=== PATIENT | male | born 1960 | race Hispanic/Latino ===

== ENCOUNTER 2018-05-30 13:08 | Emergency (ER) | payer MEDICARE, OTHER ==
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
--- NOTE | 2018-05-30 18:13 | Magnetic Resonance Report ---
FINAL REPORT EXAM: MR BRAIN WO CON HISTORY: head injury with possible subdural hemorrhage anterior to left temporal lobe in left tempor al fossa, ER INPATIENT TECHNIQUE: Multiplanar multisequence brain MR imaging without IV contrast. PRIORS: Head CT 05/30/2018 FINDINGS: Density on CT in the anterior left temporal fossa corresponds to a prominent extra-axial vein. No MRI evidence of hemorrhage. The included air filled sinuses contain no acute fluid level. Foci of hyperintensity in the cerebral white matter, while nonspecific, are present and usually attri buted to chronic ischemic gliosis. It can occur secondary to the normal aging process, hypertension, vasculitis, migraine related changes, or arterial sclerotic vascular disease. The differential includ es any cause of gliosis as well as demyelination in the appropriate clinical setting. There is ventricular and sulcal prominence compatible with global symmetric cerebrocortical atrophy. The brain is without mass, mass effect, hemorrhage, or acute infarct. There are no areas of brain res tricted diffusion to suggest an acute ischemic infarct. There is no midline shift or brain edema. IMPRESSION: No acute CVA, hemorrhage, or brain mass Density on CT in the anterior left temporal fossa corresponds to a prominent extra-axial vein.
[2018-05-30 18:45] VITALS: BP 154/74
== END 2018-05-30 18:52 | disposition home or self-care (01) ==
LOC: ED 13:08
DX: R51 Headache (principal); I10 Essential (primary) hypertension; E11.40 Type 2 diabetes mellitus with diabetic neuropathy, unspecified; F31.9 Bipolar disorder, unspecified; F20.9 Schizophrenia, unspecified; K21.9 Gastro-esophageal reflux disease without esophagitis; Z86.711 Personal history of pulmonary embolism
CPT/HCPCS: 70450; 70551; 99283

== ENCOUNTER 2019-07-17 02:33 | Inpatient (IN) | payer MEDICARE ==
[2019-07-17] MEDS ORDERED: SODIUM CHLORIDE 0.9% 1000 ML 1,000 ML IV ONE ×2 (03:11→04:31)
[2019-07-17 03:52] LABS: Hematocrit 30.8 % (35.5-45.6); Hemoglobin 10.9 gm/dl (11.8-15.2); Mean Corpuscular HGB Conc 35 % (32-34); Mean Corpuscular Volume 91 fl (84-94); Platelet Count 226 K/mm3 (140-440); Red Blood Count 3.37 M/mm3 (3.65-5.03); Red Cell Distribution Width 15.9 % (13.2-15.2)
[2019-07-17 04:04] LABS: INR 1.06 (0.87-1.13)
[2019-07-17 04:15] LABS: Albumin 3.5 g/dL (3.9-5); Calcium 9.8 mg/dL (8.4-10.2)
[2019-07-17] MEDS ORDERED: DEXTROSE 50% IN WATER (25GM) 50 ML SYRINGE IV ONE (04:30)
[2019-07-17] MEDS ORDERED: SODIUM BICARB 8.4% 50 MEQ/50 ML SYRINGE IV ONE (04:30)
[2019-07-17] MEDS ORDERED: INSULIN REGULAR, HUMAN 100 UNITS/1 ML IV ONE (04:30)
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
[2019-07-17 04:39] LABS: Anisocytosis 1+; Band Neutrophils # (Manual) 0.4 K/mm3; Basophils % (Manual) 0 % (0.0-1.8); Eosinophils % (Manual) 0 % (0.0-4.3); Total Cells Counted 100
[2019-07-17 04:40] LABS: Platelet Estimate Consistent w Auto
[2019-07-17] MEDS ORDERED: KETOROLAC 30 MG/1 ML INJ IV ONE (05:13)
--- NOTE | 2019-07-17 05:23 | Cat Scan Report ---
CT ABDOMEN AND PELVIS WITH CONTRAST INDICATION / CLINICAL INFORMATION: Pt complains of an abd pain with G.I. bleed. TECHNIQUE: Axial CT images were obtained through the abdomen and pelvis after 100 mL Omnipaque [address] scans at this location are performed using CT dose reduction for ALARA by means of automated exposure control. COMPARISON: Ultrasound dated 04/20/07 FINDINGS: LOWER CHEST: No significant abnormality. LIVER: Liver appears nodular and heterogeneous with mild enlargement of the caudate lobe likely repre senting hepatic cirrhosis. There is recanalization of the periumbilical vein. Portal vein appears pat ent but there are varices in the gastrohepatic ligament and posterior gastric varices. GALLBLADDER: Surgically absent. There is a spilled gallstone adjacent to the right lobe of the liver. BILE DUCTS: No significant abnormality. PANCREAS: No significant abnormality. SPLEEN: No significant abnormality. ADRENALS: Left adrenal nodule containing macroscopic fat characteristic of adrenal myelolipoma. This lesion measures 3.9 x 3.7 x 3.5 cm. Right adrenal gland is normal. RIGHT KIDNEY and URETER: No significant abnormality. LEFT KIDNEY and URETER: No significant abnormality. STOMACH and SMALL BOWEL: Mild thickening and inflammation in the region of the pylorus versus duodena l bulb possibly representing peptic ulcer. No extraluminal gas or fluid collection. No small bowel ab normality. COLON: No significant abnormality. APPENDIX: No significant abnormality. PERITONEUM: No free fluid. No free air. No fluid collection. LYMPH NODES: No significant adenopathy. AORTA and ARTERIES: Mild atherosclerotic calcification without acute abnormality. IVC and VEINS: No significant abnormality. URINARY BLADDER: No significant abnormality. REPRODUCTIVE ORGANS: No significant abnormality. ADDITIONAL FINDINGS: None. SKELETAL SYSTEM: No significant abnormality. IMPRESSION: 1. Mild thickening and inflammation in the region of the pylorus versus duodenal bulb possibly repres enting peptic ulcer. No CT evidence for perforation or abscess. 2. 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 3. Prior cholecystectomy with a spilled gallstone adjacent to the right lobe of the liver. 4. Benign left adrenal myelolipoma. Signer Name: Kiara Burdick MD Signed: 07/17/2019 5:18 AM Workstation Name: [id number]
[2019-07-17] MEDS ORDERED: SODIUM CHLORIDE 0.9% 1000 ML 1,000 ML IV SCH (05:45)
[2019-07-17] MEDS: NORepinephrine/NS 4 MG-250 ML 4 MG/250 ML BAG IV SCH ×3 (07:20→15:08)
[2019-07-17 07:50] LABS: Hematocrit 23.5 % (35.5-45.6)
[2019-07-17 08:14] LABS: Albumin 2.6 g/dL (3.9-5); Calcium 8.4 mg/dL (8.4-10.2)
[2019-07-17] MEDS ORDERED: SODIUM CHLORIDE 0.9% 500 ML 500 ML IV ONE ×2 (08:22→10:12)
[2019-07-17] MEDS ORDERED: PANTOPRAZOLE 40 MG INJ IV ONE ×2 (08:23→10:06)
--- NOTE | 2019-07-17 08:27 | History and Physical Report ---
History of Present Illness Date of examination: 07/17/19 Date of admission: 07/17/19 Chief complaint: Acute rectal bleeding History of present illness: Patient is a 58-year-old male with history of hypertension, diabetes mellitus type 2, bipolar and schizophrenia presented to the hospital with history of acute rectal bleeding which started from last night. Patient states that has a history of chronic cramps abdominal pain. States his pain worsened after his cholecystectomy last year. Patient states for the last week he "cannot keep anything down except for [id number] and vitamins". Patient states he is not nauseous and he has not been vomiting but he states food "just will not go down". Patient states that last night he noticed blood with a bowel movement and today he has noticed some dizziness and did have a syncopal episode when trying to leave the bathroom after having a bloody bowel movement. He denies chest pain shortness of breath fevers or chills at this time. He decided to come to the ER for further evaluation and management. His initial lab work showed potassium of 6.2, elevated creatinine and hemoglobin of 10.9 which d ropped down to 8 this morning. Patient also developed hypotension and shortness of breath after having a large rectal bleeding while he was waiting in the ER room. Patient was immediately placed on central line, given 2 units of packed RBC, started on Levophed, IV fluid, GI was consulted in the ER.. Patient now getting admitted to ICU for further stabilization and management. Past Medical Hx - Past Medical History Previous Medical History?: Yes Hx Hypertension: Yes Hx Diabetes: Yes Hx Pulmonary Embolism: No Hx GERD: Yes Hx Seizures: Yes Hx Psychiatric Treatment: Yes (bipolar, schizophrenia) Additional medical history: herniated disc,neuropathy,concussions x2, shoulder dislocations - Surgical History Past Surgical History?: Yes Hx Cholecystectomy: Yes (may 11, 2019) - Social History Smoking Status: Never Smoker Substance Use Type: None -Family history Hx Hypertension: Yes Hx Diabetes: Yes Review of System: Constitutional: no fever, no chills, no weight loss Ears, eyes, nose, mouth and throat: no nasal congestion, no nasal discharge, no sinus pressure, no vision change, no red eye. Neck: No neck pain or rigidity. Cardiovascular: No chest pain, no orthopnea, no palpitations, no leg swelling Respiratory: No shortness of breath, no cough, no congestion, no wheezing Gastrointestinal: + abdominal pain, + rectal bleeding, + nausea, no vomiting Genitourinary : no dysuria, no hematuria Musculoskeletal: no joint swelling or muscle ache Integumentary: no rash, no pruritis Neurological: no parathesias, no numbness, no tingling Endocrine: no cold or heat intolerance, no polyuria or polydipsia Hematologic/Lymphatic: no easy bruising, no easy bleeding, no gland swelling Allergic/Immunologic: no urticaria, no angioedema. Medications and Allergies Allergies Allergy/AdvReac Type Severity Reaction Status Date / Time No Known Allergies Allergy Verified 07/17/19 05:52 Home Medications Medication Instructions Recorded Confirmed Last Taken Type Atorvastatin [Lipitor] 40 mg PO QHS 08/27/13 12/04/13 12/04/13 04:30 History 40 Azithromycin [Zithromax Z-LAURA] 250 mg PO DAILY #6 tablet 08/27/13 12/04/13 Unknown Rx Divalproex ER [Depakote ER] 2,500 mg PO QDAY 08/27/13 12/04/13 12/03/13 20:00 History 2500 Esomeprazole Magnesium [Nexium] 40 mg PO QDAY 08/27/13 12/04/13 12/04/13 04:30 History 40 FLUoxetine [Prozac] 20 mg PO QDAY 08/27/13 12/04/13 12/04/13 04:30 History 20 Ibuprofen [Motrin 800 MG tab] 800 mg PO Q8H PRN #30 tablet 08/27/13 12/04/13 12/04/13 04:30 Rx 800 Lisinopril [Zestril] 30 mg PO QDAY 08/27/13 12/04/13 12/03/13 20:00 History 30 Metformin HCl [Glumetza] 1,000 mg PO BID 08/27/13 12/04/13 12/03/13 20:00 History 1000 dilTIAZem CD [Cardizem Cd] 120 mg PO BID 08/27/13 12/04/13 12/03/13 20:00 History 120 glyBURIDE [Diabeta] 5 mg PO DAILY 08/27/13 12/04/13 12/03/13 20:00 History 5 Ondansetron [Zofran] 4 mg PO Q8HR PRN #15 tablet 12/04/13 Unknown Rx oxyCODONE /ACETAMINOPHEN [Percocet 1 tab PO Q6HR PRN #15 tablet 12/04/13 Unknown Rx 5/325] Butalb/Acetamin/Caff 50-325-40 1 tab PO Q8HR PRN #30 tablet 05/30/18 Unknown Rx [Fioricet] Ibuprofen [Motrin 800 MG tab] 800 mg PO TID PRN #30 tablet 05/30/18 Unknown Rx Dicyclomine [Bentyl] 20 mg PO QID PRN #20 tablet 06/20/19 Unknown Rx Active Meds: Active Medications Sodium Chloride (Nacl 0.9% 1000 Ml) 1,000 mls @ 125 mls/hr IV DIRECT TEGAN Norepinephrine (Levophed Drip 4 Mg/Ns 250 Ml) 4 mg in 250 mls @ 7.5 mls/hr IV TITR TEGAN; Protocol Last Admin: 07/17/19 07:20 Dose: 2 mcg/min, 7.5 mls/hr Documented by: Vasopressin 20 unit/ Sodium (Chloride) 101 mls @ 9.09 mls/hr IV TITR TEGAN; Protocol Stop: 07/17/19 23:00 Vasopressin 20 unit/ Sodium (Chloride) 101 mls @ 9.09 mls/hr IV TITR TEGAN; Protocol Sodium Chloride (Nacl 0.9% 500 Ml) 500 mls @ 0 mls/hr IV ONCE ONE Stop: 07/17/19 08:25 Exam - Physical Exam Narrative exam: GENERAL: well-developed short stature obese white male lying on bed appeared to be in mild discomfort. HEENT: Normocephalic. Atraumatic. No conjunctival congestion or icterus. Patient has moist mucous membranes. NECK: Supple. Trachea midline. CHEST/LUNGS: Clear to auscultated bilaterally, breathing nonlabored. No wheezes crackles or rhonchi. HEART/CARDIOVASCULAR: Regular in rate and rhythm. S1 and S2 positive. ABDOMEN: Abdomen is soft, + diffuse tender. Patient has normal bowel sounds. SKIN: There is no rash. Warm and dry. NEURO: No focal motor deficit. Follows command. MUSCULOSKELETAL: No joint effusion or tenderness. EXTRIMITY: No edema, no cyanosis or clubbing. PSYCH: Cooperative. - Constitutional Vitals: Temp Pulse Resp BP Pulse Ox 98 F 95 H 22 85/51 98 07/17/19 03:07 04/15/20 06:45 07/17/19 06:45 07/17/19 06:45 07/17/19 03:07 Results - Labs CBC & Chem 7: 07/18/19 04:20 07/17/19 07:22 Labs: Abnormal lab results 07/17/19 07/17/19 07/17/19 Range/Units 03:34 03:34 07:22 WBC 13.9 H (4.5-11.0) K/mm3 RBC 3.37 L (3.65-5.03) M/mm3 Hgb 10.9 L 8.0 L (11.8-15.2) gm/dl Hct 30.8 L 23.5 L D (35.5-45.6) % MCHC 35 H (32-34) % RDW 15.9 H (13.2-15.2) % Seg Neuts % (Manual) 80.0 H (40.0-70.0) % Lymphocytes % (Manual) 11.0 L (13.4-35.0) % Seg Neutrophils # Man 11.1 H (1.8-7.7) K/mm3 Sodium 118 L* (137-145) mmol/L Potassium 6.2 H* (3.6-5.0) mmol/L Chloride 83.0 L (98-107) mmol/L Carbon Dioxide (22-30) mmol/L BUN 31 H (9-20) mg/dL Glucose 114 H (75-100) mg/dL Total Protein (6.3-8.2) g/dL Albumin 3.5 L (3.9-5) g/dL 07/17/19 Range/Units 07:22 WBC (4.5-11.0) K/mm3 RBC (3.65-5.03) M/mm3 Hgb (11.8-15.2) gm/dl Hct (35.5-45.6) % MCHC (32-34) % RDW (13.2-15.2) % Seg Neuts % (Manual) (40.0-70.0) % Lymphocytes % (Manual) (13.4-35.0) % Seg Neutrophils # Man (1.8-7.7) K/mm3 Sodium 122 L (137-145) mmol/L Potassium 5.5 H (3.6-5.0) mmol/L Chloride 87.9 L (98-107) mmol/L Carbon Dioxide 17 L (22-30) mmol/L BUN 34 H (9-20) mg/dL Glucose 146 H (75-100) mg/dL Total Protein 4.3 L D (6.3-8.2) g/dL Albumin 2.6 L (3.9-5) g/dL Assessment and Plan Acute lower GI bleed -Patient having active rectal bleeding -Hb dropped as low as ~ 8 -Emergently transfused 2 units of packed RBC, also getting IV fluid -GI has been consulted for emergent endoscopy Severe symptomatic anemia -Due to acute GI bleed -Status post 2 units of packed RBC transfusion, continue IV fluid, monitor H&H SIRS due to active GI bleed, need to rule out infectious cause -We will get a UA and blood culture Syncope, likely vasovagal due to severe dehydration from acute GI bleed -CT head unremarkable, continue supportive care with IV fluid, frequent neuro check VELIA likely due to hypovolemia -Continue to monitor BMP, if renal function continues to decline will consider consulting nephrology Hyperkalemia, likely due to declining renal function -K was 6.2 on admission, continue to monitor Hypotensive shock, due to active GI bleeding -Continue Levophed, IV fluid, transfuse as needed -Consulted critical care -Status post 2 unit of packed RBC transfusion Diabetes mellitus type 2, continue SSI h/o schizophrenia/bipolar disorder - will cont home meds when can take po meds DVT prophylaxis, SCD The high probability of a clinically significant, sudden or life threatening deterioration of the [GI, CVS] system(s) required my full and direct attention, intervention and personal management. The aggregate critical care time was [45] minutes. This time is in addition to time spent performing reported procedures but includes the following: [x] Data Review and interpretation [x] Patient assessment and monitoring of vital signs [x] Documentation [x] Medication orders and management
[2019-07-17] MEDS ORDERED: LIDOCAINE (1%) 10 MG/1 ML VIAL 20 ML MDV ONE (08:29)
[2019-07-17] MEDS ORDERED: SODIUM CHLORIDE 0.9% 250ML 250 ML ONE ×2 (08:38→08:50)
[2019-07-17] MEDS ORDERED: SODIUM CHLORIDE 0.9% 500 ML 500 ML IV SCH (09:00)
[2019-07-17] MEDS ORDERED: VASOPRESSIN 20 UNIT in SODIUM CHLORIDE 0.9% 100 ML IV SCH ×2 (09:00→11:00)
--- NOTE | 2019-07-17 09:08 | Event Note ---
Date: 07/17/19 This is a 58-year-old man who has been admitted to the hospitalist service. I do not yet see an admitting note on the system. Apparently, he required pressors. I do see his serial hemoglobins which show a drop from 10.9-8. I was asked by the nurse to see the patient as his condition was deteriorating and a central line was thought to be necessary. The nurse had already called Dr. Damon, the hospitalist. A second pressor was ordered, that is, vasopressin. I have reviewed the patient's CT examination which indicates the presence of v arices and chronic cirrhosis. I do not know whole lot further about his presentation or history. On examination the patient is able to tell me his name. He is lethargic but protecting his airway. Nurses report to me blood clots per rectum. They also state he has had some dark stool. There is no stool available for my inspection. There is a smell which may be consistent with melena. There is also some minimal dark brown feces on the patient's thigh. Physical exam Patient is extremely pale HEENT no gross icterus Neck supple no meningismus Cardiovascular patient is clamped down and very pale. Regular rhythm and rate without murmur Chest clear to auscultation GI hepatomegaly mildly distended not grossly tender Musculoskeletal exam very pale without acute deformity Neurological exam no gross focal deficits Impression Hemorrhagic shock Varices Chronic liver disease Plan I called the blood bank. I ordered an emergency transfusion of 2 units. I ordered a repeat CBC. I placed a central line in the right femoral vein without difficulty. I spoke to Dr. Ponce the learning design specialist who will be seeing this patient. I spoke to Dr. Liz the GI specialist who will be seeing this patient. I ordered octreotide. I think the patient should come off the second pressor. I think he should improve with blood products. Critical care and GI to see patient. I have ordered a CT angiogram of the patient's abdomen and pelvis assuming he is stable enough to have this done. He will require serial monitoring and obviously further care by the hospitalist service and consultants. Procedure Right femoral vein triple-lumen placement The right femoral triangle was prepped and draped in the usual sterile fashion. Was anesthetized with 5 cc of lidocaine. Using Seldinger technique the right femoral vein was successfully catheterized and a triple lumen catheter was placed. Antibiotic disc applied. Sutured in with nylon. I izabel a CBC. Dark nonpulsatile blood was noted. Procedure was well-tolerated. Critical care time with this patient 60 minutes
--- NOTE | 2019-07-17 09:41 | XRay Report ---
CHEST 1 VIEW INDICATION: sob. COMPARISON: none FINDINGS: SUPPORT DEVICES: None. HEART / MEDIASTINUM: No significant abnormality. LUNGS / PLEURA: No significant pulmonary or pleural abnormality. No pneumothorax. ADDITIONAL FINDINGS: IMPRESSION: 1. No acute cardiopulmonary disease Signer Name: Suhail Sousa MD Signed: 07/17/2019 9:36 AM Workstation Name: [id number]
[2019-07-17] MEDS ORDERED: SODIUM CHLORIDE 0.9% 1000 ML 1,000 ML ONE ×4 (10:06→18:15)
[2019-07-17] MEDS: OCTREOTIDE 500 MCG in SODIUM CHLORIDE 0.9% 100 ML IV SCH (10:13)
[2019-07-17] MEDS ORDERED: NORepinephrine/NS 4 MG-250 ML 4 MG/250 ML BAG IV ONE ×2 (10:14→14:15)
[2019-07-17] MEDS ORDERED: LIDOCAINE (1%) 10 MG/1 ML VIAL 20 ML MDV INFILTRATI ONE (10:41)
[2019-07-17 11:49] LABS: Hemoglobin TNR gm/dl (11.8-15.2); Red Blood Count TNR M/mm3 (3.65-5.03)
[2019-07-17 11:50] LABS: Hematocrit TNR % (35.5-45.6); Lymphocytes % (Auto) TNR % (13.4-35.0); Mean Corpuscular HGB Conc TNR % (32-34); Mean Corpuscular Volume TNR fl (84-94); Mean Platelet Volume TNR fl (6-12); Monocytes % (Auto) TNR % (0.0-7.3); Platelet Count TNR K/mm3 (140-440); Red Cell Distribution Width TNR % (13.2-15.2)
[2019-07-17 11:51] LABS: Basophils # (Auto) TNR K/mm3 (0.0-0.1); Basophils % (Auto) TNR % (0.0-1.8); Eosinophils # (Auto) TNR K/mm3 (0.0-0.4); Eosinophils % (Auto) TNR % (0.0-4.3); Lymphocytes # (Auto) TNR K/mm3 (1.2-5.4); Monocytes # (Auto) TNR K/mm3 (0.0-0.8)
[2019-07-17 12:28] LABS: Hematocrit 32.8 % (35.5-45.6); Hemoglobin 11.1 gm/dl (11.8-15.2)
--- NOTE | 2019-07-17 13:34 | Anesthesia Consultation ---
Anesthesia Consult and Med Hx Date of service: 07/17/19 - Airway Anesthetic Teeth Evaluation: Poor ROM Head & Neck: Adequate Mental/Hyoid Distance: Adequate Mallampati Class: Class I Intubation Access Assessment: Probably Good - Pulmonary Exam CTA: Yes - Cardiac Exam Cardiac Exam: No Murmur (irregular rhythm) - Pre-Operative Health Status ASA Pre-Surgery Classification: ASA4, Emergency Proposed Anesthetic Plan: MAC - Pulmonary Hx Respiratory Symptoms: No - Cardiovascular System Hx Hypertension: Yes Hx Heart Attack/AMI: No (hx "mild" CHF per patient) Hx Percutaneous Transluminal Coronary Angioplasty (PTCA): No Hx Cardia Arrhythmia: Yes (a-fib) Hx Pacemaker: No - Central Nervous System Hx Seizures: Yes Hx Psychiatric Problems: Yes (bipolar disorder) - Endocrine Hx Renal Disease: Yes (hyperkalemia (improved), hyponatremia, VELIA) Hx Cirrhosis: Yes Hx Insulin Dependent Diabetes: No Hx Non-Insulin Dependent Diabetes: No Hx Thyroid Disease: No - Hematic Hx Anemia: Yes (2/2 GI Bleed) - Other Systems Hx Obesity: Yes (BMI 36) - Additional Comments Anesthesia Medical History Comments: Presented with melena and HD instability requiring pressors. Significant electrolyte abnormalities noted. Now off pressors, s/p blood transfusion. Scheduled for EGD, possible colonoscopy.
[2019-07-17] MEDS ORDERED: KETAMINE/STERILE WATER 50 MG/ML SYRINGE ONE (13:51)
[2019-07-17] MEDS ORDERED: MIDAZOLAM 2 MG/2 ML INJ ONE (13:51)
[2019-07-17] MEDS ORDERED: LIDOCAINE MPF (2%) 20 MG/1 ML VIAL 5 ML ONE (13:51)
--- NOTE | 2019-07-17 14:25 | Anesthesia Day of Surgery ---
Anesthesia Day of Surgery - Day of Surgery Patient Examined: Yes Patient H&P Reviewed: Yes Patient is NPO: Yes
--- NOTE | 2019-07-17 14:57 | Consultation ---
History of Present Illness Consult date: 07/17/19 Requesting physician: NICANOR WILLIAMSON Reason for consult: other (Acute Hypoxemic Resp Failure; Acute G.I. Bleed; Shock) History of present illness: PULMONARY/CCM CONSULT NOTE (Full dictation # [id number]) Please see dictated notes for full details Medications and Allergies Allergies Allergy/AdvReac Type Severity Reaction Status Date / Time No Known Allergies Allergy Verified 07/17/19 05:52 Home Medications Medication Instructions Recorded Confirmed Last Taken Type Atorvastatin [Lipitor] 40 mg PO QDAY 08/27/13 07/19/19 12/04/13 04:30 History 40 Divalproex ER [Depakote ER] 2,500 mg PO QHS 08/27/13 07/19/19 12/03/13 20:00 History 2500 FLUoxetine [Prozac] 20 mg PO QDAY 08/27/13 07/19/19 12/04/13 04:30 History 20 Lisinopril [Zestril] 30 mg PO QHS 08/27/13 07/19/19 12/03/13 20:00 History 30 Metformin HCl [Glumetza] 1,000 mg PO BID 08/27/13 07/19/19 12/03/13 20:00 History 1000 Empagliflozin [Jardiance] 25 mg PO QDAY 07/19/19 07/19/19 Unknown History Famotidine [Pepcid] 20 mg PO AC PRN 07/19/19 07/19/19 Unknown History Multivitamin [One-Daily 1 each PO QDAY 07/19/19 07/19/19 Unknown History Multi-Vitamin] Sitagliptin Phosphate [Januvia] 100 mg PO QDAY 07/19/19 07/19/19 Unknown History dilTIAZem HCl [Diltiazem 24Hr ER 120 mg PO QDAY 07/19/19 07/19/19 Unknown History (Xr)] Active Meds: Active Medications Norepinephrine (Levophed Drip 4 Mg/Ns 250 Ml) 4 mg in 250 mls @ 7.5 mls/hr IV TITR TEGAN; Protocol Last Titration: 07/17/19 13:02 Dose: 20 mcg/min, 75 mls/hr Documented by: Vasopressin 20 unit/ Sodium (Chloride) 101 mls @ 9.09 mls/hr IV TITR TEGAN; Protocol Sodium Chloride (Nacl 0.9% 500 Ml) 500 mls @ 0 mls/hr IV ONCE TEGAN Stop: 07/17/19 18:00 Octreotide Acetate 500 mcg/ (Sodium Chloride) 101 mls @ 5.05 mls/hr IV TITR TEGAN; Protocol Last Admin: 07/17/19 10:13 Dose: 25 mcg/hr, 5.05 mls/hr Documented by: Sodium Chloride (Nacl 0.9% 1000 Ml) 1,000 mls @ 50 mls/hr IV DIRECT TEGAN Physical Examination Vital signs: Vital Signs BP 87/48 07/17/19 02:44 Results - Laboratory Findings CBC and BMP: 07/19/19 03:13 07/19/19 03:13 PT/INR, D-dimer PT 13.9 Sec. (12.2-14.9) 07/17/19 03:34 INR 1.06 (0.87-1.13) 07/17/19 03:34 Abnormal lab findings: Abnormal Labs 07/17/19 07/17/19 07/17/19 03:34 03:34 03:34 WBC 13.9 H RBC 3.37 L Hgb 10.9 L Hct 30.8 L MCHC 35 H RDW 15.9 H Seg Neuts % (Manual) 80.0 H Lymphocytes % (Manual) 11.0 L Seg Neutrophils # Man 11.1 H Sodium 118 L* Potassium 6.2 H* Chloride 83.0 L Carbon Dioxide BUN 31 H Glucose 114 H Total Protein Albumin 3.5 L Crossmatch See Detail 07/17/19 07/17/19 07/17/19 07:22 07:22 12:16 WBC RBC Hgb 8.0 L 11.1 L D Hct 23.5 L D 32.8 L D MCHC RDW Seg Neuts % (Manual) Lymphocytes % (Manual) Seg Neutrophils # Man Sodium 122 L Potassium 5.5 H Chloride 87.9 L Carbon Dioxide 17 L BUN 34 H Glucose 146 H Total Protein 4.3 L D Albumin 2.6 L Crossmatch
[2019-07-17] MEDS ORDERED: SODIUM CHLORIDE 0.9% 500 ML 500 ML IV NR (15:10)
[2019-07-17] MEDS ORDERED: ROCURONIUM 50 MG/5 ML INJ IV ONE ×2 (15:19→15:20)
[2019-07-17] MEDS ORDERED: SODIUM CHLORIDE 0.9% 100 ML ONE ×2 (15:27→15:36)
--- NOTE | 2019-07-17 15:40 | Consultation ---
REFERRING PHYSICIAN: Milli Borrero MD INDICATION: GI bleed. HISTORY OF PRESENT ILLNESS: The patient is a 58-year-old white male who presents for GI bleed. The patient reports 24 hours of bright red blood per rectum and clots and then later today in the Emergency Room, he was noted to have black tarry stools. The patient denies a history of GI bleed in the past. He denies nausea, vomiting. Denies any other specific GI complaints. The patient has had a recent history of some abdominal pain, status post cholecystectomy in the past. Denies any other specific complaints. PAST MEDICAL HISTORY: 1. Hypertension. 2. PE. 3. GERD. 4. Neuropathy. MEDICATIONS: Reviewed and updated in chart. ALLERGIES: No known drug allergies. SOCIAL HISTORY: Denies alcohol, tobacco or drug abuse. FAMILY HISTORY: Negative for colon cancer, IBD, or liver disease. REVIEW OF SYSTEMS: GENERAL: Reports some weakness. HEENT: No visual complaints or tinnitus. PULMONARY: No shortness of breath. No cough. No chest pain. GASTROINTESTINAL: Reports rectal bleeding. All points of 13-point review of systems otherwise negative. PHYSICAL EXAMINATION: VITAL SIGNS: Temperature of 98.7, pulse 100, respirations 18, blood pressure 116/48. GENERAL: Fairly pale looking white male in no acute distress. HEENT: Pupils equal, round and reactive. PULMONARY: Clear. CARDIOVASCULAR: Regular rhythm. Normal S1, S2. ABDOMEN: Positive bowel sounds, soft. SKIN: No obvious rashes. LABORATORY DATA: Pertinent for white count 13.9, hemoglobin and hematocrit of 10.9 and 30.8, platelet count of 226. Chem-7; sodium of 122, potassium 5.5, chloride 88, CO2 17, BUN and creatinine of 34 and 1.3. ASSESSMENT: A 58-year-old male with past medical history noted above, now presents with signs of gastrointestinal bleed with initially noted bloody clots and now black tarry stools with clots. Concern for both upper and lower GI pathology. PLAN: 1. Follow hematocrit and transfuse as needed. 2. It should be noted that the patient had a CT scan of abdomen and pelvis with contrast in the Emergency Room yesterday, which showed some thickening of the duodenal bulb, which may represent an ulcer. Whether or not this could be the source of bleeding as possible. 3. PPI IV drip. 4. If there is a vague representation that the patient may have cirrhosis, then we will start on octreotide for now. 5. EGD with possible colonoscopy today. 6. Further recommendation based on progress and results of the above. JOB# [id number] CAB/NTS
[2019-07-17] MEDS ORDERED: fentaNYL 250 MCG/5 ML INJ ONE (15:48)
[2019-07-17] MEDS ORDERED: ESMOLOL 100 MG/10 ML INJ IV ONE (15:48)
[2019-07-17] MEDS ORDERED: propofoL 200 MG/20 ML VIAL IV ONE (15:48)
[2019-07-17] MEDS ORDERED: PHENYLEPHRINE/NS 1,000 MCG/10 ML SYRINGE (OR USE) IV ONE (15:49)
[2019-07-17] MEDS ORDERED: HEPARIN/NS 5000 UNIT/500ML 1,000 ML IR ONE (15:53)
--- NOTE | 2019-07-17 15:53 | Consultation ---
History of Present Illness - Reason for Consult Consult date: 07/17/19 Massive upper GI bleed Requesting physician: MACRINA LIZ - History of Present Illness Patient is a 58-year-old male with history of hypertension, diabetes mellitus type 2, bipolar and schizophrenia presented to the hospital with history of acute rectal bleeding which started from last night. Unable to interview patient as he has been intubated and sedated for his GI procedure. The was being evaluated by GI for GI bleed. Dr. Liz performed an endoscopy demonstrating a large ulcer in the gastric antrum, near the duodenum. While performing endoscopy to control the ulcer, the ulcer became uncontrolled and the patient began to hemodynamically decline. I was then contacted and called the IR team in to assist with angiographic control. Surgery was then consulted. At this point, patient is already received 2 units of emergency release blood. He is receiving his third and fourth unit. He is on 1 pressor at the time. His blood pressure is starting to stabalize. There is no family available for further information. - Past Medical History Previous Medical History?: Yes Hx Hypertension: Yes Hx Diabetes: Yes Hx Pulmonary Embolism: No Hx GERD: Yes Hx Seizures: Yes Hx Psychiatric Treatment: Yes (bipolar, schizophrenia) Additional medical history: herniated disc,neuropathy,concussions x2, shoulder dislocations - Surgical History Past Surgical History?: Yes Hx Cholecystectomy: Yes (may 11, 2019) - Social History Smoking Status: Never Smoker Substance Use Type: None -Family history Hx Hypertension: Yes Hx Diabetes: Yes Medications and Allergies Allergies Allergy/AdvReac Type Severity Reaction Status Date / Time No Known Allergies Allergy Verified 07/17/19 05:52 Home Medications Medication Instructions Recorded Confirmed Last Taken Type Atorvastatin [Lipitor] 40 mg PO QHS 08/27/13 12/04/13 12/04/13 04:30 History 40 Azithromycin [Zithromax Z-LAURA] 250 mg PO DAILY #6 tablet 08/27/13 12/04/13 Unknown Rx Divalproex ER [Depakote ER] 2,500 mg PO QDAY 08/27/13 12/04/13 12/03/13 20:00 History 2500 Esomeprazole Magnesium [Nexium] 40 mg PO QDAY 08/27/13 12/04/13 12/04/13 04:30 History 40 FLUoxetine [Prozac] 20 mg PO QDAY 08/27/13 12/04/13 12/04/13 04:30 History 20 Ibuprofen [Motrin 800 MG tab] 800 mg PO Q8H PRN #30 tablet 08/27/13 12/04/13 12/04/13 04:30 Rx 800 Lisinopril [Zestril] 30 mg PO QDAY 08/27/13 12/04/13 12/03/13 20:00 History 30 Metformin HCl [Glumetza] 1,000 mg PO BID 08/27/13 12/04/13 12/03/13 20:00 H istory 1000 dilTIAZem CD [Cardizem Cd] 120 mg PO BID 08/27/13 12/04/13 12/03/13 20:00 Histor y 120 glyBURIDE [Diabeta] 5 mg PO DAILY 08/27/13 12/04/13 12/03/13 20:00 History 5 Ondansetron [Zofran] 4 mg PO Q8HR PRN #15 tablet 12/04/13 Unknown Rx oxyCODONE /ACETAMINOPHEN [Percocet 1 tab PO Q6HR PRN #15 tablet 12/04/13 Unknown Rx 5/325] Butalb/Acetamin/Caff 50-325-40 1 tab PO Q8HR PRN #30 tablet 05/30/18 Unknown Rx [Fioricet] Ibuprofen [Motrin 800 MG tab] 800 mg PO TID PRN #30 tablet 05/30/18 Unknown Rx Dicyclomine [Bentyl] 20 mg PO QID PRN #20 tablet 06/20/19 Unknown Rx Active Meds: Active Medications Norepinephrine (Levophed Drip 4 Mg/Ns 250 Ml) 4 mg in 250 mls @ 7.5 mls/hr IV TITR TEGAN; Protocol Last Admin: 07/17/19 15:08 Dose: 20 mcg/min, 75 mls/hr Documented by: Vasopressin 20 unit/ Sodium (Chloride) 101 mls @ 9.09 mls/hr IV TITR TEGAN; Protocol Sodium Chloride (Nacl 0.9% 500 Ml) 500 mls @ 0 mls/hr IV ONCE TEGAN Stop: 07/17/19 18:00 Octreotide Acetate 500 mcg/ (Sodium Chloride) 101 mls @ 5.05 mls/hr IV TITR TEGAN; Protocol Last Admin: 07/17/19 10:13 Dose: 25 mcg/hr, 5.05 mls/hr Documented by: Sodium Chloride (Nacl 0.9% 1000 Ml) 1,000 mls @ 50 mls/hr IV DIRECT TEGAN Sodium Chloride (Nacl 0.9% 500 Ml) 500 mls @ 0 mls/hr IV ONCE NR Stop: 07/17/19 23:59 Review of Systems ROS unobtainable: due to endotracheal tube, due to mental status Exam - Constitutional Vitals: Temp Pulse Resp BP Pulse Ox 98.3 F 101 H 18 124/48 100 07/17/19 14:29 07/17/19 15:43 07/17/19 14:29 07/17/19 15:43 07/17/19 15:43 General appearance: Present: severe distress (on pressors, intubated), obese (morbidly obese) - Respiratory Respiratory effort: other (intubated) - Abdominal General gastrointestinal: Present: other (distented) - Psychiatric Psychiatric: other (intubated) Results - Labs CBC & Chem 7: 07/17/19 12:16 07/17/19 07:22 Labs: Abnormal lab results 07/17/19 07/17/19 07/17/19 Range/Units 03:34 03:34 03:34 WBC 13.9 H (4.5-11.0) K/mm3 RBC 3.37 L (3.65-5.03) M/mm3 Hgb 10.9 L (11.8-15.2) gm/dl Hct 30.8 L (35.5-45.6) % MCHC 35 H (32-34) % RDW 15.9 H (13.2-15.2) % Seg Neuts % (Manual) 80.0 H (40.0-70.0) % Lymphocytes % (Manual) 11.0 L (13.4-35.0) % Seg Neutrophils # Man 11.1 H (1.8-7.7) K/mm3 Sodium 118 L* (137-145) mmol/L Potassium 6.2 H* (3.6-5.0) mmol/L Chloride 83.0 L (98-107) mmol/L Carbon Dioxide (22-30) mmol/L BUN 31 H (9-20) mg/dL Glucose 114 H (75-100) mg/dL Total Protein (6.3-8.2) g/dL Albumin 3.5 L (3.9-5) g/dL Crossmatch See Detail 07/17/19 07/17/19 07/17/19 Range/Units 07:22 07:22 12:16 WBC (4.5-11.0) K/mm3 RBC (3.65-5.03) M/mm3 Hgb 8.0 L 11.1 L D (11.8-15.2) gm/dl Hct 23.5 L D 32.8 L D (35.5-45.6) % MCHC (32-34) % RDW (13.2-15.2) % Seg Neuts % (Manual) (40.0-70.0) % Lymphocytes % (Manual) (13.4-35.0) % Seg Neutrophils # Man (1.8-7.7) K/mm3 Sodium 122 L (137-145) mmol/L Potassium 5.5 H (3.6-5.0) mmol/L Chloride 87.9 L (98-107) mmol/L Carbon Dioxide 17 L (22-30) mmol/L BUN 34 H (9-20) mg/dL Glucose 146 H (75-100) mg/dL Total Protein 4.3 L D (6.3-8.2) g/dL Albumin 2.6 L (3.9-5) g/dL Crossmatch - Imaging and Cardiology CT scan - abdomen: report reviewed, image reviewed Assessment and Plan 58-year-old cirrhotic with upper GI bleed from antral large ulceration on pressors, receiving blood products, who has been partially stabalized. I discussed the situation with Dr. Berger and we both believe that we should proceed with attempted IR control with angiography and embolization, and if unsusccessful, then possibly to OR, although the patient's comorbidities make his mortality even higher if he has to go to the OR. Recommend all pRBC be matched with FFP in a 1:1 ratio to prevent diluational coagulopathy. Will need platelets in a 1:2 ratio. (RBC:FFP:PLT 1:1:2). Will bring the patient to the pathology lab technician.
--- NOTE | 2019-07-17 15:54 | Consultation ---
History of Present Illness Consult date: 07/17/19 Reason for consult: other (GI bleed) Requesting physician: MACRINA LIZ Chief complaint: Passing clots since last night - History of present illness History of present illness: Patient is a 58-year-old male with history of hypertension, diabetes mellitus type 2, bipolar and schizophrenia presented to the hospital with history of acute rectal bleeding which started from last night. Unable to interview patient as he has been intubated and sedated for his GI procedure. Review of the records show that he has been complaining of chronic abdominal pain since his cholecystectomy last year. Recently he has had problems keeping food down. He denied nausea or vomiting to the staff. He had a bloody bowel movement last night and another one again in the ER today. Thereafter he developed hypotension and shortness of breath. Patient was immediately started on emergency release blood, pressors, IV fluids and GI was consulted. Dr. Liz attempted to do an endoscopy in the ER in hopes of controlling what was presumed to be an upper GI bleed. Per Dr. Liz, patient had a large ulcer in the antrum that was unable to be controlled endoscopically. Therefore interventional radiology and general surgery were consulted. At this point, patient is already received 2 units of emergency release blood. He is receiving his third and fourth unit. He is on 1 pressor at the time. His blood pressure is improving. There is no family available for further info rmation. In discussion with the staff, his past medical history may include coronary artery disease, congestive heart failure, and cirrhosis. Past History Past Medical History: atrial fib, CAD, diabetes, heart failure, hypertension, seizures, other (psychiatric hx) Past Surgical History: cholecystectomy Social history: alcohol abuse (history of - don't know about current use), other (unable to get info on rest) Family history: other (unknown) Medications and Allergies Allergies Allergy/AdvReac Type Severity Reaction Status Date / Time No Known Allergies Allergy Verified 07/17/19 05:52 Home Medications Medication Instructions Recorded Confirmed Last Taken Type Atorvastatin [Lipitor] 40 mg PO QHS 08/27/13 12/04/13 12/04/13 04:30 History 40 Azithromycin [Zithromax Z-LAURA] 250 mg PO DAILY #6 tablet 08/27/13 12/04/13 Unknown Rx Divalproex ER [Depakote ER] 2,500 mg PO QDAY 08/27/13 12/04/13 12/03/13 20:00 History 2500 Esomeprazole Magnesium [Nexium] 40 mg PO QDAY 08/27/13 12/04/13 12/04/13 04:30 History 40 FLUoxetine [Prozac] 20 mg PO QDAY 08/27/13 12/04/13 12/04/13 04:30 History 20 Ibuprofen [Motrin 800 MG tab] 800 mg PO Q8H PRN #30 tablet 08/27/13 12/04/13 12/04/13 04:30 Rx 800 Lisinopril [Zestril] 30 mg PO QDAY 08/27/13 12/04/13 12/03/13 20:00 History 30 Metformin HCl [Glumetza] 1,000 mg PO BID 08/27/13 12/04/13 12/03/13 20:00 History 1000 dilTIAZem CD [Cardizem Cd] 120 mg PO BID 08/27/13 12/04/13 12/03/13 20:00 Histo ry 120 glyBURIDE [Diabeta] 5 mg PO DAILY 08/27/13 12/04/13 12/03/13 20:00 History 5 Ondansetron [Zofran] 4 mg PO Q8HR PRN #15 tablet 12/04/13 Unknown Rx oxyCODONE /ACETAMINOPHEN [Percocet 1 tab PO Q6HR PRN #15 tablet 12/04/13 Unknown Rx 5/325] Butalb/Acetamin/Caff 50-325-40 1 tab PO Q8HR PRN #30 tablet 05/30/18 Unknown Rx [Fioricet] Ibuprofen [Motrin 800 MG tab] 800 mg PO TID PRN #30 tablet 05/30/18 Unknown Rx Dicyclomine [Bentyl] 20 mg PO QID PRN #20 tablet 06/20/19 Unknown Rx Active Meds: Active Medications Norepinephrine (Levophed Drip 4 Mg/Ns 250 Ml) 4 mg in 250 mls @ 7.5 mls/hr IV TITR TEGAN; Protocol Last Admin: 07/17/19 15:08 Dose: 20 mcg/min, 75 mls/hr Documented by: Vasopressin 20 unit/ Sodium (Chloride) 101 mls @ 9.09 mls/hr IV TITR TEGAN; Protocol Sodium Chloride (Nacl 0.9% 500 Ml) 500 mls @ 0 mls/hr IV ONCE TEGAN Stop: 07/17/19 18:00 Octreotide Acetate 500 mcg/ (Sodium Chloride) 101 mls @ 5.05 mls/hr IV TITR TEGAN; Protocol Last Admin: 07/17/19 10:13 Dose: 25 mcg/hr, 5.05 mls/hr Documented by: Sodium Chloride (Nacl 0.9% 1000 Ml) 1,000 mls @ 50 mls/hr IV DIRECT TEGAN Sodium Chloride (Nacl 0.9% 500 Ml) 500 mls @ 0 mls/hr IV ONCE NR Stop: 07/17/19 23:59 Review of Systems ROS unobtainable: due to endotracheal tube Exam Vital Signs BP 87/48 07/17/19 02:44 - General physical appearance Positive: obese, other (pale) - ENT Positive: other (intubated) - Respiratory Positive: normal expansion - Cardiovascular Rhythm: irregularly irregular - Extremities Extremity abnormal: pulses diminished, other (pale) - Abdomen Abdomen: Present: soft. Absent: distended, masses, guarding, rigid - Integumentary no rash, no growths Results - Labs 07/18/19 04:20 07/17/19 07:22 Abnormal lab results 07/17/19 07/17/19 07/17/19 Range/Units 03:34 03:34 03:34 WBC 13.9 H (4.5-11.0) K/mm3 RBC 3.37 L (3.65-5.03) M/mm3 Hgb 10.9 L (11.8-15.2) gm/dl Hct 30.8 L (35.5-45.6) % MCHC 35 H (32-34) % RDW 15.9 H (13.2-15.2) % Seg Neuts % (Manual) 80.0 H (40.0-70.0) % Lymphocytes % (Manual) 11.0 L (13.4-35.0) % Seg Neutrophils # Man 11.1 H (1.8-7.7) K/mm3 Sodium 118 L* (137-145) mmol/L Potassium 6.2 H* (3.6-5.0) mmol/L Chloride 83.0 L (98-107) mmol/L Carbon Dioxide (22-30) mmol/L BUN 31 H (9-20) mg/dL Glucose 114 H (75-100) mg/dL Total Protein (6.3-8.2) g/dL Albumin 3.5 L (3.9-5) g/dL Crossmatch See Detail 07/17/19 07/17/19 07/17/19 Range/Units 07:22 07:22 12:16 WBC (4.5-11.0) K/mm3 RBC (3.65-5.03) M/mm3 Hgb 8.0 L 11.1 L D (11.8-15.2) gm/dl Hct 23.5 L D 32.8 L D (35.5-45.6) % MCHC (32-34) % RDW (13.2-15.2) % Seg Neuts % (Manual) (40.0-70.0) % Lymphocytes % (Manual) (13.4-35.0) % Seg Neutrophils # Man (1.8-7.7) K/mm3 Sodium 122 L (137-145) mmol/L Potassium 5.5 H (3.6-5.0) mmol/L Chloride 87.9 L (98-107) mmol/L Carbon Dioxide 17 L (22-30) mmol/L BUN 34 H (9-20) mg/dL Glucose 146 H (75-100) mg/dL Total Protein 4.3 L D (6.3-8.2) g/dL Albumin 2.6 L (3.9-5) g/dL Crossmatch Diabetes panel 07/17/19 07/17/19 Range/Units 03:34 07:22 Sodium 118 L* 122 L (137-145) mmol/L Potassium 6.2 H* 5.5 H (3.6-5.0) mmol/L Chloride 83.0 L 87.9 L (98-107) mmol/L Carbon Dioxide 22 17 L (22-30) mmol/L BUN 31 H 34 H (9-20) mg/dL Creatinine 1.3 1.3 (0.8-1.5) mg/dL Glucose 114 H 146 H (75-100) mg/dL Calcium 9.8 8.4 (8.4-10.2) mg/dL AST 29 21 (5-40) units/L ALT 39 27 (7-56) units/L Alkaline Phosphatase 104 73 (35-129) units/L Total Protein 6.5 4.3 L D (6.3-8.2) g/dL Albumin 3.5 L 2.6 L (3.9-5) g/dL Calcium panel 07/17/19 07/17/19 Range/Units 03:34 07:22 Calcium 9.8 8.4 (8.4-10.2) mg/dL Albumin 3.5 L 2.6 L (3.9-5) g/dL Pituitary panel 07/17/19 07/17/19 Range/Units 03:34 07:22 Sodium 118 L* 122 L (137-145) mmol/L Potassium 6.2 H* 5.5 H (3.6-5.0) mmol/L Chloride 83.0 L 87.9 L (98-107) mmol/L Carbon Dioxide 22 17 L (22-30) mmol/L BUN 31 H 34 H (9-20) mg/dL Creatinine 1.3 1.3 (0.8-1.5) mg/dL Glucose 114 H 146 H (75-100) mg/dL Calcium 9.8 8.4 (8.4-10.2) mg/dL Adrenal panel 07/17/19 07/17/19 Range/Units 03:34 07:22 Sodium 118 L* 122 L (137-145) mmol/L Potassium 6.2 H* 5.5 H (3.6-5.0) mmol/L Chloride 83.0 L 87.9 L (98-107) mmol/L Carbon Dioxide 22 17 L (22-30) mmol/L BUN 31 H 34 H (9-20) mg/dL Creatinine 1.3 1.3 (0.8-1.5) mg/dL Glucose 114 H 146 H (75-100) mg/dL Calcium 9.8 8.4 (8.4-10.2) mg/dL Total Bilirubin 0.30 0.20 (0.1-1.2) mg/dL AST 29 21 (5-40) units/L ALT 39 27 (7-56) units/L Alkaline Phosphatase 104 73 (35-129) units/L Total Protein 6.5 4.3 L D (6.3-8.2) g/dL Albumin 3.5 L 2.6 L (3.9-5) g/dL - Imaging CT scan - abdomen: report reviewed, image reviewed CT scan - pelvis: report reviewed, image reviewed Assessment and Plan - Patient Problems (1) GI bleed Current Visit: Yes Status: Acute Qualifiers: GI bleed type/associated pathology: gastric ulcer Qualified Code(s): K25.4 - Chronic or unspecified gastric ulcer with hemorrhage Plan to address problem: Pt in critical condition. Discussed case with Dexter Hdz and David. As patient seems to be responding to beginning stages of resuscitation, it may be best to try embolizing the bleed and then completing his resuscitation. I think he would overall tolerate that better in light of all the known chronic medical problems. I will be present during the embolization in case he begins to decompensate or the embolization is not effective. Assuming that the embolization is effective, then patient will be taken to ICU for resuscitation under the guidance of the critical care team. There is no family available for me to discuss the plan. We will follow along. Please call with questions. Time=60min
[2019-07-17] MEDS ORDERED: ceFAZolin/Water 2 GM/20 ML 2 GM/20 ML SYRINGE IV ONE (16:09)
[2019-07-17] MEDS ORDERED: LIDOCAINE 1%/EPINEPHRINE 1:100,000 VIAL (20 ML) INFILTRATI ONE (16:15)
[2019-07-17] MEDS ORDERED: MIDAZOLAM 5 MG/5 ML INJ MDV IV ONE (16:29)
--- NOTE | 2019-07-17 16:29 | Post Operative Note ---
Pre-op diagnosis: gi bleed Post-op diagnosis: same Findings: EGD: hiatal hernia - large clot gastric body w/o signs bleeding - large clot duodenal bulb, suctioned/brought into stomach - large 2 cm very cratered ulcer very proximal duodenal bulb w/ large central pigmented vessel - epi 1:10k 3 cc applied, - while applying Epi vessel started excessively bleeding - due to continued bleeding, risk of perforation for further intervention procedure terminated - pt intubated, discussed w/ both Gen Surg and IR, coming to evaluate Procedure: EGD Anesthesia: MAC Surgeon: MACRINA ESCAMILLA Estimated blood loss: none Pathology: list Specimen disposition: to lab Condition: stable Disposition: floor
[2019-07-17] MEDS ORDERED: GELATIN SPONGE SIZE 50 TP ONE (16:37)
[2019-07-17] MEDS ORDERED: SODIUM CHLORIDE 0.9% 1000 ML 2,000 ML ONE (17:01)
[2019-07-17] MEDS ORDERED: ETOMIDATE 20 MG/10 ML INJ IV ONE (17:32)
--- NOTE | 2019-07-17 17:40 | Post Operative Note ---
Date of procedure: 07/17/19 Pre-op diagnosis: Massive GI bleed Post-op diagnosis: same Findings: Irregularity with abnormal vascular appearance of the proximal gastroduodenal artery Procedure: 1. Ultrasound guided access of the right common femoral artery 2. Selection of the abdominal aorta with aortogram 3. Selection of the celiac artery with angiography 4. Selection of the gastroduodenal artery with angiography 5. Coil embolization of the gastroduodenal artery with a 3 mm x 6 cm, 3 mm x 12 cm, 3 mm x 12 cm coil 6. Angiography of the right lower extremity 7. Closure of the right common femoral artery with a 6 Fr proglide 8. Ultrasound guided access of the right radial artery 9. Fluoroscopic guided placement of a 20 gauge radial artery line Anesthesia: MAC Surgeon: CONNOR BOWIE Estimated blood loss: minimal Condition: stable Disposition: other (improving, pressors are being weaned off and BP and HR are improving)
[2019-07-17] MEDS ORDERED: fentaNYL 100 MCG/2 ML INJ ONE (17:53)
--- NOTE | 2019-07-17 19:06 | Post Anesthesia Evaluation ---
- Post Anesthesia Evaluation Patient Participated: No (sedated) Airway Patent: Yes (intubated) Stable Respiratory Function: Yes Nausea/Vomiting: No Temp > 96.8F: Yes Pain Manageable: Yes Adequeate Hydration: Yes Anesthesia Complications: No Block Receding Appropriately: Not Applicable Patient on Ventilator: Yes (450x20, FiO2 100%, Peep 6) Other Comments: Encountered HD significant bleeding during endoscopy requiring urgent transfer to airport maintenance laborer for further intervention. Intubated for ariway pro tection prior to airport maintenance laborer transfer (see An[facility] record). At conclusion of airport maintenance laborer procedure, patient kept intubated given ongoing fluid resucitation. Transported to ICU intubated, manual ventilation via AMBU, monitors on. Pressors discontinued prior to transport, VSS. Placed on vent by RT and handoff given to PRESS BOX CUSTODIAN at bedside.
[2019-07-17 19:47] LABS: ABG Base Excess -8.4 mmol/L (-2.0-3.0); ABG HCO3 17.8 mmol/L (20.0-26.0); ABG Methemoglobin 0.6 % (0.0-1.5); ABG Oxygen Saturation 99.4 % (95.0-99.0); ABG PCO2 39.3 mm Hg; ABG PH 7.273 pH Units (7.350-7.450)
[2019-07-17 19:50] LABS: ABG PO2 275.6 mm Hg (80.0-90.0)
[2019-07-17] MEDS: SODIUM CHLORIDE 0.9% 1000 ML 1,000 ML IV SCH (19:50)
[2019-07-17 23:33] LABS: Hematocrit 26.6 % (35.5-45.6); Hemoglobin 8.9 gm/dl (11.8-15.2)
[2019-07-18] MEDS: HYDROmorphone 1 MG/1 ML INJ IV PRN ×4 (03:02→20:27)
[2019-07-18] MEDS: SODIUM CHLORIDE 0.9% 1000 ML 1,000 ML IV SCH ×2 (03:03→21:26)
[2019-07-18] MEDS: PANTOPRAZOLE 80 MG in SODIUM CHLORIDE 0.9% 100 ML IV SCH ×2 (03:07→21:35)
[2019-07-18 04:06] LABS: ABG Base Excess -2.4 mmol/L (-2.0-3.0); ABG HCO3 20.9 mmol/L (20.0-26.0); ABG Methemoglobin 0.5 % (0.0-1.5); ABG Oxygen Saturation 98.3 % (95.0-99.0); ABG PCO2 28.9 mm Hg; ABG PH 7.476 pH Units (7.350-7.450); ABG PO2 113.5 mm Hg (80.0-90.0)
[2019-07-18 04:45] LABS: Hematocrit 22.3 % (35.5-45.6)
[2019-07-18] MEDS: OCTREOTIDE 500 MCG in SODIUM CHLORIDE 0.9% 100 ML IV SCH (06:08)
--- NOTE | 2019-07-18 09:24 | XRay Report ---
ABDOMEN 1 VIEW(S) INDICATION / CLINICAL INFORMATION: GI bleed. COMPARISON: None available. FINDINGS: TUBES / LINES: There is a vascular catheter in the right groin. BOWEL GAS PATTERN/EXTRALUMINAL GAS: There is mild gaseous distention of loops of small bowel in the m idabdomen. This is a nonspecific pattern. Embolization coils are noted in the right upper quadrant. C hanges of prior cholecystectomy are noted. No pneumatosis or secondary signs of free air. ADDITIONAL FINDINGS: No significant additional findings. Signer Name: Nicholas Montejo MD Signed: 07/18/2019 9:20 AM Workstation Name: [id number]
--- NOTE | 2019-07-18 09:31 | Progress Note ---
Assessment and Plan Patient is status post GI embolization of his GDA. He appears to have stabilized at this point. He may benefit from additional transfusions of blood to normalize his hemoglobin. BMP not back yet to assess renal function. Given the patient's significant blood loss, the patient is at risk of ATN. Subjective Date of service: 07/18/19 Principal diagnosis: GI bleed Interval history: Patient with a history of upper GI bleed status post endoscopy and ultimately embolization of the GDA. The patient stabilized following embolization of the GDA. He has only received 2 units of packed red blood cells. Hemoglobin appears to be stabilizing. Patient is currently intubated although motioning to have his tube removed. Abdomen soft. Objective - Constitutional Vitals: Vital Signs - 12hr 07/17/19 07/17/19 07/17/19 21:30 21:41 21:51 Temperature Pulse Rate 116 H 101 H 100 H Respiratory 14 15 14 Rate Blood Pressure 125/67 125/67 122/59 O2 Sat by Pulse 100 100 100 Oximetry 07/17/19 07/17/19 07/17/19 22:00 22:11 22:21 Temperature Pulse Rate 99 H 99 H 98 H Respiratory 14 15 14 Rate Blood Pressure 115/66 122/59 108/58 O2 Sat by Pulse 100 100 100 Oximetry 07/17/19 07/17/19 07/17/19 22:30 22:41 22:50 Temperature Pulse Rate 94 H 96 H 96 H Respiratory 15 13 20 Rate Blood Pressure 95/68 95/68 O2 Sat by Pulse 100 100 100 Oximetry 07/17/19 07/17/19 07/17/19 22:51 23:00 23:11 Temperature Pulse Rate 97 H 95 H 96 H Respiratory 15 14 21 Rate Blood Pressure 120/52 125/61 125/61 O2 Sat by Pulse 100 100 100 Oximetry 07/17/19 07/17/19 07/17/19 23:13 23:21 23:30 Temperature Pulse Rate 97 H 93 H 94 H Respiratory 26 H 25 H 25 H Rate Blood Pressure 125/61 107/50 102/56 O2 Sat by Pulse 100 100 100 Oximetry 07/17/19 07/17/19 07/17/19 23:41 23:51 23:58 Temperature Pulse Rate 92 H 93 H 95 H Respiratory 24 25 H Rate Blood Pressure 102/56 118/57 O2 Sat by Pulse 100 100 Oximetry 07/18/19 07/18/19 07/18/19 00:00 00:11 00:21 Temperature 96.3 F L Pulse Rate 93 H 95 H 95 H Respiratory 25 H 25 H 25 H Rate Blood Pressure 120/54 120/54 116/57 O2 Sat by Pulse 100 100 100 Oximetry 07/18/19 07/18/19 07/18/19 00:30 00:32 00:35 Temperature Pulse Rate 94 H 95 H Respiratory 26 H 20 Rate Blood Pressure 113/56 113/56 O2 Sat by Pulse 100 100 100 Oximetry 07/18/19 07/18/19 07/18/19 00:41 00:51 01:01 Temperature Pulse Rate 93 H 94 H 105 H Respiratory 22 26 H 16 Rate Blood Pressure 113/56 119/58 133/65 O2 Sat by Pulse 100 100 100 Oximetry 07/18/19 07/18/19 07/18/19 01:11 01:21 01:30 Temperature Pulse Rate 99 H 99 H 99 H Respiratory 25 H 25 H 25 H Rate Blood Pressure 133/65 122/64 118/63 O2 Sat by Pulse 100 100 100 Oximetry 07/18/19 07/18/19 07/18/19 01:41 01:51 02:00 Temperature Pulse Rate 101 H 121 H 110 H Respiratory 19 14 22 Rate Blood Pressure 118/63 127/67 132/62 O2 Sat by Pulse 100 100 100 Oximetry 07/18/19 07/18/19 07/18/19 02:11 02:21 02:25 Temperature Pulse Rate 106 H 103 H Respiratory 25 H 25 H 20 Rate Blood Pressure 132/62 124/67 O2 Sat by Pulse 100 100 100 Oximetry 07/18/19 07/18/19 07/18/19 02:30 02:41 02:51 Temperature Pulse Rate 104 H 104 H 102 H Respiratory 25 H 25 H 25 H Rate Blood Pressure 121/63 121/63 116/59 O2 Sat by Pulse 100 100 100 Oximetry 07/18/19 07/18/19 07/18/19 03:00 03:02 03:11 Temperature Pulse Rate 103 H 91 H Respiratory 25 H 25 H 25 H Rate Blood Pressure 109/57 109/57 O2 Sat by Pulse 100 100 Oximetry 07/18/19 07/18/19 07/18/19 03:21 03:30 03:32 Temperature Pulse Rate 98 H 97 H Respiratory 25 H 24 20 Rate Blood Pressure 95/42 96/50 O2 Sat by Pulse 100 99 Oximetry 07/18/19 07/18/19 07/18/19 03:41 03:51 04:00 Temperature 98.0 F Pulse Rate 96 H 95 H 93 H Respiratory 25 H 26 H 25 H Rate Blood Pressure 96/50 103/51 103/50 O2 Sat by Pulse 99 100 100 Oximetry 07/18/19 07/18/19 07/18/19 04:05 04:11 04:21 Temperature Pulse Rate 93 H 96 H Respiratory 20 25 H 22 Rate Blood Pressure 103/51 105/51 O2 Sat by Pulse 100 100 100 Oximetry 07/18/19 07/18/19 07/18/19 04:30 04:41 04:51 Temperature Pulse Rate 91 H 93 H 93 H Respiratory 25 H 25 H 25 H Rate Blood Pressure 109/52 109/52 100/52 O2 Sat by Pulse 100 100 100 Oximetry 07/18/19 07/18/19 07/18/19 05:00 05:11 05:21 Temperature Pulse Rate 92 H 92 H 93 H Respiratory 25 H 25 H 25 H Rate Blood Pressure 111/52 111/52 93/53 O2 Sat by Pulse 100 100 100 Oximetry 07/18/19 07/18/19 07/18/19 05:30 05:41 05:51 Temperature Pulse Rate 94 H 90 93 H Respiratory 25 H 25 H 25 H Rate Blood Pressure 105/56 105/56 107/50 O2 Sat by Pulse 100 100 100 Oximetry 07/18/19 07/18/19 07/18/19 06:00 06:11 06:15 Temperature Pulse Rate 92 H 101 H 93 H Respiratory 25 H 11 L 20 Rate Blood Pressure 102/52 102/52 O2 Sat by Pulse 100 88 100 Oximetry 07/18/19 07/18/19 07/18/19 06:21 06:30 06:41 Temperature Pulse Rate 99 H 97 H 96 H Respiratory 25 H 25 H 25 H Rate Blood Pressure 100/70 115/54 115/54 O2 Sat by Pulse 100 100 100 Oximetry 07/18/19 07/18/19 07/18/19 06:51 07:00 07:11 Temperature Pulse Rate 97 H 96 H 97 H Respiratory 25 H 25 H 25 H Rate Blood Pressure 117/51 110/53 110/53 O2 Sat by Pulse 100 100 100 Oximetry 07/18/19 07/18/19 07:43 07:47 Temperature Pulse Rate 98 H 99 H Respiratory Rate Blood Pressure 124/49 117/51 O2 Sat by Pulse 100 100 Oximetry General appearance: Present: other (Intubated) - EENT Eyes: EOM intact ENT: hearing intact - Neck Neck: normal ROM - Gastrointestinal General gastrointestinal: Present: soft Rectal Exam: deferred - Genitourinary Male genitourinary: deferred - Labs CBC & Chem 7: 07/18/19 04:20 07/17/19 07:22 Labs: Abnormal lab results 07/17/19 07/17/19 07/17/19 Range/Units 03:34 03:34 12:16 Hgb 11.1 L D (11.8-15.2) gm/dl Hct 32.8 L D (35.5-45.6) % ABG pH (7.350-7.450) pH Units ABG pO2 (80.0-90.0) mm Hg ABG HCO3 (20.0-26.0) mmol/L ABG O2 Saturation (95.0-99.0) % ABG Base Excess (-2.0-3.0) mmol/L ABG Hemoglobin (14.0-18.0) gm/dl Crossmatch See Detail See Detail 07/17/19 07/17/19 07/18/19 Range/Units 19:37 22:57 03:39 Hgb 8.9 L (11.8-15.2) gm/dl Hct 26.6 L D (35.5-45.6) % ABG pH 7.273 L 7.476 H (7.350-7.450) pH Units ABG pO2 275.6 H 113.5 H (80.0-90.0) mm Hg ABG HCO3 17.8 L (20.0-26.0) mmol/L ABG O2 Saturation 99.4 H (95.0-99.0) % ABG Base Excess -8.4 L -2.4 L (-2.0-3.0) mmol/L ABG Hemoglobin 8.9 L 6.6 L (14.0-18.0) gm/dl Crossmatch 07/18/19 Range/Units 04:20 Hgb 8.0 L (11.8-15.2) gm/dl Hct 22.3 L (35.5-45.6) % ABG pH (7.350-7.450) pH Units ABG pO2 (80.0-90.0) mm Hg ABG HCO3 (20.0-26.0) mmol/L ABG O2 Saturation (95.0-99.0) % ABG Base Excess (-2.0-3.0) mmol/L ABG Hemoglobin (14.0-18.0) gm/dl Crossmatch Medications & Allergies - Medications Allergies/Adverse Reactions: Allergies No Known Allergies Allergy (Verified 07/17/19 05:52) Home Medications: Home Medications Medication Instructions Recorded Confirmed Last Taken Type Atorvastatin [Lipitor] 40 mg PO QHS 08/27/13 12/04/13 12/04/13 04:30 History 40 Azithromycin [Zithromax Z-LAURA] 250 mg PO DAILY #6 tablet 08/27/13 12/04/13 Unknown Rx Divalproex ER [Depakote ER] 2,500 mg PO QDAY 08/27/13 12/04/13 12/03/13 20:00 History 2500 Esomeprazole Magnesium [Nexium] 40 mg PO QDAY 08/27/13 12/04/13 12/04/13 04:30 History 40 FLUoxetine [Prozac] 20 mg PO QDAY 08/27/13 12/04/13 12/04/13 04:30 History 20 Ibuprofen [Motrin 800 MG tab] 800 mg PO Q8H PRN #30 tablet 08/27/13 12/04/13 12/04/13 04:30 Rx 800 Lisinopril [Zestril] 30 mg PO QDAY 08/27/13 12/04/13 12/03/13 20:00 History 30 Metformin HCl [Glumetza] 1,000 mg PO BID 08/27/13 12/04/13 12/03/13 20:00 History 1000 dilTIAZem CD [Cardizem Cd] 120 mg PO BID 08/27/13 12/04/13 12/03/13 20:00 History 120 glyBURIDE [Diabeta] 5 mg PO DAILY 08/27/13 12/04/13 12/03/13 20:00 History 5 Ondansetron [Zofran] 4 mg PO Q8HR PRN #15 tablet 12/04/13 Unknown Rx oxyCODONE /ACETAMINOPHEN [Percocet 1 tab PO Q6HR PRN #15 tablet 12/04/13 Unknow n Rx 5/325] Butalb/Acetamin/Caff 50-325-40 1 tab PO Q8HR PRN #30 tablet 05/30/18 Unknown Rx [Fioricet] Ibuprofen [Motrin 800 MG tab] 800 mg PO TID PRN #30 tablet 05/30/18 Unknown Rx Dicyclomine [Bentyl] 20 mg PO QID PRN #20 tablet 06/20/19 Unknown Rx Active Medications: Generic Name Dose Route Start Last Admin Trade Name Freq PRN Reason Stop Dose Admin Hydromorphone HCl 0.5 mg 07/18/19 02:46 07/18/19 03:02 Dilaudid IV 0.5 mg Q3H PRN Administration pain(4-6) Norepinephrine 4 mg in 250 mls @ 7.5 mls/hr 07/17/19 07:00 07/17/19 19:28 Levophed Drip 4 Mg/Ns 250 Ml IV Infused TITR TEGAN Titration Protocol 2 MCG/MIN Vasopressin 20 unit/ Sodium 101 mls @ 9.09 mls/hr 07/17/19 11:00 Chloride IV TITR TEGAN Protocol 0.03 UNITS/MIN Octreotide Acetate 500 mcg/ 101 mls @ 5.05 mls/hr 07/17/19 10:00 07/18/19 06:08 Sodium Chloride IV 25 mcg/hr TITR TEGAN 5.05 mls/hr Administration Protocol 25 MCG/HR Sodium Chloride 1,000 mls @ 50 mls/hr 07/17/19 14:00 07/18/19 03:03 Nacl 0.9% 1000 Ml IV 50 mls/hr DIRECT TEGAN Administration Pantoprazole Sodium 80 mg/ 100 mls @ 10 mls/hr 07/18/19 02:46 07/18/19 03:07 Sodium Chloride IV 8 mg/hr DIRECT TEGAN 10 mls/hr Administration 8 MG/HR
--- NOTE | 2019-07-18 10:35 | Progress Note ---
Assessment and Plan Acute hypoxemic respiratory failure on MVS Hemorrhagic shock Acute lower GI bleed Severe symptomatic anemia Syncope, likely orthostatic hypotension due to severe dehydration from acute GI bleed VELIA secondary to vasomotor nephropathy Hyperkalemia Diabetes mellitus type History of alcohol abuse with hepatic cirrhosis h/o schizophrenia/bipolar disorder - VAP bundle addressed -Supplemental oxygen to keep O2 sats>90% -Aspiration precautions, HOB >40 -Agitation management- currently calm -Positive fluid balance, administer one dose of furosemide -SAT and SBT this morning, if he tolerates it and his weaning parameters ( NIF, RSBI) are acceptable, will plan to liberate from MVS -SCDs for VTE prophylaxis -Therapeutic PPI infusions -Monitor H and H, transfuse as indicated to keep HgB >7g/dL -Avoid nephrotoxins, adjust all medications for CrCL and GFR -Accuchecks with glycemic control Keep blood glucose between 140-180 mg/dL while critically ill. -Avoid hypoglycemia while NPO -Monitor hemodynamics closely -[facility] protocol- per medical records, patient has not had a drink in many years -Resume chronic home medications as soon as he is able to tolerate orally -Mobility, off loading -Maintenance of sleep -wake cycle CONDITION: CRITICAL PROGNOSIS: FAIR CODE STATUS: FULL CODE The high probability of a clinically significant, sudden or life threatening deterioration of the [Respiratory, cardiovascular, GI system(s) required my full and direct attention, intervention and personal management. The aggregate critical care time was [31] minutes. This time is in addition to time spent performing reported procedures but includes the following: [x] Data Review and interpretation [x] Patient assessment and monitoring of vital signs [x] Documentation [x] Medication orders and management Subjective Date of service: 07/18/19 Principal diagnosis: GI bleed Interval history: Follow up: Acute hypoxemic respiratory failure on MVS; Severe symptomatic anemia; hemorrhagic shock: Syncope Patient seen and examined. Discussed with RT/RN. Vitals, labs, medications, chart and imaging reviewed. Brief history -Patient presented with active rectal bleeding and was having active bleeding episode in the ER leading to sudden drop in H&H and severe hypotension required pressors -Emergently transfused 2 units of packed RBC, -GI/IR/GS has been consulted for emergent Mx - -During endoscopy patient started to have severe upper GI bleed, he was intubated, - due to continued bleeding, risk of perforation for further intervention procedure terminated and ultimately embolization of the GDA by IR He is currently orally intubated; s/p gastroduodenal embolization by IR Black tarry stools this morning, off vasopressor support s/p 6 units of PRBC, no antibiotics. He is on PPI and octreotide infusions Objective - Exam Narrative Exam: GENERAL: well-developed short stature obese white male lying on bed appeared to be in mild discomfort. ETT to MVS, not in any distress. HEENT: Normocephalic. Atraumatic. No conjunctival congestion or icterus. Patient has moist mucous membranes. NECK: Supple. Trachea midline. CHEST/LUNGS: Clear to auscultated bilaterally, breathing non-labored. No wheezes crackles or rhonchi. HEART/CARDIOVASCULAR: Regular in rate and rhythm. S1 and S2 positive. ABDOMEN: Abdomen is soft, + diffuse tender. Patient has normal bowel sounds. SKIN: There is no rash. Warm and dry. NEURO: No focal motor deficit. Follows command. MUSCULOSKELETAL: No joint effusion or tenderness. EXTRIMITY: No edema, no cyanosis or clubbing. PSYCH: Cooperative. Vital Signs - 12hr 07/17/19 07/17/19 07/17/19 22:41 22:50 22:51 Temperature Pulse Rate 96 H 96 H 97 H Respiratory 13 20 15 Rate Blood Pressure 95/68 120/52 O2 Sat by Pulse 100 100 100 Oximetry 07/17/19 07/17/19 07/17/19 23:00 23:11 23:13 Temperature Pulse Rate 95 H 96 H 97 H Respiratory 14 21 26 H Rate Blood Pressure 125/61 125/61 125/61 O2 Sat by Pulse 100 100 100 Oximetry 07/17/19 07/17/19 07/17/19 23:21 23:30 23:41 Temperature Pulse Rate 93 H 94 H 92 H Respiratory 25 H 25 H 24 Rate Blood Pressure 107/50 102/56 102/56 O2 Sat by Pulse 100 100 100 Oximetry 07/17/19 07/17/19 07/18/19 23:51 23:58 00:00 Temperature 96.3 F L Pulse Rate 93 H 95 H 93 H Respiratory 25 H 25 H Rate Blood Pressure 118/57 120/54 O2 Sat by Pulse 100 100 Oximetry 07/18/19 07/18/19 07/18/19 00:11 00:21 00:30 Temperature Pulse Rate 95 H 95 H 94 H Respiratory 25 H 25 H 26 H Rate Blood Pressure 120/54 116/57 113/56 O2 Sat by Pulse 100 100 100 Oximetry 07/18/19 07/18/19 07/18/19 00:32 00:35 00:41 Temperature Pulse Rate 95 H 93 H Respiratory 20 22 Rate Blood Pressure 113/56 113/56 O2 Sat by Pulse 100 100 100 Oximetry 07/18/19 07/18/19 07/18/19 00:51 01:01 01:11 Temperature Pulse Rate 94 H 105 H 99 H Respiratory 26 H 16 25 H Rate Blood Pressure 119/58 133/65 133/65 O2 Sat by Pulse 100 100 100 Oximetry 07/18/19 07/18/19 07/18/19 01:21 01:30 01:41 Temperature Pulse Rate 99 H 99 H 101 H Respiratory 25 H 25 H 19 Rate Blood Pressure 122/64 118/63 118/63 O2 Sat by Pulse 100 100 100 Oximetry 07/18/19 07/18/19 07/18/19 01:51 02:00 02:11 Temperature Pulse Rate 121 H 110 H 106 H Respiratory 14 22 25 H Rate Blood Pressure 127/67 132/62 132/62 O2 Sat by Pulse 100 100 100 Oximetry 07/18/19 07/18/19 07/18/19 02:21 02:25 02:30 Temperature Pulse Rate 103 H 104 H Respiratory 25 H 20 25 H Rate Blood Pressure 124/67 121/63 O2 Sat by Pulse 100 100 100 Oximetry 07/18/19 07/18/19 07/18/19 02:41 02:51 03:00 Temperature Pulse Rate 104 H 102 H 103 H Respiratory 25 H 25 H 25 H Rate Blood Pressure 121/63 116/59 109/57 O2 Sat by Pulse 100 100 100 Oximetry 07/18/19 07/18/19 07/18/19 03:02 03:11 03:21 Temperature Pulse Rate 91 H 98 H Respiratory 25 H 25 H 25 H Rate Blood Pressure 109/57 95/42 O2 Sat by Pulse 100 100 Oximetry 07/18/19 07/18/19 07/18/19 03:30 03:32 03:41 Temperature Pulse Rate 97 H 96 H Respiratory 24 20 25 H Rate Blood Pressure 96/50 96/50 O2 Sat by Pulse 99 99 Oximetry 07/18/19 07/18/19 07/18/19 03:51 04:00 04:05 Temperature 98.0 F Pulse Rate 95 H 93 H Respiratory 26 H 25 H 20 Rate Blood Pressure 103/51 103/50 O2 Sat by Pulse 100 100 100 Oximetry 07/18/19 07/18/19 07/18/19 04:11 04:21 04:30 Temperature Pulse Rate 93 H 96 H 91 H Respiratory 25 H 22 25 H Rate Blood Pressure 103/51 105/51 109/52 O2 Sat by Pulse 100 100 100 Oximetry 07/18/19 07/18/19 07/18/19 04:41 04:51 05:00 Temperature Pulse Rate 93 H 93 H 92 H Respiratory 25 H 25 H 25 H Rate Blood Pressure 109/52 100/52 111/52 O2 Sat by Pulse 100 100 100 Oximetry 07/18/19 07/18/19 07/18/19 05:11 05:21 05:30 Temperature Pulse Rate 92 H 93 H 94 H Respiratory 25 H 25 H 25 H Rate Blood Pressure 111/52 93/53 105/56 O2 Sat by Pulse 100 100 100 Oximetry 07/18/19 07/18/19 07/18/19 05:41 05:51 06:00 Temperature Pulse Rate 90 93 H 92 H Respiratory 25 H 25 H 25 H Rate Blood Pressure 105/56 107/50 102/52 O2 Sat by Pulse 100 100 100 Oximetry 07/18/19 07/18/19 07/18/19 06:11 06:15 06:21 Temperature Pulse Rate 101 H 93 H 99 H Respiratory 11 L 20 25 H Rate Blood Pressure 102/52 100/70 O2 Sat by Pulse 88 100 100 Oximetry 07/18/19 07/18/19 07/18/19 06:30 06:41 06:51 Temperature Pulse Rate 97 H 96 H 97 H Respiratory 25 H 25 H 25 H Rate Blood Pressure 115/54 115/54 117/51 O2 Sat by Pulse 100 100 100 Oximetry 07/18/19 07/18/19 07/18/19 07:00 07:11 07:43 Temperature Pulse Rate 96 H 97 H 98 H Respiratory 25 H 25 H Rate Blood Pressure 110/53 110/53 124/49 O2 Sat by Pulse 100 100 100 Oximetry 07/18/19 07/18/19 07:47 08:00 Temperature Pulse Rate 99 H 99 H Respiratory Rate Blood Pressure 117/51 O2 Sat by Pulse 100 Oximetry CBC and BMP: 07/20/19 03:35 07/19/19 03:13 ABG, PT/INR, D-dimer: ABG ABG pH 7.476 pH Units (7.350-7.450) H 07/18/19 03:39 ABG pCO2 28.9 mm Hg 07/18/19 03:39 ABG pO2 113.5 mm Hg (80.0-90.0) H 07/18/19 03:39 ABG O2 Saturation 98.3 % (95.0-99.0) 07/18/19 03:39 PT/INR, D-dimer PT 13.9 Sec. (12.2-14.9) 07/17/19 03:34 INR 1.06 (0.87-1.13) 07/17/19 03:34 Abnormal lab findings: Abnormal Labs 07/17/19 07/17/19 07/17/19 03:34 03:34 03:34 WBC 13.9 H RBC 3.37 L Hgb 10.9 L Hct 30.8 L MCHC 35 H RDW 15.9 H Seg Neuts % (Manual) 80.0 H Lymphocytes % (Manual) 11.0 L Seg Neutrophils # Man 11.1 H ABG pH ABG pO2 ABG HCO3 ABG O2 Saturation ABG Base Excess ABG Hemoglobin Sodium 118 L* Potassium 6.2 H* Chloride 83.0 L Carbon Dioxide BUN 31 H Glucose 114 H Total Protein Albumin 3.5 L Crossmatch See Detail 07/17/19 07/17/19 07/17/19 03:34 07:22 07:22 WBC RBC Hgb 8.0 L Hct 23.5 L D MCHC RDW Seg Neuts % (Manual) Lymphocytes % (Manual) Seg Neutrophils # Man ABG pH ABG pO2 ABG HCO3 ABG O2 Saturation ABG Base Excess ABG Hemoglobin Sodium 122 L Potassium 5.5 H Chloride 87.9 L Carbon Dioxide 17 L BUN 34 H Glucose 146 H Total Protein 4.3 L D Albumin 2.6 L Crossmatch See Detail 07/17/19 07/17/19 07/17/19 12:16 19:37 22:57 WBC RBC Hgb 11.1 L D 8.9 L Hct 32.8 L D 26.6 L D MCHC RDW Seg Neuts % (Manual) Lymphocytes % (Manual) Seg Neutrophils # Man ABG pH 7.273 L ABG pO2 275.6 H ABG HCO3 17.8 L ABG O2 Saturation 99.4 H ABG Base Excess -8.4 L ABG Hemoglobin 8.9 L Sodium Potassium Chloride Carbon Dioxide BUN Glucose Total Protein Albumin Crossmatch 07/18/19 07/18/19 03:39 04:20 WBC RBC Hgb 8.0 L Hct 22.3 L MCHC RDW Seg Neuts % (Manual) Lymphocytes % (Manual) Seg Neutrophils # Man ABG pH 7.476 H ABG pO2 113.5 H ABG HCO3 ABG O2 Saturation ABG Base Excess -2.4 L ABG Hemoglobin 6.6 L Sodium Potassium Chloride Carbon Dioxide BUN Glucose Total Protein Albumin Crossmatch Chest x-ray: image reviewed (Bilateral alveolar edema) Allied health notes reviewed: RT
[2019-07-18 11:37] LABS: BUN/Creatinine Ratio 42; Blood Urea Nitrogen 46 mg/dL (9-20); Calcium 7.6 mg/dL (8.4-10.2); Hemolysis Index 4
[2019-07-18] MEDS ORDERED: FUROSEMIDE 20 MG/2 ML INJ IV ONE (12:00)
--- NOTE | 2019-07-18 12:16 | Progress Note ---
Assessment and Plan - Patient Problems (1) GI bleed Current Visit: Yes Status: Acute Qualifiers: GI bleed type/associated pathology: gastric ulcer Qualified Code(s): K25.4 - Chronic or unspecified gastric ulcer with hemorrhage Plan to address problem: Pt stable. Vital signs appear better. Clinically patient looks better. Patient still anemic, but expected. There is a foul-smelling odor in the room typical of a GI bleed. I would expect for him to have blood in his stools for at least the next 3 to 5 days. The IR procedure went very well. Dr. Renteria was able to coil the GDA and compl etely occlude it. Would observe the patient for now and continue to resuscitate. I would consider waiting at least another 24 hours prior to considering starting a diet. Would want to see that serial hemoglobin levels have stabilized. No surgery planned at this time. We will follow along. Please call with questions. Time=10min Subjective Date of service: 07/18/19 Patient Reports: Positive: feels better, pain is less Objective Vital Signs - 12hr 07/18/19 07/18/19 07/18/19 00:21 00:30 00:32 Temperature Pulse Rate 95 H 94 H 95 H Respiratory 25 H 26 H Rate Blood Pressure 116/57 113/56 113/56 O2 Sat by Pulse 100 100 100 Oximetry 07/18/19 07/18/19 07/18/19 00:35 00:41 00:51 Temperature Pulse Rate 93 H 94 H Respiratory 20 22 26 H Rate Blood Pressure 113/56 119/58 O2 Sat by Pulse 100 100 100 Oximetry 07/18/19 07/18/19 07/18/19 01:01 01:11 01:21 Temperature Pulse Rate 105 H 99 H 99 H Respiratory 16 25 H 25 H Rate Blood Pressure 133/65 133/65 122/64 O2 Sat by Pulse 100 100 100 Oximetry 07/18/19 07/18/19 07/18/19 01:30 01:41 01:51 Temperature Pulse Rate 99 H 101 H 121 H Respiratory 25 H 19 14 Rate Blood Pressure 118/63 118/63 127/67 O2 Sat by Pulse 100 100 100 Oximetry 07/18/19 07/18/19 07/18/19 02:00 02:11 02:21 Temperature Pulse Rate 110 H 106 H 103 H Respiratory 22 25 H 25 H Rate Blood Pressure 132/62 132/62 124/67 O2 Sat by Pulse 100 100 100 Oximetry 07/18/19 07/18/19 07/18/19 02:25 02:30 02:41 Temperature Pulse Rate 104 H 104 H Respiratory 20 25 H 25 H Rate Blood Pressure 121/63 121/63 O2 Sat by Pulse 100 100 100 Oximetry 07/18/19 07/18/19 07/18/19 02:51 03:00 03:02 Temperature Pulse Rate 102 H 103 H Respiratory 25 H 25 H 25 H Rate Blood Pressure 116/59 109/57 O2 Sat by Pulse 100 100 Oximetry 07/18/19 07/18/19 07/18/19 03:11 03:21 03:30 Temperature Pulse Rate 91 H 98 H 97 H Respiratory 25 H 25 H 24 Rate Blood Pressure 109/57 95/42 96/50 O2 Sat by Pulse 100 100 99 Oximetry 07/18/19 07/18/19 07/18/19 03:32 03:41 03:51 Temperature Pulse Rate 96 H 95 H Respiratory 20 25 H 26 H Rate Blood Pressure 96/50 103/51 O2 Sat by Pulse 99 100 Oximetry 07/18/19 07/18/19 07/18/19 04:00 04:05 04:11 Temperature 98.0 F Pulse Rate 93 H 93 H Respiratory 25 H 20 25 H Rate Blood Pressure 103/50 103/51 O2 Sat by Pulse 100 100 100 Oximetry 07/18/19 07/18/19 07/18/19 04:21 04:30 04:41 Temperature Pulse Rate 96 H 91 H 93 H Respiratory 22 25 H 25 H Rate Blood Pressure 105/51 109/52 109/52 O2 Sat by Pulse 100 100 100 Oximetry 07/18/19 07/18/19 07/18/19 04:51 05:00 05:11 Temperature Pulse Rate 93 H 92 H 92 H Respiratory 25 H 25 H 25 H Rate Blood Pressure 100/52 111/52 111/52 O2 Sat by Pulse 100 100 100 Oximetry 07/18/19 07/18/19 07/18/19 05:21 05:30 05:41 Temperature Pulse Rate 93 H 94 H 90 Respiratory 25 H 25 H 25 H Rate Blood Pressure 93/53 105/56 105/56 O2 Sat by Pulse 100 100 100 Oximetry 07/18/19 07/18/19 07/18/19 05:51 06:00 06:11 Temperature Pulse Rate 93 H 92 H 101 H Respiratory 25 H 25 H 11 L Rate Blood Pressure 107/50 102/52 102/52 O2 Sat by Pulse 100 100 88 Oximetry 07/18/19 07/18/19 07/18/19 06:15 06:21 06:30 Temperature Pulse Rate 93 H 99 H 97 H Respiratory 20 25 H 25 H Rate Blood Pressure 100/70 115/54 O2 Sat by Pulse 100 100 100 Oximetry 07/18/19 07/18/19 07/18/19 06:41 06:51 07:00 Temperature Pulse Rate 96 H 97 H 96 H Respiratory 25 H 25 H 25 H Rate Blood Pressure 115/54 117/51 110/53 O2 Sat by Pulse 100 100 100 Oximetry 07/18/19 07/18/19 07/18/19 07:11 07:43 07:47 Temperature Pulse Rate 97 H 98 H 99 H Respiratory 25 H Rate Blood Pressure 110/53 124/49 117/51 O2 Sat by Pulse 100 100 100 Oximetry 07/18/19 07/18/19 08:00 10:00 Temperature Pulse Rate 99 H Respiratory 20 20 Rate Blood Pressure O2 Sat by Pulse 100 100 Oximetry - General physical appearance no distress, no pain, obese, other (wide awake on vent. Follows commands) - ENT other (ETT in place) - Respiratory normal expansion, normal respiratory effort - Abdomen soft, tender (minimal in epigastric area), not guarding, not rigid - Integumentary no rash, no growths, no abnormal pigmentation, other (skin color is better today) - Labs 07/18/19 04:20 07/18/19 10:55 Diabetes panel 07/18/19 Range/Units 10:55 Sodium 128 L (137-145) mmol/L Potassium 5.1 H (3.6-5.0) mmol/L Chloride 97.3 L (98-107) mmol/L Carbon Dioxide 20 L (22-30) mmol/L BUN 46 H (9-20) mg/dL Creatinine 1.1 (0.8-1.5) mg/dL Glucose 167 H (75-100) mg/dL Calcium 7.6 L (8.4-10.2) mg/dL Calcium panel 07/18/19 Range/Units 10:55 Calcium 7.6 L (8.4-10.2) mg/dL Pituitary panel 07/18/19 Range/Units 10:55 Sodium 128 L (137-145) mmol/L Potassium 5.1 H (3.6-5.0) mmol/L Chloride 97.3 L (98-107) mmol/L Carbon Dioxide 20 L (22-30) mmol/L BUN 46 H (9-20) mg/dL Creatinine 1.1 (0.8-1.5) mg/dL Glucose 167 H (75-100) mg/dL Calcium 7.6 L (8.4-10.2) mg/dL Adrenal panel 07/18/19 Range/Units 10:55 Sodium 128 L (137-145) mmol/L Potassium 5.1 H (3.6-5.0) mmol/L Chloride 97.3 L (98-107) mmol/L Carbon Dioxide 20 L (22-30) mmol/L BUN 46 H (9-20) mg/dL Creatinine 1.1 (0.8-1.5) mg/dL Glucose 167 H (75-100) mg/dL Calcium 7.6 L (8.4-10.2) mg/dL
--- NOTE | 2019-07-18 13:30 | Progress Note ---
Assessment and Plan Acute lower GI bleed -Likely from variceal bleeding and peptic ulcer disease -Patient presented with active rectal bleeding and was having active bleeding episode in the ER leading to sudden drop in H&H and severe hypotension required pressors -Emergently transfused 2 units of packed RBC, -GI/IR/GS has been consulted for emergent Mx - -During endoscopy patient started to have severe upper GI bleed, he was intubated, - due to continued bleeding, risk of perforation for further intervention procedure terminated and ultimately embolization of the GDA by IR -Continue Protonix IV and octreotide IV Acute respiratory failure -Intubated following endoscopy to protect airway Severe symptomatic anemia -Due to acute GI bleed -Status post 2 units of packed RBC transfusion, continue IV fluid, monitor H&H SIRS due to active GI bleed, need to rule out infectious cause -Negative UA and negative blood culture Syncope, likely vasovagal due to severe dehydration from acute GI bleed -CT head unremarkable, continue supportive care with IV fluid, frequent neuro check VELIA likely due to hypovolemia -Continue to monitor BMP, if renal function continues to decline will consider consulting nephrology Hyperkalemia, likely due to declining renal function -K was 6.2 on admission, continue to monitor Hypotensive shock, due to active GI bleeding -s/p Levophed, continue IV fluid, transfuse as needed -Status post 2 unit of packed RBC transfusion Diabetes mellitus type 2, continue SSI h/o schizophrenia/bipolar disorder - will cont home meds when can take po meds History of alcohol abuse with hepatic cirrhosis -Continue to monitor for alcohol withdrawal. States that he was not drinking recently for years. -monitor LFT and CBC DVT prophylaxis, SCD The high probability of a clinically significant, sudden or life threatening det erioration of the [GI, CVS] system(s) required my full and direct attention, intervention and personal management. The aggregate critical care time was [32] minutes. This time is in addition to time spent performing reported procedures but includes the following: [x] Data Review and interpretation [x] Patient assessment and monitoring of vital signs [x] Documentation [x] Medication orders and management Brief history: Patient is a 58-year-old male with history of hypertension, diabetes mellitus type 2, bipolar and schizophrenia presented to the hospital with history of acute rectal bleeding, a syncopal episode when trying to leave the bathroom after having a bloody bowel movement. He decided to come to the ER for further evaluation and management. His initial lab work showed potassium of 6.2, elevated creatinine and hemoglobin of 10.9 which dropped down to 8, also developed hypotension and shortness of breath after having a large rectal ble eding while he was waiting in the ER room. Patient was immediately placed on central line, given 2 units of packed RBC, started on Levophed, IV fluid, GI was consulted in the ER.. Patient was taken for emergent EGD, but During endoscopy patient started to have severe upper GI bleed, he was intubated, due to continued bleeding, risk of perforation for further intervention procedure terminated and ultimately embolization of the GDA by IR. Patient extubated this morning, continue to monitor in the ICU with IV Protonix and IV octreotide. Subjective Date of service: 07/18/19 Principal diagnosis: GI bleed Interval history: Patient seen and examined. Medical records and medication list reviewed. No acute event overnight noted by the RN. Patient just got extubated this morning. States that he is feeling well, did not have any acute rectal bleeding overnight. Discussed plan of care at bedside with patient and with his RN. Objective - Exam Narrative Exam: GENERAL: well-developed short stature obese white male lying on bed appeared to be in mild discomfort. HEENT: Normocephalic. Atraumatic. No conjunctival congestion or icterus. Patient has moist mucous membranes. NECK: Supple. Trachea midline. CHEST/LUNGS: Clear to auscultated bilaterally, breathing nonlabored. No wheezes crackles or rhonchi. HEART/CARDIOVASCULAR: Regular in rate and rhythm. S1 and S2 positive. ABDOMEN: Abdomen is soft, + diffuse tender. Patient has normal bowel sounds. SKIN: There is no rash. Warm and dry. NEURO: No focal motor deficit. Follows command. MUSCULOSKELETAL: No joint effusion or tenderness. EXTRIMITY: No edema, no cyanosis or clubbing. PSYCH: Cooperative. - Constitutional Vitals: Vital Signs - 12hr 07/18/19 07/18/19 07/18/19 01:30 01:41 01:51 Temperature Pulse Rate 99 H 101 H 121 H Respiratory 25 H 19 14 Rate Blood Pressure 118/63 118/63 127/67 O2 Sat by Pulse 100 100 100 Oximetry 07/18/19 07/18/19 07/18/19 02:00 02:11 02:21 Temperature Pulse Rate 110 H 106 H 103 H Respiratory 22 25 H 25 H Rate Blood Pressure 132/62 132/62 124/67 O2 Sat by Pulse 100 100 100 Oximetry 07/18/19 07/18/19 07/18/19 02:25 02:30 02:41 Temperature Pulse Rate 104 H 104 H Respiratory 20 25 H 25 H Rate Blood Pressure 121/63 121/63 O2 Sat by Pulse 100 100 100 Oximetry 07/18/19 07/18/19 07/18/19 02:51 03:00 03:02 Temperature Pulse Rate 102 H 103 H Respiratory 25 H 25 H 25 H Rate Blood Pressure 116/59 109/57 O2 Sat by Pulse 100 100 Oximetry 07/18/19 07/18/19 07/18/19 03:11 03:21 03:30 Temperature Pulse Rate 91 H 98 H 97 H Respiratory 25 H 25 H 24 Rate Blood Pressure 109/57 95/42 96/50 O2 Sat by Pulse 100 100 99 Oximetry 07/18/19 07/18/19 07/18/19 03:32 03:41 03:51 Temperature Pulse Rate 96 H 95 H Respiratory 20 25 H 26 H Rate Blood Pressure 96/50 103/51 O2 Sat by Pulse 99 100 Oximetry 07/18/19 07/18/19 07/18/19 04:00 04:05 04:11 Temperature 98.0 F Pulse Rate 93 H 93 H Respiratory 25 H 20 25 H Rate Blood Pressure 103/50 103/51 O2 Sat by Pulse 100 100 100 Oximetry 07/18/19 07/18/19 07/18/19 04:21 04:30 04:41 Temperature Pulse Rate 96 H 91 H 93 H Respiratory 22 25 H 25 H Rate Blood Pressure 105/51 109/52 109/52 O2 Sat by Pulse 100 100 100 Oximetry 07/18/19 07/18/19 07/18/19 04:51 05:00 05:11 Temperature Pulse Rate 93 H 92 H 92 H Respiratory 25 H 25 H 25 H Rate Blood Pressure 100/52 111/52 111/52 O2 Sat by Pulse 100 100 100 Oximetry 07/18/19 07/18/19 07/18/19 05:21 05:30 05:41 Temperature Pulse Rate 93 H 94 H 90 Respiratory 25 H 25 H 25 H Rate Blood Pressure 93/53 105/56 105/56 O2 Sat by Pulse 100 100 100 Oximetry 07/18/19 07/18/19 07/18/19 05:51 06:00 06:11 Temperature Pulse Rate 93 H 92 H 101 H Respiratory 25 H 25 H 11 L Rate Blood Pressure 107/50 102/52 102/52 O2 Sat by Pulse 100 100 88 Oximetry 07/18/19 07/18/19 07/18/19 06:15 06:21 06:30 Temperature Pulse Rate 93 H 99 H 97 H Respiratory 20 25 H 25 H Rate Blood Pressure 100/70 115/54 O2 Sat by Pulse 100 100 100 Oximetry 07/18/19 07/18/19 07/18/19 06:41 06:51 07:00 Temperature Pulse Rate 96 H 97 H 96 H Respiratory 25 H 25 H 25 H Rate Blood Pressure 115/54 117/51 110/53 O2 Sat by Pulse 100 100 100 Oximetry 07/18/19 07/18/19 07/18/19 07:11 07:43 07:47 Temperature Pulse Rate 97 H 98 H 99 H Respiratory 25 H Rate Blood Pressure 110/53 124/49 117/51 O2 Sat by Pulse 100 100 100 Oximetry 07/18/19 07/18/19 07/18/19 08:00 10:00 12:00 Temperature 98.4 F Pulse Rate 99 H Respiratory 20 20 Rate Blood Pressure O2 Sat by Pulse 100 100 Oximetry - Labs CBC & Chem 7: 07/19/19 03:13 07/19/19 03:13 Labs: Abnormal lab results 07/17/19 07/17/19 07/17/19 Range/Units 03:34 03:34 19:37 Hgb (11.8-15.2) gm/dl Hct (35.5-45.6) % ABG pH 7.273 L (7.350-7.450) pH Units ABG pO2 275.6 H (80.0-90.0) mm Hg ABG HCO3 17.8 L (20.0-26.0) mmol/L ABG O2 Saturation 99.4 H (95.0-99.0) % ABG Base Excess -8.4 L (-2.0-3.0) mmol/L ABG Hemoglobin 8.9 L (14.0-18.0) gm/dl Sodium (137-145) mmol/L Potassium (3.6-5.0) mmol/L Chloride (98-107) mmol/L Carbon Dioxide (22-30) mmol/L BUN (9-20) mg/dL Glucose (75-100) mg/dL Calcium (8.4-10.2) mg/dL Crossmatch See Detail See Detail 07/17/19 07/18/19 07/18/19 Range/Units 22:57 03:39 04:20 Hgb 8.9 L 8.0 L (11.8-15.2) gm/dl Hct 26.6 L D 22.3 L (35.5-45.6) % ABG pH 7.476 H (7.350-7.450) pH Units ABG pO2 113.5 H (80.0-90.0) mm Hg ABG HCO3 (20.0-26.0) mmol/L ABG O2 Saturation (95.0-99.0) % ABG Base Excess -2.4 L (-2.0-3.0) mmol/L ABG Hemoglobin 6.6 L (14.0-18.0) gm/dl Sodium (137-145) mmol/L Potassium (3.6-5.0) mmol/L Chloride (98-107) mmol/L Carbon Dioxide (22-30) mmol/L BUN (9-20) mg/dL Glucose (75-100) mg/dL Calcium (8.4-10.2) mg/dL Crossmatch 07/18/19 Range/Units 10:55 Hgb (11.8-15.2) gm/dl Hct (35.5-45.6) % ABG pH (7.350-7.450) pH Units ABG pO2 (80.0-90.0) mm Hg ABG HCO3 (20.0-26.0) mmol/L ABG O2 Saturation (95.0-99.0) % ABG Base Excess (-2.0-3.0) mmol/L ABG Hemoglobin (14.0-18.0) gm/dl Sodium 128 L (137-145) mmol/L Potassium 5.1 H (3.6-5.0) mmol/L Chloride 97.3 L (98-107) mmol/L Carbon Dioxide 20 L (22-30) mmol/L BUN 46 H (9-20) mg/dL Glucose 167 H (75-100) mg/dL Calcium 7.6 L (8.4-10.2) mg/dL Crossmatch
--- NOTE | 2019-07-18 13:49 | Gastroenterology Progress Note ---
Assessment and Plan GI: presents w/ UGI bleed, failed endoscopic treatment, s/p IR intervention - reportedly no further bleeding overnight - if re-bleeds management per IR and surgery - follow h/h, transfuse as needed - IV PPI drip - no changes from GI standpoint Subjective Date of service: 07/18/19 Principal diagnosis: GI bleed Interval history: - no further bleeding overnight Objective - Exam Narrative Exam: intubated, sedated - Constitutional Vitals: Temp Pulse Resp BP Pulse Ox 98.4 F 99 H 20 117/51 100 07/18/19 12:00 07/18/19 08:00 07/18/19 10:00 07/18/19 07:47 07/18/19 10:00 General appearance: no acute distress - EENT Eyes: PERRL - Respiratory Respiratory: bilateral: rhonchi - Cardiovascular Rhythm: regular Heart Sounds: Present: S1 & S2 - Gastrointestinal General gastrointestinal: Present: soft, non-tender, non-distended - Labs CBC & Chem 7: 07/18/19 04:20 07/18/19 10:55 Labs: Laboratory Results - last 24 hr 07/17/19 07/17/19 07/17/19 03:34 03:34 19:37 Hgb Hct ABG pH 7.273 L ABG pCO2 39.3 ABG pO2 275.6 H ABG HCO3 17.8 L ABG O2 Saturation 99.4 H ABG O2 Content 12.9 ABG Base Excess -8.4 L ABG Hemoglobin 8.9 L ABG Carboxyhemoglobin 1.5 ABG Methemoglobin 0.6 Oxyhemoglobin 97.4 FiO2 100 Sodium Potassium Chloride Carbon Dioxide Anion Gap BUN Creatinine Estimated GFR BUN/Creatinine Ratio Glucose Calcium Blood Type O POSITIVE O POSITIVE Antibody Screen Negative Crossmatch See Detail See Detail 07/17/19 07/18/19 07/18/19 22:57 03:39 04:20 Hgb 8.9 L 8.0 L Hct 26.6 L D 22.3 L ABG pH 7.476 H ABG pCO2 28.9 ABG pO2 113.5 H ABG HCO3 20.9 ABG O2 Saturation 98.3 ABG O2 Content 9.2 ABG Base Excess -2.4 L ABG Hemoglobin 6.6 L ABG Carboxyhemoglobin 1.2 ABG Methemoglobin 0.5 Oxyhemoglobin 96.6 FiO2 30 Sodium Potassium Chloride Carbon Dioxide Anion Gap BUN Creatinine Estimated GFR BUN/Creatinine Ratio Glucose Calcium Blood Type Antibody Screen Crossmatch 07/18/19 10:55 Hgb Hct ABG pH ABG pCO2 ABG pO2 ABG HCO3 ABG O2 Saturation ABG O2 Content ABG Base Excess ABG Hemoglobin ABG Carboxyhemoglobin ABG Methemoglobin Oxyhemoglobin FiO2 Sodium 128 L Potassium 5.1 H Chloride 97.3 L Carbon Dioxide 20 L Anion Gap 16 BUN 46 H Creatinine 1.1 Estimated GFR > 60 BUN/Creatinine Ratio 42 Glucose 167 H Calcium 7.6 L Blood Type Antibody Screen Crossmatch
--- NOTE | 2019-07-18 15:56 | Cat Scan Report ---
CTA ABDOMEN AND PELVIS HISTORY: GI bleeding COMPARISON: CT abdomen pelvis with contrast dated 07/17/2019 TECHNIQUE: Noncontrast CT abdomen obtained. Routine postcontrast CT angiography of the abdomen and p salima performed. Multiplanar/MIP/3D reformats were post-processed. CONTRAST: 100 ml of Omnipaque 350 FINDINGS: CTA ABDOMEN: Abdominal Aorta: No significant abnormality. Celiac Artery: No significant abnormality. Superior Mesenteric Artery: No significant abnormality. Renal Arteries: Right: No significant abnormality. Left: No significant abnormality. Inferior Mesenteric Artery: No significant abnormality. CTA PELVIS: RIGHT: Common Iliac Artery: No significant abnormality. Internal Iliac Artery: No significant abnormality. External Iliac Artery: No significant abnormality. LEFT: Common Iliac Artery: No significant abnormality. Internal Iliac Artery: No significant abnormality. External Iliac Artery: No significant abnormality. NONTARGET STRUCTURES: ABDOMEN: GI:Again there is mild thickening and trace fluid or fat stranding adjacent to the gastric antrum co ncerning for peptic ulcer disease. There is mild diverticulosis of the colon. There is no large arter ial spurt of IV contrast in the GI system to definitely locate the source of GI bleeding. I question if there could be a small blush of contrast in the lower rectum on image 185 of series 2. Mild cirrho tic changes in the liver are unchanged. Previous cholecystectomy. Spleen is normal size. No ascites. :Left adrenal myelolipoma is stable. The kidneys and renal collecting systems are unremarkable. Th e bladder is empty and contains a Brown catheter. Lymphatics:No significant abnormality. PELVIS: :No significant abnormality. Osseous Structures: Moderate thoracolumbar spondylosis. Additional Findings: None IMPRESSION: Question a very subtle GI bleed in the lower rectum. Please correlate with the patient. There is dive rticulosis of the colon and suggestion of mild peptic ulcer disease is secondary considerations. No hemodynamically significant stenosis in the arterial system. Cirrhosis of the liver. Stable left adrenal myelolipoma. Signer Name: Moi Mitchell Jr, MD Signed: 07/18/2019 3:51 PM Workstation Name: [id number]
[2019-07-18 23:04] LABS: Hematocrit 20.1 % (35.5-45.6); Hemoglobin 7.1 gm/dl (11.8-15.2)
[2019-07-19] MEDS: HYDROmorphone 1 MG/1 ML INJ IV PRN ×3 (00:42→09:05)
[2019-07-19] MEDS: OCTREOTIDE 500 MCG in SODIUM CHLORIDE 0.9% 100 ML IV SCH (01:31)
[2019-07-19 04:38] LABS: Hematocrit 20.9 % (35.5-45.6); Hemoglobin 7.3 gm/dl (11.8-15.2); Mean Corpuscular HGB Conc 35 % (32-34); Mean Corpuscular Volume 91 fl (84-94); Red Blood Count 2.31 M/mm3 (3.65-5.03); Red Cell Distribution Width 16.2 % (13.2-15.2)
[2019-07-19 04:43] LABS: Platelet Count 42 K/mm3 (140-440)
[2019-07-19 04:46] LABS: BUN/Creatinine Ratio 37; Blood Urea Nitrogen 33 mg/dL (9-20); Calcium 7.9 mg/dL (8.4-10.2); Hemolysis Index 23
[2019-07-19] MEDS: PANTOPRAZOLE 80 MG in SODIUM CHLORIDE 0.9% 100 ML IV SCH ×2 (06:48→21:44)
--- NOTE | 2019-07-19 09:30 | Progress Note ---
Assessment and Plan - Patient Problems (1) GI bleed Current Visit: Yes Status: Acute Qualifiers: GI bleed type/associated pathology: gastric ulcer Qualified Code(s): K25.4 - Chronic or unspecified gastric ulcer with hemorrhage Plan to address problem: Pt stable. Vital signs appear better. Clinically patient looks better. Patient still anemic, but expected. I think it would be fine to begin a clear liquid diet. Would progress slowly with diet. No surgery planned at this time. Will be available if needed. Please call with questions. Time=10min Subjective Date of service: 07/19/19 Patient Reports: Positive: no new complaints, feels better, still having pain (but primarily in back), pain is less (in abdomen), flatus. Negative: nausea, vomiting Objective Vital Signs - 12hr 07/18/19 07/18/19 07/18/19 21:30 21:41 21:51 Temperature Pulse Rate 103 H 104 H 103 H Pulse Rate [ From Monitor] Respiratory 12 10 L 14 Rate Respiratory Rate [Back] Blood Pressure 108/42 108/42 86/48 O2 Sat by Pulse 100 100 99 Oximetry 07/18/19 07/18/19 07/18/19 22:00 22:01 22:11 Temperature Pulse Rate 104 H 104 H Pulse Rate [ From Monitor] Respiratory 20 11 L 12 Rate Respiratory Rate [Back] Blood Pressure 91/43 86/48 O2 Sat by Pulse 99 99 100 Oximetry 07/18/19 07/18/19 07/18/19 22:21 22:30 22:41 Temperature Pulse Rate 106 H 102 H 106 H Pulse Rate [ From Monitor] Respiratory 9 L 12 16 Rate Respiratory Rate [Back] Blood Pressure 90/45 93/46 90/45 O2 Sat by Pulse 98 99 83 L Oximetry 07/18/19 07/18/19 07/18/19 22:51 23:01 23:11 Temperature Pulse Rate 103 H 103 H 108 H Pulse Rate [ From Monitor] Respiratory 12 12 16 Rate Respiratory Rate [Back] Blood Pressure 96/46 106/46 96/46 O2 Sat by Pulse 100 97 100 Oximetry 07/18/19 07/18/19 07/18/19 23:21 23:31 23:41 Temperature Pulse Rate 110 H 104 H 105 H Pulse Rate [ From Monitor] Respiratory 14 14 10 L Rate Respiratory Rate [Back] Blood Pressure 118/46 128/50 128/50 O2 Sat by Pulse 99 100 99 Oximetry 07/18/19 07/18/19 07/19/19 23:48 23:51 00:00 Temperature 98.6 F Pulse Rate 105 H 106 H Pulse Rate [ From Monitor] Respiratory 12 14 Rate Respiratory Rate [Back] Blood Pressure 100/45 106/48 O2 Sat by Pulse 99 100 Oximetry 07/19/19 07/19/19 07/19/19 00:11 00:21 00:30 Temperature Pulse Rate 103 H 100 H 101 H Pulse Rate [ From Monitor] Respiratory 14 15 9 L Rate Respiratory Rate [Back] Blood Pressure 100/45 102/48 106/50 O2 Sat by Pulse 99 100 100 Oximetry 07/19/19 07/19/19 07/19/19 00:40 00:41 00:42 Temperature Pulse Rate 101 H Pulse Rate [ From Monitor] Respiratory 17 20 Rate Respiratory 20 Rate [Back] Blood Pressure 102/48 O2 Sat by Pulse 100 Oximetry 07/19/19 07/19/19 07/19/19 00:51 01:00 01:11 Temperature Pulse Rate 100 H 97 H 103 H Pulse Rate [ From Monitor] Respiratory 12 12 12 Rate Respiratory Rate [Back] Blood Pressure 108/42 108/47 108/47 O2 Sat by Pulse 100 99 100 Oximetry 07/19/19 07/19/19 07/19/19 01:12 01:21 01:30 Temperature Pulse Rate 111 H 100 H Pulse Rate [ From Monitor] Respiratory 20 10 L 13 Rate Respiratory Rate [Back] Blood Pressure 103/54 91/45 O2 Sat by Pulse 99 98 Oximetry 07/19/19 07/19/19 07/19/19 01:41 01:51 02:00 Temperature Pulse Rate 105 H 104 H 98 H Pulse Rate [ 102 H From Monitor] Respiratory 21 11 L 12 Rate Respiratory Rate [Back] Blood Pressure 106/57 101/48 98/45 O2 Sat by Pulse 95 98 99 Oximetry 07/19/19 07/19/19 07/19/19 02:11 02:21 02:30 Temperature Pulse Rate 104 H 96 H 101 H Pulse Rate [ From Monitor] Respiratory 12 18 11 L Rate Respiratory Rate [Back] Blood Pressure 103/47 108/51 112/41 O2 Sat by Pulse 100 100 100 Oximetry 04/17/20 04/17/20 04/17/20 02:41 02:51 03:00 Temperature Pulse Rate 97 H 96 H 100 H Pulse Rate [ From Monitor] Respiratory 11 L 11 L 12 Rate Respiratory Rate [Back] Blood Pressure 112/41 126/45 96/45 O2 Sat by Pulse 100 100 99 Oximetry 07/19/19 07/19/19 07/19/19 03:05 03:11 03:21 Temperature 98.9 F Pulse Rate 100 H 99 H Pulse Rate [ From Monitor] Respiratory 17 13 Rate Respiratory Rate [Back] Blood Pressure 96/45 109/49 O2 Sat by Pulse 100 100 Oximetry 07/19/19 07/19/19 07/19/19 03:30 03:41 03:51 Temperature Pulse Rate 104 H 103 H 100 H Pulse Rate [ From Monitor] Respiratory 13 14 16 Rate Respiratory Rate [Back] Blood Pressure 111/52 111/52 118/52 O2 Sat by Pulse 100 100 99 Oximetry 07/19/19 07/19/19 07/19/19 04:00 04:02 04:10 Temperature Pulse Rate 100 H 98 H 100 H Pulse Rate [ From Monitor] Respiratory 11 L 10 L Rate Respiratory Rate [Back] Blood Pressure 105/48 105/48 O2 Sat by Pulse 98 100 Oximetry 07/19/19 07/19/19 07/19/19 04:13 04:21 04:31 Temperature Pulse Rate 96 H 99 H Pulse Rate [ From Monitor] Respiratory 20 14 13 Rate Respiratory Rate [Back] Blood Pressure 105/48 100/49 O2 Sat by Pulse 99 98 Oximetry 07/19/19 07/19/19 07/19/19 04:41 04:43 04:51 Temperature Pulse Rate 96 H 99 H Pulse Rate [ From Monitor] Respiratory 12 20 9 L Rate Respiratory Rate [Back] Blood Pressure 100/49 99/46 O2 Sat by Pulse 100 100 Oximetry 07/19/19 07/19/19 07/19/19 05:00 05:11 05:21 Temperature Pulse Rate 97 H 92 H 98 H Pulse Rate [ From Monitor] Respiratory 12 14 16 Rate Respiratory Rate [Back] Blood Pressure 104/49 104/49 107/45 O2 Sat by Pulse 100 100 100 Oximetry 07/19/19 07/19/19 07/19/19 05:30 05:41 05:51 Temperature Pulse Rate 99 H 102 H 99 H Pulse Rate [ From Monitor] Respiratory 11 L 13 11 L Rate Respiratory Rate [Back] Blood Pressure 104/46 104/46 104/46 O2 Sat by Pulse 100 100 99 Oximetry 07/19/19 07/19/19 07/19/19 06:00 06:11 06:21 Temperature Pulse Rate 96 H 101 H 96 H Pulse Rate [ From Monitor] Respiratory 11 L 14 11 L Rate Respiratory Rate [Back] Blood Pressure 104/52 104/52 105/46 O2 Sat by Pulse 99 100 100 Oximetry 07/19/19 07/19/19 07/19/19 06:30 06:41 06:50 Temperature Pulse Rate 93 H 96 H 92 H Pulse Rate [ From Monitor] Respiratory 13 12 10 L Rate Respiratory Rate [Back] Blood Pressure 109/51 109/51 103/53 O2 Sat by Pulse 100 100 100 Oximetry 07/19/19 09:05 Temperature Pulse Rate Pulse Rate [ From Monitor] Respiratory 18 Rate Respiratory Rate [Back] Blood Pressure O2 Sat by Pulse Oximetry - General physical appearance no distress, no pain, obese, other (looks much better) - Respiratory normal expansion, normal respiratory effort - Abdomen soft, not tender, not distended, not guarding, not rigid - Psychiatric oriented to time, oriented to person, oriented to place, speech is normal, memory intact - Labs 07/19/19 03:13 07/19/19 03:13 Diabetes panel 07/18/19 07/19/19 Range/Units 10:55 03:13 Sodium 128 L 132 L (137-145) mmol/L Potassium 5.1 H 4.3 (3.6-5.0) mmol/L Chloride 97.3 L 99.4 (98-107) mmol/L Carbon Dioxide 20 L 20 L (22-30) mmol/L BUN 46 H 33 H (9-20) mg/dL Creatinine 1.1 0.9 (0.8-1.5) mg/dL Glucose 167 H 132 H (75-100) mg/dL Calcium 7.6 L 7.9 L (8.4-10.2) mg/dL Calcium panel 07/18/19 07/19/19 Range/Units 10:55 03:13 Calcium 7.6 L 7.9 L (8.4-10.2) mg/dL Pituitary panel 07/18/19 07/19/19 Range/Units 10:55 03:13 Sodium 128 L 132 L (137-145) mmol/L Potassium 5.1 H 4.3 (3.6-5.0) mmol/L Chloride 97.3 L 99.4 (98-107) mmol/L Carbon Dioxide 20 L 20 L (22-30) mmol/L BUN 46 H 33 H (9-20) mg/dL Creatinine 1.1 0.9 (0.8-1.5) mg/dL Glucose 167 H 132 H (75-100) mg/dL Calcium 7.6 L 7.9 L (8.4-10.2) mg/dL Adrenal panel 07/18/19 07/19/19 Range/Units 10:55 03:13 Sodium 128 L 132 L (137-145) mmol/L Potassium 5.1 H 4.3 (3.6-5.0) mmol/L Chloride 97.3 L 99.4 (98-107) mmol/L Carbon Dioxide 20 L 20 L (22-30) mmol/L BUN 46 H 33 H (9-20) mg/dL Creatinine 1.1 0.9 (0.8-1.5) mg/dL Glucose 167 H 132 H (75-100) mg/dL Calcium 7.6 L 7.9 L (8.4-10.2) mg/dL
--- NOTE | 2019-07-19 09:58 | Progress Note ---
Assessment and Plan Acute hypoxemic respiratory failure s/p MVS Hemorrhagic shock Acute lower GI bleed Severe symptomatic anemia Syncope, likely orthostatic hypotension due to severe dehydration from acute GI bleed VELIA secondary to vasomotor nephropathy Hyperkalemia Diabetes mellitus type History of alcohol abuse with hepatic cirrhosis h/o schizophrenia/bipolar disorder -Supplemental oxygen to keep O2 sats>90% -Aspiration precautions, HOB >40 -Agitation management- currently calm -SCDs for VTE prophylaxis -Therapeutic PPI infusion -Monitor H and H, transfuse as indicated to keep HgB >7g/dL -Avoid nephrotoxins, adjust all medications for CrCL and GFR -Accuchecks with glycemic control Keep blood glucose between 140-180 mg/dL while critically ill. -Avoid hypoglycemia -Monitor hemodynamics closely -Resume chronic home medications as clinically indicated -Mobility, off loading -OOB to chair as tolerated. -Discussed with General surgery service, ok to initiate a clear liquid diet -Discussed with hospitalist service- patient can be transferred to the surgical floor with remote telemetry -Maintenance of sleep -wake cycle CONDITION: FAIR PROGNOSIS: FAIR CODE STATUS: FULL CODE Subjective Date of service: 07/19/19 Principal diagnosis: GI bleed Interval history: Follow up: Acute hypoxemic respiratory failure on MVS; Severe symptomatic anemia; hemorrhagic shock: Syncope Patient seen and examined. Discussed with RT/RN. Vitals, labs, medications, chart and imaging reviewed. Brief history -Patient presented with active rectal bleeding and was having active bleeding episode in the ER leading to sudden drop in H&H and severe hypotension required pressors -Emergently transfused 2 units of packed RBC, -GI/IR/GS has been consulted for emergent Mx - -During endoscopy patient started to have severe upper GI bleed, he was intubated, - due to continued bleeding, risk of perforation for further intervention procedure terminated and ultimately embolization of the GDA by IR Extubated yesterday ; s/p gastroduodenal embolization by IR He is on PPI and octreotide infusions Denies any chest pain, no shortness of breath, no fevers or chills. Objective - Exam Narrative Exam: GENERAL: well-developed short stature obese white male lying on bed appeared to be in mild discomfort. HEENT: Normocephalic. Atraumatic. No conjunctival congestion or icterus. Patient has moist mucous membranes. NECK: Supple. Trachea midline. CHEST/LUNGS: Clear to auscultated bilaterally, breathing non-labored. No wheezes crackles or rhonchi. HEART/CARDIOVASCULAR: Regular in rate and rhythm. S1 and S2 positive. ABDOMEN: Abdomen is soft, + diffuse tender. Patient has normal bowel sounds. SKIN: There is no rash. Warm and dry. NEURO: No focal motor deficit. Follows command. MUSCULOSKELETAL: No joint effusion or tenderness. EXTRIMITY: No edema, no cyanosis or clubbing. PSYCH: Cooperative. Vital Signs - 12hr 07/18/19 07/18/19 07/18/19 22:00 22:01 22:11 Temperature Pulse Rate 104 H 104 H Pulse Rate [ From Monitor] Respiratory 20 11 L 12 Rate Respiratory Rate [Back] Blood Pressure 91/43 86/48 O2 Sat by Pulse 99 99 100 Oximetry 07/18/19 07/18/19 07/18/19 22:21 22:30 22:41 Temperature Pulse Rate 106 H 102 H 106 H Pulse Rate [ From Monitor] Respiratory 9 L 12 16 Rate Respiratory Rate [Back] Blood Pressure 90/45 93/46 90/45 O2 Sat by Pulse 98 99 83 L Oximetry 07/18/19 07/18/19 07/18/19 22:51 23:01 23:11 Temperature Pulse Rate 103 H 103 H 108 H Pulse Rate [ From Monitor] Respiratory 12 12 16 Rate Respiratory Rate [Back] Blood Pressure 96/46 106/46 96/46 O2 Sat by Pulse 100 97 100 Oximetry 07/18/19 07/18/19 07/18/19 23:21 23:31 23:41 Temperature Pulse Rate 110 H 104 H 105 H Pulse Rate [ From Monitor] Respiratory 14 14 10 L Rate Respiratory Rate [Back] Blood Pressure 118/46 128/50 128/50 O2 Sat by Pulse 99 100 99 Oximetry 07/18/19 07/18/19 07/19/19 23:48 23:51 00:00 Temperature 98.6 F Pulse Rate 105 H 106 H Pulse Rate [ From Monitor] Respiratory 12 14 Rate Respiratory Rate [Back] Blood Pressure 100/45 106/48 O2 Sat by Pulse 99 100 Oximetry 07/19/19 07/19/19 07/19/19 00:11 00:21 00:30 Temperature Pulse Rate 103 H 100 H 101 H Pulse Rate [ From Monitor] Respiratory 14 15 9 L Rate Respiratory Rate [Back] Blood Pressure 100/45 102/48 106/50 O2 Sat by Pulse 99 100 100 Oximetry 07/19/19 07/19/19 07/19/19 00:40 00:41 00:42 Temperature Pulse Rate 101 H Pulse Rate [ From Monitor] Respiratory 17 20 Rate Respiratory 20 Rate [Back] Blood Pressure 102/48 O2 Sat by Pulse 100 Oximetry 07/19/19 07/19/19 07/19/19 00:51 01:00 01:11 Temperature Pulse Rate 100 H 97 H 103 H Pulse Rate [ From Monitor] Respiratory 12 12 12 Rate Respiratory Rate [Back] Blood Pressure 108/42 108/47 108/47 O2 Sat by Pulse 100 99 100 Oximetry 07/19/19 07/19/19 07/19/19 01:12 01:21 01:30 Temperature Pulse Rate 111 H 100 H Pulse Rate [ From Monitor] Respiratory 20 10 L 13 Rate Respiratory Rate [Back] Blood Pressure 103/54 91/45 O2 Sat by Pulse 99 98 Oximetry 07/19/19 07/19/19 07/19/19 01:41 01:51 02:00 Temperature Pulse Rate 105 H 104 H 98 H Pulse Rate [ 102 H From Monitor] Respiratory 21 11 L 12 Rate Respiratory Rate [Back] Blood Pressure 106/57 101/48 98/45 O2 Sat by Pulse 95 98 99 Oximetry 07/19/19 07/19/19 07/19/19 02:11 02:21 02:30 Temperature Pulse Rate 104 H 96 H 101 H Pulse Rate [ From Monitor] Respiratory 12 18 11 L Rate Respiratory Rate [Back] Blood Pressure 103/47 108/51 112/41 O2 Sat by Pulse 100 100 100 Oximetry 07/19/19 07/19/19 07/19/19 02:41 02:51 03:00 Temperature Pulse Rate 97 H 96 H 100 H Pulse Rate [ From Monitor] Respiratory 11 L 11 L 12 Rate Respiratory Rate [Back] Blood Pressure 112/41 126/45 96/45 O2 Sat by Pulse 100 100 99 Oximetry 07/19/19 07/19/19 07/19/19 03:05 03:11 03:21 Temperature 98.9 F Pulse Rate 100 H 99 H Pulse Rate [ From Monitor] Respiratory 17 13 Rate Respiratory Rate [Back] Blood Pressure 96/45 109/49 O2 Sat by Pulse 100 100 Oximetry 07/19/19 07/19/19 07/19/19 03:30 03:41 03:51 Temperature Pulse Rate 104 H 103 H 100 H Pulse Rate [ From Monitor] Respiratory 13 14 16 Rate Respiratory Rate [Back] Blood Pressure 111/52 111/52 118/52 O2 Sat by Pulse 100 100 99 Oximetry 07/19/19 07/19/19 07/19/19 04:00 04:02 04:10 Temperature Pulse Rate 100 H 98 H 100 H Pulse Rate [ From Monitor] Respiratory 11 L 10 L Rate Respiratory Rate [Back] Blood Pressure 105/48 105/48 O2 Sat by Pulse 98 100 Oximetry 07/19/19 07/19/19 07/19/19 04:13 04:21 04:31 Temperature Pulse Rate 96 H 99 H Pulse Rate [ From Monitor] Respiratory 20 14 13 Rate Respiratory Rate [Back] Blood Pressure 105/48 100/49 O2 Sat by Pulse 99 98 Oximetry 07/19/19 07/19/19 07/19/19 04:41 04:43 04:51 Temperature Pulse Rate 96 H 99 H Pulse Rate [ From Monitor] Respiratory 12 20 9 L Rate Respiratory Rate [Back] Blood Pressure 100/49 99/46 O2 Sat by Pulse 100 100 Oximetry 07/19/19 07/19/19 07/19/19 05:00 05:11 05:21 Temperature Pulse Rate 97 H 92 H 98 H Pulse Rate [ From Monitor] Respiratory 12 14 16 Rate Respiratory Rate [Back] Blood Pressure 104/49 104/49 107/45 O2 Sat by Pulse 100 100 100 Oximetry 07/19/19 07/19/19 07/19/19 05:30 05:41 05:51 Temperature Pulse Rate 99 H 102 H 99 H Pulse Rate [ From Monitor] Respiratory 11 L 13 11 L Rate Respiratory Rate [Back] Blood Pressure 104/46 104/46 104/46 O2 Sat by Pulse 100 100 99 Oximetry 07/19/19 07/19/19 07/19/19 06:00 06:11 06:21 Temperature Pulse Rate 96 H 101 H 96 H Pulse Rate [ From Monitor] Respiratory 11 L 14 11 L Rate Respiratory Rate [Back] Blood Pressure 104/52 104/52 105/46 O2 Sat by Pulse 99 100 100 Oximetry 07/19/19 07/19/19 07/19/19 06:30 06:41 06:50 Temperature Pulse Rate 93 H 96 H 92 H Pulse Rate [ From Monitor] Respiratory 13 12 10 L Rate Respiratory Rate [Back] Blood Pressure 109/51 109/51 103/53 O2 Sat by Pulse 100 100 100 Oximetry 07/19/19 07/19/19 08:00 09:05 Temperature 98.3 F Pulse Rate Pulse Rate [ From Monitor] Respiratory 18 Rate Respiratory Rate [Back] Blood Pressure O2 Sat by Pulse Oximetry CBC and BMP: 07/20/19 03:35 07/19/19 03:13 ABG, PT/INR, D-dimer: ABG ABG pH 7.476 pH Units (7.350-7.450) H 07/18/19 03:39 ABG pCO2 28.9 mm Hg 07/18/19 03:39 ABG pO2 113.5 mm Hg (80.0-90.0) H 07/18/19 03:39 ABG O2 Saturation 98.3 % (95.0-99.0) 07/18/19 03:39 PT/INR, D-dimer PT 13.9 Sec. (12.2-14.9) 07/17/19 03:34 INR 1.06 (0.87-1.13) 07/17/19 03:34 Abnormal lab findings: Abnormal Labs 07/17/19 07/17/19 07/17/19 03:34 03:34 03:34 WBC 13.9 H RBC 3.37 L Hgb 10.9 L Hct 30.8 L MCHC 35 H RDW 15.9 H Plt Count Seg Neuts % (Manual) 80.0 H Lymphocytes % (Manual) 11.0 L Seg Neutrophils # Man 11.1 H ABG pH ABG pO2 ABG HCO3 ABG O2 Saturation ABG Base Excess ABG Hemoglobin Sodium 118 L* Potassium 6.2 H* Chloride 83.0 L Carbon Dioxide BUN 31 H Glucose 114 H Calcium Total Protein Albumin 3.5 L Crossmatch See Detail 07/17/19 07/17/19 07/17/19 03:34 07:22 07:22 WBC RBC Hgb 8.0 L Hct 23.5 L D MCHC RDW Plt Count Seg Neuts % (Manual) Lymphocytes % (Manual) Seg Neutrophils # Man ABG pH ABG pO2 ABG HCO3 ABG O2 Saturation ABG Base Excess ABG Hemoglobin Sodium 122 L Potassium 5.5 H Chloride 87.9 L Carbon Dioxide 17 L BUN 34 H Glucose 146 H Calcium Total Protein 4.3 L D Albumin 2.6 L Crossmatch See Detail 07/17/19 07/17/19 07/17/19 12:16 19:37 22:57 WBC RBC Hgb 11.1 L D 8.9 L Hct 32.8 L D 26.6 L D MCHC RDW Plt Count Seg Neuts % (Manual) Lymphocytes % (Manual) Seg Neutrophils # Man ABG pH 7.273 L ABG pO2 275.6 H ABG HCO3 17.8 L ABG O2 Saturation 99.4 H ABG Base Excess -8.4 L ABG Hemoglobin 8.9 L Sodium Potassium Chloride Carbon Dioxide BUN Glucose Calcium Total Protein Albumin Crossmatch 07/18/19 07/18/19 07/18/19 03:39 04:20 10:55 WBC RBC Hgb 8.0 L Hct 22.3 L MCHC RDW Plt Count Seg Neuts % (Manual) Lymphocytes % (Manual) Seg Neutrophils # Man ABG pH 7.476 H ABG pO2 113.5 H ABG HCO3 ABG O2 Saturation ABG Base Excess -2.4 L ABG Hemoglobin 6.6 L Sodium 128 L Potassium 5.1 H Chloride 97.3 L Carbon Dioxide 20 L BUN 46 H Glucose 167 H Calcium 7.6 L Total Protein Albumin Crossmatch 07/18/19 07/19/19 07/19/19 22:36 03:13 03:13 WBC RBC 2.31 L Hgb 7.1 L 7.3 L Hct 20.1 L 20.9 L MCHC 35 H RDW 16.2 H Plt Count 42 L Seg Neuts % (Manual) Lymphocytes % (Manual) Seg Neutrophils # Man ABG pH ABG pO2 ABG HCO3 ABG O2 Saturation ABG Base Excess ABG Hemoglobin Sodium 132 L Potassium Chloride Carbon Dioxide 20 L BUN 33 H Glucose 132 H Calcium 7.9 L Total Protein Albumin Crossmatch
[2019-07-19] MEDS: MORPHINE 2 MG/1 ML INJ IV PRN ×2 (13:19→21:50)
--- NOTE | 2019-07-19 14:01 | Progress Note ---
Assessment and Plan Acute lower GI bleed -Likely from variceal bleeding and peptic ulcer disease -Patient presented with active rectal bleeding and was having active bleeding episode in the ER leading to sudden drop in H&H and severe hypotension required pressors -s/p 4 units of packed RBC and 4 units FFP transfused, -GI/IR/GS has been consulted for emergent Mx - -During endoscopy patient started to have severe upper GI bleed, he was intubated, - due to continued bleeding, risk of perforation for further intervention procedure terminated and ultimately embolization of the GDA by IR - s/p octreotide IV, Continue Protonix IV, Acute respiratory failure -Intubated following endoscopy to protect airway - s/p extubation 07/17 Severe symptomatic anemia -Due to acute GI bleed -Status post 4 units of packed RBC transfusion, continue IV fluid, monitor H&H SIRS due to active GI bleed, need to rule out infectious cause -Negative UA and negative blood culture Syncope, likely vasovagal due to severe dehydration from acute GI bleed -CT head unremarkable, continue supportive care with IV fluid, frequent neuro check VELIA likely due to hypovolemia -Continue to monitor BMP, if renal function continues to decline will consider consulting nephrology Hyperkalemia, likely due to declining renal function - resolved -K was 6.2 on admission, continue to monitor Hypotensive shock, due to active GI bleeding -s/p Levophed, continue IV fluid, transfuse as needed -Status post 4 unit of packed RBC transfusion Diabetes mellitus type 2, continue SSI h/o schizophrenia/bipolar disorder - will cont home meds when can take po meds History of alcohol abuse with hepatic cirrhosis -Continue to monitor for alcohol withdrawal. States that he was not drinking recently for years. -monitor LFT and CBC DVT prophylaxis, SCD 07/17: extubated. keep NPO. cont Protonix IV and octreotide IV. 07/18: Had a small bloody bowel movement last night. H&H slightly dropped, which is expected. start on clear liquid diet today. Continue Protonix IV, completed octreotide drip today. We will transfer to telemetry and continue to monitor H&H. Brief history: Patient is a 58-year-old male with history of hypertension, diabetes mellitus type 2, bipolar and schizophrenia presented to the hospital with history of acute rectal bleeding, a syncopal episode when trying to leave the bathroom after having a bloody bowel movement. He decided to come to the ER for further evaluation and management. His initial lab work showed potassium of 6.2, elevated creatinine and hemoglobin of 10.9 which dropped down to 8, also developed hypotension and shortness of breath after having a large rectal bleeding while he was waiting in the ER room. Patient was immediately placed on central line, given 2 units of packed RBC, started on Levophed, IV fluid, GI was consulted in the ER.. Patient was taken for emergent EGD, but During endoscopy patient started to have severe upper GI bleed, he was intubated, due to continued bleeding, risk of perforation for further intervention procedure terminated and ultimately embolization of the GDA by IR. Patient extubated next morning, continue with IV Protonix, sp IV octreotide - transfer to tele. Subjective Date of service: 07/19/19 Principal diagnosis: GI bleed Interval history: Patient seen and examined. Medical records and medication list reviewed. No acute event overnight noted by the RN. Patient States that he is feeling well, had black stool overnight. Discussed plan of care at bedside with patient and with his RN. Objective - Exam Narrative Exam: GENERAL: well-developed short stature obese white male lying on bed appeared to be in mild discomfort. HEENT: Normocephalic. Atraumatic. No conjunctival congestion or icterus. Patient has moist mucous membranes. NECK: Supple. Trachea midline. CHEST/LUNGS: Clear to auscultated bilaterally, breathing nonlabored. No wheezes crackles or rhonchi. HEART/CARDIOVASCULAR: Regular in rate and rhythm. S1 and S2 positive. ABDOMEN: Abdomen is soft, + diffuse tender. Patient has normal bowel sounds. SKIN: There is no rash. Warm and dry. NEURO: No focal motor deficit. Follows command. MUSCULOSKELETAL: No joint effusion or tenderness. EXTRIMITY: No edema, no cyanosis or clubbing. PSYCH: Cooperative. - Constitutional Vitals: Vital Signs - 12hr 07/19/19 07/19/19 07/19/19 02:00 02:11 02:21 Temperature Pulse Rate 98 H 104 H 96 H Pulse Rate [ 102 H From Monitor] Respiratory 12 12 18 Rate Respiratory Rate [Back] Blood Pressure 98/45 103/47 108/51 Blood Pressure [Right] O2 Sat by Pulse 99 100 100 Oximetry 07/19/19 07/19/19 07/19/19 02:30 02:41 02:51 Temperature Pulse Rate 101 H 97 H 96 H Pulse Rate [ From Monitor] Respiratory 11 L 11 L 11 L Rate Respiratory Rate [Back] Blood Pressure 112/41 112/41 126/45 Blood Pressure [Right] O2 Sat by Pulse 100 100 100 Oximetry 07/19/19 07/19/19 07/19/19 03:00 03:05 03:11 Temperature 98.9 F Pulse Rate 100 H 100 H Pulse Rate [ From Monitor] Respiratory 12 17 Rate Respiratory Rate [Back] Blood Pressure 96/45 96/45 Blood Pressure [Right] O2 Sat by Pulse 99 100 Oximetry 07/19/19 07/19/19 07/19/19 03:21 03:30 03:41 Temperature Pulse Rate 99 H 104 H 103 H Pulse Rate [ From Monitor] Respiratory 13 13 14 Rate Respiratory Rate [Back] Blood Pressure 109/49 111/52 111/52 Blood Pressure [Right] O2 Sat by Pulse 100 100 100 Oximetry 07/19/19 07/19/19 07/19/19 03:51 04:00 04:02 Temperature Pulse Rate 100 H 100 H 98 H Pulse Rate [ From Monitor] Respiratory 16 11 L Rate Respiratory Rate [Back] Blood Pressure 118/52 105/48 Blood Pressure [Right] O2 Sat by Pulse 99 98 Oximetry 07/19/19 07/19/19 07/19/19 04:10 04:13 04:21 Temperature Pulse Rate 100 H 96 H Pulse Rate [ From Monitor] Respiratory 10 L 20 14 Rate Respiratory Rate [Back] Blood Pressure 105/48 105/48 Blood Pressure [Right] O2 Sat by Pulse 100 99 Oximetry 07/19/19 07/19/19 07/19/19 04:31 04:41 04:43 Temperature Pulse Rate 99 H 96 H Pulse Rate [ From Monitor] Respiratory 13 12 20 Rate Respiratory Rate [Back] Blood Pressure 100/49 100/49 Blood Pressure [Right] O2 Sat by Pulse 98 100 Oximetry 07/19/19 07/19/19 07/19/19 04:51 05:00 05:11 Temperature Pulse Rate 99 H 97 H 92 H Pulse Rate [ From Monitor] Respiratory 9 L 12 14 Rate Respiratory Rate [Back] Blood Pressure 99/46 104/49 104/49 Blood Pressure [Right] O2 Sat by Pulse 100 100 100 Oximetry 07/19/19 07/19/19 07/19/19 05:21 05:30 05:41 Temperature Pulse Rate 98 H 99 H 102 H Pulse Rate [ From Monitor] Respiratory 16 11 L 13 Rate Respiratory Rate [Back] Blood Pressure 107/45 104/46 104/46 Blood Pressure [Right] O2 Sat by Pulse 100 100 100 Oximetry 07/19/19 07/19/19 07/19/19 05:51 06:00 06:11 Temperature Pulse Rate 99 H 96 H 101 H Pulse Rate [ From Monitor] Respiratory 11 L 11 L 14 Rate Respiratory Rate [Back] Blood Pressure 104/46 104/52 104/52 Blood Pressure [Right] O2 Sat by Pulse 99 99 100 Oximetry 07/19/19 07/19/19 07/19/19 06:21 06:30 06:41 Temperature Pulse Rate 96 H 93 H 96 H Pulse Rate [ From Monitor] Respiratory 11 L 13 12 Rate Respiratory Rate [Back] Blood Pressure 105/46 109/51 109/51 Blood Pressure [Right] O2 Sat by Pulse 100 100 100 Oximetry 07/19/19 07/19/19 07/19/19 06:50 08:00 09:05 Temperature 98.3 F Pulse Rate 92 H 93 H Pulse Rate [ From Monitor] Respiratory 10 L 18 18 Rate Respiratory Rate [Back] Blood Pressure 103/53 Blood Pressure 110/56 [Right] O2 Sat by Pulse 100 100 Oximetry 07/19/19 07/19/19 07/19/19 10:00 10:20 11:52 Temperature Pulse Rate 90 Pulse Rate [ 93 H From Monitor] Respiratory 18 18 Rate Respiratory 20 Rate [Back] Blood Pressure Blood Pressure 98/56 114/50 [Right] O2 Sat by Pulse 100 98 100 Oximetry 07/19/19 12:00 Temperature Pulse Rate 103 H Pulse Rate [ From Monitor] Respiratory Rate Respiratory Rate [Back] Blood Pressure Blood Pressure [Right] O2 Sat by Pulse Oximetry - Labs CBC & Chem 7: 07/20/19 03:35 07/19/19 03:13 Labs: Abnormal lab results 07/17/19 07/18/19 07/19/19 Range/Units 03:34 22:36 03:13 RBC 2.31 L (3.65-5.03) M/mm3 Hgb 7.1 L 7.3 L (11.8-15.2) gm/dl Hct 20.1 L 20.9 L (35.5-45.6) % MCHC 35 H (32-34) % RDW 16.2 H (13.2-15.2) % Plt Count 42 L (140-440) K/mm3 Sodium (137-145) mmol/L Carbon Dioxide (22-30) mmol/L BUN (9-20) mg/dL Glucose (75-100) mg/dL Calcium (8.4-10.2) mg/dL Crossmatch See Detail 07/19/19 Range/Units 03:13 RBC (3.65-5.03) M/mm3 Hgb (11.8-15.2) gm/dl Hct (35.5-45.6) % MCHC (32-34) % RDW (13.2-15.2) % Plt Count (140-440) K/mm3 Sodium 132 L (137-145) mmol/L Carbon Dioxide 20 L (22-30) mmol/L BUN 33 H (9-20) mg/dL Glucose 132 H (75-100) mg/dL Calcium 7.9 L (8.4-10.2) mg/dL Crossmatch
--- NOTE | 2019-07-19 14:21 | Gastroenterology Progress Note ---
Assessment and Plan GI: UGI bleed due to PUD s/p IR bleeding therapy - pt to have repeat EGD as outpt in future, will discuss at follow up - PPI bid - advance diet as tolerated - ok to d/c when cleared by IR/Surgery - will sign off, call if needed Subjective Date of service: 07/19/19 Principal diagnosis: GI bleed Interval history: - no signs bleeding overnight Objective - Constitutional Vitals: Temp Pulse Resp BP Pulse Ox 98.3 F 103 H 18 114/50 100 07/19/19 08:00 07/19/19 12:00 07/19/19 11:52 07/19/19 11:52 07/19/19 11:52 General appearance: no acute distress - EENT Eyes: PERRL - Respiratory Respiratory: bilateral: CTA - Cardiovascular Rhythm: regular Heart Sounds: Present: S1 & S2 - Gastrointestinal General gastrointestinal: Present: soft, non-tender, non-distended - Labs CBC & Chem 7: 07/19/19 03:13 07/19/19 03:13 Labs: Laboratory Results - last 24 hr 07/17/19 07/18/19 07/19/19 03:34 22:36 03:13 WBC 5.1 RBC 2.31 L Hgb 7.1 L 7.3 L Hct 20.1 L 20.9 L MCV 91 MCH 32 MCHC 35 H RDW 16.2 H Plt Count 42 L Lymph % (Auto) Programmable [employer] As[employer]er [place] % (Auto) Programmable Logic Controller Assembler Eos % (Auto) Programmable Logic Controller Assembler Baso % (Auto) Programmable Logic Controller Assembler Lymph # Programmable Logic Controller Assembler [place] # Programmable Logic Controller Assembler Eos # Programmable Logic Controller Assembler Baso # Programmable Logic Controller Assembler Seg Neutrophils % Programmable Logic Controller Assembler Seg Neutrophils # Programmable Logic Controller Assembler Sodium Potassium Chloride Carbon Dioxide Anion Gap BUN Creatinine Estimated GFR BUN/Creatinine Ratio Glucose Calcium Blood Type O POSITIVE Crossmatch See Detail 07/19/19 03:13 WBC RBC Hgb Hct MCV MCH MCHC RDW Plt Count Lymph % (Auto) [place] % (Auto) Eos % (Auto) Baso % (Auto) Lymph # [place] # Eos # Baso # Seg Neutrophils % Seg Neutrophils # Sodium 132 L Potassium 4.3 Chloride 99.4 Carbon Dioxide 20 L Anion Gap 17 BUN 33 H Creatinine 0.9 Estimated GFR > 60 BUN/Creatinine Ratio 37 Glucose 132 H Calcium 7.9 L Blood Type Crossmatch
--- NOTE | 2019-07-19 16:27 | Consultation ---
PULMONARY CRITICAL CARE CONSULT NOTE CONSULTING PHYSICIAN: Dr. Borrero. REASON FOR CONSULTATION: Acute GI bleed, acute hypoxemic respiratory failure. CHIEF COMPLAINT AND HISTORY OF PRESENT ILLNESS: The patient is a now 58-year-old male with past medical history significant amongst other things for a diagnosis of hypertension and diabetes, who came into the hospital with a history of an acute rectal bleeding that started the night before presentation. He mentioned that he had a history of chronic cramps and abdominal pain. There was a questionable history of esophageal varices. He had a cholecystectomy done the year prior and since then has been dealing with increasing abdominal pain and essentially diarrhea, sort of a dumping syndrome. He never could keep anything down except for ___ some vitamins. He denied any nausea and vomiting. He noticed a bloody bowel movement the night before presentation. In the ER, he denied any chest pain or palpitations. He denied fevers or chills. He denied abdominal trauma. His workup revealed amongst other things an acute kidney injury, potassium of 6.2, his hemoglobin was around 10.9 and a repeat test showed that it had dropped to about 8. He also had a large rectal bleed while in the Emergency Room. Central line was placed. He was given 2 units of packed red cells, started on a Levophed infusion and a GI consult was placed. A decision was made to semi-electively intubate the patient so that he could get an EGD done. Also, consultation was placed with the Surgery to see if he will need any surgical intervention. When I stopped by to see him, he was in the process of being wheeled to Interventional Radiology after the EGD. I believe showed a bleeder. They found a large clot in the gastric body without signs of bleeding. He had a large clot in the duodenal bulb; however, as well as a large 2 cm very cratered ulcer, very proximal to the duodenal bulb with a large central pigmented vessel that had the stigmata of bleeding. Epinephrine was applied; however, while applied epinephrine, the vessel started bleeding excessively. IR was consulted. Again, when I stopped by to see him, he was on the mechanical ventilator. He was sedated. With regard to tobacco use/abuse history, he is described as a never smoker. This really is as much of the history of presentation as I have. PAST MEDICAL HISTORY: Hypertension, diabetes, history of gastroesophageal reflux disease, history of seizures, history of bipolar disorder, history of schizophrenia, questionable history of liver cirrhosis and esophageal varices. PAST SURGICAL HISTORY: He has had a cholecystectomy in 05/2019. MEDICATIONS: He was on at the time I stopped by to see him were reviewed, pertinent medications include the following: According to the medication administration record: Levophed drip was going at 20 mcg per minute, vasopressin had been started at 0.03 units per hour, octreotide drip had been started at 25 mcg per hour and I believe he was on a Protonix drip also at that time. ALLERGIES: No known drug allergies. DIET: Morbidly obese gentleman, acute weight loss or gain history is unknown. FAMILY AND SOCIAL HISTORY: Apparently lives in the community, described himself as a never smoker. Alcohol or illicit drug use or abuse history unfortunately is unknown at the time I stopped by to see him. REVIEW OF SYSTEMS: Unobtainable secondary to patient's medical and mental condition. Since he has been in the Emergency Room, he has had the gross hematochezia, no melena, no hematemesis, no hemoptysis, no bloody tracheal secretions, no witnessed seizures. Review of systems, otherwise, unobtainable or as in the body of history above. PHYSICAL EXAMINATION: VITAL SIGNS: On examination at presentation in the Emergency Room revealed the vital signs shows that he was afebrile, temperature 98.0 degrees Fahrenheit with a pulse of 96, respiratory rate of 18, blood pressure 87/48, O2 sats were 98%. Inspired oxygen concentration at that time was not recorded. When I stopped by to see him, his O2 sats were 99% that was on the assist control mode of ventilation, tidal volume 450, rate of 20 and PEEP of 6. GENERAL: Again, he is a middle-aged, morbidly obese male, normocephalic, intubated on the mechanical ventilator with mildly increased respiratory effort at rest. HEAD, EYES, EARS, NOSE AND THROAT: Anicteric. No conjunctival erythema. Oropharynx was moist. ET tube was taped around 23-24 cm at the lips. NECK: No gross jugular venous distention. No thyromegaly. Grossly, there were no palpable lymph nodes in the supraclavicular or submandibular lymph node chains. LUNGS: Auscultation of both lung hamilton significant for good bilateral air movement, bibasilar rhonchi, no active wheezing. HEART: Heart sounds 1 and 2 are heard at the time of my evaluation. Regular rate and rhythm without overt rubs or murmurs. ABDOMEN: Soft, full, protuberant. Bowel sounds are positive. It was diffusely tender, no palpable hepatosplenomegaly. Bowel sounds were hypoactive. EXTREMITIES: Without overt digital clubbing or cyanosis. No pedal edema. Pedal pulses were 2+ bilaterally. NEUROLOGIC: Pupils are equal, round, about 3 mm, reactive to light. Extraocular muscle movements appeared intact. He had spontaneous movements to all 4 extremities. No spasticity. No contractures. SKIN: Normal turgor in the areas examined without overt cellulitis or rash. Please see the wound care nurse's notes for full description of his skin as well as a registered nurse. PSYCHIATRIC: Mood and affect were flat. He was sedated on the mechanical ventilator. LABORATORY DATA: From my review are as follows: Admission white cell count was 13,900 with a hemoglobin of 10.9, hematocrit of 30.8, platelet count of 226, only 3% band forms on the manual differential. INR was 1.06. Serum sodium was 118, potassium 6.2, chloride was 83, bicarbonate was 22, BUN was 31, creatinine was 1.3, glucose was 114. Liver function tests were essentially within normal limits. Repeat hemoglobin was 8.0. I do not have arterial blood gas for review. A tracheal aspirate was sent, results pending. He had a chest x-ray. Chest x-ray was a pre-intubation chest x-ray, unremarkable chest x-ray, clear lung hamilton, it is a lordotic film, no pneumothorax, no gross bony fracture. He also had a CT scan of the abdomen and pelvis. I have reviewed the report. 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 ASSESSMENT: 1. Acute gastrointestinal bleed appears to be lower gastrointestinal bleed. 2. Acute hypoxemic respiratory failure, now on mechanical ventilatory support. 3. Anemia appears to be in acute blood loss anemia that is normocytic. 4. Variceal disease. 5. Hyponatremia. 6. Hyperkalemia. 7. Mild acute kidney injury. 8. Morbid obesity. 9. History of hypertension. 10. Systemic inflammatory response syndrome. 11. Diabetes. 12. Seizure disorder. 13. Gastroesophageal reflux disease. 14. Peptic ulcer disease. 15. History of bipolar disease and schizophrenia. 16. Abdominal pain. PLAN: I have discussed with the surgeon again and it seems like he will be going to the IR suite for possible embolization. I will be keeping a note for in case there is a need for massive blood transfusion to ensure that he gets adequate platelets and FFPs. Reportedly, FFPs have been ordered and those will be given. I will be following up later in the day. Oxygen will be weaned to keep sats greater than or equal to about 90%. Aspiration precautions will be maintained. Ventilator-associated pneumonia bundle has been instituted. Bronchodilators will be on a p.r.n. basis with pulmonary hygiene per the respiratory therapies. Arterial blood gases will be taken and adjustments will be made in the ventilator settings as necessary. He is about to receive packed red cells. We will do serial hematocrit and hemoglobin levels. The BMP is going to be repeated to ensure that this hyponatremia is not artifactual. I believe he has been treated empirically for the hyperkalemia. We will continue the octreotide drip. We will continue vasopressors. Volume resuscitation will also be given. He is appropriately on GI prophylaxis, DVT prophylaxis, initially will be in the form of SCDs. Flu and pneumonia vaccination will be addressed per protocol. Thank you very much for the consult. He is critically ill on life-sustaining interventions including mechanical ventilatory support and vasopressors and I should mention vasopressors will be weaned to keep mean arterial pressures greater than or equal to about 65 mmHg. He is at high risk of from decompensation in the gastric and cardiopulmonary systems. At this time, I spent about 30-35 minutes of critical care time without overlap and excluding any procedural time that may be necessary. JOB# [id number] OLIVIA/JOSE OLSON
[2019-07-19] MEDS ORDERED: METOPROLOL TARTRATE 5 MG/5 ML INJ IV ONE (17:02)
[2019-07-19] MEDS: SODIUM CHLORIDE 0.9% 1000 ML 1,000 ML IV SCH (17:18)
[2019-07-19] MEDS ORDERED: SODIUM CHLORIDE 0.9% 500 ML 500 ML IV ONE (18:02)
--- NOTE | 2019-07-19 18:16 | Progress Note ---
Assessment and Plan Patient with multiple episode of melena however I suspect this is from old blood within his GI tract but would confirm with serial H/H at least BID. The patient has some tachycardia and relative hypotension will check a hemoglobin now. He may need a transfusion as well as supplemental iron and vitamin C. Will continue to follow. Subjective Date of service: 07/19/19 Principal diagnosis: GI bleed Interval history: Patient transferred out of the ICU today. Complaining of some midepigastric pain however he states it is not as severe as previous episodes. He had BM with melena while I was evaluating him. Has had an additional stool with similar characteristics. He denies bright red blood per rectum. He has no additional complaints. Objective - Constitutional Vitals: Vital Signs - 12hr 07/19/19 07/19/19 07/19/19 06:21 06:30 06:41 Temperature Pulse Rate 96 H 93 H 96 H Pulse Rate [ From Monitor] Respiratory 11 L 13 12 Rate Respiratory Rate [Back] Blood Pressure 105/46 109/51 109/51 Blood Pressure [Right] O2 Sat by Pulse 100 100 100 Oximetry 07/19/19 07/19/19 07/19/19 06:50 07:00 07:11 Temperature Pulse Rate 92 H 91 H 96 H Pulse Rate [ From Monitor] Respiratory 10 L 10 L 12 Rate Respiratory Rate [Back] Blood Pressure 103/53 104/45 104/45 Blood Pressure [Right] O2 Sat by Pulse 100 100 80 L Oximetry 07/19/19 07/19/19 07/19/19 07:21 07:30 07:41 Temperature Pulse Rate 92 H 101 H 95 H Pulse Rate [ From Monitor] Respiratory 11 L 12 10 L Rate Respiratory Rate [Back] Blood Pressure 109/61 109/62 109/62 Blood Pressure [Right] O2 Sat by Pulse 100 100 100 Oximetry 07/19/19 07/19/19 07/19/19 07:51 08:00 08:11 Temperature 98.3 F Pulse Rate 96 H 94 H 93 H Pulse Rate [ From Monitor] Respiratory 13 10 L 12 Rate Respiratory Rate [Back] Blood Pressure 102/57 112/45 112/45 Blood Pressure 110/56 [Right] O2 Sat by Pulse 100 100 100 Oximetry 07/19/19 07/19/19 07/19/19 08:21 08:30 08:41 Temperature Pulse Rate 94 H 96 H 93 H Pulse Rate [ From Monitor] Respiratory 13 11 L 13 Rate Respiratory Rate [Back] Blood Pressure 113/47 113/44 113/44 Blood Pressure [Right] O2 Sat by Pulse 100 100 100 Oximetry 07/19/19 07/19/19 07/19/19 08:51 09:00 09:05 Temperature Pulse Rate 98 H 96 H Pulse Rate [ From Monitor] Respiratory 11 L 13 18 Rate Respiratory Rate [Back] Blood Pressure 105/53 105/49 Blood Pressure [Right] O2 Sat by Pulse 100 100 Oximetry 07/19/19 07/19/19 07/19/19 09:11 09:21 09:30 Temperature Pulse Rate 95 H 99 H 100 H Pulse Rate [ From Monitor] Respiratory 12 11 L 12 Rate Respiratory Rate [Back] Blood Pressure 105/49 101/52 107/47 Blood Pressure [Right] O2 Sat by Pulse 99 98 100 Oximetry 07/19/19 07/19/19 07/19/19 09:41 09:51 10:00 Temperature Pulse Rate 99 H 98 H 97 H Pulse Rate [ 93 H From Monitor] Respiratory 12 10 L 10 L Rate Respiratory 20 Rate [Back] Blood Pressure 107/47 110/56 99/49 Blood Pressure 98/56 [Right] O2 Sat by Pulse 99 99 100 Oximetry 07/19/19 07/19/19 07/19/19 10:02 10:11 10:20 Temperature Pulse Rate 93 H 94 H Pulse Rate [ From Monitor] Respiratory 9 L Rate Respiratory Rate [Back] Blood Pressure 99/49 Blood Pressure [Right] O2 Sat by Pulse 97 98 Oximetry 07/19/19 07/19/19 07/19/19 10:21 10:30 10:41 Temperature Pulse Rate 97 H 93 H 95 H Pulse Rate [ From Monitor] Respiratory 11 L 12 11 L Rate Respiratory Rate [Back] Blood Pressure 98/50 90/35 90/35 Blood Pressure [Right] O2 Sat by Pulse 98 99 99 Oximetry 07/19/19 07/19/19 07/19/19 10:50 11:00 11:11 Temperature Pulse Rate 99 H 94 H 98 H Pulse Rate [ From Monitor] Respiratory 20 12 11 L Rate Respiratory Rate [Back] Blood Pressure 100/47 105/44 105/44 Blood Pressure [Right] O2 Sat by Pulse 85 97 98 Oximetry 07/19/19 07/19/19 07/19/19 11:21 11:31 11:41 Temperature Pulse Rate 96 H 98 H Pulse Rate [ From Monitor] Respiratory 15 16 Rate Respiratory Rate [Back] Blood Pressure 105/44 105/44 116/49 Blood Pressure [Right] O2 Sat by Pulse 97 99 99 Oximetry 07/19/19 07/19/19 07/19/19 11:51 11:52 12:00 Temperature Pulse Rate 90 103 H Pulse Rate [ From Monitor] Respiratory 18 Rate Respiratory Rate [Back] Blood Pressure 118/56 118/54 Blood Pressure 114/50 [Right] O2 Sat by Pulse 98 100 99 Oximetry 07/19/19 07/19/19 07/19/19 12:11 12:46 15:00 Temperature Pulse Rate 98 H 93 H Pulse Rate [ From Monitor] Respiratory Rate Respiratory Rate [Back] Blood Pressure 118/54 79/28 Blood Pressure [Right] O2 Sat by Pulse 98 99 Oximetry 07/19/19 07/19/19 07/19/19 15:39 15:44 16:14 Temperature 98.9 F 98.9 F Pulse Rate 95 H 95 H Pulse Rate [ From Monitor] Respiratory 20 18 Rate Respiratory Rate [Back] Blood Pressure 113/48 101/47 Blood Pressure 113/48 [Right] O2 Sat by Pulse 95 95 Oximetry 07/19/19 17:15 Temperature Pulse Rate 155 H Pulse Rate [ From Monitor] Respiratory Rate Respiratory Rate [Back] Blood Pressure 113/54 Blood Pressure [Right] O2 Sat by Pulse Oximetry General appearance: Present: no acute distress - Neck Neck: supple - Respiratory Respiratory effort: normal - Cardiovascular Heart rate: 115 Rhythm: regular Extremities: no ischemia, normal temperature, abnormal (right grooin without evidence of hematoma) Extremity abnormal: edema (bilateral lower extremity) - Gastrointestinal General gastrointestinal: Present: soft, non-tender, non-distended - Genitourinary Male genitourinary: normal - Integumentary Integumentary: clear - Musculoskeletal Musculoskeletal: strength equal bilaterally - Labs CBC & Chem 7: 07/19/19 03:13 07/19/19 03:13 Labs: Abnormal lab results 07/18/19 07/19/19 07/19/19 Range/Units 22:36 03:13 03:13 RBC 2.31 L (3.65-5.03) M/mm3 Hgb 7.1 L 7.3 L (11.8-15.2) gm/dl Hct 20.1 L 20.9 L (35.5-45.6) % MCHC 35 H (32-34) % RDW 16.2 H (13.2-15.2) % Plt Count 42 L (140-440) K/mm3 Sodium 132 L (137-145) mmol/L Carbon Dioxide 20 L (22-30) mmol/L BUN 33 H (9-20) mg/dL Glucose 132 H (75-100) mg/dL POC Glucose (70-105) Calcium 7.9 L (8.4-10.2) mg/dL 07/19/19 Range/Units 16:21 RBC (3.65-5.03) M/mm3 Hgb (11.8-15.2) gm/dl Hct (35.5-45.6) % MCHC (32-34) % RDW (13.2-15.2) % Plt Count (140-440) K/mm3 Sodium (137-145) mmol/L Carbon Dioxide (22-30) mmol/L BUN (9-20) mg/dL Glucose (75-100) mg/dL POC Glucose 209 H (70-105) Calcium (8.4-10.2) mg/dL Medications & Allergies - Medications Allergies/Adverse Reactions: Allergies No Known Allergies Allergy (Verified 07/17/19 05:52) Home Medications: Home Medications Medication Instructions Recorded Confirmed Last Taken Type Atorvastatin [Lipitor] 40 mg PO QDAY 08/27/13 07/19/19 12/04/13 04:30 History 40 Divalproex ER [Depakote ER] 2,500 mg PO QHS 08/27/13 07/19/19 12/03/13 20:00 History 2500 FLUoxetine [Prozac] 20 mg PO QDAY 08/27/13 07/19/19 12/04/13 04:30 History 20 Lisinopril [Zestril] 30 mg PO QHS 08/27/13 07/19/19 12/03/13 20:00 History 30 Metformin HCl [Glumetza] 1,000 mg PO BID 08/27/13 07/19/19 12/03/13 20:00 History 1000 Empagliflozin [Jardiance] 25 mg PO QDAY 07/19/19 07/19/19 Unknown History Famotidine [Pepcid] 20 mg PO AC PRN 07/19/19 07/19/19 Unknown History Multivitamin [One-Daily 1 each PO QDAY 07/19/19 07/19/19 Unknown History Multi-Vitamin] Sitagliptin Phosphate [Januvia] 100 mg PO QDAY 07/19/19 07/19/19 Unknown History dilTIAZem HCl [Diltiazem 24Hr ER 120 mg PO QDAY 07/19/19 07/19/19 Unknown History (Xr)] Active Medications: Generic Name Dose Route Start Last Admin Trade Name Freq PRN Reason Stop Dose Admin Sodium Chloride 1,000 mls @ 50 mls/hr 07/17/19 14:00 07/19/19 17:18 Nacl 0.9% 1000 Ml IV 50 mls/hr DIRECT TEGAN Administration Pantoprazole Sodium 80 mg/ 100 mls @ 10 mls/hr 07/18/19 02:46 07/19/19 06:48 Sodium Chloride IV 8 mg/hr DIRECT TEGAN 10 mls/hr Administration 8 MG/HR Sodium Chloride 500 mls @ 999 mls/hr 07/19/19 18:02 07/19/19 17:16 Nacl 0.9% 500 Ml IV 07/19/19 18:32 999 mls/hr ONCE ONE Administration Morphine Sulfate 2 mg 07/19/19 12:50 07/19/19 13:19 Morphine IV 2 mg Q4H PRN Administration Pain, Moderate (4-6)
[2019-07-19] MEDS ORDERED: METOPROLOL TARTRATE 5 MG/5 ML INJ IV PRN (18:39)
[2019-07-19] MEDS ORDERED: SODIUM CHLORIDE 0.9% 500 ML 500 ML IV SCH (18:42)
[2019-07-19 20:25] LABS: Hemoglobin 7.2 gm/dl (11.8-15.2); Mean Corpuscular HGB Conc 36 % (32-34); Mean Corpuscular Volume 89 fl (84-94); Red Blood Count 2.24 M/mm3 (3.65-5.03); Red Cell Distribution Width 15.7 % (13.2-15.2)
[2019-07-19 20:26] LABS: Platelet Count 82 K/mm3 (140-440)
[2019-07-19] MEDS: DIVALPROEX ER 500 MG TAB PO SCH (21:45)
[2019-07-20 04:21] LABS: Basophils # (Auto) 0.1 K/mm3 (0.0-0.1); Basophils % (Auto) 1.8 % (0.0-1.8); Eosinophils # (Auto) 0.1 K/mm3 (0.0-0.4); Eosinophils % (Auto) 1.5 % (0.0-4.3); Hemoglobin 7.4 gm/dl (11.8-15.2); Lymphocytes # (Auto) 0.9 K/mm3 (1.2-5.4); Lymphocytes % (Auto) 16.8 % (13.4-35.0); Mean Corpuscular HGB Conc 35 % (32-34); Mean Corpuscular Volume 90 fl (84-94); Monocytes # (Auto) 0.4 K/mm3 (0.0-0.8); Monocytes % (Auto) 7.1 % (0.0-7.3); Red Blood Count 2.34 M/mm3 (3.65-5.03); Red Cell Distribution Width 15.6 % (13.2-15.2)
[2019-07-20 04:36] LABS: Platelet Count 76 K/mm3 (140-440)
[2019-07-20] MEDS: MORPHINE 2 MG/1 ML INJ IV PRN ×3 (05:57→18:31)
[2019-07-20] MEDS ORDERED: NON-FORMULARY EACH (Empagliflozin [Jardiance] 25 MG) PO SCH (10:00)
[2019-07-20] MEDS ORDERED: NON-FORMULARY EACH (Multivitamin [One-Daily Multi-Vitamin] 1 EACH) PO SCH (10:00)
[2019-07-20] MEDS ORDERED: DILTIAZEM HCL 120 MG PO SCH (10:00)
--- NOTE | 2019-07-20 10:43 | Progress Note ---
Assessment and Plan Acute lower GI bleed -Likely from variceal bleeding and peptic ulcer disease -Patient presented with active rectal bleeding and was having active bleeding episode in the ER leading to sudden drop in H&H and severe hypotension required pressors -s/p 4 units of packed RBC and 4 units FFP transfused, -GI/IR/GS has been consulted for emergent Mx - -During endoscopy patient started to have severe upper GI bleed, he was intubated, - due to continued bleeding, risk of perforation for further intervention procedure terminated and ultimately embolization of the GDA by IR - s/p octreotide IV, Continue Protonix IV, Acute respiratory failure -Intubated following endoscopy to protect airway - s/p extubation 07/17 Severe symptomatic anemia -Due to acute GI bleed -Status post 4 units of packed RBC transfusion, continue IV fluid, monitor H&H SIRS due to active GI bleed, need to rule out infectious cause -Negative UA and negative blood culture Atrial fibrillation, started on diltiazem, not a candidate for AC, consult cardiology Syncope, likely vasovagal due to severe dehydration from acute GI bleed -CT head unremarkable, continue supportive care with IV fluid, frequent neuro check VELIA likely due to hypovolemia -Continue to monitor BMP, if renal function continues to decline will consider consulting nephrology Hyperkalemia, likely due to declining renal function - resolved -K was 6.2 on admission, continue to monitor Hypotensive shock, due to active GI bleeding -s/p Levophed, continue IV fluid, transfuse as needed -Status post 4 unit of packed RBC transfusion Diabetes mellitus type 2, continue SSI h/o schizophrenia/bipolar disorder - will cont home meds when can take po meds History of alcohol abuse with hepatic cirrhosis -Continue to monitor for alcohol withdrawal. States that he was not drinking recently for years. -monitor LFT and CBC DVT prophylaxis, SCD 07/17: extubated. keep NPO. cont Protonix IV and octreotide IV. 07/18: Had a small bloody bowel movement last night. H&H slightly dropped, which is expected. start on clear liquid diet today. Continue Protonix IV, completed octreotide drip today. We will transfer to telemetry and continue to monitor H&H. 07/19: h/h stable, plan to advance diet if ok with GI. if remains stable clinically and h/h stable plan to d/c in the am Brief history: Patient is a 58-year-old male with history of hypertension, diabetes mellitus type 2, bipolar and schizophrenia presented to the hospital with history of acute rectal bleeding, a syncopal episode when trying to leave the bathroom after having a bloody bowel movement. He decided to come to the ER for further evaluation and management. His initial lab work showed potassium of 6.2, elevated creatinine and hemoglobin of 10.9 which dropped down to 8, also developed hypotension and shortness of breath after having a large rectal bleeding while he was waiting in the ER room. Patient was immediately placed on central line, given 2 units of packed RBC, started on Levophed, IV fluid, GI was consulted in the ER.. Patient was taken for emergent EGD, but During endoscopy patient started to have severe upper GI bleed, he was intubated, due to continued bleeding, risk of perforation for further intervention procedure terminated and ultimately embolization of the GDA by IR. Patient extubated next morning, continue with IV Protonix, s/p IV octreotide - transferred to tele. Subjective Date of service: 07/20/19 Principal diagnosis: GI bleed Interval history: Patient seen and examined. Medical records and medication list reviewed. No acute event overnight noted by the RN. Patient States that he is feeling well, no active bleeding Discussed plan of care at bedside with patient and with his RN. Objective - Exam Narrative Exam: GENERAL: well-developed short stature obese white male lying on bed appeared to be in mild discomfort. HEENT: Normocephalic. Atraumatic. No conjunctival congestion or icterus. Patient has moist mucous membranes. NECK: Supple. Trachea midline. CHEST/LUNGS: Clear to auscultated bilaterally, breathing nonlabored. No wheezes crackles or rhonchi. HEART/CARDIOVASCULAR: Regular in rate and rhythm. S1 and S2 positive. ABDOMEN: Abdomen is soft, + diffuse tender. Patient has normal bowel sounds. SKIN: There is no rash. Warm and dry. NEURO: No focal motor deficit. Follows command. MUSCULOSKELETAL: No joint effusion or tenderness. EXTRIMITY: No edema, no cyanosis or clubbing. PSYCH: Cooperative. - Constitutional Vitals: Vital Signs - 12hr 07/20/19 07/20/19 07/20/19 00:34 02:42 04:29 Temperature 98.3 F 98.0 F Pulse Rate 87 78 Respiratory 20 18 Rate Blood Pressure 108/59 151/77 O2 Sat by Pulse 100 97 99 Oximetry 07/20/19 07:44 Temperature 97.9 F Pulse Rate 88 Respiratory 18 Rate Blood Pressure 127/48 O2 Sat by Pulse 98 Oximetry - Labs CBC & Chem 7: 07/20/19 03:35 07/19/19 03:13 Labs: Abnormal lab results 07/19/19 07/19/19 07/19/19 Range/Units 16:21 19:28 21:20 RBC 2.24 L (3.65-5.03) M/mm3 Hgb 7.2 L (11.8-15.2) gm/dl Hct 20.0 L (35.5-45.6) % MCHC 36 H (32-34) % RDW 15.7 H (13.2-15.2) % Plt Count 82 L (140-440) K/mm3 Lymph # (1.2-5.4) K/mm3 Seg Neutrophils % (40.0-70.0) % POC Glucose 209 H 119 H (70-105) 07/20/19 Range/Units 03:35 RBC 2.34 L (3.65-5.03) M/mm3 Hgb 7.4 L (11.8-15.2) gm/dl Hct 21.0 L (35.5-45.6) % MCHC 35 H (32-34) % RDW 15.6 H (13.2-15.2) % Plt Count 76 L (140-440) K/mm3 Lymph # 0.9 L (1.2-5.4) K/mm3 Seg Neutrophils % 72.8 H (40.0-70.0) % POC Glucose (70-105)
--- NOTE | 2019-07-20 11:25 | Progress Note ---
Assessment and Plan - Patient Problems (1) GI bleed Current Visit: Yes Status: Acute Qualifiers: GI bleed type/associated pathology: gastric ulcer Qualified Code(s): K25.4 - Chronic or unspecified gastric ulcer with hemorrhage Plan to address problem: Pt stable. Vital signs appear stable. Clinically patient looks better. Patient still anemic, but expected. Hgb stable. Advance to full liquid and continue for 1 week. If doing well, at that time, may advance as tolerated. If full liquid diet tolerated, ok from my standpoint for discharge. f/u prn. No surgery planned at this time. Will be available if needed. Please call with questions. Time=10min Subjective Date of service: 07/20/19 Patient Reports: Positive: no new complaints, feels better, pain is less, tolerating liquids well, flatus. Negative: nausea, vomiting Objective Vital Signs - 12hr 07/20/19 07/20/19 07/20/19 00:34 02:42 04:29 Temperature 98.3 F 98.0 F Pulse Rate 87 78 Respiratory 20 18 Rate Blood Pressure 108/59 151/77 O2 Sat by Pulse 100 97 99 Oximetry 07/20/19 07:44 Temperature 97.9 F Pulse Rate 88 Respiratory 18 Rate Blood Pressure 127/48 O2 Sat by Pulse 98 Oximetry - General physical appearance no distress, no pain, obese, other (looks better. color is better) - Eyes normal occular movement - Respiratory normal expansion, normal respiratory effort - Abdomen soft, not tender, not guarding, not rigid - Psychiatric oriented to time, oriented to person, oriented to place, speech is normal, memory intact - Labs 07/20/19 03:35 07/19/19 03:13
[2019-07-20] MEDS: dilTIAZem CD 120 MG CAP PO SCH (12:02)
[2019-07-20] MEDS: MULTIVITAMINS ,THERAPEUTIC TAB PO SCH (12:02)
[2019-07-20] MEDS: FLUoxetine 20 MG CAP PO SCH (12:02)
--- NOTE | 2019-07-20 14:31 | Progress Note ---
Assessment and Plan Acute gastrointestinal bleed Acute hypoxemic respiratory failure s/p MVS Anemia (ABLA) Variceal disease. Hyponatremia. Hyperkalemia. VELIA Morbid obesity. H/O HTN SIRS Diabetes type II Seizure disorder. GERD Peptic ulcer disease. Bipolar disease Schizophrenia. Abdominal pain. Subjective Date of service: 07/20/19 Principal diagnosis: GI bleed Interval history: Patient is seen today for: Seen and examined at bedside; 24hour events reviewed; nursing and respiratory care staff consulted; no adverse overnight events reported to me; Objective Vital Signs - 12hr 07/20/19 07/20/19 07/20/19 02:42 04:29 07:44 Temperature 98.0 F 97.9 F Pulse Rate 78 88 Respiratory 18 18 Rate Blood Pressure 151/77 127/48 O2 Sat by Pulse 97 99 98 Oximetry 07/20/19 07/20/19 07/20/19 11:27 12:00 13:16 Temperature 98.7 F Pulse Rate 92 H 87 Respiratory 18 Rate Blood Pressure 114/58 O2 Sat by Pulse 98 97 Oximetry CBC and BMP: 07/20/19 03:35 07/19/19 03:13 ABG, PT/INR, D-dimer: ABG ABG pH 7.476 pH Units (7.350-7.450) H 07/18/19 03:39 ABG pCO2 28.9 mm Hg 07/18/19 03:39 ABG pO2 113.5 mm Hg (80.0-90.0) H 07/18/19 03:39 ABG O2 Saturation 98.3 % (95.0-99.0) 07/18/19 03:39 PT/INR, D-dimer PT 13.9 Sec. (12.2-14.9) 07/17/19 03:34 INR 1.06 (0.87-1.13) 07/17/19 03:34 Abnormal lab findings: Abnormal Labs 07/17/19 07/17/19 07/17/19 03:34 03:34 03:34 WBC 13.9 H RBC 3.37 L Hgb 10.9 L Hct 30.8 L MCHC 35 H RDW 15.9 H Plt Count Lymph # Seg Neutrophils % Seg Neuts % (Manual) 80.0 H Lymphocytes % (Manual) 11.0 L Seg Neutrophils # Man 11.1 H ABG pH ABG pO2 ABG HCO3 ABG O2 Saturation ABG Base Excess ABG Hemoglobin Sodium 118 L* Potassium 6.2 H* Chloride 83.0 L Carbon Dioxide BUN 31 H Glucose 114 H POC Glucose Calcium Total Protein Albumin 3.5 L Crossmatch See Detail 07/17/19 07/17/19 07/17/19 03:34 07:22 07:22 WBC RBC Hgb 8.0 L Hct 23.5 L D MCHC RDW Plt Count Lymph # Seg Neutrophils % Seg Neuts % (Manual) Lymphocytes % (Manual) Seg Neutrophils # Man ABG pH ABG pO2 ABG HCO3 ABG O2 Saturation ABG Base Excess ABG Hemoglobin Sodium 122 L Potassium 5.5 H Chloride 87.9 L Carbon Dioxide 17 L BUN 34 H Glucose 146 H POC Glucose Calcium Total Protein 4.3 L D Albumin 2.6 L Crossmatch See Detail 07/17/19 07/17/19 07/17/19 12:16 19:37 22:57 WBC RBC Hgb 11.1 L D 8.9 L Hct 32.8 L D 26.6 L D MCHC RDW Plt Count Lymph # Seg Neutrophils % Seg Neuts % (Manual) Lymphocytes % (Manual) Seg Neutrophils # Man ABG pH 7.273 L ABG pO2 275.6 H ABG HCO3 17.8 L ABG O2 Saturation 99.4 H ABG Base Excess -8.4 L ABG Hemoglobin 8.9 L Sodium Potassium Chloride Carbon Dioxide BUN Glucose POC Glucose Calcium Total Protein Albumin Crossmatch 07/18/19 07/18/19 07/18/19 03:39 04:20 10:55 WBC RBC Hgb 8.0 L Hct 22.3 L MCHC RDW Plt Count Lymph # Seg Neutrophils % Seg Neuts % (Manual) Lymphocytes % (Manual) Seg Neutrophils # Man ABG pH 7.476 H ABG pO2 113.5 H ABG HCO3 ABG O2 Saturation ABG Base Excess -2.4 L ABG Hemoglobin 6.6 L Sodium 128 L Potassium 5.1 H Chloride 97.3 L Carbon Dioxide 20 L BUN 46 H Glucose 167 H POC Glucose Calcium 7.6 L Total Protein Albumin Crossmatch 07/18/19 07/19/19 07/19/19 22:36 03:13 03:13 WBC RBC 2.31 L Hgb 7.1 L 7.3 L Hct 20.1 L 20.9 L MCHC 35 H RDW 16.2 H Plt Count 42 L Lymph # Seg Neutrophils % Seg Neuts % (Manual) Lymphocytes % (Manual) Seg Neutrophils # Man ABG pH ABG pO2 ABG HCO3 ABG O2 Saturation ABG Base Excess ABG Hemoglobin Sodium 132 L Potassium Chloride Carbon Dioxide 20 L BUN 33 H Glucose 132 H POC Glucose Calcium 7.9 L Total Protein Albumin Crossmatch 07/19/19 07/19/19 07/19/19 16:21 19:28 21:20 WBC RBC 2.24 L Hgb 7.2 L Hct 20.0 L MCHC 36 H RDW 15.7 H Plt Count 82 L Lymph # Seg Neutrophils % Seg Neuts % (Manual) Lymphocytes % (Manual) Seg Neutrophils # Man ABG pH ABG pO2 ABG HCO3 ABG O2 Saturation ABG Base Excess ABG Hemoglobin Sodium Potassium Chloride Carbon Dioxide BUN Glucose POC Glucose 209 H 119 H Calcium Total Protein Albumin Crossmatch 07/20/19 03:35 WBC RBC 2.34 L Hgb 7.4 L Hct 21.0 L MCHC 35 H RDW 15.6 H Plt Count 76 L Lymph # 0.9 L Seg Neutrophils % 72.8 H Seg Neuts % (Manual) Lymphocytes % (Manual) Seg Neutrophils # Man ABG pH ABG pO2 ABG HCO3 ABG O2 Saturation ABG Base Excess ABG Hemoglobin Sodium Potassium Chloride Carbon Dioxide BUN Glucose POC Glucose Calcium Total Protein Albumin Crossmatch
--- NOTE | 2019-07-20 16:55 | Consultation ---
History of Present Illness Consult date: 07/20/19 Requesting physician: COLLEEN ORDAZ Consult reason: atrial fibrillation History of present illness: Pt is a 58 y.o. male with a past medical hx of HTN, DM2, seizures, bipolar disorder, and schizophrenia. He presented to [facility] on 07/17/2019 with acute rectal bleeding. Pt is previously unknown to our practice. Cardiology has been consulted for ?AF. Pt denies any cardiac complaints, including CP, palpitations, dizziness, lightheadedness, syncope, headache, SOB, orthopnea, and edema. No fever/chills. ECG on admission shows NSR with no acute ischemic changes. Repeat ECG shows sinus tach 120s with RBBB. Tele reviewed - pt currently in sinus tach 100-110s. CXR unremarkable. Past History Past Medical History: diabetes, hypertension, seizures, other (bipolar disorder, schizophrenia) Past Surgical History: cholecystectomy Social history: alcohol abuse (hx of etoh abuse). denies: smoking Medications and Allergies Allergies Allergy/AdvReac Type Severity Reaction Status Date / Time No Known Allergies Allergy Verified 07/17/19 05:52 Home Medications Medication Instructions Recorded Confirmed Last Taken Type Atorvastatin [Lipitor] 40 mg PO QDAY 08/27/13 07/19/19 12/04/13 04:30 History 40 Divalproex ER [Depakote ER] 2,500 mg PO QHS 08/27/13 07/19/19 12/03/13 20:00 History 2500 FLUoxetine [Prozac] 20 mg PO QDAY 08/27/13 07/19/19 12/04/13 04:30 History 20 Lisinopril [Zestril] 30 mg PO QHS 08/27/13 07/19/19 12/03/13 20:00 History 30 Metformin HCl [Glumetza] 1,000 mg PO BID 08/27/13 07/19/19 12/03/13 20:00 History 1000 Empagliflozin [Jardiance] 25 mg PO QDAY 07/19/19 07/19/19 Unknown History Famotidine [Pepcid] 20 mg PO AC PRN 07/19/19 07/19/19 Unknown History Multivitamin [One-Daily 1 each PO QDAY 07/19/19 07/19/19 Unknown History Multi-Vitamin] Sitagliptin Phosphate [Januvia] 100 mg PO QDAY 07/19/19 07/19/19 Unknown History dilTIAZem HCl [Diltiazem 24Hr ER 120 mg PO QDAY 07/19/19 07/19/19 Unknown History (Xr)] Active Meds: Active Medications Atorvastatin Calcium (Lipitor) 40 mg PO QDAY [facility] Diltiazem HCl (Cardizem Cd) 120 mg PO QDAY [facility] Last Admin: 07/20/19 12:02 Dose: 120 mg Documented by: Divalproex Sodium (Depakote Er) 2,500 mg PO QHS [facility] Last Admin: 07/19/19 21:45 Dose: 2,500 mg Documented by: Fluoxetine HCl (Prozac) 20 mg PO QDAY [facility] Last Admin: 07/20/19 12:02 Dose: 20 mg Documented by: Sodium Chloride (Nacl 0.9% 1000 Ml) 1,000 mls @ 50 mls/hr IV DIRECT [facility] Last Admin: 07/19/19 17:18 Dose: 50 mls/hr Documented by: Pantoprazole Sodium 80 mg/ (Sodium Chloride) 100 mls @ 10 mls/hr IV DIRECT [facility] Last Admin: 07/19/19 21:44 Dose: 8 mg/hr, 10 mls/hr Documented by: Sodium Chloride (Nacl 0.9% 500 Ml) 500 mls @ 0 mls/hr IV ONCE [facility] Linagliptin (Tradjenta) 5 mg PO QDAY [facility] Metoprolol Tartrate (Metoprolol) 5 mg IV Q6HR PRN PRN Reason: Tachyarrhythmias Morphine Sulfate (Morphine) 2 mg IV Q4H PRN PRN Reason: Pain, Moderate (4-6) Last Admin: 07/20/19 12:02 Dose: 2 mg Documented by: Multivitamins (Theragran Tab) 1 each PO DAILY [facility] Last Admin: 07/20/19 12:02 Dose: 1 each Documented by: Review of Systems Constitutional: fatigue, no fever, no chills, no sweats, no weakness Ears, nose, mouth and throat: no tinnitis, no decreased hearing, no nasal congestion, no sinus pressure, no epistaxis, no dysphagia Cardiovascular: no chest pain, no orthopnea, no palpitations, no edema, no syncope, no lightheadedness, no shortness of breath, no dyspnea on exertion, no claudication Respiratory: no cough, no shortness of breath, no wheezing Gastrointestinal: abdominal pain, no nausea, no vomiting, no diarrhea, no constipation Genitourinary Male: no dysuria, no flank pain Rectal: no bleeding Musculoskeletal: no neck stiffness, no neck pain, no muscle weakness, no muscle cramps Integumentary: no rash, no wounds Neurological: no head injury, no paralysis, no weakness, no parathesias, no numbness, no tingling, no seizures, no syncope, no vertigo, no headaches Endocrine: no cold intolerance, no heat intolerance, no polydipsia, no polyuria Hematologic/Lymphatic: no easy bruising, no easy bleeding Allergic/Immunologic: no urticaria, no anaphylaxis Physical Examination Last Vital Signs Temp 98.6 F 07/20/19 16:45 Pulse 92 H 07/20/19 16:45 Resp 18 07/20/19 16:45 BP 120/62 07/20/19 16:45 Pulse Ox 98 07/20/19 16:45 General appearance: no acute distress HEENT: Positive: EOMI, Normocephaly, Mucus Membranes Moist Neck: Positive: neck supple, trachea midline. Negative: JVD/HJR Cardiac: Positive: S1/S2, Tachycardia Lungs: Positive: clear to auscultation (bilaterally) Neuro: Positive: Grossly Intact, Motor Function Intact, Coordination Normal, Sensory Function Intact. Negative: Numbness, Weakness Abdomen: Positive: Soft, Active Bowel Sounds, Tender Skin: Negative: Rash, Suspicious Lesions Musculoskeletal: No Pain, Normal Range of Motion Extremities: Present: upper extr. pulses, lower extr. pulses. Absent: edema Results 07/20/19 03:35 07/19/19 03:13 CBC 07/19/19 07/20/19 Range/Units 19:28 03:35 WBC 6.8 5.2 (4.5-11.0) K/mm3 RBC 2.24 L 2.34 L (3.65-5.03) M/mm3 Hgb 7.2 L 7.4 L (11.8-15.2) gm/dl Hct 20.0 L 21.0 L (35.5-45.6) % Plt Count 82 L 76 L (140-440) K/mm3 Lymph # 0.9 L (1.2-5.4) K/mm3 [place] # 0.4 (0.0-0.8) K/mm3 Eos # 0.1 (0.0-0.4) K/mm3 Baso # 0.1 (0.0-0.1) K/mm3 - Imaging and Cardiology EKG: report reviewed, image reviewed - EKG Interpretation EKG: no acute changes EKG interpretations - Telemetry EKG Rhythm: Sinus Tachycardia - EKG Sinus rhythms and dysrhythmias: sinus tachycardia AV and intraventricular conduction: right bundle branch block Assessment and Plan Sinus tach likely compensatory in setting of anemia/GIB. Will obtain echo. Continue telemetry monitoring. Continue PO Cardizem 120mg qDay. Further recommendations to follow per hospital course. Pt seen in conjunction with Dr. Dior, who agrees with the assessment and plan of care. - Patient Problems (1) GI bleed Current Visit: Yes Status: Acute Qualifiers: GI bleed type/associated pathology: gastric ulcer Qualified Code(s): K25.4 - Chronic or unspecified gastric ulcer with hemorrhage (2) Anemia Current Visit: Yes Status: Acute (3) Sinus tachycardia Current Visit: Yes Status: Acute (4) Hyponatremia Current Visit: Yes Status: Acute (5) HTN (hypertension) Current Visit: Yes Status: Chronic Qualifiers: Hypertension type: essential hypertension Qualified Code(s): I10 - Essential (primary) hypertension (6) Diabetes Current Visit: Yes Status: Chronic Qualifiers: Diabetes mellitus type: type 2 (7) GERD (gastroesophageal reflux disease) Current Visit: Yes Status: Chronic (8) Hx of seizure disorder Current Visit: No Status: Chronic (9) Bipolar disorder Current Visit: Yes Status: Chronic (10) Schizophrenia Current Visit: Yes Status: Chronic (11) Morbid obesity Current Visit: Yes Status: Chronic (12) ETOH abuse Current Visit: No Status: Chronic
--- NOTE | 2019-07-20 17:31 | Progress Note ---
Assessment and Plan 58-year-old cirrhotic with upper GI bleed from duodenal large ulceration on pressors, receiving blood products, who has been partially stabalized. Status post gastroduodenal embolization which was successful with immediate resolution of hemodynamic instability allowing patient to be weaned off of all pressures in the subsequent hour. Duodenal ulceration. Status post coil embolization of the gastroduodenal artery. Will need PPI, possibly for life. Will need to be followed by gastro for outpatient follow-up and management. Cirrhosis with varices on CT scan. Discussed with patient that he will need outpatient evaluation by gastroenterology for cirrhosis evaluation and treatment. Ordered hepatitis C antibody for now. Will need cirrhosis work-up by gastroenterology. Vascular signing off. Subjective Date of service: 07/20/19 Principal diagnosis: GI bleed Interval history: Hemoglobin stable. No overnight bleeding. No significant abdominal pain. No groin pain. No right wrist pain. No pseudoaneurysm or hematoma of the right g roin. No pseudoaneurysm or hematoma of the right radial artery. Objective - Constitutional Vitals: Vital Signs - 12hr 07/20/19 07/20/19 07/20/19 07:44 11:27 12:00 Temperature 97.9 F 98.7 F Pulse Rate 88 92 H 87 Respiratory 18 18 Rate Blood Pressure 127/48 114/58 Blood Pressure [Right] O2 Sat by Pulse 98 98 Oximetry 07/20/19 07/20/19 13:16 16:45 Temperature 98.6 F Pulse Rate 92 H Respiratory 18 Rate Blood Pressure Blood Pressure 120/62 [Right] O2 Sat by Pulse 97 98 Oximetry General appearance: Present: no acute distress - EENT Eyes: EOM intact ENT: hearing intact - Respiratory Respiratory effort: normal Extremities: normal temperature, normal color - Gastrointestinal General gastrointestinal: Present: soft, other (Obese) - Psychiatric Psychiatric: appropriate mood/affect, cooperative - Labs CBC & Chem 7: 07/20/19 03:35 07/19/19 03:13 Labs: Abnormal lab results 07/19/19 07/19/19 07/20/19 Range/Units 19:28 21:20 03:35 RBC 2.24 L 2.34 L (3.65-5.03) M/mm3 Hgb 7.2 L 7.4 L (11.8-15.2) gm/dl Hct 20.0 L 21.0 L (35.5-45.6) % MCHC 36 H 35 H (32-34) % RDW 15.7 H 15.6 H (13.2-15.2) % Plt Count 82 L 76 L (140-440) K/mm3 Lymph # 0.9 L (1.2-5.4) K/mm3 Seg Neutrophils % 72.8 H (40.0-70.0) % POC Glucose 119 H (70-105) Medications & Allergies - Medications Allergies/Adverse Reactions: Allergies No Known Allergies Allergy (Verified 07/17/19 05:52) Home Medications: Home Medications Medication Instructions Recorded Confirmed Last Taken Type Atorvastatin [Lipitor] 40 mg PO QDAY 08/27/13 07/19/19 12/04/13 04:30 History 40 Divalproex ER [Depakote ER] 2,500 mg PO QHS 08/27/13 07/19/19 12/03/13 20:00 History 2500 FLUoxetine [Prozac] 20 mg PO QDAY 08/27/13 07/19/19 12/04/13 04:30 History 20 Lisinopril [Zestril] 30 mg PO QHS 08/27/13 07/19/19 12/03/13 20:00 History 30 Metformin HCl [Glumetza] 1,000 mg PO BID 08/27/13 07/19/19 12/03/13 20:00 History 1000 Empagliflozin [Jardiance] 25 mg PO QDAY 07/19/19 07/19/19 Unknown History Famotidine [Pepcid] 20 mg PO AC PRN 07/19/19 07/19/19 Unknown History Multivitamin [One-Daily 1 each PO QDAY 07/19/19 07/19/19 Unknown History Multi-Vitamin] Sitagliptin Phosphate [Januvia] 100 mg PO QDAY 07/19/19 07/19/19 Unknown History dilTIAZem HCl [Diltiazem 24Hr ER 120 mg PO QDAY 07/19/19 07/19/19 Unknown History (Xr)] Active Medications: Generic Name Dose Route Start Last Admin Trade Name Freq PRN Reason Stop Dose Admin Atorvastatin Calcium 40 mg 07/21/19 10:00 Lipitor PO QDAY [facility] Diltiazem HCl 120 mg 07/20/19 10:00 07/20/19 12:02 Cardizem Cd PO 120 mg QDAY TEGAN Administration Divalproex Sodium 2,500 mg 07/19/19 22:00 07/19/19 21:45 Depakote Er PO 2,500 mg QHS TEGAN Administration Fluoxetine HCl 20 mg 07/20/19 10:00 07/20/19 12:02 Prozac PO 20 mg QDAY TE[facility] Administration Sodium Chloride 1,000 mls @ 50 mls/hr 07/17/19 14:00 07/19/19 17:18 Nacl 0.9% 1000 Ml IV 50 mls/hr DIRECT TEGAN Administration Pantoprazole Sodium 80 mg/ 100 mls @ 10 mls/hr 07/18/19 02:46 07/19/19 21:44 Sodium Chloride IV 8 mg/hr DIRECT TEGAN 10 mls/hr Administration 8 MG/HR Sodium Chloride 500 mls @ 0 mls/hr 07/19/19 18:42 Nacl 0.9% 500 Ml IV ONCE TEGAN As Directed Linagliptin 5 mg 07/21/19 10:00 Tradjenta PO QDAY TEGAN Metoprolol Tartrate 5 mg 07/19/19 18:39 Metoprolol IV Q6HR PRN Tachyarrhythmias Morphine Sulfate 2 mg 07/19/19 12:50 07/20/19 12:02 Morphine IV 2 mg Q4H PRN Administration Pain, Moderate (4-6) Multivitamins 1 each 07/20/19 10:00 07/20/19 12:02 Theragran Tab PO 1 each DAILY TEGAN Administration
[2019-07-20 19:36] LABS: Alanine Aminotransferase 102 units/L (7-56); Albumin 2.6 g/dL (3.9-5)
[2019-07-20 19:43] LABS: Bilirubin,Direct < 0.2 mg/dL (0-0.2)
[2019-07-20] MEDS: DIVALPROEX ER 500 MG TAB PO SCH (21:49)
[2019-07-20] MEDS: PANTOPRAZOLE 80 MG in SODIUM CHLORIDE 0.9% 100 ML IV SCH (21:56)
[2019-07-21] MEDS: PANTOPRAZOLE 80 MG in SODIUM CHLORIDE 0.9% 100 ML IV SCH (08:17)
[2019-07-21] MEDS: MORPHINE 2 MG/1 ML INJ IV PRN (08:18)
[2019-07-21] MEDS ORDERED: NON-FORMULARY EACH (Sitagliptin Phosphate [Januvia] 100 MG) PO SCH (10:00)
[2019-07-21] MEDS ORDERED: LINAGLIPTIN 5 MG TAB PO SCH (10:00)
[2019-07-21] MEDS: FLUoxetine 20 MG CAP PO SCH (11:38)
[2019-07-21] MEDS: dilTIAZem CD 120 MG CAP PO SCH (11:38)
[2019-07-21] MEDS: MULTIVITAMINS ,THERAPEUTIC TAB PO SCH (11:38)
[2019-07-21 13:35] VITALS: BP 120/58
--- NOTE | 2019-07-21 13:53 | Progress Note ---
Assessment and Plan Sinus tach likely compensatory in setting of anemia/GIB. Obtain echo. Continue PO Cardizem 120mg qDay. Continue telemetry monitoring. Pt seen in conjunction with Dr. Dior, who agrees with the assessment and plan of care. - Patient Problems (1) GI bleed Current Visit: Yes Status: Acute Qualifiers: GI bleed type/associated pathology: gastric ulcer Qualified Code(s): K25.4 - Chronic or unspecified gastric ulcer with hemorrhage Plan to address problem: S/p gastroduodenal embolization (2) Anemia Current Visit: Yes Status: Acute (3) Sinus tachycardia Current Visit: Yes Status: Acute (4) Hyponatremia Current Visit: Yes Status: Acute (5) HTN (hypertension) Current Visit: Yes Status: Chronic Qualifiers: Hypertension type: essential hypertension Qualified Code(s): I10 - Essential (primary) hypertension (6) Diabetes Current Visit: Yes Status: Chronic Qualifiers: Diabetes mellitus type: type 2 (7) Cirrhosis Current Visit: Yes Status: Acute (8) GERD (gastroesophageal reflux disease) Current Visit: Yes Status: Chronic (9) Morbid obesity Current Visit: Yes Status: Chronic (10) ETOH abuse Current Visit: No Status: Chronic (11) Bipolar disorder Current Visit: Yes Status: Chronic (12) Schizophrenia Current Visit: Yes Status: Chronic (13) Hx of seizure disorder Current Visit: No Status: Chronic Subjective Date of service: 07/21/19 Principal diagnosis: GIB Interval history: Pt lying comfortably in bed. Denies any cardiac complaints. Tele reviewed - pt currently in NSR 90s with no acute events noted overnight. Objective Last Vital Signs Temp 98.4 F 07/21/19 13:31 Pulse 80 07/21/19 13:31 Resp 18 07/21/19 13:31 BP 120/58 07/21/19 13:31 Pulse Ox 99 07/21/19 13:31 - Physical Examination General: No Apparent Distress HEENT: Positive: EOMI, Normocephaly, Mucus Membranes Moist Neck: Positive: neck supple, trachea midline. Negative: JVD/HJR Cardiac: Positive: Reg Rate and Rhythm, S1/S2 Lungs: Positive: clear to auscultation (bilaterally), No Wheeze, Rales, Rhonchi Neuro: Positive: Grossly Intact, Motor Function Intact, Coordination Normal, Sensory Function Intact. Negative: Numbness, Weakness Abdomen: Positive: Soft, Active Bowel Sounds, Tender Skin: Negative: Rash, Suspicious Lesions Musculoskeletal: No Pain, Normal Range of Motion Extremities: Present: upper extr. pulses, lower extr. pulses. Absent: edema - Labs and Meds Cardiac Enzymes 07/20/19 Range/Units 18:34 AST 64 H (5-40) units/L Comprehensive Metabolic Panel 07/20/19 Range/Units 18:34 Direct Bilirubin < 0.2 (0-0.2) mg/dL Indirect Bilirubin 0.1 mg/dL AST 64 H (5-40) units/L ALT 102 H (7-56) units/L Alkaline Phosphatase 83 (35-129) units/L Total Protein 4.8 L (6.3-8.2) g/dL Albumin 2.6 L (3.9-5) g/dL - Imaging and Cardiology EKG: report reviewed, image reviewed - Telemetry EKG Rhythm: Sinus Rhythm - EKG Sinus rhythms and dysrhythmias: sinus tachycardia AV and intraventricular conduction: right bundle branch block
--- NOTE | 2019-07-21 14:05 | Discharge Summary ---
Providers - Providers Date of Admission: 07/17/19 05:43 Date of discharge: 07/21/19 Attending physician: COLLEEN ORDAZ 07/17/19 07:16 Consult to Physician [CONS] Routine Comment: Consulting Provider: ANGELY PEDERSEN Physician Instructions: Reason For Exam: GI bleed and shock 07/17/19 08:23 Midline [Consult to PICC Line RN] [CONS] Stat Reason For Exam: need pressor Type Line:: Midline 07/17/19 09:03 Consult to Physician [CONS] Stat Comment: Consulting Provider: SOWMYA TOPETE Physician Instructions: Reason For Exam: shock GI bleeding 07/17/19 09:05 Consult to Physician [CONS] Stat Comment: Consulting Provider: ANGELY PEDERSEN Physician Instructions: Reason For Exam: shock GIB 07/17/19 20:38 Consult to Physician [CONS] Routine Comment: Consulting Provider: SOWMYA TOPETE Physician Instructions: Reason For Exam: acute GI bleed with hypotension 07/19/19 13:55 Physical Therapy Evaluation and Treat [CONS] Routine Comment: Reason For Exam: Debility 07/20/19 10:57 Consult to Physician [CONS] Routine Comment: Consulting Provider: JOSE STEWART Physician Instructions: Reason For Exam: atrial fib Primary care physician: MATERIALS DIRECTOR Hospitalization Condition: Stable Hospital course: Patient is a 58-year-old male with history of hypertension, diabetes mellitus type 2, bipolar and schizophrenia presented to the hospital with history of acute rectal bleeding, a syncopal episode when trying to leave the bathroom after having a bloody bowel movement. He decided to come to the ER for further evaluation and management. His initial lab work showed potassium of 6.2, elevated creatinine and hemoglobin of 10.9 which dropped down to 8, also developed hypotension and shortness of breath after having a large rectal bleeding while he was waiting in the ER room. Patient was immediately placed on central line, given 2 units of packed RBC, started on Levophed, IV fluid, GI was consulted in the ER.. Patient was taken for emergent EGD, but During endoscopy patient started to have severe upper GI bleed, he was intubated, due to continued bleeding, risk of perforation for further intervention procedure terminated and ultimately embolization of the GDA by IR. Patient extubated next morning, continue with IV Protonix, s/p IV octreotide - transferred to [facility] e. Patient was further evaluated by solar sales ambassador for sinus tachycardia which resolved after starting his home medication diltiazem 120 mg daily. He was changed to p.o. Protonix twice daily, he was tolerating p.o. diet and no further active bleeding has noted. Patient was then discharged home in stable condition with outpatient follow-up. 07/17: extubated. keep NPO. cont Protonix IV and octreotide IV. 07/18: Had a small bloody bowel movement last night. H&H slightly dropped, which is expected. start on clear liquid diet today. Continue Protonix IV, completed octreotide drip today. We will transfer to telemetry and continue to monitor H&H. 07/19: h/h stable, plan to advance diet if ok with GI. if remains stable clinically and h/h stable plan to d/c in the am 07/20: DC home with outpatient GI follow-up Discharge Diagnosis and Mx: Acute lower GI bleed -Likely from variceal bleeding and peptic ulcer disease -Patient presented with active rectal bleeding and was having active bleeding episode in the ER leading to sudden drop in H&H and severe hypotension required pressors -s/p 4 units of packed RBC and 4 units FFP transfused, -GI/IR/GS has been consulted for emergent endoscopy - -During endoscopy patient started to have severe upper GI bleed, he was intubated, - due to continued bleeding, risk of perforation for further intervention procedure terminated and ultimately embolization of the gastroduodenal artery by IR - s/p octreotide IV,s/p Protonix drip IV, -He was advance diet slowly and he tolerated, no further active bleeding noted -Patient was then discharged home in stable condition with PPI twice daily and instructed to follow-up with GI in 2 weeks Acute respiratory failure, resolved -Intubated following endoscopy to protect airway - s/p extubation 07/17 Severe symptomatic anemia -Due to acute GI bleed -Status post 4 units of packed RBC transfusion, and 4 unit FFP transfusion SIRS due to active GI bleed, ruled out infectious cause -Negative UA and negative blood culture Atrial fibrillation, ruled out -Suspected based on initial EKG, but telemetry and repeat EKG suggested sinus tachycardia - started on diltiazem, not a candidate for AC, consulted cardiology Syncope, likely vasovagal due to severe dehydration from acute GI bleed -CT head unremarkable, VELIA likely due to hypovolemia -Continue to monitor BMP, improved with IV hydration Hyperkalemia, likely due to declining renal function - resolved -K was 6.2 on admission, Hypotensive shock, due to active GI bleeding -s/p Levophed, s/p IV fluid, -Status post 4 unit of packed RBC transfusion Diabetes mellitus type 2, managed with SSI h/o schizophrenia/bipolar disorder - will cont home meds History of alcohol abuse with hepatic cirrhosis -Monitored for alcohol withdrawal. States that he was not drinking recently for years. -monitored LFT and CBC DVT prophylaxis, SCD Physical exam: GENERAL: well-developed short stature obese white male lying on bed appeared to be in mild discomfort. HEENT: Normocephalic. Atraumatic. No conjunctival congestion or icterus. Patient has moist mucous membranes. NECK: Supple. Trachea midline. CHEST/LUNGS: Clear to auscultated bilaterally, breathing nonlabored. No wheezes crackles or rhonchi. HEART/CARDIOVASCULAR: Regular in rate and rhythm. S1 and S2 positive. ABDOMEN: Abdomen is soft, + diffuse tender. Patient has normal bowel sounds. SKIN: There is no rash. Warm and dry. NEURO: No focal motor deficit. Follows command. MUSCULOSKELETAL: No joint effusion or tenderness. EXTRIMITY: No edema, no cyanosis or clubbing. PSYCH: Cooperative. Disposition: [id number] HOME UNDER HOME HL Time spent for discharge: 34 minutes Core Measure Documentation - Palliative Care Palliative Care/ Comfort Measures: Not Applicable - Core Measures Any of the following diagnoses?: none Exam - Constitutional Vitals: Temp Pulse Resp BP Pulse Ox 98.4 F 80 18 120/58 99 07/21/19 13:31 07/21/19 13:31 07/21/19 13:31 07/21/19 13:31 07/21/19 13:31 Plan Activity: advance as tolerated Weight Bearing Status: Weight Bear as Tolerated Diet: low fat Additional Instructions: Follow-up with GI in 2 weeks for possible repeat EGD. Need outpatient 2D echocardiogram Follow up with: PRIMARY CAREMD [Primary Care Provider] - 3-5 Days ANGELY PEDERSEN MD [Staff Physician] - 7 Days Forms: Accompanied Note Prescriptions: Pantoprazole [Protonix TAB] 40 mg PO BID #60 tablet
[2019-07-21] MEDS ORDERED: PANTOPRAZOLE 40 MG TAB PO SCH (22:00)
== END 2019-07-21 22:44 | disposition home or self-care (01) | DRG 356 ==
LOC: ED 02:33 → CC1 05:43 → 4A 07-19 12:37
PROVIDERS: ADMIT Internal Medicine; ATTEND Internal Medicine
PROC: 0BH17EZ Insertion of Endotracheal Airway into Trachea, Via Natural or Artificial Opening (ICD-10-PCS; principal; 2019-07-17)
PROC: 5A1935Z Respiratory Ventilation, Less than 24 Consecutive Hours (ICD-10-PCS; 2019-07-17)
PROC: 0DJ08ZZ Inspection of Upper Intestinal Tract, Via Natural or Artificial Opening Endoscopic (ICD-10-PCS; 2019-07-17)
PROC: 04L23DZ Occlusion of Gastric Artery with Intraluminal Device, Percutaneous Approach (ICD-10-PCS; 2019-07-17)
PROC: B44LZZZ Ultrasonography of Femoral Artery (ICD-10-PCS; 2019-07-17)
PROC: B4101ZZ Fluoroscopy of Abdominal Aorta using Low Osmolar Contrast (ICD-10-PCS; 2019-07-17)
PROC: B41J1ZZ Fluoroscopy of Other Lower Arteries using Low Osmolar Contrast (ICD-10-PCS; 2019-07-17)
PROC: B41B1ZZ Fluoroscopy of Other Intra-Abdominal Arteries using Low Osmolar Contrast (ICD-10-PCS; 2019-07-17)
PROC: B41F1ZZ Fluoroscopy of Right Lower Extremity Arteries using Low Osmolar Contrast (ICD-10-PCS; 2019-07-17)
PROC: B34HZZZ Ultrasonography of Right Upper Extremity Arteries (ICD-10-PCS; 2019-07-17)
PROC: 03HB33Z Insertion of Infusion Device into Right Radial Artery, Percutaneous Approach (ICD-10-PCS; 2019-07-17)
PROC: 30233K1 Transfusion of Nonautologous Frozen Plasma into Peripheral Vein, Percutaneous Approach (ICD-10-PCS; 2019-07-17)
PROC: 30233N1 Transfusion of Nonautologous Red Blood Cells into Peripheral Vein, Percutaneous Approach (ICD-10-PCS; 2019-07-17)
PROC: 06HY33Z Insertion of Infusion Device into Lower Vein, Percutaneous Approach (ICD-10-PCS; 2019-07-17)
PROC: 4A033R1 Measurement of Arterial Saturation, Peripheral, Percutaneous Approach (ICD-10-PCS; 2019-07-18)
DX: K27.0 Acute peptic ulcer, site unspecified, with hemorrhage (principal); R57.8 Other shock; N17.0 Acute kidney failure with tubular necrosis; J96.01 Acute respiratory failure with hypoxia; R65.10 Systemic inflammatory response syndrome (SIRS) of non-infectious origin without acute organ dysfunction; E87.1 Hypo-osmolality and hyponatremia; Z68.41 Body mass index [BMI] 40.0-44.9, adult; I85.01 Esophageal varices with bleeding; K74.60 Unspecified cirrhosis of liver; E86.0 Dehydration; D64.9 Anemia, unspecified; E87.5 Hyperkalemia; E11.9 Type 2 diabetes mellitus without complications; F20.9 Schizophrenia, unspecified; I95.9 Hypotension, unspecified; R00.0 Tachycardia, unspecified; K21.9 Gastro-esophageal reflux disease without esophagitis; E66.01 Morbid (severe) obesity due to excess calories; F10.10 Alcohol abuse, uncomplicated; G40.909 Epilepsy, unspecified, not intractable, without status epilepticus; I25.10 Atherosclerotic heart disease of native coronary artery without angina pectoris; I11.0 Hypertensive heart disease with heart failure; I50.9 Heart failure, unspecified; K44.9 Diaphragmatic hernia without obstruction or gangrene; Z90.49 Acquired absence of other specified parts of digestive tract; Z79.899 Other long term (current) drug therapy
CPT/HCPCS: 36248; 36415; 37244; 71045; 74018; 74174; 74177; 75726; 80048; 80053; 80076; 82803; 82962; 85007; 85014; 85018; 85025; 85027; 85610; 85730; 86803; 86850; 86900; 86901; 86920; 87070; 87076; 87186; 87205; 93005; 93010; 93306; 94002; 94003; 94760; G0378; A4649; A9270-GY; C1760; C1769; C1887; C1894; C9113; J0690; J1170; J1644; J1815; J1885; J1940; J2250; J2270; J2354; J2370; J2704; J3010; J7030; J7040; J7050; P9016; P9017; Q9967

== ENCOUNTER 2019-12-02 14:24 | Emergency (ER) | payer MEDICARE ==
[2019-12-02 15:50] VITALS: BP 149/74
--- NOTE | 2019-12-02 16:21 | Event Note ---
ED Screening Note Date of service: 12/02/19 Time: 16:16 ED Screening Note: 59-year-old male presents the ED with neck and head pain stating that he is having a splitting headache with neck pain causing pain to move it left her right. This initial assessment/diagnostic orders/clinical plan/treatment(s) is/are subject to change based on patients health status, clinical progression and re- assessment by fellow clinical providers in the ED. Further treatment and workup at subsequent clinical providers discretion. Patient/guardian urged not to elope from the ED as their condition may be serious if not clinically assessed and managed. Initial orders include: xr spine
--- NOTE | 2019-12-02 17:18 | XRay Report ---
Cervical spine 5 views Indication: pain Findings: There is no fracture, subluxation, or other acute radiographic abnormality of the cervical spine. The re is discogenic degenerative change most prominent at C3-4 and C5-6. There is facet degenerative fer nge throughout the cervical spine. Signer Name: Nicholas Montejo MD Signed: 12/02/2019 5:14 PM Workstation Name: [id number]
[2019-12-02] MEDS ORDERED: ONDANSETRON 4 MG/2 ML INJ IV ONE (17:35)
[2019-12-02] MEDS ORDERED: SODIUM CHLORIDE 0.9% 1000 ML 1,000 ML IV ONE (17:35)
[2019-12-02] MEDS ORDERED: MORPHINE 4 MG/1 ML INJ IV ONE (17:35)
--- NOTE | 2019-12-02 17:39 | Emergency Department Report ---
ED Neck Pain/Injury HPI - General Chief Complaint: Neck Pain/Injury Stated Complaint: DIZZINESS/HEACAHE/NECK PAIN Time Seen by Provider: 12/02/19 17:28 Mode of arrival: Wheelchair Limitations: Other - History of Present Illness Initial Comments: Patient is 59 years old male with history of hypertension, congestive heart failure, diabetes and schizophrenia. Patient presented to the ER via EMS complaining of neck pain started 2 days ago. Patient stated that pain started after he woke up from sleep and he thinks that he probably slept wrong. Patient denied any recent injury. Patient denied any fever or chills. Patient also denied any weakness, numbness or tingling sensation. No bowel or bladder incontinence. Patient stated that he cannot take NSAID because of recent GI bleed. MD Complaint: neck pain -: days(s) Place: home Radiation: right lateral, right shoulder Severity: severe Severity scale (0 -10): 7 Quality: stabbing Consistency: constant Improves With: none Worsens With: movement of neck Associated Symptoms: none - Related Data Home Medications Medication Instructions Recorded Confirmed Last Taken Atorvastatin [Lipitor] 40 mg PO QDAY 08/27/13 07/19/19 12/04/13 04:30 40 Divalproex ER [Depakote ER] 2,500 mg PO QHS 08/27/13 07/19/19 12/03/13 20:00 2500 FLUoxetine [PROzac] 20 mg PO QDAY 08/27/13 07/19/19 12/04/13 04:30 20 Metformin HCl [Glumetza] 1,000 mg PO BID 08/27/13 07/19/19 12/03/13 20:00 1000 Empagliflozin [Jardiance] 25 mg PO QDAY 07/19/19 07/19/19 Unknown Multivitamin [One-Daily 1 each PO QDAY 07/19/19 07/19/19 Unknown Multi-Vitamin] Sitagliptin Phosphate [Januvia] 100 mg PO QDAY 07/19/19 07/19/19 Unknown dilTIAZem HCl [Diltiazem 24Hr ER 120 mg PO QDAY 07/19/19 07/19/19 Unknown (Xr)] Previous Rx's Medication Instructions Recorded Last Taken Type Pantoprazole [Protonix TAB] 40 mg PO BID #60 tablet 07/21/19 Unknown Rx Allergies Allergy/AdvReac Type Severity Reaction Status Date / Time No Known Allergies Allergy Verified 12/02/19 15:47 ED Review of Systems ROS: Stated complaint: DIZZINESS/HEACAHE/NECK PAIN Other details as noted in HPI Comment: All other systems reviewed and negative Constitutional: denies: chills, fever Respiratory: denies: cough, shortness of breath, SOB with exertion, SOB at rest Cardiovascular: denies: chest pain, palpitations Gastrointestinal: denies: abdominal pain, nausea, vomiting Musculoskeletal: denies: back pain Psychiatric: denies: depression, auditory hallucinations, visual hallucinations, homicidal thoughts, suicidal thoughts ED Past Medical Hx - Past Medical History Previous Medical History?: Yes Hx Hypertension: Yes Hx Heart Attack/AMI: No (hx "mild" CHF per patient) Hx Congestive Heart Failure: Yes (Hx mild CHF) Hx Diabetes: Yes Hx Pulmonary Embolism: Yes (bipolar, schiz,) Hx GERD: Yes Hx Renal Disease: Yes (hyperkalemia (improved), hyponatremia, VELIA) Hx Seizures: Yes Hx Psychiatric Treatment: Yes (bipolar,schiz) Hx Asthma: No Hx COPD: No Additional medical history: herniated disc,neuropathy,concussions x2, shoulder dilocations,LIVER DISEASE - Surgical History Hx Pacemaker: No Hx Cholecystectomy: Yes - Social History Smoking Status: Unknown if ever smoked Substance Use Type: Alcohol - Medications Home Medications: Home Medications Medication Instructions Recorded Confirmed Last Taken Type Atorvastatin [Lipitor] 40 mg PO QDAY 08/27/13 07/19/19 12/04/13 04:30 History 40 Divalproex ER [Depakote ER] 2,500 mg PO QHS 08/27/13 07/19/19 12/03/13 20:00 History 2500 FLUoxetine [PROzac] 20 mg PO QDAY 08/27/13 07/19/19 12/04/13 04:30 History 20 Metformin HCl [Glumetza] 1,000 mg PO BID 08/27/13 07/19/19 12/03/13 20:00 History 1000 Empagliflozin [Jardiance] 25 mg PO QDAY 07/19/19 07/19/19 Unknown History Multivitamin [One-Daily 1 each PO QDAY 07/19/19 07/19/19 Unknown History Multi-Vitamin] Sitagliptin Phosphate [Januvia] 100 mg PO QDAY 07/19/19 07/19/19 Unknown History dilTIAZem HCl [Diltiazem 24Hr ER 120 mg PO QDAY 07/19/19 07/19/19 Unknown History (Xr)] Pantoprazole [Protonix TAB] 40 mg PO BID #60 tablet 07/21/19 Unknown Rx ED Physical Exam - General Limitations: Other General appearance: alert, in no apparent distress - Head Head exam: Present: atraumatic, normocephalic, normal inspection - Eye Eye exam: Present: normal appearance, PERRL - ENT ENT exam: Present: mucous membranes dry - Neck Neck exam: Present: normal inspection, full ROM. Absent: tenderness, meningismus, lymphadenopathy - Respiratory Respiratory exam: Present: normal lung sounds bilaterally - Cardiovascular Cardiovascular Exam: Present: regular rate, normal rhythm, normal heart sounds - GI/Abdominal GI/Abdominal exam: Present: soft, normal bowel sounds. Absent: distended, tenderness, guarding, rebound, rigid, organomegaly, mass, bruit, pulsatile mass, hernia - Extremities Exam Extremities exam: Present: normal inspection, full ROM, normal capillary refill. Absent: tenderness, pedal edema, joint swelling, calf tenderness - Back Exam Back exam: Present: normal inspection, full ROM. Absent: CVA tenderness (R), CVA tenderness (L) - Neurological Exam Neurological exam: Present: alert, oriented X3, CN II-XII intact, normal gait, reflexes normal. Absent: motor sensory deficit - Psychiatric Psychiatric exam: Present: normal mood. Absent: homicidal ideation, suicidal ideation - Skin Skin exam: Present: warm, intact, normal color ED Course Vital Signs 12/02/19 15:49 Temperature 98.6 F Pulse Rate 85 Respiratory 17 Rate Blood Pressure 149/74 O2 Sat by Pulse 96 Oximetry ED Medical Decision Making - Radiology Data Radiology results: report reviewed - Medical Decision Making Patient is 59 years old male with history of hypertension, congestive heart failure, diabetes and schizophrenia. Patient presented to the ER via EMS complaining of neck pain started 2 days ago. Patient stated that pain started after he woke up from sleep and he thinks that he probably slept wrong. Patient denied any recent injury. Patient denied any fever or chills. Patient also denied any weakness, numbness or tingling sensation. No bowel or bladder incontinence. Patient stated that he cannot take NSAID because of recent GI bleed. Patient received morphine and Zofran. Pain improved significantly. Cervical spine x-ray showed a C3 - 4 degenerative disc disease. Patient given prescription for tramadol and Zofran and advised to follow-up with his primary doctor in the next 2 to 3 days and to return to the ER if he develop any symptoms. Critical care attestation.: If time is entered above; I have spent that time in minutes in the direct care of this critically ill patient, excluding procedure time. ED Disposition Clinical Impression: Acute neck pain Disposition: - TO HOME OR SELFCARE Is pt being admited?: No Condition: Stable Instructions: Cervical Radiculopathy (ED) Referrals: [facility] [Provider Group] - 3-5 Days
== END 2019-12-02 19:15 | disposition home or self-care (01) ==
LOC: ED 14:24
DX: M54.2 Cervicalgia (principal); I11.0 Hypertensive heart disease with heart failure; E11.40 Type 2 diabetes mellitus with diabetic neuropathy, unspecified; F31.9 Bipolar disorder, unspecified; F20.89 Other schizophrenia; K21.9 Gastro-esophageal reflux disease without esophagitis; Z90.49 Acquired absence of other specified parts of digestive tract; Z79.899 Other long term (current) drug therapy
CPT/HCPCS: 72040; 96374; 96375; 99284; J2270; J2405; J7030

== ENCOUNTER 2020-01-05 21:06 | Emergency (ER) | payer MEDICARE ==
[2020-01-05 22:46] LABS: Bilirubin,Urine NEG (Negative); Blood,Urine NEG (Negative); Color,Urine Straw (Yellow); Protein,Urine <15 mg/dL mg/dL (Negative); WBC,Urine < 1.0 /HPF (0.0-6.0)
[2020-01-06] MEDS ORDERED: KETOROLAC 30 MG/1 ML INJ IV ONE (01:14)
[2020-01-06] MEDS ORDERED: FAMOTIDINE 20 MG/2 ML INJ IV ONE (01:14)
[2020-01-06] MEDS ORDERED: dexAMETHasone 20 MG/5 ML VIAL IV ONE (01:14)
[2020-01-06 02:06] LABS: Basophils % (Auto) 0.4 % (0.0-1.8); Eosinophils # (Auto) 0.1 K/mm3 (0.0-0.4); Eosinophils % (Auto) 0.9 % (0.0-4.3); Hematocrit 37.6 % (35.5-45.6); Hemoglobin 12.2 gm/dl (11.8-15.2); Lymphocytes # (Auto) 2.1 K/mm3 (1.2-5.4); Lymphocytes % (Auto) 25.2 % (13.4-35.0); Mean Corpuscular HGB Conc 33 % (32-34); Mean Corpuscular Volume 78 fl (84-94); Monocytes # (Auto) 1.3 K/mm3 (0.0-0.8); Monocytes % (Auto) 15.9 % (0.0-7.3); Platelet Count 151 K/mm3 (140-440); Red Blood Count 4.83 M/mm3 (3.65-5.03)
--- NOTE | 2020-01-06 02:18 | Cat Scan Report ---
CT abdomen pelvis wo con INDICATION: Left flank pain. TECHNIQUE: All CT scans at this location are performed using CT dose reduction for ALARA by means of automated e xposure control. COMPARISON: 07/18/2019 FINDINGS: Lung bases are clear of acute disease. Cholecystectomy. Hepatic cirrhosis, with splenic and gastrohep atic varices but no acute liver lesions. Spleen and pancreas are negative. Stable 4.3 cm left adrenal myolipoma. Kidneys and adrenals are otherwise negative. Abdominal aorta is normal in size. No adenop athy. Pelvis Appendix cannot be identified. Urinary bladder and distal ureters are negative. Mild sigmoid divertic ulosis but no evidence of diverticulitis or other inflammation. No free fluid. Degenerative changes in the lumbar and lower thoracic spine, but no acute skeletal lesions. IMPRESSION: 1. Hepatic cirrhosis, with splenic and gastrohepatic varices 2. Stable left adrenal myolipoma. 3. No acute abnormalities. Signer Name: Deyvi Olivas MD Signed: 01/06/2020 2:13 AM Workstation Name: [id number]
--- NOTE | 2020-01-06 02:24 | XRay Report ---
CHEST 1 VIEW INDICATION: cough COMPARISON: None FINDINGS: Support devices: None Heart: Normal Lungs/Pleura: No acute pulmonary or pleural findings. IMPRESSION: 1. No acute disease. Signer Name: Deyvi Olivas MD Signed: 01/06/2020 2:20 AM Workstation Name: [id number]
[2020-01-06 02:35] LABS: Alanine Aminotransferase 25 units/L (7-56); Albumin 3.9 g/dL (3.9-5); BUN/Creatinine Ratio 22; Blood Urea Nitrogen 20 mg/dL (9-20); Calcium 9.2 mg/dL (8.4-10.2); Hemolysis Index 3
--- NOTE | 2020-01-06 02:40 | Emergency Department Report ---
ED Abdominal Pain HPI - General Chief Complaint: Abdominal Pain Stated Complaint: LOWER BACK PAIN Source: patient Mode of arrival: Stretcher Limitations: No Limitations - History of Present Illness Initial Comments: Patient is a 59-year-old white male with a history of multiple chronic medical conditions including hypertension, mild CHF, csz-[id number] diabetes, chronic pain syndrome due to degenerative disc disease, bipolar disorder, schizophrenia and who presents to the ED with complaint of a acute onset persistent left flank pain that radiates to the mid posterior thoracic region for the last 3 days. Patient states that he has been taking his regular medications at home for pain with no relief. Patient states that the pain is especially worse with any movement or palpation of the left flank or left mid posterior thoracic region. Patient denies hematuria, chest pain, shortness of breath, dizziness, syncope, fall, heavy lifting, fever, chills, nausea and vomiting, numbness and tingling or weakness of upper and lower extremities bilaterally or saddle paresthesia, and urinary or bowel incontinence. MD Complaint: abdominal pain (left flank pain), flank pain (Left), other (Mid posterior thoracic pain) -: Sudden, days(s) (3) Location: L flank Radiation: L flank, back (mid-posterior thoracic pain) Migration to: L flank, other (Mid-posterior thoracic pain) Severity: severe Severity scale (0 -10): 9 Quality: aching, sharp Consistency: constant Improves With: nothing Worsens With: movement Associated Symptoms: denies other symptoms. denies: nausea, vomiting, diarrhea, fever, chills, constipation, hematemesis, hematochezia, melena, hematuria, anorexia, syncope, other - Related Data Home Medications Medication Instructions Recorded Confirmed Last Taken Atorvastatin [Lipitor] 40 mg PO QDAY 08/27/13 07/19/19 12/04/13 04:30 40 Divalproex ER [Depakote ER] 2,500 mg PO QHS 08/27/13 07/19/19 12/03/13 20:00 2500 FLUoxetine [PROzac] 20 mg PO QDAY 08/27/13 07/19/19 12/04/13 04:30 20 Metformin HCl [Glumetza] 1,000 mg PO BID 08/27/13 07/19/19 12/03/13 20:00 1000 Empagliflozin [Jardiance] 25 mg PO QDAY 07/19/19 07/19/19 Unknown Multivitamin [One-Daily 1 each PO QDAY 07/19/19 07/19/19 Unknown Multi-Vitamin] Sitagliptin Phosphate [Januvia] 100 mg PO QDAY 07/19/19 07/19/19 Unknown dilTIAZem HCl [Diltiazem 24Hr ER 120 mg PO QDAY 07/19/19 07/19/19 Unknown (Xr)] Previous Rx's Medication Instructions Recorded Last Taken Type Pantoprazole [Protonix TAB] 40 mg PO BID #60 tablet 07/21/19 Unknown Rx Ondansetron [Zofran Odt] 4 mg PO Q8HR PRN #14 tab.rapdis 12/02/19 Unknown Rx traMADoL [Ultram 50 MG tab] 50 mg PO Q4HR PRN #14 tablet 01/06/20 Unknown Rx Allergies Allergy/AdvReac Type Severity Reaction Status Date / Time No Known Allergies Allergy Verified 12/02/19 15:47 ED Review of Systems ROS: Stated complaint: LOWER BACK PAIN Other details as noted in HPI Constitutional: denies: chills, fever Eyes: denies: eye pain, eye discharge, vision change ENT: denies: ear pain, throat pain Respiratory: denies: cough, shortness of breath, wheezing Cardiovascular: denies: chest pain, palpitations Endocrine: no symptoms reported Gastrointestinal: abdominal pain (left flank pain). denies: nausea, vomiting, diarrhea Genitourinary: denies: urgency, dysuria Musculoskeletal: back pain (mid-posterior thoracic pain), arthralgia (left mid- posterior thoracic pain). denies: joint swelling Skin: denies: rash, lesions Neurological: denies: headache, weakness, paresthesias Psychiatric: denies: anxiety, depression Hematological/Lymphatic: denies: easy bleeding, easy bruising ED Past Medical Hx - Past Medical History Previous Medical History?: Yes Hx Hypertension: Yes Hx Heart Attack/AMI: (hx "mild" CHF per patient) Hx Congestive Heart Failure: Yes (Hx mild CHF) Hx Diabetes: Yes Hx Pulmonary Embolism: Yes (bipolar, schiz,) Hx GERD: Yes Hx Renal Disease: Yes (hyperkalemia (improved), hyponatremia, VELIA) Hx Seizures: Yes Hx Psychiatric Treatment: Yes (bipolar,schiz) Hx Asthma: No Hx COPD: No Additional medical history: herniated disc,neuropathy,concussions x2, shoulder dilocations,LIVER DISEASE - Surgical History Past Surgical History?: Yes Hx Pacemaker: No Hx Cholecystectomy: Yes - Social History Smoking Status: Never Smoker Substance Use Type: None - Medications Home Medications: Home Medications Medication Instructions Recorded Confirmed Last Taken Type Atorvastatin [Lipitor] 40 mg PO QDAY 08/27/13 07/19/19 12/04/13 04:30 History 40 Divalproex ER [Depakote ER] 2,500 mg PO QHS 08/27/13 07/19/19 12/03/13 20:00 History 2500 FLUoxetine [PROzac] 20 mg PO QDAY 08/27/13 07/19/19 12/04/13 04:30 History 20 Metformin HCl [Glumetza] 1,000 mg PO BID 08/27/13 07/19/19 12/03/13 20:00 History 1000 Empagliflozin [Jardiance] 25 mg PO QDAY 07/19/19 07/19/19 Unknown History Multivitamin [One-Daily 1 each PO QDAY 07/19/19 07/19/19 Unknown History Multi-Vitamin] Sitagliptin Phosphate [Januvia] 100 mg PO QDAY 07/19/19 07/19/19 Unknown History dilTIAZem HCl [Diltiazem 24Hr ER 120 mg PO QDAY 07/19/19 07/19/19 Unknown History (Xr)] Pantoprazole [Protonix TAB] 40 mg PO BID #60 tablet 07/21/19 Unknown Rx Ondansetron [Zofran Odt] 4 mg PO Q8HR PRN #14 tab.rapdis 12/02/19 Unknown Rx traMADoL [Ultram 50 MG tab] 50 mg PO Q4HR PRN #14 tablet 01/06/20 Unknown Rx ED Physical Exam - General Limitations: No Limitations General appearance: alert, in no apparent distress - Head Head exam: Present: atraumatic, normocephalic, normal inspection - Eye Eye exam: Present: normal appearance, PERRL, EOMI Pupils: Present: normal accommodation - ENT ENT exam: Present: normal exam, normal orophraynx, mucous membranes moist, TM's normal bilaterally, normal external ear exam - Neck Neck exam: Present: normal inspection, full ROM - Respiratory Respiratory exam: Present: normal lung sounds bilaterally. Absent: respiratory distress, wheezes, rales, rhonchi, chest wall tenderness, accessory muscle use, decreased breath sounds, prolonged expiratory - Cardiovascular Cardiovascular Exam: Present: normal rhythm, bradycardia, normal heart sounds. Absent: systolic murmur, diastolic murmur, rubs, gallop - GI/Abdominal GI/Abdominal exam: Present: soft, tenderness (Palpable left flank tenderness), normal bowel sounds. Absent: guarding, rebound, hyperactive bowel sounds, hypoactive bowel sounds, organomegaly, mass - Extremities Exam Extremities exam: Present: normal inspection, full ROM, normal capillary refill, pedal edema (Bilateral 1+ pedal edema). Absent: tenderness, joint swelling, calf tenderness - Back Exam Back exam: Present: normal inspection, full ROM, tenderness (Palpable left mid- posterior thoracic paraspinal musculoskeletal tenderness), muscle spasm, paraspinal tenderness. Absent: CVA tenderness (R), CVA tenderness (L), vertebral tenderness - Neurological Exam Neurological exam: Present: alert, oriented X3, CN II-XII intact, normal gait, reflexes normal - Psychiatric Psychiatric exam: Present: normal affect, normal mood - Skin Skin exam: Present: warm, dry, intact, normal color. Absent: rash ED Course Vital Signs 01/05/20 22:00 Temperature 98.4 F Pulse Rate 50 L Respiratory 18 Rate Blood Pressure 130/62 O2 Sat by Pulse 96 Oximetry ED Medical Decision Making - Lab Data Result diagrams: 01/06/20 01:39 01/06/20 01:39 - Radiology Data Radiology results: report reviewed, image reviewed Findings [facility] [address] [place] [address] XRay Report Signed Patient: ASHER BUSH MR#: [id number] : 1960 Acct:[id number] Age/Sex: 59 / M ADM Date: 01/05/20 Loc: ED Attending Dr: Ordering Physician: ARTUR SILVERMAN Date of Service: 01/06/20 Procedure(s): XR chest 1V ap Accession Number(s): [id number] cc: ARTUR SILVERMAN Fluoro Time In Minutes: CHEST 1 VIEW INDICATION: cough COMPARISON: None FINDINGS: Support devices: None Heart: Normal Lungs/Pleura: No acute pulmonary or pleural findings. IMPRESSION: 1. No acute disease. Signer Name: Deyvi Olivas MD Signed: 01/06/2020 2:20 AM Workstation Name: [id number] Transcribed By: TM Dictated By: Deyvi Olivas MD Electronically Authenticated By: Deyvi Olivas MD Signed Date/Time: 01/06/20219 DD/ 8 TD/TT: Findings [facility] [address] [place] [address] Cat Scan Report Signed Patient: ASHER BUSH MR#: [id number] : 1960 Acct:[id number] Age/Sex: 59 / M ADM Date: 01/05/20 Loc: ED Attending Dr: Ordering Physician: ARTUR SILVERMAN Date of Service: 01/06/20 Procedure(s): CT abdomen pelvis wo con Accession Number(s): [id number] cc: ARTUR SILVERMAN CT abdomen pelvis wo con INDICATION: Left flank pain. TECHNIQUE: All CT scans at this location are performed using CT dose reduction for ALARA by means of automated exposure control. COMPARISON: 07/18/2019 FINDINGS: Lung bases are clear of acute disease. Cholecystectomy. Hepatic cirrhosis, with splenic and gastrohepatic varices but no acute liver lesions. Spleen and pancreas are negative. Stable 4.3 cm left adrenal myolipoma. Kidneys and adrenals are otherwise negative. Abdominal aorta is normal in size. No adenopathy. Pelvis Appendix cannot be identified. Urinary bladder and distal ureters are negative. Mild sigmoid diverticulosis but no evidence of diverticulitis or other inflammation. No free fluid. Degenerative changes in the lumbar and lower thoracic spine, but no acute skeletal lesions. IMPRESSION: 1. Hepatic cirrhosis, with splenic and gastrohepatic varices 2. Stable left adrenal myolipoma. 3. No acute abnormalities. Signer Name: Deyvi Olivas MD Signed: 01/06/2020 2:13 AM Workstation Name: [id number] Transcribed By: TM Dictated By: Deyvi Olivas MD Electronically Authenticated By: Deyvi Olivas MD Signed Date/Time: 01/06/20212 DD/ 6 TD/TT: - Medical Decision Making This is a 59-year-old white male with a history of multiple chronic medical conditions including hypertension, mild CHF, [id number] diabetes, chronic pain syndrome due to degenerative disc disease, bipolar disorder, schizophrenia and who presents to the ED with complaint of a acute onset persistent left flank pain that radiates to the mid posterior thoracic region for the last 3 days. Patient states that he has been taking his regular medications at home for pain with no relief. Patient states that the pain is especially worse with any movement or palpation of the left flank or left mid posterior thoracic region. In the ED, patient is alert and oriented x3 and is not in distress. Patient was treated for pain in the ED and lab test results were reviewed and are all nonactionable. Chest x-ray shows no acute cardiopulmonary abnormalities or pneumonitis. Abdomen pelvis CT scan without contrast showed no acute abnormality but baseline chronic hepatic cirrhosis, with splenic and gastrohepatic varices; and stable left adrenal myolipoma. On reevaluation, patient's pain is well controlled medications. Patient will disch arge home and advised to continue taking his regular pain medications and to follow-up with primary care physician in 5 to 7 days for reevaluation. Patient was advised to return to the ED immediately if symptoms get worse. - Differential Diagnosis Kidney stone; muscle spasm; chronic back pain; muscle strain; pneumonia Critical care attestation.: If time is entered above; I have spent that time in minutes in the direct care of this critically ill patient, excluding procedure time. ED Disposition Clinical Impression: Acute left flank pain, Spasm of thoracic back muscle Chronic thoracic back pain Qualifiers: Back pain laterality: bilateral Qualified Code(s): M54.6 - Pain in thoracic spine Disposition: DC-01 TO HOME OR SELFCARE Is pt being admited?: No Does the pt Need Aspirin: No Condition: Stable Instructions: Flank Pain (ED), Muscle Spasm (ED), Chronic Back Pain (ED) Additional Instructions: All lab test results are nonactionable. Chest x-ray shows no acute acute cardiopulmonary abnormalities or pneumonitis. Abdomen pelvis CT scan without contrast shows no acute process or abnormalities. Therefore take medications with food, drink plenty of fluids and follow-up with your primary care physician in 3 to 5 days for reevaluation or return to the ED immediately if symptoms get worse. Prescriptions: traMADoL [Ultram 50 MG tab] 50 mg PO Q4HR PRN #14 tablet PRN Reason: Pain Referrals: JULIO ROBERTSON MD [Primary Care Provider] - 3-5 Days Time of Disposition: 02:43 Print Language: OCCITAN
[2020-01-06 04:43] VITALS: BP 130/68
== END 2020-01-06 04:42 | disposition home or self-care (01) ==
LOC: ED 21:06
DX: M62.830 Muscle spasm of back (principal); M54.6 Pain in thoracic spine; R10.9 Unspecified abdominal pain; I11.0 Hypertensive heart disease with heart failure; I50.9 Heart failure, unspecified; E11.9 Type 2 diabetes mellitus without complications; F25.0 Schizoaffective disorder, bipolar type; I25.2 Old myocardial infarction; K21.9 Gastro-esophageal reflux disease without esophagitis; Z86.69 Personal history of other diseases of the nervous system and sense organs; Z79.899 Other long term (current) drug therapy; Z90.49 Acquired absence of other specified parts of digestive tract
CPT/HCPCS: 36415; 71045; 74176; 80053; 81001; 83880; 84484; 85025; 96374; 96375; 99285; J1100; J1885

== ENCOUNTER 2020-03-05 09:12 | Emergency (ER) | payer MEDICARE ==
[2020-03-05 09:20] VITALS: BP 139/79
[2020-03-05] MEDS ORDERED: diazePAM 10 MG/2 ML SYRINGE IM ONE (09:39)
[2020-03-05] MEDS ORDERED: dexAMETHasone 20 MG/5 ML VIAL IM ONE (09:39)
--- NOTE | 2020-03-05 09:53 | Emergency Department Report ---
ED General Adult HPI - General Chief complaint: Neck Pain/Injury Stated complaint: CERVICAL PAIN Time Seen by Provider: 03/05/20 09:24 Source: patient, EMS Mode of arrival: Wheelchair Limitations: No Limitations - History of Present Illness Initial comments: This is a very pleasant 59-year-old male with a history of chronic neck pain he reports the emergency department with a chief complaint of upper neck pain. Patient was seen in this ER multiple times in the past and had imaging that showed herniations in the cervical spine. He reports for the last 2 days he has had worsening pain in the top of his neck. He denies any injuries. He denies any weakness in his arms, fever, chills, night sweats, blurry vision, chest pain, shortness of breath or any other associated symptoms. He reports the pain is aggravated by rotation and flexion and mildly alleviated by lying in the supine position. He reports this is no different from his previous flareups of neck pain. He states this has been ongoing for the past 40 years secondary to multiple injuries from sports and jobs. Currently the pain is a 10 out of 10 described as constant dull and throbbing with intermittent sharp pain. - Related Data Home Medications Medication Instructions Recorded Confirmed Last Taken Atorvastatin [Lipitor] 40 mg PO QDAY 08/27/13 07/19/19 12/04/13 04:30 40 Divalproex ER [Depakote ER] 2,500 mg PO QHS 08/27/13 07/19/19 12/03/13 20:00 2500 FLUoxetine [PROzac] 20 mg PO QDAY 08/27/13 07/19/19 12/04/13 04:30 20 Metformin HCl [Glumetza] 1,000 mg PO BID 08/27/13 07/19/19 12/03/13 20:00 1000 Empagliflozin [Jardiance] 25 mg PO QDAY 07/19/19 07/19/19 Unknown Multivitamin [One-Daily 1 each PO QDAY 07/19/19 07/19/19 Unknown Multi-Vitamin] Sitagliptin Phosphate [Januvia] 100 mg PO QDAY 07/19/19 07/19/19 Unknown dilTIAZem HCl [Diltiazem 24Hr ER 120 mg PO QDAY 07/19/19 07/19/19 Unknown (Xr)] Previous Rx's Medication Instructions Recorded Last Taken Type Pantoprazole [Protonix TAB] 40 mg PO BID #60 tablet 07/21/19 Unknown Rx Ondansetron [Zofran Odt] 4 mg PO Q8HR PRN #14 tab.rapdis 12/02/19 Unknown Rx traMADoL [Ultram 50 MG tab] 50 mg PO Q4HR PRN #14 tablet 01/06/20 Unknown Rx Cyclobenzaprine [Flexeril] 10 mg PO TID PRN #30 tablet 03/05/20 Unknown Rx Lidocaine 1 each TP BID #21 adh..patch 03/05/20 Unknown Rx traMADoL [Ultram 50 MG tab] 50 mg PO Q4HR PRN #12 tablet 03/05/20 Unknown Rx Allergies Allergy/AdvReac Type Severity Reaction Status Date / Time No Known Allergies Allergy Verified 12/02/19 15:47 ED Review of Systems ROS: Stated complaint: CERVICAL PAIN Other details as noted in HPI Comment: All other systems reviewed and negative Constitutional: denies: chills, fever Eyes: denies: eye pain, eye discharge, vision change ENT: denies: ear pain, throat pain Respiratory: denies: cough, shortness of breath, wheezing Cardiovascular: denies: chest pain, palpitations Endocrine: no symptoms reported Gastrointestinal: denies: abdominal pain, nausea, diarrhea Genitourinary: denies: urgency, dysuria Musculoskeletal: as per HPI. denies: back pain, joint swelling, arthralgia Skin: denies: rash, lesions Neurological: denies: headache, weakness, paresthesias Psychiatric: denies: anxiety, depression Hematological/Lymphatic: denies: easy bleeding, easy bruising ED Past Medical Hx - Past Medical History Previous Medical History?: Yes Hx Hypertension: Yes Hx Heart Attack/AMI: (hx "mild" CHF per patient) Hx Congestive Heart Failure: Yes (Hx mild CHF) Hx Diabetes: Yes Hx Pulmonary Embolism: Yes (bipolar, schiz,) Hx GERD: Yes Hx Renal Disease: Yes (hyperkalemia (improved), hyponatremia, VELIA) Hx Seizures: Yes Hx Psychiatric Treatment: Yes (bipolar,schiz) Hx Asthma: No Hx COPD: No Additional medical history: herniated disc,neuropathy,concussions x2, shoulder dilocations,LIVER DISEASE. GI bleed - Surgical History Past Surgical History?: Yes Hx Pacemaker: No Hx Cholecystectomy: Yes - Social History Smoking Status: Never Smoker Substance Use Type: None - Medications Home Medications: Home Medications Medication Instructions Recorded Confirmed Last Taken Type Atorvastatin [Lipitor] 40 mg PO QDAY 08/27/13 07/19/19 12/04/13 04:30 History 40 Divalproex ER [Depakote ER] 2,500 mg PO QHS 08/27/13 07/19/19 12/03/13 20:00 History 2500 FLUoxetine [PROzac] 20 mg PO QDAY 08/27/13 07/19/19 12/04/13 04:30 History 20 Metformin HCl [Glumetza] 1,000 mg PO BID 08/27/13 07/19/19 12/03/13 20:00 History 1000 Empagliflozin [Jardiance] 25 mg PO QDAY 07/19/19 07/19/19 Unknown History Multivitamin [One-Daily 1 each PO QDAY 07/19/19 07/19/19 Unknown History Multi-Vitamin] Sitagliptin Phosphate [Januvia] 100 mg PO QDAY 07/19/19 07/19/19 Unknown History dilTIAZem HCl [Diltiazem 24Hr ER 120 mg PO QDAY 07/19/19 07/19/19 Unknown History (Xr)] Pantoprazole [Protonix TAB] 40 mg PO BID #60 tablet 07/21/19 Unknown Rx Ondansetron [Zofran Odt] 4 mg PO Q8HR PRN #14 tab.rapdis 12/02/19 Unknown Rx traMADoL [Ultram 50 MG tab] 50 mg PO Q4HR PRN #14 tablet 01/06/20 Unknown Rx Cyclobenzaprine [Flexeril] 10 mg PO TID PRN #30 tablet 03/05/20 Unknown Rx Lidocaine 1 each TP BID #21 adh..patch 03/05/20 Unknown Rx traMADoL [Ultram 50 MG tab] 50 mg PO Q4HR PRN #12 tablet 03/05/20 Unknown Rx ED Physical Exam - General Limitations: No Limitations General appearance: alert, in no apparent distress - Head Head exam: Present: atraumatic, normocephalic - Eye Eye exam: Present: normal appearance, PERRL, EOMI Pupils: Present: normal accommodation - ENT ENT exam: Present: normal exam, normal orophraynx, mucous membranes moist - Neck Neck exam: Present: normal inspection, tenderness, other (There is tenderness to the upper cervical paraspinal area. There is no deformity. The patient is able to flex and extend but does have just some discomfort. There is a positive Spurling sign. ). Absent: meningismus - Respiratory Respiratory exam: Present: normal lung sounds bilaterally. Absent: respiratory distress, wheezes, rales, rhonchi, stridor - Cardiovascular Cardiovascular Exam: Present: regular rate, normal rhythm, normal heart sounds. Absent: systolic murmur, diastolic murmur, rubs, gallop - GI/Abdominal GI/Abdominal exam: Present: soft, normal bowel sounds. Absent: distended, tenderness, guarding, rebound, rigid - Rectal Rectal exam: Present: deferred - Extremities Exam Extremities exam: Present: normal inspection, full ROM, normal capillary refill. 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 Normal deep tendon reflexes of the bilateral brachioradialis, triceps 2+ bilaterally) - Psychiatric Psychiatric exam: Present: normal affect, normal mood - Skin Skin exam: Present: warm, dry, intact, normal color. Absent: rash ED Course Vital Signs 03/05/20 09:14 Temperature 98.6 F Pulse Rate 89 Respiratory 16 Rate Blood Pressure 139/79 O2 Sat by Pulse 98 Oximetry ED Medical Decision Making - Medical Decision Making Patient is nontoxic in no acute distress. Vital signs are stable. Patient's exam is consistent with a flareup of his chronic neck pain. I will give him an IM injection of steroids and Valium in the emergency department and discharged with lidocaine patches, muscle relaxers and short course of tramadol. I will refer him to orthospine for evaluation and possible MRI imaging as needed. Patient was instructed to return to the emerge department he develops any change or worsening symptoms. He verbalized understand the diagnosis, treatment plan and follow-up instructions and all of his questions were answered. - Differential Diagnosis Degenerative disc disease, herniated disc, bulging disc, fracture, strain, Critical care attestation.: If time is entered above; I have spent that time in minutes in the direct care of this critically ill patient, excluding procedure time. ED Disposition Clinical Impression: Acute cervical myofascial strain Qualifiers: Encounter type: initial encounter Qualified Code(s): S16.1XXA - Strain of muscle, fascia and tendon at neck level, initial encounter Disposition: TO HOME OR SELFCARE Is pt being admited?: No Condition: Stable Instructions: Cervical Sprain, Acute Torticollis, Adult Prescriptions: Cyclobenzaprine [Flexeril] 10 mg PO TID PRN #30 tablet PRN Reason: Muscle Spasm Lidocaine 1 each TP BID #21 adh..patch traMADoL [Ultram 50 MG tab] 50 mg PO Q4HR PRN #12 tablet PRN Reason: Pain Referrals: [facility] [Provider Group] - 3-5 Days Time of Disposition: 09:55
== END 2020-03-05 10:38 | disposition home or self-care (01) ==
LOC: ED 09:12
DX: S16.1XXA Strain of muscle, fascia and tendon at neck level, initial encounter (principal); I50.9 Heart failure, unspecified; I11.0 Hypertensive heart disease with heart failure; E11.9 Type 2 diabetes mellitus without complications; K21.9 Gastro-esophageal reflux disease without esophagitis; R56.9 Unspecified convulsions; F31.9 Bipolar disorder, unspecified; Z90.49 Acquired absence of other specified parts of digestive tract; Z79.899 Other long term (current) drug therapy; X58.XXXA Exposure to other specified factors, initial encounter; Y93.89 Activity, other specified; Y92.89 Other specified places as the place of occurrence of the external cause; Y99.8 Other external cause status
CPT/HCPCS: 96372; 99283; J1100; J3360

== ENCOUNTER 2021-01-15 00:31 | Emergency (ER) | payer MEDICARE ==
--- NOTE | 2021-01-15 03:55 | Event Note ---
ED Screening Note Date of service: 01/15/21 Time: 03:52 ED Screening Note: Patient is 60-year-old male with history of IBS, cirrhosis of liver, colitis, who presents for abdominal pain with nausea x3 days. Patient presented via EMS, patient describes pain as 7/10 intermittent, pain is exacerbated by p.o. intake. Pain is relieved by nothing tried. Current regimen includes includes Protonix patient states NSAIDs causes worsen sympotoms This initial assessment/diagnostic orders/clinical plan/treatment(s) is/are subject to change based on patients health status, clinical progression and re- assessment by fellow clinical providers in the ED. Further treatment and workup at subsequent clinical providers discretion. Patient/guardian urged not to elope from the ED as their condition may be serious if not clinically assessed and managed. Initial orders include: CBC ,CMP, Lipase, UA , IV
[2021-01-15 04:34] LABS: Bilirubin,Urine NEG (Negative); Blood,Urine SM (Negative); Color,Urine Yellow (Yellow); Protein,Urine <15 mg/dL mg/dL (Negative); Urobilinogen,Urine < 2.0 mg/dL (<2.0); WBC,Urine < 1.0 /HPF (0.0-6.0)
[2021-01-15 04:40] LABS: Eosinophils # (Auto) 0.1 K/mm3 (0.0-0.4); Eosinophils % (Auto) 0.7 % (0.0-4.3); Hematocrit 49.3 % (35.5-45.6); Hemoglobin 16.7 gm/dl (11.8-15.2); Lymphocytes # (Auto) 2.2 K/mm3 (1.2-5.4); Mean Corpuscular HGB Conc 34 % (32-34); Mean Corpuscular Volume 96 fl (84-94); Monocytes # (Auto) 1.4 K/mm3 (0.0-0.8); Monocytes % (Auto) 13.7 % (0.0-7.3); Platelet Count 123 K/mm3 (140-440); Red Blood Count 5.13 M/mm3 (3.65-5.03)
[2021-01-15 04:41] LABS: Basophils % (Auto) 0.4 % (0.0-1.8)
[2021-01-15 04:50] LABS: Alanine Aminotransferase 47 units/L (7-56); BUN/Creatinine Ratio 14; Blood Urea Nitrogen 14 mg/dL (9-20); Calcium 9.7 mg/dL (8.4-10.2); Hemolysis Index 10
[2021-01-15] MEDS ORDERED: SODIUM CHLORIDE 0.9% 1000 ML 1,000 ML IV ONE (05:05)
[2021-01-15] MEDS ORDERED: ONDANSETRON 4 MG/2 ML INJ IV ONE (05:05)
[2021-01-15 05:06] VITALS: BP 153/72
--- NOTE | 2021-01-15 06:21 | Cat Scan Report ---
CT ABDOMEN AND PELVIS WITHOUT CONTRAST INDICATION: Pt complains of abdominal / flank pain with nausea x 3 days. TECHNIQUE: Axial CT images were obtained through the abdomen and pelvis without IV contrast. [facility] CT [facility] are performed using CT dose reduction for ALARA by means of automated exposure control. COMPARISON: CT abdomen pelvis 01/06/2020 FINDINGS: LOWER CHEST: No significant abnormality. LIVER: Cirrhosis, unchanged. 3.5 x 2.0 cm hypodense lesion posterior hepatic segment image 42 GALLBLADDER: Remains surgically absent. Spillage of gallstone adjacent to right lobe of liver with sm all surrounding fluid collection, unchanged BILE DUCTS: No significant abnormality. PANCREAS: No significant abnormality. SPLEEN: No significant abnormality. ADRENALS: Fat-containing 3.8 cm left adrenal myelolipoma, unchanged RIGHT KIDNEY and URETER: No significant abnormality. LEFT KIDNEY and URETER: No significant abnormality. STOMACH and SMALL BOWEL: No significant abnormality. COLON: Moderate colonic diverticulosis with acute uncomplicated diverticulitis involving splenic flex ure as well as descending colon, new since prior study. APPENDIX: No significant abnormality. PERITONEUM: No free fluid. No free air. No fluid collection. LYMPH NODES: No significant adenopathy. AORTA and ARTERIES: Moderate vascular calcifications nonaneurysmal aorta. 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 URINARY BLADDER: No significant abnormality. REPRODUCTIVE ORGANS: No significant abnormality. ADDITIONAL FINDINGS: None. SKELETAL SYSTEM: Moderately advanced degenerative changes of lumbar spine IMPRESSION: 1. Moderate uncomplicated diverticulitis involving the splenic flexure and descending colon. 2. Cirrhosis with portal hypertension manifested by abdominal varices, unchanged 3.Dropped gallstone status post cholecystectomy along the lateral margin of the liver with small locu lated perihepatic fluid collection, unchanged Signer Name: Rogelio Soliman MD Signed: 01/15/2021 6:16 AM Workstation Name: [id number]
[2021-01-15] MEDS ORDERED: levoFLOXacin 750 MG TAB PO ONE (07:26)
[2021-01-15] MEDS ORDERED: traMADol 50 MG TAB PO ONE (07:27)
--- NOTE | 2021-01-15 07:32 | Emergency Department Report ---
HPI - General Chief Complaint: Abdominal Pain Time Seen by Provider: 01/15/21 07:25 - HPI HPI: 60-year-old male presents to the emergency department via EMS from home with a complaint of a 3 to 4-day history of left-sided abdominal pain, nausea and occasional vomiting. He denies any fever, dysuria, constipation, diarrhea. Patient has a history of hypertension, diabetes, bipolar disorder, schizophrenia, seizures. The patient was seen here in 2019 with acute rectal bleeding that ended up being from the gastroduodenal artery and required IR coil and intervention. It also appears that the patient has a history of remote alcohol abuse causing cirrhosis. No recent travel or sick contacts at home. The patient follows with [facility] and his PCP is "across the street." Currently his abdominal pain is 5 out of 10 in intensity. No known aggravating or alleviating factors. ED Past Medical Hx - Past Medical History Hx Hypertension: Yes Hx Heart Attack/AMI: (hx "mild" CHF per patient) Hx Congestive Heart Failure: Yes (Hx mild CHF) Hx Diabetes: Yes Hx Pulmonary Embolism: Yes (bipolar, schiz,) Hx GERD: Yes Hx Renal Disease: Yes (hyperkalemia (improved), hyponatremia, VELIA) Hx Seizures: Yes Hx Psychiatric Treatment: Yes (bipolar,schiz) Hx Asthma: No Hx COPD: No Additional medical history: herniated disc,neuropathy,concussions x2, shoulder dilocations,LIVER DISEASE. GI bleed - Surgical History Hx Pacemaker: No Hx Cholecystectomy: Yes - Social History Smoking Status: Never Smoker Substance Use Type: None - Medications Home Medications: Home Medications Medication Instructions Recorded Confirmed Last Taken Type Atorvastatin [Lipitor] 40 mg PO QDAY 08/27/13 07/19/19 12/04/13 04:30 History 40 Divalproex ER [Depakote ER] 2,500 mg PO QHS 08/27/13 07/19/19 12/03/13 20:00 History 2500 FLUoxetine [PROzac] 20 mg PO QDAY 08/27/13 07/19/19 12/04/13 04:30 History 20 Metformin HCl [Glumetza] 1,000 mg PO BID 08/27/13 07/19/19 12/03/13 20:00 History 1000 Empagliflozin [Jardiance] 25 mg PO QDAY 07/19/19 07/19/19 Unknown History Multivitamin [One-Daily 1 each PO QDAY 07/19/19 07/19/19 Unknown History Multi-Vitamin] Sitagliptin Phosphate [Januvia] 100 mg PO QDAY 07/19/19 07/19/19 Unknown History dilTIAZem HCl [Diltiazem 24Hr ER 120 mg PO QDAY 07/19/19 07/19/19 Unknown History (Xr)] Pantoprazole [Protonix TAB] 40 mg PO BID #60 tablet 07/21/19 Unknown Rx Ondansetron [Zofran Odt] 4 mg PO Q8HR PRN #14 tab.rapdis 12/02/19 Unknown Rx traMADoL [Ultram 50 MG tab] 50 mg PO Q4HR PRN #14 tablet 01/06/20 Unknown Rx Cyclobenzaprine [Flexeril] 10 mg PO TID PRN #30 tablet 03/05/20 Unknown Rx Lidocaine 1 each TP BID #21 adh..patch 03/05/20 Unknown Rx traMADoL [Ultram 50 MG tab] 50 mg PO Q4HR PRN #12 tablet 03/05/20 Unknown Rx levoFLOXacin [Levaquin TAB] 500 mg PO QDAY #10 tablet 01/15/21 Unknown Rx traMADoL [Ultram 50 MG tab] 50 mg PO Q6H PRN #12 tablet 01/15/21 Unknown Rx ED Review of Systems ROS: Stated complaint: ABD PAIN Other details as noted in HPI Comment: All other systems reviewed and negative Constitutional: denies: chills, fever Eyes: denies: eye pain, vision change ENT: denies: ear pain, throat pain Respiratory: denies: cough, shortness of breath Cardiovascular: denies: chest pain, palpitations Gastrointestinal: abdominal pain, nausea, vomiting Genitourinary: denies: dysuria, discharge Musculoskeletal: denies: back pain, arthralgia Skin: denies: rash, lesions Neurological: denies: headache, weakness Physical Exam - Physical Exam Vital Signs: Vital Signs 01/15/21 01/15/21 01/15/21 00:31 02:42 05:05 Temperature 99.8 F H Pulse Rate 69 72 78 Respiratory 18 16 18 Rate Blood Pressure 137/88 150/79 153/72 [Left] O2 Sat by Pulse 99 97 98 Oximetry 01/15/21 06:06 Temperature Pulse Rate Respiratory Rate Blood Pressure [Left] O2 Sat by Pulse 97 Oximetry Physical Exam: GENERAL: The patient is well-developed well-nourished. HENT: Normocephalic. Atraumatic. Patient has moist mucous membranes. EYES: Extraocular motions are intact. NECK: Supple. Trachea is midline. CHEST/LUNGS: Clear to auscultation. There is no respiratory distress noted. HEART/CARDIOVASCULAR: Regular. There is no tachycardia. There is no murmur. ABDOMEN: Abdomen is soft. Left-sided abdominal tenderness to palpation. No guarding. Patient has normal bowel sounds. Obese habitus. SKIN: Skin is warm and dry. NEURO: The patient is awake, alert, and oriented. The patient is cooperative. The patient has no focal neurologic deficits. Normal speech. MUSCULOSKELETAL: There is no tenderness or deformity. There is no limitation range of motion. ED Course Vital Signs 01/15/21 01/15/21 01/15/21 00:31 02:42 05:05 Temperature 99.8 F H Pulse Rate 69 72 78 Respiratory 18 16 18 Rate Blood Pressure 137/88 150/79 153/72 [Left] O2 Sat by Pulse 99 97 98 Oximetry 01/15/21 06:06 Temperature Pulse Rate Respiratory Rate Blood Pressure [Left] O2 Sat by Pulse 97 Oximetry ED Medical Decision Making - Lab Data Result diagrams: 01/15/21 04:02 01/15/21 04:02 Lab Results 01/15/21 01/15/21 01/15/21 Range/Units 04:02 04:02 04:20 WBC 10.3 (4.5-11.0) K/mm3 RBC 5.13 H (3.65-5.03) M/mm3 Hgb 16.7 H (11.8-15.2) gm/dl Hct 49.3 H (35.5-45.6) % MCV 96 H (84-94) fl MCH 33 H (28-32) pg MCHC 34 (32-34) % RDW 15.0 (13.2-15.2) % Plt Count 123 L (140-440) K/mm3 Lymph % (Auto) 21.0 (13.4-35.0) % [place] % (Auto) 13.7 H (0.0-7.3) % Eos % (Auto) 0.7 (0.0-4.3) % Baso % (Auto) 0.4 (0.0-1.8) % Lymph # (Auto) 2.2 (1.2-5.4) K/mm3 [place] # (Auto) 1.4 H (0.0-0.8) K/mm3 Eos # (Auto) 0.1 (0.0-0.4) K/mm3 Baso # (Auto) 0.0 (0.0-0.1) K/mm3 Seg Neutrophils % 64.2 (40.0-70.0) % Seg Neutrophils # 6.6 (1.8-7.7) K/mm3 Sodium 137 (137-145) mmol/L Potassium 4.2 (3.6-5.0) mmol/L Chloride 97.7 L (98-107) mmol/L Carbon Dioxide 24 (22-30) mmol/L Anion Gap 20 mmol/L BUN 14 (9-20) mg/dL Creatinine 1.0 (0.8-1.3) mg/dL Estimated GFR > 60 ml/min BUN/Creatinine Ratio 14 % Glucose 150 H (75-100) mg/dL Calcium 9.7 (8.4-10.2) mg/dL Total Bilirubin 1.00 (0.1-1.2) mg/dL AST 33 (5-40) units/L ALT 47 (7-56) units/L Alkaline Phosphatase 112 (35-129) units/L Total Protein 7.2 (6.3-8.2) g/dL Albumin 4.0 (3.9-5) g/dL Albumin/Globulin Ratio 1.3 % Lipase 25 (13-60) units/L Urine Color Yellow (Yellow) Urine Turbidity Clear (Clear) Urine pH 6.0 (5.0-7.0) Ur Specific [place] 1.013 (1.003-1.030) Urine Protein <15 mg/dl (Negative) mg/dL Urine Glucose (UA) >=500 (Negative) mg/dL Urine Ketones 20 (Negative) mg/dL Urine Blood Sm (Negative) Urine Nitrite Neg (Negative) Urine Bilirubin Neg (Negative) Urine Urobilinogen < 2.0 (<2.0) mg/dL Ur Leukocyte Esterase Neg (Negative) Urine WBC (Auto) < 1.0 (0.0-6.0) /HPF Urine RBC (Auto) 68.0 (0.0-6.0) /HPF - Radiology Data Radiology results: report reviewed CT ABDOMEN AND PELVIS WITHOUT CONTRAST INDICATION: Pt complains of abdominal / flank pain with nausea x 3 days. TECHNIQUE: Axial CT images were obtained through the abdomen and pelvis without IV contrast. All CT scans at this location are performed using CT dose reduction for ALARA by means of automated exposure control. COMPARISON: CT abdomen pelvis 01/06/2020 FINDINGS: LOWER CHEST: No significant abnormality. LIVER: Cirrhosis, unchanged. 3.5 x 2.0 cm hypodense lesion posterior hepatic segment image 42 GALLBLADDER: Remains surgically absent. Spillage of gallstone adjacent to right lobe of liver with small surrounding fluid collection, unchanged BILE DUCTS: No significant abnormality. PANCREAS: No significant abnormality. SPLEEN: No significant abnormality. ADRENALS: Fat-containing 3.8 cm left adrenal myelolipoma, unchanged RIGHT KIDNEY and URETER: No significant abnormality. LEFT KIDNEY and URETER: No significant abnormality. STOMACH and SMALL BOWEL: No significant abnormality. COLON: Moderate colonic diverticulosis with acute uncomplicated diverticulitis involving splenic flexure as well as descending colon, new since prior study. A PPENDIX: No significant abnormality. PERITONEUM: No free fluid. No free air. No fluid collection. LYMPH NODES: No significant adenopathy. AORTA and ARTERIES: Moderate vascular calcifications nonaneurysmal aorta. 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 URINARY BLADDER: No significant abnormality. REPRODUCTIVE ORGANS: No significant abnormality. ADDITIONAL FINDINGS: None. SKELETAL SYSTEM: Moderately advanced degenerative changes of lumbar spine IMPRESSION: 1. Moderate uncomplicated diverticulitis involving the splenic flexure and descending colon. 2. Cirrhosis with portal hypertension manifested by abdominal varices, unchanged 3.Dropped gallstone status post cholecystectomy along the lateral margin of the liver with small loculated perihepatic fluid collection, unchanged - Medical Decision Making This patient presents to the emergency department with a complaint of left-sided abdominal pain. Labs are mostly unremarkable including CBC, metabolic panel, lipase. No urinary tract infection but there is hematuria. CT of the abdomen and pelvis shows moderate uncomplicated diverticulitis around the splenic flexure. No microperforation, perforation, abscess formation. The rest of the findings on the CT scan are unchanged from previous. Vital signs reassuring including being afebrile. The patient is seen resting comfortably and does not appear in any acute distress. For these reasons he appears safe for outpatient follow-up and treatment of the diverticulitis. He has been given pain me dication and antibiotics. I checked the [facility] prescription monitoring system and the patient did not fill many narcotics. He will return to the emergency department with any worsening of his symptoms or with any acute distress. The patient has good outpatient follow-up with primary care, gastroenterology and urology. Critical Care Time: No Critical care attestation.: If time is entered above; I have spent that time in minutes in the direct care of this critically ill patient, excluding procedure time. ED Disposition Clinical Impression: Diverticulitis Cirrhosis Qualifiers: Hepatic cirrhosis type: unspecified hepatic cirrhosis Ascites presence: unspecified Qualified Code(s): K74.60 - Unspecified cirrhosis of liver Abdominal pain Qualifiers: Abdominal location: unspecified location Qualified Code(s): R10.9 - Unspecified abdominal pain Hematuria Qualifiers: Hematuria type: unspecified type Qualified Code(s): R31.9 - Hematuria, unspeci fied Disposition: 01 HOME / SELF CARE / HOMELESS Is pt being admited?: No Condition: Stable Instructions: Abdominal Pain, Adult, Diverticulitis Additional Instructions: Please follow-up with your primary care physician in the next few days. Please follow-up with your [facility] regarding your abdominal pains and diverticulitis. Please follow-up with your urologist regarding the blood seen in the urine. You have been prescribed a medication that is sedating and therefore should not be taken prior to driving, working, and responsible for children and in no way should be mixed with alcohol of any quantity. Return to the emergency department with any worsening of your symptoms, new or concerning symptoms not addressed during this current emergency department visit, or with any acute distress. Prescriptions: levoFLOXacin [Levaquin TAB] 500 mg PO QDAY #10 tablet traMADoL [Ultram 50 MG tab] 50 mg PO Q6H PRN #12 tablet PRN Reason: Pain , Severe (7-10) Referrals: [facility] [Provider Group] - 2-3 Days PCP, Your [Other] - 2-3 Days Time of Disposition: 07:34
== END 2021-01-15 08:24 | disposition home or self-care (01) ==
LOC: ED 00:31
DX: K57.92 Diverticulitis of intestine, part unspecified, without perforation or abscess without bleeding (principal); K74.69 Other cirrhosis of liver; R10.9 Unspecified abdominal pain; R31.9 Hematuria, unspecified; Z90.49 Acquired absence of other specified parts of digestive tract; I10 Essential (primary) hypertension; Z86.79 Personal history of other diseases of the circulatory system; E11.8 Type 2 diabetes mellitus with unspecified complications
CPT/HCPCS: 36415; 74176; 80053; 81001; 83690; 85025; 99284; J2405; J7030

== ENCOUNTER 2021-03-23 21:22 | Emergency (ER) | payer MEDICARE ==
[2021-03-23] MEDS ORDERED: SODIUM CHLORIDE 0.9% 1000 ML 1,000 ML IV ONE (23:45)
[2021-03-23] MEDS ORDERED: ONDANSETRON 4 MG/2 ML INJ IV ONE (23:45)
[2021-03-23] MEDS ORDERED: MORPHINE 4 MG/1 ML INJ IV ONE (23:45)
--- NOTE | 2021-03-23 23:45 | Emergency Department Report ---
ED Abdominal Pain HPI - General Chief Complaint: Pain General Stated Complaint: BODY ACHES Time Seen by Provider: 03/23/21 23:33 Source: EMS Mode of arrival: Stretcher Limitations: No Limitations - History of Present Illness Initial Comments: Patient is 60 years old male with history of liver cirrhosis and a recent diagnosis of diverticulitis. Patient was admitted to the hospital a few days ago and spent like 2 days and discharged patient was seen by GI and scheduled for colonoscopy. Patient brought to the emergency room via EMS from home for evaluation of generalized abdominal pain. Patient stated that his pain is still there was no improvement. He stated that he is unable to eat anything. He also endorses diarrhea but no hematochezia or melena. Patient also denied any fever or chills. MD Complaint: abdominal pain -: days(s) Location: diffuse Severity scale (0 -10): 6 Quality: sharp Associated Symptoms: nausea - Related Data Home Medications Medication Instructions Recorded Confirmed Last Taken Atorvastatin [Lipitor] 40 mg PO QDAY 08/27/13 03/13/21 03/12/21 19:00 Divalproex ER [Depakote ER] 2,500 mg PO QHS 08/27/13 03/13/21 03/12/21 FLUoxetine [PROzac] 20 mg PO QDAY 08/27/13 03/13/21 03/12/21 Sitagliptin Phosphate [Januvia] 100 mg PO QDAY 07/19/19 03/13/21 03/12/21 dilTIAZem HCl [Diltiazem 24Hr ER 120 mg PO QDAY 07/19/19 03/13/21 03/11/21 (Xr)] Previous Rx's Medication Instructions Recorded Last Taken Type Pantoprazole [Protonix TAB] 40 mg PO BID #60 tablet 07/21/19 03/12/21 Rx Cyclobenzaprine [Flexeril 10 MG 10 mg PO TID PRN #30 tablet 03/05/20 03/12/21 Rx TAB] levoFLOXacin [Levaquin] 750 mg PO QDAY #5 tablet 03/17/21 Unknown Rx metroNIDAZOLE [Flagyl TAB] 500 mg PO Q8HR #15 tablet 03/17/21 Unknown Rx Allergies Allergy/AdvReac Type Severity Reaction Status Date / Time No Known Allergies Allergy Verified 01/15/21 00:50 ED Review of Systems ROS: Stated complaint: BODY ACHES Other details as noted in HPI Comment: All other systems reviewed and negative Constitutional: denies: chills, fever Respiratory: denies: cough, shortness of breath, SOB with exertion Gastrointestinal: abdominal pain, nausea, diarrhea. denies: vomiting, constipation, hematemesis, melena, hematochezia Musculoskeletal: denies: back pain Neurological: denies: headache, weakness, numbness, paresthesias, confusion ED Past Medical Hx - Past Medical History Hx Hypertension: Yes Hx Heart Attack/AMI: (hx "mild" CHF per patient) Hx Congestive Heart Failure: Yes (Hx mild CHF) Hx Diabetes: Yes Hx Pulmonary Embolism: Yes (bipolar, schiz,) Hx GERD: Yes Hx Renal Disease: Yes (hyperkalemia (improved), hyponatremia, VELIA) Hx Seizures: Yes Hx Psychiatric Treatment: Yes (bipolar,schiz) Hx Asthma: No Hx COPD: No Additional medical history: herniated disc,neuropathy,concussions x2, shoulder dilocations,LIVER DISEASE. GI bleed - Surgical History Hx Pacemaker: No Hx Cholecystectomy: Yes - Social History Smoking Status: Never Smoker - Medications Home Medications: Home Medications Medication Instructions Recorded Confirmed Last Taken Type Atorvastatin [Lipitor] 40 mg PO QDAY 08/27/13 03/13/21 03/12/21 19:00 History Divalproex ER [Depakote ER] 2,500 mg PO QHS 08/27/13 03/13/21 03/12/21 History FLUoxetine [PROzac] 20 mg PO QDAY 08/27/13 03/13/21 03/12/21 History Sitagliptin Phosphate [Januvia] 100 mg PO QDAY 07/19/19 03/13/21 03/12/21 History dilTIAZem HCl [Diltiazem 24Hr ER 120 mg PO QDAY 07/19/19 03/13/21 03/11/21 History (Xr)] Pantoprazole [Protonix TAB] 40 mg PO BID #60 tablet 07/21/19 03/13/21 03/12/21 Rx Cyclobenzaprine [Flexeril 10 MG 10 mg PO TID PRN #30 tablet 03/05/20 03/13/21 03/12/21 Rx TAB] levoFLOXacin [Levaquin] 750 mg PO QDAY #5 tablet 03/17/21 Unknown Rx metroNIDAZOLE [Flagyl TAB] 500 mg PO Q8HR #15 tablet 03/17/21 Unknown Rx ED Physical Exam - General Limitations: No Limitations General appearance: alert, in no apparent distress - Head Head exam: Present: atraumatic, normocephalic, normal inspection - Eye Eye exam: Present: normal appearance - ENT ENT exam: Present: normal exam, normal orophraynx, mucous membranes moist - Neck Neck exam: Present: normal inspection, full ROM. Absent: tenderness, meningismus - Respiratory Respiratory exam: Present: normal lung sounds bilaterally - Cardiovascular Cardiovascular Exam: Present: regular rate, normal rhythm, normal heart sounds - GI/Abdominal GI/Abdominal exam: Present: soft, normal bowel sounds. Absent: distended, tenderness, guarding, rebound, rigid, organomegaly, mass, bruit, pulsatile mass, hernia - Extremities Exam Extremities exam: Present: normal inspection, full ROM, normal capillary refill. Absent: tenderness, pedal edema, joint swelling, calf tenderness - Back Exam Back exam: Present: normal inspection, full ROM. Absent: CVA tenderness (R), CVA tenderness (L) - Neurological Exam Neurological exam: Present: alert, oriented X3, CN II-XII intact - Psychiatric Psychiatric exam: Present: normal mood - Skin Skin exam: Present: warm, intact, normal color ED Course Vital Signs 03/23/21 03/24/21 03/24/21 21:23 00:48 01:00 Pulse Rate 92 H Respiratory 18 Rate Blood Pressure 129/73 134/51 Blood Pressure 150/82 [Right] O2 Sat by Pulse 97 90 95 Oximetry 03/24/21 03/24/21 03/24/21 01:16 01:30 01:46 Pulse Rate Respiratory Rate Blood Pressure 134/51 141/52 141/52 Blood Pressure [Right] O2 Sat by Pulse 95 92 87 Oximetry 03/24/21 03/24/21 03/24/21 02:00 02:16 02:30 Pulse Rate Respiratory Rate Blood Pressure 142/67 142/67 138/71 Blood Pressure [Right] O2 Sat by Pulse 88 92 89 Oximetry 03/24/21 03/24/21 03/24/21 03:24 03:30 03:46 Pulse Rate Respiratory Rate Blood Pressure 134/71 139/63 139/63 Blood Pressure [Right] O2 Sat by Pulse 90 91 91 Oximetry 03/24/21 04:00 Pulse Rate Respiratory Rate Blood Pressure 129/61 Blood Pressure [Right] O2 Sat by Pulse 90 Oximetry ED Medical Decision Making - Lab Data Result diagrams: 03/24/21 00:13 03/24/21 00:13 - Radiology Data Radiology results: report reviewed - Medical Decision Making Patient is 60 years old male with history of liver cirrhosis and a recent diagnosis of diverticulitis. Patient was admitted to the hospital a few days ago and spent like 2 days and discharged patient was seen by GI and scheduled for colonoscopy. Patient brought to the emergency room via EMS from home for evaluation of generalized abdominal pain. Patient stated that his pain is still there was no improvement. He stated that he is unable to eat anything. He also endorses diarrhea but no hematochezia or melena. Patient also denied any fever or chills. Patient received morphine and Zofran. Patient stated that he is feeling better. Labs reviewed and is unremarkable except for his chronic elevation of his liver function. CT abdomen and pelvis with IV contrast shows improvement in diverticulitis. Patient given Augmentin for the next 7 days and advised to follow-up with his GI physician as scheduled. Patient also advised to return to the ER if he develop any symptoms. Critical care attestation.: If time is entered above; I have spent that time in minutes in the direct care of this critically ill patient, excluding procedure time. ED Disposition Clinical Impression: Acute abdominal pain, Acute diverticulitis, Acute nausea with nonbilious vomiting Disposition: 01 HOME / SELF CARE / HOMELESS Is pt being admited?: No Condition: Stable Instructions: Nausea and Vomiting, Adult, Abdominal Pain, Adult, Diverticulitis Referrals: FAMILIA COLINDRES PA [Primary Care Provider] - 3-5 Days
[2021-03-24 00:36] LABS: Basophils # (Auto) 0.1 K/mm3 (0.0-0.1); Basophils % (Auto) 0.6 % (0.0-1.8); Eosinophils # (Auto) 0.2 K/mm3 (0.0-0.4); Eosinophils % (Auto) 1.6 % (0.0-4.3); Hematocrit 49.9 % (35.5-45.6); Hemoglobin 16.4 gm/dl (11.8-15.2); Lymphocytes # (Auto) 3.1 K/mm3 (1.2-5.4); Lymphocytes % (Auto) 32.2 % (13.4-35.0); Mean Corpuscular HGB Conc 33 % (32-34); Mean Corpuscular Volume 96 fl (84-94); Monocytes # (Auto) 1.2 K/mm3 (0.0-0.8); Monocytes % (Auto) 12.4 % (0.0-7.3); Platelet Count 163 K/mm3 (140-440); Red Cell Distribution Width 15.7 % (13.2-15.2)
[2021-03-24 00:47] LABS: INR 0.98 (0.87-1.13)
[2021-03-24 00:54] LABS: Alanine Aminotransferase 40 units/L (7-56); Albumin 4.1 g/dL (3.9-5); BUN/Creatinine Ratio 14; Bilirubin,Direct 0.3 mg/dL (0-0.2); Blood Urea Nitrogen 13 mg/dL (9-20); Calcium 9.6 mg/dL (8.4-10.2); Hemolysis Index 5
--- NOTE | 2021-03-24 03:44 | Cat Scan Report ---
CT ABDOMEN AND PELVIS WITH CONTRAST INDICATION / CLINICAL INFORMATION: Abdominal pain / recent diagnosis of Diverticulitis. TECHNIQUE: Axial CT images were obtained through the abdomen and pelvis after 100 cc Omnipaque [address] scans at this location are performed using CT dose reduction for ALARA by means of automated exposure control. COMPARISON: CT abdomen and pelvis with contrast from 03/13/2021. FINDINGS: LOWER CHEST: No significant abnormality. LIVER: No significant abnormality. BILIARY: Prior cholecystectomy. No biliary ductal dilatation. PANCREAS: No significant abnormality. SPLEEN: No significant abnormality. ADRENALS: Unchanged left adrenal myelolipoma. No significant abnormality of the right adrenal gland. KIDNEYS / URETERS: No significant abnormality. GI TRACT: No significant abnormality of the stomach or small bowel. Previously seen descending/sigmoi d diverticulitis has improved. No new acute findings along the colon. The appendix is unremarkable. PERITONEUM: No free fluid. No free air. No fluid collection. LYMPH NODES: No significant adenopathy. VASCULATURE: No acute findings. Gastric and splenic varices are unchanged. Mild generalized atheroscl erosis is also unchanged. URINARY BLADDER: No significant abnormality. REPRODUCTIVE ORGANS: No significant abnormality. ADDITIONAL FINDINGS: None. BONES: No significant interval changes. IMPRESSION: 1. Interval improvement of air is seen. Acute sigmoid/descending colonic diverticulitis. 2. No new acute findings in the abdomen or pelvis. Signer Name: Bonifacio Vallejo MD Signed: 03/24/2021 3:40 AM Workstation Name: [id number]
[2021-03-24] MEDS ORDERED: MORPHINE 4 MG/1 ML INJ IV ONE (06:40)
[2021-03-24 09:25] LABS: Bilirubin,Urine NEG (Negative); Blood,Urine NEG (Negative); Color,Urine Yellow (Yellow); Mucus,Urine FEW /HPF; Protein,Urine <15 mg/dL mg/dL (Negative); Urobilinogen,Urine < 2.0 mg/dL (<2.0); WBC,Urine < 1.0 /HPF (0.0-6.0)
[2021-03-24 09:27] LABS: RBC,Urine < 1.0 /HPF (0.0-6.0)
[2021-03-24 10:14] VITALS: BP 121/73
== END 2021-03-24 10:14 | disposition home or self-care (01) ==
LOC: ED 21:22
DX: K57.90 Diverticulosis of intestine, part unspecified, without perforation or abscess without bleeding (principal); I10 Essential (primary) hypertension; E11.9 Type 2 diabetes mellitus without complications; I50.9 Heart failure, unspecified; I11.0 Hypertensive heart disease with heart failure; F31.9 Bipolar disorder, unspecified; F20.9 Schizophrenia, unspecified; K21.9 Gastro-esophageal reflux disease without esophagitis; Z98.890 Other specified postprocedural states; Z79.899 Other long term (current) drug therapy
CPT/HCPCS: 36415; 74177; 80048; 80076; 81001; 83690; 85025; 85610; 96361; 96374; 96375; 96376; 99284; J2270; J2405; J7030; Q9967; Q0162

== ENCOUNTER 2021-05-18 19:32 | Emergency (ER) | payer MEDICARE ==
[2021-05-18 21:13] LABS: Alanine Aminotransferase 32 units/L (7-56); Albumin 4.1 g/dL (3.9-5); BUN/Creatinine Ratio 15; Blood Urea Nitrogen 16 mg/dL (9-20); Calcium 9.1 mg/dL (8.4-10.2); Hemolysis Index 35
[2021-05-18 21:22] LABS: Basophils % (Auto) 0.5 % (0.0-1.8); Eosinophils # (Auto) 0.1 K/mm3 (0.0-0.4); Eosinophils % (Auto) 0.8 % (0.0-4.3); Hematocrit 49.1 % (35.5-45.6); Hemoglobin 16.1 gm/dl (11.8-15.2); Lymphocytes # (Auto) 2.6 K/mm3 (1.2-5.4); Lymphocytes % (Auto) 31.4 % (13.4-35.0); Mean Corpuscular HGB Conc 33 % (32-34); Mean Corpuscular Volume 98 fl (84-94); Monocytes # (Auto) 1.2 K/mm3 (0.0-0.8); Monocytes % (Auto) 13.8 % (0.0-7.3); Platelet Count 144 K/mm3 (140-440); Red Blood Count 5.04 M/mm3 (3.65-5.03); Red Cell Distribution Width 16.7 % (13.2-15.2)
[2021-05-18 22:51] LABS: Bacteria,Urine 1+ /HPF (Negative); Bilirubin,Urine NEG (Negative); Blood,Urine NEG (Negative); Color,Urine Amber (Yellow); Mucus,Urine 3+ /HPF
[2021-05-18] MEDS ORDERED: ONDANSETRON 4 MG/2 ML INJ IV ONE (23:57)
[2021-05-18] MEDS ORDERED: fentaNYL 100 MCG/2 ML INJ IV ONE (23:57)
[2021-05-19] MEDS ORDERED: SODIUM CHLORIDE 0.9% 500 ML 500 ML IV ONE (00:01)
--- NOTE | 2021-05-19 00:02 | Emergency Department Report ---
HPI - General Chief Complaint: Abdominal Pain Time Seen by Provider: 05/18/21 23:39 - HPI HPI: Reassessment 3 The patient is a 60-year-old male present with a chief complaint of abdominal pain and nausea. Patient states he is left upper quadrant abdominal pain and right flank pain for 1 day. Patient admits to occasional nausea and dry heaving for 2 years. Patient admits to intermittent dysuria x1 day. Patient denies history of fever. Patient states for the past 2 days he has been having frequent diarrhea and frequently is unable to make it to the bathroom. Patient gives his pain a score of 9/10 ED Past Medical Hx - Past Medical History Previous Medical History?: Yes Hx Hypertension: Yes Hx Heart Attack/AMI: (hx "mild" CHF per patient) Hx Congestive Heart Failure: Yes (Hx mild CHF) Hx Diabetes: Yes Hx Pulmonary Embolism: Yes (bipolar, schiz,) Hx GERD: Yes Hx Renal Disease: Yes (hyperkalemia (improved), hyponatremia, VELIA) Hx Seizures: Yes Hx Psychiatric Treatment: Yes (bipolar,schiz) Additional medical history: herniated disc,neuropathy,concussions x2, shoulder dilocations,LIVER DISEASE/cirrhosis. GI bleed, AFIB - Surgical History Past Surgical History?: Yes Hx Cholecystectomy: Yes - Family History Family history: no significant - Social History Smoking Status: Never Smoker Substance Use Type: None - Medications Home Medications: Home Medications Medication Instructions Recorded Confirmed Last Taken Type Atorvastatin [Lipitor] 40 mg PO QDAY 08/27/13 03/13/21 03/12/21 19:00 History Divalproex ER [Depakote ER] 2,500 mg PO QHS 08/27/13 03/13/21 03/12/21 History FLUoxetine [PROzac] 20 mg PO QDAY 08/27/13 03/13/21 03/12/21 History Sitagliptin Phosphate [Januvia] 100 mg PO QDAY 07/19/19 03/13/21 03/12/21 History dilTIAZem HCl [Diltiazem 24Hr ER 120 mg PO QDAY 07/19/19 03/13/21 03/11/21 History (Xr)] Pantoprazole [Protonix TAB] 40 mg PO BID #60 tablet 07/21/19 03/13/21 03/12/21 Rx Cyclobenzaprine [Flexeril 10 MG 10 mg PO TID PRN #30 tablet 03/05/20 03/13/21 03/12/21 Rx TAB] levoFLOXacin [Levaquin] 750 mg PO QDAY #5 tablet 03/17/21 Unknown Rx metroNIDAZOLE [Flagyl TAB] 500 mg PO Q8HR #15 tablet 03/17/21 Unknown Rx Amoxicillin/Potassium Clav 1 each PO BID #20 tablet 03/24/21 Unknown Rx [Augmentin 875-125 Tablet] Ondansetron [Zofran Odt] 4 mg PO Q8HR PRN #14 tab.rapdis 03/24/21 Unknown Rx oxyCODONE /ACETAMINOPHEN [Percocet 1 tab PO Q6HR PRN #14 tablet 03/24/21 Unknown Rx 5/325] HYDROcodone/APAP 5-325 [[place] 1 - 2 each PO Q6HR PRN #10 tablet 05/19/21 Unknown Rx 5/325] Ondansetron [Zofran ODT TAB] 8 mg PO Q8HR #20 tab.rapdis 05/19/21 Unknown Rx Sulfamethoxazole/Trimethoprim 1 each PO BID #14 05/19/21 Unknown Rx [Bactrim DS TAB] ED Review of Systems ROS: Stated complaint: ABDOMINAL PAIN Other details as noted in HPI Constitutional: denies: fever Eyes: denies: eye pain ENT: denies: throat pain Respiratory: no symptoms reported Cardiovascular: denies: chest pain Endocrine: no symptoms reported Gastrointestinal: abdominal pain, nausea, diarrhea Genitourinary: dysuria Musculoskeletal: back pain Neurological: denies: headache Physical Exam - Physical Exam Vital Signs: Vital Signs 05/18/21 20:07 Temperature 98.7 F Pulse Rate 89 Respiratory 20 Rate Blood Pressure 106/62 [Right] O2 Sat by Pulse 98 Oximetry Physical Exam: GENERAL: The patient is well-developed well-nourished male lying in chair not appearing to be in acute distress. [] HEENT: Normocephalic. Atraumatic. Extraocular motions are intact. Patient has moist mucous membranes. NECK: Supple. Trachea midline CHEST/LUNGS: Clear to auscultation. There is no respiratory distress noted. HEART/CARDIOVASCULAR: Regular. There is no tachycardia. There is no gallop rub or murmur. ABDOMEN: Abdomen is soft, with tenderness to palpation in the right upper quadrant, left upper quadrant. Patient has normal bowel sounds. There is no abdominal distention. SKIN: There is no rash. There is no edema. There is no diaphoresis. NEURO: The patient is awake, alert, and oriented. The patient is cooperative. The patient has no focal neurologic deficits. The patient has normal speech. GCS 15 MUSCULOSKELETAL: There is right CVA tenderness. There is no evidence of acute injury. ED Course Vital Signs 05/18/21 20:07 Temperature 98.7 F Pulse Rate 89 Respiratory 20 Rate Blood Pressure 106/62 [Right] O2 Sat by Pulse 98 Oximetry ED Medical Decision Making - Lab Data Result diagrams: 05/18/21 20:39 05/18/21 20:39 Laboratory Tests 05/18/21 05/18/21 05/18/21 20:39 20:39 22:04 WBC 8.4 RBC 5.04 H Hgb 16.1 H Hct 49.1 H MCV 98 H MCH 32 MCHC 33 RDW 16.7 H Plt Count 144 Lymph % (Auto) 31.4 [place] % (Auto) 13.8 H Eos % (Auto) 0.8 Baso % (Auto) 0.5 Lymph # (Auto) 2.6 [place] # (Auto) 1.2 H Eos # (Auto) 0.1 Baso # (Auto) 0.0 Seg Neutrophils % 53.5 Seg Neutrophils # 4.5 Sodium 137 Potassium 4.4 Chloride 98.9 Carbon Dioxide 22 Anion Gap 21 BUN 16 Creatinine 1.1 Estimated GFR > 60 BUN/Creatinine Ratio 15 Glucose 105 H Calcium 9.1 Total Bilirubin 0.60 AST 43 H ALT 32 Alkaline Phosphatase 136 H Total Protein 6.6 Albumin 4.1 Albumin/Globulin Ratio 1.6 Lipase 24 Urine Color Josephine Urine Turbidity Slightly-cloudy Urine pH 5.0 Ur Specific [place] 1.024 Urine Protein 30 mg/dl Urine Glucose (UA) >=500 Urine Ketones Tr Urine Blood Neg Urine Nitrite Neg Urine Bilirubin Neg Urine Urobilinogen 2.0 Ur Leukocyte Esterase Neg Urine WBC (Auto) 1.0 Urine RBC (Auto) 1.0 U Epithel Cells (Auto) < 1.0 Urine Bacteria (Auto) 1+ Urine Mucus 3+ - Radiology Data Radiology results: report reviewed (CT abdomen pelvis), image reviewed (CT abdomen pelvis) [facility] [address] [place] [address] Cat Scan Report Signed Patient: ASHER BUSH MR#: [id number] : 1960 Acct:[id number] Age/Sex: 60 / M ADM Date: 05/18/21 Loc: ED Attending Dr: Ordering Physician: PAT JOSE MD Date of Service: 05/18/21 Procedure(s): CT abdomen pelvis w con Accession Number(s): [id number] cc: PAT JOSE MD CT ABDOMEN AND PELVIS WITH CONTRAST INDICATION / CLINICAL INFORMATION: L.U.Q. and RIGHT flank pain with nausea. TECHNIQUE: Axial CT images were obtained through the abdomen and pelvis after 100 cc Omnipaque [address] scans at this location are performed using CT dose reduction for ALARA by means of automated exposure control. COMPARISON: CT abdomen and pelvis 03/24/2021 FINDINGS: LOWER CHEST: No significant abnormality of the imaged chest. LIVER: Small nodular focus of increased attenuation adjacent to right hepatic capsule image #46; series #2 measures up to 1.8 cm with small john rrounding collection of fluid. This finding is stable since most recent comparison study and is may represent a dropped gallstone. The component of fluid/low attenuation decreased in size since January 2021. Additionally in this region of the right hepatic lobe there is a subtle masslike focus of is oattenuating/hypoattenuating liver measuring 4.3 x 3.9 cm. Additional minimal nodular enhancement along the inferior margin measuring up to 2.1 cm is not excluded. GALLBLADDER: Cholecystectomy. BILE DUCTS: No significant abnormality. SPLEEN: No significant abnormality. PANCREAS: No significant abnormality. ADRENALS: Stable appearance of left-sided myelolipoma RIGHT KIDNEY / URETER: No significant abnormality. LEFT KIDNEY / URETER: No significant abnormality. STOMACH / DUODENUM / SMALL BOWEL: Numerous varices again demonstrated within the gastrohepatic and gastrosplenic ligament. Minimal change suggested since January 2021. Surgical clips in the region of the distal gastric antrum additionally appear stable. Intramural gastric varices are noted posteriorly. Small bowel and mesentery are unremarkable. COLON: Diverticulosis without acute inflammation. APPENDIX: No significant abnormality. PERITONEUM: No free air or free fluid are present within the abdomen or pelvis. LYMPH NODES: No significant adenopathy. AORTA / ARTERIES: Moderate atherosclerotic calcification without acute abnormality. IVC / VEINS: Incidental note of circumaortic left main renal vein. IVC and iliofemoral venous structures otherwise unremarkable. URINARY BLADDER: No significant abnormality. REPRODUCTIVE ORGANS: No significant abnormality. ADDITIONAL ABDOMINAL/PELVIC FINDINGS: None. SKELETAL SYSTEM: No significant interval findings IMPRESSION: 1. Cirrhotic features of the liver with multiple venous varices within the gastrohepatic and gastrosplenic ligaments compatible with portal venous hypertension. No significant change since comparisons. 2. Stable appearance of intramural gastric varices along the posterior gastric wall. 3. Right hepatic lobe mass is suggested, worrisome for possible neoplasm given the cirrhotic features of the liver. CT liver mass protocol or MRI liver mass protocol recommended for further evaluation. Correlation with serum alpha-fetoprotein may be useful. 4. Additional small flu id collection and nodular focus of soft tissue attenuation thought to represent dropped gallstone along lateral margin right hepatic lobe is stable since most recent comparison with interval decrease in the component of suggested fluid since January 2021. Signer Name: Terence Ornelas II, MD Signed: 05/19/2021 1:12 AM Workstation Name: [id number] Transcribed By: MARYANN Dictated By: TERENCE ORNELAS II, MD Electronically Authenticated By: TERENCE ORNELAS II, MD Signed Date/Time: 05/19/21111 DD/ TD/TT: Print Cancel - Differential Diagnosis Pyelonephritis, renal colic, gastroenteritis, partial small bowel obstructi Critical care attestation.: If time is entered above; I have spent that time in minutes in the direct care of this critically ill patient, excluding procedure time. ED Disposition Clinical Impression: Acute abdominal pain, Nausea & vomiting, Bacteriuria Disposition: 01 HOME / SELF CARE / HOMELESS Is pt being admited?: No Does the pt Need Aspirin: No Condition: Stable Instructions: Abdominal Pain, Adult, [id number], Nausea, Adult Additional Instructions: Return to the emergency department should you develop worsening symptoms, inability to tolerate food or liquids, high fever or any other concerns Prescriptions: Sulfamethoxazole/Trimethoprim [Bactrim DS TAB] 1 each PO BID #14 HYDROcodone/APAP 5-325 [Branford 5/325] 1 - 2 each PO Q6HR PRN #10 tablet PRN Reason: Pain Ondansetron [Zofran ODT TAB] 8 mg PO Q8HR #20 tab.rapdis Referrals: [facility] MD LEVAR [Primary Care Provider] - 3-5 Days MACRINA LIZ MD [Staff Physician] - 3-5 Days (Dr. Liz is a casework specialist. Please follow-up with him for further evaluation) Time of Disposition: 01:23
--- NOTE | 2021-05-19 01:13 | Cat Scan Report ---
CT ABDOMEN AND PELVIS WITH CONTRAST INDICATION / CLINICAL INFORMATION: L.U.Q. and RIGHT flank pain with nausea. TECHNIQUE: Axial CT images were obtained through the abdomen and pelvis after 100 cc Omnipaque [address] scans at this location are performed using CT dose reduction for ALARA by means of automated exposure control. COMPARISON: CT abdomen and pelvis 03/24/2021 FINDINGS: LOWER CHEST: No significant abnormality of the imaged chest. LIVER: Small nodular focus of increased attenuation adjacent to right hepatic capsule image #46; seri es #2 measures up to 1.8 cm with small surrounding collection of fluid. This finding is stable since most recent comparison study and is may represent a dropped gallstone. The component of fluid/low att enuation decreased in size since January 2021. Additionally in this region of the right hepatic lobe there is a subtle masslike focus of isoattenuating/hypoattenuating liver measuring 4.3 x 3.9 cm. Louis tional minimal nodular enhancement along the inferior margin measuring up to 2.1 cm is not excluded. GALLBLADDER: Cholecystectomy. BILE DUCTS: No significant abnormality. SPLEEN: No significant abnormality. PANCREAS: No significant abnormality. ADRENALS: Stable appearance of left-sided myelolipoma RIGHT KIDNEY / URETER: No significant abnormality. LEFT KIDNEY / URETER: No significant abnormality. STOMACH / DUODENUM / SMALL BOWEL: Numerous varices again demonstrated within the gastrohepatic and ga strosplenic ligament. Minimal change suggested since January 2021. Surgical clips in the region of th e distal gastric antrum additionally appear stable. Intramural gastric varices are noted posteriorly. Small bowel and mesentery are unremarkable. COLON: Diverticulosis without acute inflammation. APPENDIX: No significant abnormality. PERITONEUM: No free air or free fluid are present within the abdomen or pelvis. LYMPH NODES: No significant adenopathy. AORTA / ARTERIES: Moderate atherosclerotic calcification without acute abnormality. IVC / VEINS: Incidental note of circumaortic left main renal vein. IVC and iliofemoral venous structu res otherwise unremarkable. URINARY BLADDER: No significant abnormality. REPRODUCTIVE ORGANS: No significant abnormality. ADDITIONAL ABDOMINAL/PELVIC FINDINGS: None. SKELETAL SYSTEM: No significant interval findings IMPRESSION: 1. Cirrhotic features of the liver with multiple venous varices within the gastrohepatic and gastrosp lenic ligaments compatible with portal venous hypertension. No significant change since comparisons. 2. Stable appearance of intramural gastric varices along the posterior gastric wall. 3. Right hepatic lobe mass is suggested, worrisome for possible neoplasm given the cirrhotic features of the liver. CT liver mass protocol or MRI liver mass protocol recommended for further evaluation. Correlation with serum alpha-fetoprotein may be useful. 4. Additional small fluid collection and nodular focus of soft tissue attenuation thought to represen t dropped gallstone along lateral margin right hepatic lobe is stable since most recent comparison wi th interval decrease in the component of suggested fluid since January 2021. Signer Name: Mario Lizarraga II, MD Signed: 05/19/2021 1:12 AM Workstation Name: [id number]
[2021-05-19 02:01] VITALS: BP 110/62
[2021-05-19] MEDS ORDERED: traMADol 50 MG TAB PO ONE (02:28)
== END 2021-05-19 02:05 | disposition home or self-care (01) ==
LOC: ED 19:32
DX: R10.12 Left upper quadrant pain (principal); R11.2 Nausea with vomiting, unspecified; R82.71 Bacteriuria; I11.0 Hypertensive heart disease with heart failure; I50.9 Heart failure, unspecified; E11.9 Type 2 diabetes mellitus without complications; K21.9 Gastro-esophageal reflux disease without esophagitis; F31.9 Bipolar disorder, unspecified; Z98.890 Other specified postprocedural states; Z79.899 Other long term (current) drug therapy
CPT/HCPCS: 36415; 74177; 80053; 81001; 83690; 85025; 96374; 96375; 99284; J2405; J3010; J7040; Q9967

== ENCOUNTER 2021-05-27 01:17 | Emergency (ER) | payer MEDICARE ==
[2021-05-27] MEDS ORDERED: MORPHINE 4 MG/1 ML INJ IV ONE (03:07)
[2021-05-27] MEDS ORDERED: METOCLOPRAMIDE 10 MG/2 ML INJ IV ONE (03:07)
[2021-05-27] MEDS ORDERED: SODIUM CHLORIDE 0.9% 500 ML 500 ML IV ONE (03:07)
[2021-05-27] MEDS ORDERED: PANTOPRAZOLE 40 MG INJ IV ONE (03:08)
[2021-05-27] MEDS ORDERED: LORazepam 2 MG/ML VIAL IV PRN ×3 (03:08)
--- NOTE | 2021-05-27 03:09 | Emergency Department Report ---
ED General Adult HPI - General Chief complaint: Abdominal Pain Stated complaint: Multiple complaint Time Seen by Provider: 05/27/21 02:51 Source: patient, EMS ( EMS documentation not available at time of chart dictation ), RN notes reviewed, old records reviewed Mode of arrival: Stretcher Limitations: No Limitations - History of Present Illness Initial comments: The patient was evaluated in the emergency department for symptoms described in the history of present illness. He/she was evaluated in the context of the global COVID-19 pandemic, which necessitated consideration that the patient might be at risk for infection with the virus that causes COVID-19. Institutional protocols and algorithms that pertain to the evaluation of patients at risk for COVID-19 are in a state of rapid change based on information released by regulatory bodies including the CDC and federal and state organizations. These policies and algorithms were followed during the patient's care in the emergency department. Please note that these policies, procedures and recommendations changed on a rapid basis. The patient is a 60-year-old gentleman. His past medical history includes hypertension, diabetes, GERD, seizure disorder, bipolar, schizophrenia, obesity, cirrhosis, portal hypertension, and diverticulitis. He was admitted to the hospital March 2021 for acute diverticulitis and systemic inflammatory response syndrome. He has a known history of chronic liver mass, and has been instructed to follow-up with the [facility] liver center, but has not followed up and has a known history of noncompliance. Today, the patient presents to the ER with multiple complaints. He complains of nonspecific tremors and shakes present for 15 years. He reports that he is taking Depakote. He also complains of nausea without vomiting. He reports dark stool, and believes that he has blood in his rectum a few days ago. He also complains of abdominal cramping, and left lower quadrant pain. He denies urinary symptoms and testicular pain. He is not homicidal or suicidal. He was seen in this department on May 18 for nonspecific symptoms, and had a CT scan of the abdomen pelvis which demonstrated no acute or emergently abnormal findings. Chronic findings were noted. -: Gradual, days(s), week(s), month(s), year(s) Location: abdomen Consistency: intermittent Improves with: rest Worsens with: other (Abdominal pain increases with palpation and range of motion. It decreases with rest and position) - Related Data Home Medications Medication Instructions Recorded Confirmed Last Taken Atorvastatin [Lipitor] 40 mg PO QDAY 08/27/13 03/13/21 03/12/21 19:00 Divalproex ER [Depakote ER] 2,500 mg PO QHS 08/27/13 03/13/21 03/12/21 FLUoxetine [PROzac] 20 mg PO QDAY 08/27/13 03/13/21 03/12/21 Sitagliptin Phosphate [Januvia] 100 mg PO QDAY 07/19/19 03/13/21 03/12/21 dilTIAZem HCl [Diltiazem 24Hr ER 120 mg PO QDAY 07/19/19 03/13/21 03/11/21 (Xr)] Previous Rx's Medication Instructions Recorded Last Taken Type metroNIDAZOLE [Flagyl TAB] 500 mg PO Q8HR #15 tablet 03/17/21 Unknown Rx Ondansetron [Zofran ODT TAB] 8 mg PO Q8HR #20 tab.rapdis 05/19/21 Unknown Rx Multivitamin with Folic Acid [[facility] 400 mcg PO QDAY #30 tablet 05/27/21 Unknown Rx One Daily Essential Tablet] Ondansetron [Zofran ODT TAB] 4 mg PO Q8HR PRN #14 tab.rapdis 05/27/21 Unknown Rx Pantoprazole [Protonix TAB] 40 mg PO BID #60 tablet 05/27/21 Unknown Rx chlordiazePOXIDE [Librium] 25 mg PO Q6H PRN #25 capsule 05/27/21 Unknown Rx Allergies Allergy/AdvReac Type Severity Reaction Status Date / Time No Known Allergies Allergy Verified 01/15/21 00:50 ED Review of Systems ROS: Stated complaint: GASTRIC PAIN Other details as noted in HPI Constitutional: malaise. denies: fever Eyes: denies: eye discharge ENT: denies: epistaxis Respiratory: denies: cough Cardiovascular: denies: chest pain Gastrointestinal: as per HPI, abdominal pain, nausea Genitourinary: denies: dysuria Neurological: weakness Psychiatric: anxiety Hematological/Lymphatic: denies: easy bleeding ED Past Medical Hx - Past Medical History Previous Medical History?: Yes Hx Hypertension: Yes Hx Heart Attack/AMI: (hx "mild" CHF per patient) Hx Congestive Heart Failure: Yes (Hx mild CHF) Hx Diabetes: Yes Hx Pulmonary Embolism: Yes (bipolar, schiz,) Hx GERD: Yes Hx Renal Disease: Yes (hyperkalemia (improved), hyponatremia, VELIA) Hx Seizures: Yes Hx Psychiatric Treatment: Yes (bipolar,schiz) Hx Asthma: No Hx COPD: No Additional medical history: herniated disc,neuropathy,concussions x2, shoulder dilocations,LIVER DISEASE/cirrhosis. GI bleed, AFIB - Surgical History Past Surgical History?: Yes Hx Pacemaker: No Hx Cholecystectomy: Yes - Social History Smoking Status: Never Smoker Substance Use Type: None - Medications Home Medications: Home Medications Medication Instructions Recorded Confirmed Last Taken Type Atorvastatin [Lipitor] 40 mg PO QDAY 08/27/13 03/13/21 03/12/21 19:00 History Divalproex ER [Depakote ER] 2,500 mg PO QHS 08/27/13 03/13/21 03/12/21 History FLUoxetine [PROzac] 20 mg PO QDAY 08/27/13 03/13/21 03/12/21 History Sitagliptin Phosphate [Januvia] 100 mg PO QDAY 07/19/19 03/13/21 03/12/21 History dilTIAZem HCl [Diltiazem 24Hr ER 120 mg PO QDAY 07/19/19 03/13/21 03/11/21 History (Xr)] metroNIDAZOLE [Flagyl TAB] 500 mg PO Q8HR #15 tablet 03/17/21 Unknown Rx Ondansetron [Zofran ODT TAB] 8 mg PO Q8HR #20 tab.rapdis 05/19/21 Unknown Rx Multivitamin with Folic Acid [[facility] 400 mcg PO QDAY #30 tablet 05/27/21 Unknown Rx One Daily Essential Tablet] Ondansetron [Zofran ODT TAB] 4 mg PO Q8HR PRN #14 tab.rapdis 05/27/21 Unknown Rx Pantoprazole [Protonix TAB] 40 mg PO BID #60 tablet 05/27/21 Unknown Rx chlordiazePOXIDE [Librium] 25 mg PO Q6H PRN #25 capsule 05/27/21 Unknown Rx ED Physical Exam - General Limitations: No Limitations General appearance: alert, anxious, obese - Head Head exam: Present: atraumatic, normocephalic - Eye Eye exam: Present: normal appearance, EOMI. Absent: nystagmus - ENT ENT exam: Present: normal exam, normal orophraynx, mucous membranes moist, normal external ear exam - Neck Neck exam: Present: normal inspection, full ROM. Absent: tenderness, meningismus - Respiratory Respiratory exam: Present: normal lung sounds bilaterally. Absent: respiratory distress, wheezes, rales, rhonchi, stridor - Cardiovascular Cardiovascular Exam: Present: normal rhythm, tachycardia, normal heart sounds. Absent: bradycardia, irregular rhythm, systolic murmur, diastolic murmur, rubs, gallop - GI/Abdominal GI/Abdominal exam: Present: soft, tenderness. Absent: distended, guarding, rebound, rigid, pulsatile mass - Rectal Rectal exam: Present: normal inspection, heme (-) stool, other (Chaperoned by Lucie Woodard). Absent: heme (+) stool, black stool, bloody stool, fecal impaction - Extremities Exam Extremities exam: Present: normal inspection, full ROM, pedal edema (1+ edema in the bilateral lower extremities.), other (2+ pulses noted in the bilateral upper and lower extremities. There is no palpable cord. negative Homans sign. Muscular compartments are soft. The pelvis is stable.). Absent: calf tenderness - Back Exam Back exam: Present: normal inspection, full ROM. Absent: tenderness, CVA tenderness (R), CVA tenderness (L), paraspinal tenderness, vertebral tenderness - Neurological Exam Neurological exam: Present: alert, oriented X3, normal gait, reflexes normal, other (No facial droop. Tongue midline. Extraocular movements intact bilaterally. Facial sensation intact to light touch in V1, V2, V3 distribution bilaterally. 5 and a 5 strength in 4 extremities. Sensation intact to light touch in 4 extremities.). Absent: motor sensory deficit - Psychiatric Psychiatric exam: Present: anxious. Absent: homicidal ideation, suicidal ideation - Skin Skin exam: Present: warm, dry, intact, normal color. Absent: rash ED Course Vital Signs 05/27/21 05/27/21 01:26 05:33 Temperature 97.9 F Pulse Rate 103 H Respiratory 16 14 Rate Blood Pressure 135/78 [Left] O2 Sat by Pulse 95 Oximetry - Reevaluation(s) Reevaluation #1: 05/27/21 04:23 Differential diagnosis, including the not limited to: Chronic tremors, electrolyte derangement, conversion disorder, diverticulitis Assessment and plan: 60-year-old gentleman, with multiple complaints. He lives at home and is ambulatory with a cane, and walks with a steady gait here in the emergency room. He is also awake, alert, oriented, sober, and does not meet criteria for 1013 or involuntary hold. When distracted, his tremors resolved. He reports chronic tremors for 15 years. He is tender in his left lower quadrant. He will be treated appropriately and supportively. We will obtain appropriate laboratory studies, CT scan of the abdomen pelvis, and reassess. Discussed this plan of care with the patient. He is agreeable to the plan of care 05/27/21 05:45 Patient resting comfortably on stretcher. Laboratory studies are essentially unremarkable and unchanged from baseline. CT scan abdomen pelvis shows no acute or emergent findings and appears to be unchanged from baseline. Patient will need to follow-up with outpatient primary care and/or GI. ED Medical Decision Making - Lab Data Result diagrams: 05/27/21 03:17 05/27/21 03:17 Vital Signs 05/27/21 01:26 Temperature 97.9 F Pulse Rate 103 H Respiratory 16 Rate Blood Pressure 135/78 [Left] O2 Sat by Pulse 95 Oximetry Lab Results 05/27/21 05/27/21 05/27/21 Range/Units 03:17 03:17 03:17 WBC 6.3 (4.5-11.0) K/mm3 RBC 4.64 (3.65-5.03) M/mm3 Hgb 15.8 H (11.8-15.2) gm/dl Hct 44.7 (35.5-45.6) % MCV 96 H (84-94) fl MCH 34 H (28-32) pg MCHC 35 H (32-34) % RDW 16.3 H (13.2-15.2) % Plt Count 98 L (140-440) K/mm3 Lymph % (Auto) 33.1 (13.4-35.0) % [place] % (Auto) 13.3 H (0.0-7.3) % Eos % (Auto) 1.1 (0.0-4.3) % Baso % (Auto) 0.8 (0.0-1.8) % Lymph # (Auto) 2.1 (1.2-5.4) K/mm3 [place] # (Auto) 0.8 (0.0-0.8) K/mm3 Eos # (Auto) 0.1 (0.0-0.4) K/mm3 Baso # (Auto) 0.0 (0.0-0.1) K/mm3 Seg Neutrophils % 51.7 (40.0-70.0) % Seg Neutrophils # 3.3 (1.8-7.7) K/mm3 PT 13.3 (12.2-14.9) Sec. INR 0.91 (0.87-1.13) Estimated GFR 56 ml/min BUN/Creatinine Ratio 12 % Indirect Bilirubin 0.3 mg/dL Albumin/Globulin Ratio 1.4 % - EKG Data -: EKG Interpreted by Ia Rate: tachycardia - EKG Data 05/27/21 04:17 The EKG is interpreted at 03: 10 Sinus rhythm, rate 106 bpm, tachycardia, first-degree AV block. Left axis deviation. QTc five one 6 ms. Right bundle branch block. Minimal motion artifact. Abnormal EKG. This is not a STEMI. 05/27/21 04:18 - Radiology Data Radiology results: pending, report reviewed, image reviewed CT ABDOMEN AND PELVIS WITH CONTRAST INDICATION / CLINICAL INFORMATION: L.U.Q. and RIGHT flank pain with nausea. TECHNIQUE: Axial CT images were obtained through the abdomen and pelvis after 100 cc Omnipaque [address] scans at this location are performed using CT dose reduction for ALARA by means of automated exposure control. COMPARISON: CT abdomen and pelvis 03/24/2021 FINDINGS: LOWER CHEST: No significant abnormality of the imaged chest. LIVER: Small nodular focus of increased attenuation adjacent to right hepatic capsule image #46; series #2 measures up to 1.8 cm with small surrounding collection of fluid. This finding is stable since most recent comparison study and is may represent a dropped gallstone. The component of fluid/low attenuation decreased in size since January 2021. Additionally in this region of the right hepatic lob e there is a subtle masslike focus of isoattenuating/hypoattenuating liver measuring 4.3 x 3.9 cm. Additional minimal nodular enhancement along the inferior margin measuring up to 2.1 cm is not excluded. GALLBLADDER: Cholecystectomy. BILE DUCTS: No significant abnormality. SPLEEN: No significant abnormality. PANCREAS: No significant abnormality. ADRENALS: Stable appearance of left-sided myelolipoma RIGHT KIDNEY / URETER: No significant abnormality. LEFT KIDNEY / URETER: No significant abnormality. STOMACH / DUODENUM / SMALL BOWEL: Numerous varices again demonstrated within the gastrohepatic and gastrosplenic ligament. Minimal change suggested since January 2021. Surgical clips in the region of the distal gastric antrum additionally appear stable. Intramural gastric varices are noted posteriorly. Small bowel and mesentery are unremarkable. COLON: Diverticulosis without acute inflammation. APPENDIX: No significant abnormality. PERITONEUM: No free air or free fluid are present within the abdomen or pelvis. LYMPH NODES: No significant adenopathy. AORTA / ARTERIES: Moderate atherosclerotic calcification without acute abnormality. IVC / VEINS: Incidental note of circumaortic left main renal vein. IVC and iliofemoral venous structures otherwise unremarkable. URINARY BLADDER: No significant abnormality. REPRODUCTIVE ORGANS: No significant abnormality. ADDITIONAL ABDOMINAL/PELVIC FINDINGS: None. SKELETAL SYSTEM: No significant interval findings IMPRESSION: 1. Cirrhotic features of the liver with multiple venous varices within the gastrohepatic and gastrosplenic ligaments compatible with portal venous hypertension. No significant change since comparisons. 2. Stable appea miguel of intramural gastric varices along the posterior gastric wall. 3. Right hepatic lobe mass is suggested, worrisome for possible neoplasm given the cirrhotic features of the liver. CT liver mass protocol or MRI liver mass protocol recommended for further evaluation. Correlation with serum alpha- fetoprotein may be useful. 4. Additional small fluid collection and nodular focus of soft tissue attenuation thought to represent dropped gallstone along lateral margin right hepatic lobe is stable since most recent comparison with interval decrease in the component of suggested fluid since January 2021. Signer Name: Mario Lizarraga II, MD Signed: 05/19/2021 12:12 AM Workstation Name: [id number] CT abdomen pelvis w con INDICATION / CLINICAL INFORMATION: Acute abdominal pain, LEFT lower quadrant pain. TECHNIQUE: Axial CT images were obtained through the abdomen and pelvis after 100 cc Omni [address] scans at this location are performed using CT dose reduction for ALARA by means of automated exposure control. COMPARISON: Multiple CTs, most recent dated 05/18/2021. FINDINGS: LOWER CHEST: No significant abnormality LIVER: Cirrhotic morphology of the liver is again seen. Multiple varices are again seen, unchanged. Subtle lesion within the right hepatic lobe measures 4.4 cm with focal area of enhancement within the inferior margin of the lesion measuring 3.3 cm, unchanged from prior study. This also appears to demonstrate washout on delayed images. Additional perihepatic fluid collection and nodular focus on the right hepatic lobe, also unchanged. No additional lesion is identified. GALLBLADDER/BILIARY TREE: Cholecystectomy. PANCREAS: No significant abnormality SPLEEN: No significant abnormality ADRENALS: Stable left-sided myelolipoma. KIDNEYS / URETER: No significant abnormality URINARY BLADDER: Decompressed with mild mural thickening. REPRODUCTIVE ORGANS: No significant abnormality STOMACH / BOWEL: Intramural gastric varices again seen. Stomach is otherwise unremarkable. There are surgical changes at the gastroduodenal junction. Small bowel is normal in caliber. Colonic diverticulosis without evidence of diverticulitis. The appendix is normal in caliber. LYMPH NODES: No significant adenopathy. VASCULATURE: Abdominal aorta and major branching vessels are normal in caliber. The portal vein, SMV, and splenic vein are patent. OTHER: No free air, free fluid, or focal fluid collection is identified. SKELETAL SYSTEM: Degenerative changes of the spine. No acute osseous findings. IMPRESSION: 1. No acute abnormality of the abdomen or pelvis. No significant interval change from CT from 05/18/2021. 2. Cirrhosis of the liver with stable appearance of right hepatic lesion. This demonstrates washout on delayed images and is suspicious for hepatocellular carcinoma. Recommend multiphasic CT or MRI for further evaluation. 3. Other stable chronic and incidental findings as above. Signer Name: Deni Najera MD Signed: 05/27/2021 4:33 AM Workstation Name: [id number] Critical care attestation.: If time is entered above; I have spent that time in minutes in the direct care o f this critically ill patient, excluding procedure time. ED Disposition Clinical Impression: Lower abdominal pain, History of cirrhosis, Abnormal computed tomography of abdomen and pelvis Disposition: 01 HOME / SELF CARE / HOMELESS Is pt being admited?: No Does the pt Need Aspirin: No Condition: Good Additional Instructions: Recommend that patient discontinue alcohol consumption. Recommend that patient not consume Motrin, ibuprofen, Naprosyn, Aleve, heavy or spicy foods. Please continue current outpatient medications otherwise. Do not take metformin medication for the next 2 days if patient takes this medication. Patient had CT scan of the abdomen pelvis today and a few weeks ago which showed no acutely abnormal or emergent findings, but did demonstrate multiple chronic abnormal findings, including abnormal liver CT scan findings. CT scan findings are suspicious for liver cancer/hepatocellular carcinoma. This is a form of liver cancer. It is very important that the patient follow-up with an outpatient primary care doctor, GI physician, or hematology quality assurance specialist for definitive management and work-up for potential hepatocellular cancer. Failure to follow-up may result in undiagnosed cancer, tumor, malignancy, which in turn could cause , disability, paralysis, loss of quality of life. Therefore, recommend follow-up with an outpatient specialist within the next 2 to 3 weeks. Please return to the emergency room right away with new pain, worsened pain, migration of pain, projectile vomiting, change in mental status, confusion, inability tolerate liquid feeds, new, worsened or different symptoms not present on the initial emergency room evaluation Referrals: PRIMARY CARE, [Primary Care Provider] - 3-5 Days [facility] [Provider Group] - 3-5 Days [facility] [Provider Group] - 3-5 Days
[2021-05-27 03:44] LABS: Basophils % (Auto) 0.8 % (0.0-1.8); Eosinophils # (Auto) 0.1 K/mm3 (0.0-0.4); Eosinophils % (Auto) 1.1 % (0.0-4.3); Hematocrit 44.7 % (35.5-45.6); Hemoglobin 15.8 gm/dl (11.8-15.2); Lymphocytes # (Auto) 2.1 K/mm3 (1.2-5.4); Lymphocytes % (Auto) 33.1 % (13.4-35.0); Mean Corpuscular HGB Conc 35 % (32-34); Mean Corpuscular Volume 96 fl (84-94); Monocytes # (Auto) 0.8 K/mm3 (0.0-0.8); Monocytes % (Auto) 13.3 % (0.0-7.3); Red Blood Count 4.64 M/mm3 (3.65-5.03); Red Cell Distribution Width 16.3 % (13.2-15.2)
[2021-05-27 04:07] LABS: Albumin 3.9 g/dL (3.9-5); Bilirubin,Direct 0.3 mg/dL (0-0.2); Calcium 9.1 mg/dL (8.4-10.2)
[2021-05-27 04:11] LABS: Platelet Count 98 K/mm3 (140-440)
[2021-05-27 04:12] LABS: INR 0.91 (0.87-1.13)
[2021-05-27] MEDS ORDERED: dilTIAZem CD 120 MG CAP PO ONE (04:24)
--- NOTE | 2021-05-27 05:38 | Cat Scan Report ---
CT abdomen pelvis w con INDICATION / CLINICAL INFORMATION: Acute abdominal pain, LEFT lower quadrant pain. TECHNIQUE: Axial CT images were obtained through the abdomen and pelvis after 100 cc Omni [address] All [address] scans at this location are performed using CT dose reduction for ALARA by means of auto mated exposure control. COMPARISON: Multiple CTs, most recent dated 05/18/2021. FINDINGS: LOWER CHEST: No significant abnormality LIVER: Cirrhotic morphology of the liver is again seen. Multiple varices are again seen, unchanged. S ubtle lesion within the right hepatic lobe measures 4.4 cm with focal area of enhancement within the inferior margin of the lesion measuring 3.3 cm, unchanged from prior study. This also appears to demo nstrate washout on delayed images. Additional perihepatic fluid collection and nodular focus on the r ight hepatic lobe, also unchanged. No additional lesion is identified. GALLBLADDER/BILIARY TREE: Cholecystectomy. PANCREAS: No significant abnormality SPLEEN: No significant abnormality ADRENALS: Stable left-sided myelolipoma. KIDNEYS / URETER: No significant abnormality URINARY BLADDER: Decompressed with mild mural thickening. REPRODUCTIVE ORGANS: No significant abnormality STOMACH / BOWEL: Intramural gastric varices again seen. Stomach is otherwise unremarkable. There are surgical changes at the gastroduodenal junction. Small bowel is normal in caliber. Colonic diverticul osis without evidence of diverticulitis. The appendix is normal in caliber. LYMPH NODES: No significant adenopathy. VASCULATURE: Abdominal aorta and major branching vessels are normal in caliber. The portal vein, SMV, and splenic vein are patent. OTHER: No free air, free fluid, or focal fluid collection is identified. SKELETAL SYSTEM: Degenerative changes of the spine. No acute osseous findings. IMPRESSION: 1. No acute abnormality of the abdomen or pelvis. No significant interval change from CT from 05/18/19 22. 2. Cirrhosis of the liver with stable appearance of right hepatic lesion. This demonstrates washout o n delayed images and is suspicious for hepatocellular carcinoma. Recommend multiphasic CT or MRI for further evaluation. 3. Other stable chronic and incidental findings as above. Signer Name: Deni Najera MD Signed: 05/27/2021 5:33 AM Workstation Name: [id number]
[2021-05-27 06:22] VITALS: BP 127/81
--- NOTE | 2021-05-27 10:32 | Electrocardiograph Report ---
[facility] Test Date: 2021-05-27 Test Time: 03:10:41 Pat Name: ASHER BUSH Department: Room: Gender: M Technology Analyst: JULIA : 1960 Requested By: JUNA MANUEL BRIONES Order Number: [id number] Reading MD: Cipriano Dior Measurements Intervals [place] Rate: 106 P: -83 CT: 200 QRS: -90 QRSD: 133 T: 73 QT: 389 QTc: 516 Interpretive Statements Sinus or ectopic atrial tachycardia 1 st degree AV block. Right bundle branch block ST elevation secondary to IVCDjavascript:perform('study_confirm'); No previous ECG available for comparison Electronically Signed On 05-27-2021 10:32:03 EST by Cipriano Dior
== END 2021-05-27 06:46 | disposition home or self-care (01) ==
LOC: ED 01:17
DX: R10.30 Lower abdominal pain, unspecified (principal); K74.60 Unspecified cirrhosis of liver; R93.5 Abnormal findings on diagnostic imaging of other abdominal regions, including retroperitoneum; I10 Essential (primary) hypertension; E11.8 Type 2 diabetes mellitus with unspecified complications
CPT/HCPCS: 36415; 74177; 80048; 80076; 80164; 82140; 82550; 83690; 83735; 85025; 85610; 93005; 93010; 96361; 96374; 96375; 99284; C9113; J2270; J2765; J7040; Q9967; 80320; G0480

== ENCOUNTER 2021-05-30 06:13 | Emergency (ER) | payer MEDICARE ==
[2021-05-30] MEDS ORDERED: HALOPERIDOL LACTATE 5 MG/1 ML INJ IM ONE (06:29)
--- NOTE | 2021-05-30 06:29 | Emergency Department Report ---
ED General Adult HPI - General Stated complaint: CHEST PAIN Time Seen by Provider: 05/30/21 06:16 - History of Present Illness Initial comments: Patient presents by ambulance secondary to chest pain. Since about midnight or 1 AM he has been having fleeting episodes of chest pain. These episodes last anywhere from 5 to 20 minutes. However he stated while I was talking to them "I just had it again," And it lasted a few seconds. This is left-sided. It is not exertional. It is not positional. It is not pleuritic. He has not noticed any aggravating or alleviating factors. He states that he is very upset and worried about his cancer and liver disease. He thinks that the anxiety is playing a role in his chest pain. Regardless, he called EMS today who brought him here. Patient has no history of trauma. There has been no cough or congestion. He does not feel short of breath. There is no nausea or vomiting. He does have a history of heart attack "years ago." This is not similar to the symptoms he had then. - Related Data Home Medications Medication Instructions Recorded Confirmed Last Taken Atorvastatin [Lipitor] 40 mg PO QDAY 08/27/13 03/13/21 03/12/21 19:00 Divalproex ER [Depakote ER] 2,500 mg PO QHS 08/27/13 03/13/21 03/12/21 FLUoxetine [PROzac] 20 mg PO QDAY 08/27/13 03/13/21 03/12/21 Sitagliptin Phosphate [Januvia] 100 mg PO QDAY 07/19/19 03/13/21 03/12/21 dilTIAZem HCl [Diltiazem 24Hr ER 120 mg PO QDAY 07/19/19 03/13/21 03/11/21 (Xr)] Previous Rx's Medication Instructions Recorded Last Taken Type metroNIDAZOLE [Flagyl TAB] 500 mg PO Q8HR #15 tablet 03/17/21 Unknown Rx Ondansetron [Zofran ODT TAB] 8 mg PO Q8HR #20 tab.rapdis 05/19/21 Unknown Rx Multivitamin with Folic Acid [[facility] 400 mcg PO QDAY #30 tablet 05/27/21 Unknown Rx One Daily Essential Tablet] Ondansetron [Zofran ODT TAB] 4 mg PO Q8HR PRN #14 tab.rapdis 05/27/21 Unknown Rx Pantoprazole [Protonix TAB] 40 mg PO BID #60 tablet 05/27/21 Unknown Rx chlordiazePOXIDE [Librium] 25 mg PO Q6H PRN #25 capsule 05/27/21 Unknown Rx Allergies Allergy/AdvReac Type Severity Reaction Status Date / Time No Known Allergies Allergy Verified 01/15/21 00:50 ED Review of Systems ROS: Stated complaint: CHEST PAIN Other details as noted in HPI Comment: All other systems reviewed and negative Constitutional: denies: fever Eyes: denies: vision change ENT: denies: throat pain Respiratory: denies: cough Cardiovascular: as per HPI Endocrine: denies: unexplained weight loss Gastrointestinal: abdominal pain (Chronically related to liver cancer and diverticular disease) Genitourinary: denies: dysuria Musculoskeletal: denies: back pain Skin: denies: rash Neurological: denies: headache Hematological/Lymphatic: denies: easy bruising ED Past Medical Hx - Past Medical History Hx Hypertension: Yes Hx Heart Attack/AMI: Yes (Heart attack "years ago") Hx Congestive Heart Failure: Yes (Hx mild CHF) Hx Diabetes: Yes Hx Pulmonary Embolism: Yes Hx GERD: Yes Hx Renal Disease: Yes (hyperkalemia (improved), hyponatremia, VELIA) Hx Seizures: Yes Hx Psychiatric Treatment: Yes (bipolar,schiz) Hx Asthma: No Hx COPD: No Additional medical history: herniated disc,neuropathy,concussions x2, shoulder dilocations,LIVER DISEASE/cirrhosis. GI bleed, AFIB - Surgical History Hx Pacemaker: No Hx Cholecystectomy: Yes - Family History Family history: hypertension - Social History Smoking Status: Never Smoker Substance Use Type: None - Medications Home Medications: Home Medications Medication Instructions Recorded Confirmed Last Taken Type Atorvastatin [Lipitor] 40 mg PO QDAY 08/27/13 03/13/21 03/12/21 19:00 History Divalproex ER [Depakote ER] 2,500 mg PO QHS 08/27/13 03/13/21 03/12/21 History FLUoxetine [PROzac] 20 mg PO QDAY 08/27/13 03/13/21 03/12/21 History Sitagliptin Phosphate [Januvia] 100 mg PO QDAY 07/19/19 03/13/21 03/12/21 History dilTIAZem HCl [Diltiazem 24Hr ER 120 mg PO QDAY 07/19/19 03/13/21 03/11/21 History (Xr)] metroNIDAZOLE [Flagyl TAB] 500 mg PO Q8HR #15 tablet 03/17/21 Unknown Rx Ondansetron [Zofran ODT TAB] 8 mg PO Q8HR #20 tab.rapdis 05/19/21 Unknown Rx Multivitamin with Folic Acid [[facility] 400 mcg PO QDAY #30 tablet 05/27/21 Unknown Rx One Daily Essential Tablet] Ondansetron [Zofran ODT TAB] 4 mg PO Q8HR PRN #14 tab.rapdis 05/27/21 Unknown Rx Pantoprazole [Protonix TAB] 40 mg PO BID #60 tablet 05/27/21 Unknown Rx chlordiazePOXIDE [Librium] 25 mg PO Q6H PRN #25 capsule 05/27/21 Unknown Rx ED Physical Exam - General Limitations: No Limitations, Other (Pulse ox noted and normal) General appearance: alert, in no apparent distress, anxious, obese - Head Head exam: Present: atraumatic, normocephalic. Absent: normal inspection - Eye Eye exam: Present: normal appearance, PERRL, EOMI. Absent: scleral icterus - ENT ENT exam: Present: normal orophraynx, normal external ear exam - Neck Neck exam: Present: normal inspection. Absent: meningismus - Respiratory Respiratory exam: Present: normal lung sounds bilaterally. Absent: respiratory distress - Cardiovascular Cardiovascular Exam: Present: regular rate, normal rhythm - GI/Abdominal GI/Abdominal exam: Present: soft. Absent: distended, tenderness, pulsatile mass - Extremities Exam Extremities exam: Present: normal capillary refill, pedal edema (1+ bilateral). Absent: calf tenderness - Back Exam Back exam: Absent: CVA tenderness (R), CVA tenderness (L) - Neurological Exam Neurological exam: Present: alert, oriented X3, CN II-XII intact. Absent: motor sensory deficit - Psychiatric Psychiatric exam: Present: anxious - Skin Skin exam: Present: warm, dry ED Course Vital Signs 05/30/21 05/30/21 05/30/21 06:43 06:44 06:49 Temperature 98.5 F Pulse Rate 89 89 Respiratory 11 L 16 Rate Blood Pressure 103/64 Blood Pressure 103/64 [Right] O2 Sat by Pulse 95 95 95 Oximetry 05/30/21 05/30/21 05/30/21 07:30 08:00 09:00 Temperature 98 F Pulse Rate 77 79 72 Respiratory 14 Rate Blood Pressure Blood Pressure 89/31 85/41 88/45 [Right] O2 Sat by Pulse 94 94 95 Oximetry 05/30/21 05/30/21 05/30/21 09:38 10:00 10:30 Temperature Pulse Rate 88 78 88 Respiratory Rate Blood Pressure Blood Pressure 82/41 80/36 84/37 [Right] O2 Sat by Pulse 94 95 94 Oximetry 05/30/21 11:00 Temperature Pulse Rate 77 Respiratory Rate Blood Pressure Blood Pressure 82/41 [Right] O2 Sat by Pulse 94 Oximetry - Reevaluation(s) Reevaluation #1: 05/30/21 06:28 EMS was met upon arrival. IV and labs ordered. Old records reviewed. Reevaluation #2: 05/30/21 06:51 EKG has been noted. Reevaluation #3: 05/30/21 08:36 Labs have been reviewed. We will repeat EKG and labs shortly. Reevaluation #4: 05/30/21 09:55 Repeat labs are pending. Patient is not having any chest pain. Reevaluation #5: 05/30/21 11:42 Repeat troponin was noted and normal. Patient was discharged. ED Medical Decision Making - Lab Data Result diagrams: 05/30/21 07:10 05/30/21 07:10 - EKG Data -: EKG Interpreted by Me - EKG Data 05/30/21 06:53 0644-EKG shows sinus rhythm at 86. Patient does have a first-degree AV block with a WA interval of 227. There is a right bundle branch block with a QRS of 145. QT corrected is normal at 486. Patient has downward QRS complexes in 1 and aVL which are opposite when compared to an EKG dated earlier this year. He has upward QRS complexes in 3 and aVF which are also opposite when compared to the same EKG. There is no T wave concordance. No ectopy is noted. 05/30/21 11:10 1046-EKG was repeated. This shows atrial flutter at a rate of 63. This actually looks to be with a variable block. QRS is still prolonged at 145 and the patient does have a right bundle branch block. QT corrected is 518. This is prolonged. Patient's QRS has changed. This now appears to be similar to the prior EKG. The QRS is downward in lead III and aVF. It is upward in 1 and aVL. - Medical Decision Making Patient presented secondary to an episode of chest pain. He also the chest pain is not known. He has proximal atrial fibrillation but that appears to be stable. There was no evidence of STEMI or NSTEMI based on serial troponins. He does not have clinical evidence of pneumonia or pneumothorax. There is no pulse deficit that would suggest aortic dissection. These episodes of chest pain are fleeting based on his description. Patient was treated symptomatically and referred to his PCP for recheck and outpatient follow-up. Critical care attestation.: If time is entered above; I have spent that time in minutes in the direct care of this critically ill patient, excluding procedure time. ED Disposition Clinical Impression: Left-sided chest pain, Anxiety, Thrombocytopenia, Paroxysmal A-fib Disposition: 01 HOME / SELF CARE / HOMELESS Is pt being admited?: No Condition: Stable Instructions: Nonspecific Chest Pain, Adult, Pain Without a Known Cause Additional Instructions: Have a bland diet. Drink plenty water. Return for problems. Follow-up with your family doctor in the referral doctor, including cardiology, for recheck. Referrals: BONG MORENO [Other] - 3-5 Days
[2021-05-30 07:24] LABS: Hematocrit 45.5 % (35.5-45.6); Hemoglobin 14.6 gm/dl (11.8-15.2); Mean Corpuscular HGB Conc 32 % (32-34); Mean Corpuscular Volume 99 fl (84-94); Red Blood Count 4.59 M/mm3 (3.65-5.03); Red Cell Distribution Width 16.4 % (13.2-15.2)
[2021-05-30 07:42] LABS: Platelet Count 67 K/mm3 (140-440)
[2021-05-30 07:47] LABS: BUN/Creatinine Ratio 12; Blood Urea Nitrogen 15 mg/dL (9-20); Calcium 9.1 mg/dL (8.4-10.2); Hemolysis Index 5
--- NOTE | 2021-05-30 07:55 | XRay Report ---
CHEST PA AND LATERAL VIEWS INDICATION: Chest pain. COMPARISON: 11/06/2019 FINDINGS: Support devices: None. Heart: Within normal limits. Lungs/Pleura: No acute pulmonary or pleural findings. IMPRESSION: 1. No acute findings. Signer Name: Derrick Bull MD Signed: 05/30/2021 7:51 AM Workstation Name: [id number]
[2021-05-30] MEDS ORDERED: SODIUM CHLORIDE 0.9% 1000 ML 1,000 ML IV ONE ×2 (09:37→10:33)
--- NOTE | 2021-05-30 09:40 | Electrocardiograph Report ---
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
[2021-05-30 12:00] VITALS: BP 144/83
--- NOTE | 2021-05-31 10:13 | Electrocardiograph Report ---
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
== END 2021-05-30 12:13 | disposition home or self-care (01) ==
LOC: ED 06:13
DX: R07.89 Other chest pain (principal); D69.6 Thrombocytopenia, unspecified; G50.0 Trigeminal neuralgia; I10 Essential (primary) hypertension; E11.8 Type 2 diabetes mellitus with unspecified complications
CPT/HCPCS: 36415; 71046; 80048; 84484; 85027; 93005; 93010; 96360; 96361; 96372; 99284; J1630; J7030; Q0162

== ENCOUNTER 2021-10-05 14:45 | Emergency (ER) | payer MEDICARE ==
[2021-10-05] MEDS ORDERED: fentaNYL 100 MCG/2 ML INJ IV ONE (17:42)
[2021-10-05] MEDS ORDERED: SODIUM CHLORIDE 0.9% 250ML 250 ML IV ONE (17:42)
--- NOTE | 2021-10-05 17:44 | Emergency Department Report ---
<JUAN MANUEL BRIONES - Last Filed: 10/05/21 20:46> ED General Adult HPI - General Chief complaint: Fall Stated complaint: WEAK/FALL Time Seen by Provider: 10/05/21 17:18 Source: patient, EMS ( EMS documentation not available at time of chart dictation ), RN notes reviewed, old records reviewed Mode of arrival: Stretcher Limitations: Physical Limitation - History of Present Illness Initial comments: The patient was evaluated in the emergency department for symptoms described in the history of present illness. He/she was evaluated in the context of the global COVID-19 pandemic, which necessitated consideration that the patient might be at risk for infection with the virus that causes COVID-19. Institutional protocols and algorithms that pertain to the evaluation of patients at risk for COVID-19 are in a state of rapid change based on information released by regulatory bodies including the CDC and federal and state organizations. These policies and algorithms were followed during the patient's care in the emergency department. Please note that these policies, procedures and recommendations changed on a rapid basis. The patient is a 60-year-old gentleman who presents to the department after mechanical fall while attempting to urinate earlier on today. Prior to the fall, he denies acute complaints. He reports that he was attempted to urinate, and slid down and hit his right upper quadrant and right rib cage. He did not hit his head or neck. He complains of pain to his right rib cage, and right upper quadrant. Past medical history is complex, including deconditioning, hypertension, [place], CHF, GERD, alcohol abuse with cirrhosis, diabetes, paroxysmal A. fib, history of complete heart block, now with permanent pacemaker in situ. The patient reports that he lives with a family member, has a hospital bed where he lives, and also reports that he has a wheelchair and a cane to assist with ambulation. While attempting to urinate, he was not sitting down and he was not in a wheelchair. His pain is sharp and increases with palpation and decreases with rest an position -: Sudden Location: abdomen (Right upper quadrant), right (Right inferior and lateral thorax and chest wall) Quality: other Consistency: other Improves with: other Worsens with: other - Related Data Home Medications Medication Instructions Recorded Confirmed Last Taken Atorvastatin [Lipitor] 40 mg PO QDAY 08/27/13 07/08/21 03/12/21 19:00 Divalproex ER [Depakote ER] 2,500 mg PO QHS 08/27/13 07/08/21 3 Days Ago ~07/05/21 FLUoxetine [PROzac] 20 mg PO QDAY 08/27/13 07/08/21 3 Days Ago ~07/05/21 Sitagliptin Phosphate [Januvia] 100 mg PO QDAY 07/19/19 07/08/21 03/12/21 dilTIAZem HCl [Diltiazem 24Hr ER 120 mg PO QDAY 07/19/19 07/08/21 07/06/21 (Xr)] 120 Losartan [Cozaar] 50 mg PO QDAY 07/08/21 07/08/21 3 Days Ago ~07/05/21 Previous Rx's Medication Instructions Recorded Last Taken Type Ondansetron [Zofran ODT TAB] 8 mg PO Q8HR #20 tab.rapdis 05/19/21 3 Days Ago Rx ~07/05/21 Ondansetron [Zofran ODT TAB] 4 mg PO Q8HR PRN #14 tab.rapdis 05/27/21 Unknown Rx Pantoprazole [Protonix TAB] 40 mg PO BID #60 tablet 05/27/21 3 Days Ago Rx ~07/05/21 chlordiazePOXIDE [Librium] 25 mg PO Q6H PRN #25 capsule 05/27/21 Unknown Rx Apixaban [Eliquis] 2.5 mg PO Q12HR 30 Days #60 tablet 07/13/21 Unknown Rx Allergies Allergy/AdvReac Type Severity Reaction Status Date / Time No Known Allergies Allergy Verified 10/05/21 15:08 ED Review of Systems Constitutional: malaise (Chronic malaise, chronic weak). denies: fever Respiratory: denies: cough Cardiovascular: other (Right inferior and lateral rib cage pain) Gastrointestinal: abdominal pain. denies: hematemesis, melena, hematochezia Genitourinary: as per HPI (Denies dysuria.), other (Reports dark-colored urine) Musculoskeletal: arthralgia, myalgia Neurological: weakness (Generalized weakness) Psychiatric: denies: homicidal thoughts, suicidal thoughts Hematological/Lymphatic: easy bruising ED Past Medical Hx - Past Medical History Hx Hypertension: Yes Hx Heart Attack/AMI: Yes (Heart attack ~2 years ago) Hx Congestive Heart Failure: Yes (Hx mild CHF) Hx Diabetes: Yes Hx Pulmonary Embolism: Yes Hx GERD: Yes Hx Renal Disease: Yes (VELIA) Hx Sickle Cell Disease: No Hx Seizures: Yes Hx Psychiatric Treatment: Yes (bipolar,schiz) Hx Asthma: No Hx COPD: No Additional medical history: herniated disc,neuropathy,concussions x2, shoulder dilocations,LIVER DISEASE/cirrhosis. GI bleed, AFIB - Surgical History Hx Pacemaker: Yes (transvenous - 100% paced) Hx Cholecystectomy: Yes - Social History Smoking Status: Unknown if ever smoked - Medications Home Medications: Home Medications Medication Instructions Recorded Confirmed Last Taken Type Atorvastatin [Lipitor] 40 mg PO QDAY 08/27/13 07/08/21 03/12/21 19:00 History Divalproex ER [Depakote ER] 2,500 mg PO QHS 08/27/13 07/08/21 3 Days Ago History ~07/05/21 FLUoxetine [PROzac] 20 mg PO QDAY 08/27/13 07/08/21 3 Days Ago History ~07/05/21 Sitagliptin Phosphate [Januvia] 100 mg PO QDAY 07/19/19 07/08/21 03/12/21 History dilTIAZem HCl [Diltiazem 24Hr ER 120 mg PO QDAY 07/19/19 07/08/21 07/06/21 History (Xr)] 120 Ondansetron [Zofran ODT TAB] 8 mg PO Q8HR #20 tab.rapdis 05/19/21 07/08/21 3 Days Ago Rx ~07/05/21 Ondansetron [Zofran ODT TAB] 4 mg PO Q8HR PRN #14 tab.rapdis 05/27/21 07/08/21 Unknown Rx Pantoprazole [Protonix TAB] 40 mg PO BID #60 tablet 05/27/21 07/08/21 3 Days Ago Rx ~07/05/21 chlordiazePOXIDE [Librium] 25 mg PO Q6H PRN #25 capsule 05/27/21 07/08/21 Unknown Rx Losartan [Cozaar] 50 mg PO QDAY 07/08/21 07/08/21 3 Days Ago History ~07/05/21 Apixaban [Eliquis] 2.5 mg PO Q12HR 30 Days #60 tablet 07/13/21 Unknown Rx ED Physical Exam - General Limitations: Physical Limitation General appearance: alert, obese - Head Head exam: Present: atraumatic, normocephalic - Eye Eye exam: Present: normal appearance, EOMI. Absent: nystagmus - ENT ENT exam: Present: normal exam, normal orophraynx, mucous membranes moist, normal external ear exam - Neck Neck exam: Present: normal inspection, full ROM. Absent: tenderness, meningismus - Respiratory Respiratory exam: Present: normal lung sounds bilaterally, chest wall tenderness. Absent: respiratory distress, wheezes, rhonchi, stridor - Cardiovascular Cardiovascular Exam: Present: regular rate, normal rhythm, normal heart sounds. Absent: bradycardia, tachycardia, irregular rhythm, systolic murmur, diastolic murmur, rubs, gallop - GI/Abdominal GI/Abdominal exam: Present: soft, tenderness, other (There is right upper quadrant tenderness). Absent: distended, guarding, rebound, rigid, pulsatile mass - Rectal Rectal exam: Present: deferred - Extremities Exam Extremities exam: Present: normal inspection, full ROM, pedal edema, other (2+ pulses noted in the bilateral upper and lower extremities. There is no palpable cord. negative Homans sign. Muscular compartments are soft. The pelvis is stable.). Absent: calf tenderness - Back Exam Back exam: Present: normal inspection. Absent: tenderness, CVA tenderness (R), CVA tenderness (L), paraspinal tenderness, vertebral tenderness - Neurological Exam Neurological exam: Present: alert, oriented X3, other (There is no facial droop. The tongue is midline. EOMI. 4 out of 5 strength in 4 extremities. Sensation is intact to light touch in 4 extremities.) - Psychiatric Psychiatric exam: Present: flat affect. Absent: homicidal ideation, suicidal ideation - Skin Skin exam: Present: warm, dry, intact, normal color. Absent: rash ED Course - Reevaluation(s) Reevaluation #1: 10/05/21 18:40 Differential diagnosis, include not limited to: Costochondritis, mechanical fall, intra-abdominal injury, cirrhosis, chronic deconditioning Assessment and plan: 60-year-old gentleman who is pleasant, calm and cooperative , who is chronically deconditioned, who lives with a family member, has a hospital bed, wheelchair and cane, with mechanical fall likely secondary to deconditioning. He is tender in his right upper quadrant and right inferior and lateral thorax. This is most likely mechanical pain. He did not hit his head or his neck. We will obtain x-ray of the chest, and CT scan of the abdomen pelvis. We will treat the patient's symptoms. I discussed the plan of care with the patient. He articulated understanding, and he is agreeable to the plan of care 10/05/21 19:40 Laboratory studies are essentially unremarkable. Transaminitis is expected given history of cirrhosis. Awaiting CT scan abdomen pelvis Reevaluation #2: 10/05/21 20:11 Care will be transferred to the oncoming ER physician Dr Christin Gunn, to follow-up on CT scan of the abdomen pelvis and arrange for final disposition. Should CT scan of abdomen pelvis to be negative as we anticipate, I think it would be r easonable to discharge this patient with outpatient follow-up 10/05/21 20:47 - Pulse Oximetry Interpretation Digit-Finger Initial Pulse Oximetry Readin O2 Sat by Pulse Oximetry: 98 ED Medical Decision Making - Lab Data Result diagrams: 10/05/21 18:13 10/05/21 18:13 Vital Signs 10/05/21 10/05/21 10/05/21 15:05 18:25 18:31 Temperature 97.6 F Pulse Rate 69 68 Respiratory 18 18 Rate Blood Pressure 130/99 107/63 [Left] O2 Sat by Pulse 97 99 99 Oximetry Lab Results 10/05/21 10/05/21 10/05/21 Range/Units 18:13 18:13 18:13 WBC 7.0 (4.5-11.0) K/mm3 RBC 4.07 (3.65-5.03) M/mm3 Hgb 13.7 (11.8-15.2) gm/dl Hct 39.5 (35.5-45.6) % MCV 97 H (84-94) fl MCH 34 H (28-32) pg MCHC 35 H (32-34) % RDW 14.4 (13.2-15.2) % Plt Count 159 (140-440) K/mm3 Lymph % (Auto) 18.3 (13.4-35.0) % Lee % (Auto) 11.8 H (0.0-7.3) % Eos % (Auto) 0.4 (0.0-4.3) % Baso % (Auto) 0.7 (0.0-1.8) % Lymph # (Auto) 1.3 (1.2-5.4) K/mm3 Lee # (Auto) 0.8 (0.0-0.8) K/mm3 Eos # (Auto) 0.0 (0.0-0.4) K/mm3 Baso # (Auto) 0.1 (0.0-0.1) K/mm3 Seg Neutrophils % 68.8 (40.0-70.0) % Seg Neutrophils # 4.8 (1.8-7.7) K/mm3 PT 15.5 H (12.2-14.9) Sec. INR 1.10 (0.87-1.13) APTT 28.8 (24.2-36.6) Sec. Sodium 138 (137-145) mmol/L Potassium 3.5 L (3.6-5.0) mmol/L Chloride 98.0 (98-107) mmol/L Carbon Dioxide 27 (22-30) mmol/L Anion Gap 17 mmol/L BUN 9 (9-20) mg/dL Creatinine 0.8 (0.8-1.3) mg/dL Estimated GFR > 60 ml/min BUN/Creatinine Ratio 11 % Glucose 76 (75-100) mg/dL Calcium 9.4 (8.4-10.2) mg/dL Magnesium 1.60 L (1.7-2.3) mg/dL Total Bilirubin 0.70 (0.1-1.2) mg/dL AST 184 H (5-40) units/L ALT 94 H (7-56) units/L Alkaline Phosphatase 334 H (35-129) units/L Ammonia (25-60) umol/L Total Protein 6.9 (6.3-8.2) g/dL Albumin 3.5 L (3.9-5) g/dL Albumin/Globulin Ratio 1.0 % Lipase 12 L (13-60) units/L TSH (0.270-4.200) mlU/mL Salicylates (2.8-20.0) mg/dL Acetaminophen (10.0-30.0) ug/mL Plasma/Serum Alcohol (0-0.07) % 10/05/21 10/05/21 10/05/21 Range/Units 18:13 18:13 18:13 WBC (4.5-11.0) K/mm3 RBC (3.65-5.03) M/mm3 Hgb (11.8-15.2) gm/dl Hct (35.5-45.6) % MCV (84-94) fl MCH (28-32) pg MCHC (32-34) % RDW (13.2-15.2) % Plt Count (140-440) K/mm3 Lymph % (Auto) (13.4-35.0) % Lee % (Auto) (0.0-7.3) % Eos % (Auto) (0.0-4.3) % Baso % (Auto) (0.0-1.8) % Lymph # (Auto) (1.2-5.4) K/mm3 Lee # (Auto) (0.0-0.8) K/mm3 Eos # (Auto) (0.0-0.4) K/mm3 Baso # (Auto) (0.0-0.1) K/mm3 Seg Neutrophils % (40.0-70.0) % Seg Neutrophils # (1.8-7.7) K/mm3 PT (12.2-14.9) Sec. INR (0.87-1.13) APTT (24.2-36.6) Sec. Sodium (137-145) mmol/L Potassium (3.6-5.0) mmol/L Chloride (98-107) mmol/L Carbon Dioxide (22-30) mmol/L Anion Gap mmol/L BUN (9-20) mg/dL Creatinine (0.8-1.3) mg/dL Estimated GFR ml/min BUN/Creatinine Ratio % Glucose (75-100) mg/dL Calcium (8.4-10.2) mg/dL Magnesium (1.7-2.3) mg/dL Total Bilirubin (0.1-1.2) mg/dL AST (5-40) units/L ALT (7-56) units/L Alkaline Phosphatase (35-129) units/L Ammonia 12.0 L (25-60) umol/L Total Protein (6.3-8.2) g/dL Albumin (3.9-5) g/dL Albumin/Globulin Ratio % Lipase (13-60) units/L TSH 1.710 (0.270-4.200) mlU/mL Salicylates < 0.3 L (2.8-20.0) mg/dL Acetaminophen (10.0-30.0) ug/mL Plasma/Serum Alcohol (0-0.07) % 10/05/21 10/05/21 Range/Units 18:13 18:13 WBC (4.5-11.0) K/mm3 RBC (3.65-5.03) M/mm3 Hgb (11.8-15.2) gm/dl Hct (35.5-45.6) % MCV (84-94) fl MCH (28-32) pg MCHC (32-34) % RDW (13.2-15.2) % Plt Count (140-440) K/mm3 Lymph % (Auto) (13.4-35.0) % Lee % (Auto) (0.0-7.3) % Eos % (Auto) (0.0-4.3) % Baso % (Auto) (0.0-1.8) % Lymph # (Auto) (1.2-5.4) K/mm3 Lee # (Auto) (0.0-0.8) K/mm3 Eos # (Auto) (0.0-0.4) K/mm3 Baso # (Auto) (0.0-0.1) K/mm3 Seg Neutrophils % (40.0-70.0) % Seg Neutrophils # (1.8-7.7) K/mm3 PT (12.2-14.9) Sec. INR (0.87-1.13) APTT (24.2-36.6) Sec. Sodium (137-145) mmol/L Potassium (3.6-5.0) mmol/L Chloride (98-107) mmol/L Carbon Dioxide (22-30) mmol/L Anion Gap mmol/L BUN (9-20) mg/dL Creatinine (0.8-1.3) mg/dL Estimated GFR ml/min BUN/Creatinine Ratio % Glucose (75-100) mg/dL Calcium (8.4-10.2) mg/dL Magnesium (1.7-2.3) mg/dL Total Bilirubin (0.1-1.2) mg/dL AST (5-40) units/L ALT (7-56) units/L Alkaline Phosphatase (35-129) units/L Ammonia (25-60) umol/L Total Protein (6.3-8.2) g/dL Albumin (3.9-5) g/dL Albumin/Globulin Ratio % Lipase (13-60) units/L TSH (0.270-4.200) mlU/mL Salicylates (2.8-20.0) mg/dL Acetaminophen 5.0 L (10.0-30.0) ug/mL Plasma/Serum Alcohol < 0.01 (0-0.07) % - EKG Data -: EKG Interpreted by Pr - EKG Data 10/05/21 18:44 The prehospital EKG is interpreted by myself at 18: 00 This is a ventricular paced rhythm with good capture. There is a leftward axis deviation. There is poor R wave progression. The QTC is 43 ms. This is an abnormal EKG. This is not a STEMI. The patient denies chest pain. Emergency room EKG is interpreted at 18: 4 0 This is a ventricular paced rhythm, with good capture, with a rate of 74 bpm. There is a leftward axis deviation, there is poor R wave progression, and the QTC is 5 1 4 ms. This is an abnormal EKG. This is not a STEMI - Radiology Data Radiology results: pending, report reviewed, image reviewed CHEST 1 VIEW 10/05/2021 5:19 PM INDICATION / CLINICAL INFORMATION: Right rib cage pain after fall. COMPARISON: 07/12/21. FINDINGS: SUPPORT DEVICES: The position of the dual chamber left subclavian transvenous pacemaker has not changed. HEART / MEDIASTINUM: The heart size and pulmonary vasculature are normal. LUNGS / PLEURA: No significant pulmonary or pleural abnormality. No pneumothorax. ADDITIONAL FINDINGS: No acute osseous abnormality is seen. IMPRESSION: No acute findings. Signer Name: Rod Whiteside MD Signed: 10/05/2021 5:20 PM Workstation Name: [id number] ED Disposition Clinical Impression: Fall, Rib fracture, Cirrhosis Disposition: 01 HOME / SELF CARE / HOMELESS Condition: Stable Instructions: Rib Fracture, Rib Fracture, [id number] Additional Instructions: Please make certain to use your wheelchair, walker, and or cane when ambulating and walking. Avoid strenuous physical activities. Do not take metformin med ication for the next 2 days if patient takes this medication. Please continue current outpatient medications. Please follow-up with your outpatient primary care doctor or GI physician within the next week. Please return to the emergency room right away with new pain, worsened pain, migration of pain, projectile vomiting, change in mental status, confusion, inability tolerate liquid feeds, new, worsened or different symptoms not present on the initial emergency room evaluation Referrals: [facility] [Provider Group] - 3-5 Days [facility] [Provider Group] - 3-5 Days <PHILLIP GUNN - Last Filed: 10/05/21 22:13> ED Review of Systems ROS: Stated complaint: WEAK/FALL Other details as noted in HPI ED Course Vital Signs 10/05/21 10/05/21 10/05/21 15:05 18:25 18:31 Temperature 97.6 F Pulse Rate 69 68 Respiratory 18 18 Rate Blood Pressure 130/99 107/63 [Left] O2 Sat by Pulse 97 99 99 Oximetry O2 Sat by Pulse Oximetry [ Digit-Finger] 10/05/21 20:47 Temperature Pulse Rate Respiratory Rate Blood Pressure [Left] O2 Sat by Pulse Oximetry O2 Sat by Pulse 98 Oximetry [ Digit-Finger] ED Medical Decision Making - Lab Data Result diagrams: 10/05/21 18:13 10/05/21 18:13 - Medical Decision Making pt was handed over to me By dr briones at 9 pm for follow up in CT scqan results . CT showed non displaced fracture of rt 8th rib without pneumo , liver cirrhosis seems stable , sean rodriguez raymond Critical care attestation.: If time is entered above; I have spent that time in minutes in the direct care of this critically ill patient, excluding procedure time. ED Disposition Is pt being admited?: No Does the pt Need Aspirin: No
--- NOTE | 2021-10-05 18:25 | XRay Report ---
CHEST 1 VIEW 10/05/2021 5:19 PM INDICATION / CLINICAL INFORMATION: Right rib cage pain after fall. COMPARISON: 07/12/21. FINDINGS: SUPPORT DEVICES: The position of the dual chamber left subclavian transvenous pacemaker has not daniel ed. HEART / MEDIASTINUM: The heart size and pulmonary vasculature are normal. LUNGS / PLEURA: No significant pulmonary or pleural abnormality. No pneumothorax. ADDITIONAL FINDINGS: No acute osseous abnormality is seen. IMPRESSION: No acute findings. Signer Name: Rod Whiteside MD Signed: 10/05/2021 6:20 PM Workstation Name: [id number]
[2021-10-05 18:42] LABS: Basophils # (Auto) 0.1 K/mm3 (0.0-0.1); Basophils % (Auto) 0.7 % (0.0-1.8); Eosinophils % (Auto) 0.4 % (0.0-4.3); Hematocrit 39.5 % (35.5-45.6); Hemoglobin 13.7 gm/dl (11.8-15.2); Lymphocytes # (Auto) 1.3 K/mm3 (1.2-5.4); Lymphocytes % (Auto) 18.3 % (13.4-35.0); Mean Corpuscular HGB Conc 35 % (32-34); Mean Corpuscular Volume 97 fl (84-94); Monocytes # (Auto) 0.8 K/mm3 (0.0-0.8); Monocytes % (Auto) 11.8 % (0.0-7.3); Platelet Count 159 K/mm3 (140-440); Red Blood Count 4.07 M/mm3 (3.65-5.03); Red Cell Distribution Width 14.4 % (13.2-15.2)
[2021-10-05 18:52] LABS: INR 1.1 (0.87-1.13); Partial Thromboplastin Time 28.8 Sec. (24.2-36.6)
[2021-10-05 19:11] LABS: Alanine Aminotransferase 94 units/L (7-56); Albumin 3.5 g/dL (3.9-5); BUN/Creatinine Ratio 11; Blood Urea Nitrogen 9 mg/dL (9-20); Calcium 9.4 mg/dL (8.4-10.2); Hemolysis Index 4
--- NOTE | 2021-10-05 21:40 | Cat Scan Report ---
CT abdomen pelvis w con INDICATION / CLINICAL INFORMATION: ruq pain, right dstal thorax pain s/p fall. TECHNIQUE: Axial CT images were obtained through the abdomen and pelvis after 100 cc Omni 300 IV cont rast. All CT scans at this location are performed using CT dose reduction for ALARA by means of auto mated exposure control. COMPARISON: CT dated 05/27/2021 FINDINGS: LOWER CHEST: No significant abnormality LIVER: Cirrhotic morphology of the liver is again seen. Dominant lesion within the right hepatic lobe appears decreased in size from prior CT from 05/27/2021, now measuring 3.2 x 3.0 cm; previously measu red up to 4.4 cm. This also demonstrates a more cystic appearance. However, there is an additional lo w-density lesion within the anterior inferior right hepatic lobe measuring 4.5 x 3.3 cm. No additiona l lesion. GALLBLADDER/BILIARY TREE: Cholecystectomy. PANCREAS: No significant abnormality SPLEEN: No significant abnormality ADRENALS: Stable left-sided myelolipoma. KIDNEYS / URETER: No significant abnormality URINARY BLADDER: Bladder is partially decompressed, though grossly unremarkable. REPRODUCTIVE ORGANS: No significant abnormality STOMACH / BOWEL: Intramural gastric varices again seen. Stomach is otherwise unremarkable. There are surgical changes at the gastroduodenal junction. Small bowel is normal in caliber. Colonic diverticul osis without evidence of diverticulitis. Appendix is not discretely seen. LYMPH NODES: No significant adenopathy. VASCULATURE: Abdominal aorta and major branching vessels are normal in caliber. The portal vein, SMV, and splenic vein are patent. OTHER: No free air, free fluid, or focal fluid collection is identified. SKELETAL SYSTEM: Degenerative changes of the spine. There is a new nondisplaced fracture of the right lateral eighth rib (series 4 image 33). No additional fracture is seen. IMPRESSION: 1. Cirrhosis of the liver. Dominant lesion within the right hepatic lobe appears smaller from prior C T from 05/27/2021, though there is a new adjacent low-density lesion within the anterior inferior righ t hepatic lobe. These findings may reflect sequela of interval therapy. Progression in hepatocellular carcinoma is not excluded. Recommend continued nonemergent follow-up with multiphasic CT or MRI. 2. New nondisplaced fracture of the right lateral eighth rib. 3. No other acute findings of the abdomen or pelvis. Other stable chronic and incidental findings as above. Signer Name: Deni Najera MD Signed: 10/05/2021 9:36 PM Workstation Name: [id number]
[2021-10-05 23:54] VITALS: BP 127/68
--- NOTE | 2021-10-06 17:52 | Electrocardiograph Report ---
[facility] Test Date: 2021-10-05 Test Time: 18:40:13 Pat Name: ASHER BUSH Department: Room: Gender: M Butcher'S Assistant: [id number] : 1960 Requested By: JUAN MANUEL BRIONES Order Number: [id number] Reading MD: Shaina Hannon Measurements Intervals [facility] Rate: 74 P: -40 DC: 174 QRS: -73 QRSD: 167 T: 107 QT: 462 QTc: 514 Interpretive Statements Ventricular-paced rhythm Compared to ECG 07/09/2021 07:25:12 No significant change Electronically Signed On 10-06-2021 17:52:01 EDT by Shaina Hannon
== END 2021-10-06 00:21 | disposition home or self-care (01) ==
LOC: ED 14:45
DX: S22.31XA Fracture of one rib, right side, initial encounter for closed fracture (principal); K74.60 Unspecified cirrhosis of liver; I13.0 Hypertensive heart and chronic kidney disease with heart failure and stage 1 through stage 4 chronic kidney disease, or unspecified chronic kidney disease; E11.22 Type 2 diabetes mellitus with diabetic chronic kidney disease; N18.9 Chronic kidney disease, unspecified; I50.9 Heart failure, unspecified; I82.499 Acute embolism and thrombosis of other specified deep vein of unspecified lower extremity; K21.9 Gastro-esophageal reflux disease without esophagitis; R56.9 Unspecified convulsions; F20.9 Schizophrenia, unspecified; F31.9 Bipolar disorder, unspecified; Z98.890 Other specified postprocedural states; W19.XXXA Unspecified fall, initial encounter; Y93.89 Activity, other specified; Y92.89 Other specified places as the place of occurrence of the external cause; Y99.8 Other external cause status
CPT/HCPCS: 36415; 71045; 74177; 80053; 82140; 83690; 83735; 84443; 85025; 85610; 85730; 93005; 96374; 99285; J3010; J7050; Q9967; 80320; G0480

== ENCOUNTER 2021-10-06 02:23 | Emergency (ER) | payer MEDICARE ==
[2021-10-06] MEDS ORDERED: HYDROcodone/ACETAMINOPHEN 5-325 MG TAB PO ONE (08:17)
[2021-10-06] MEDS ORDERED: POTASSIUM CHLORIDE ER 20 MEQ TAB PO ONE (08:18)
[2021-10-06] MEDS ORDERED: MAGNESIUM OXIDE 400 MG TAB PO ONE (08:18)
[2021-10-06 09:01] VITALS: BP 122/67
--- NOTE | 2021-10-06 09:03 | Emergency Department Report ---
ED Fall HPI - General Chief Complaint: Fall Stated Complaint: FALL/WEAKNESS Time Seen by Provider: 10/06/21 07:54 Source: EMS, old records reviewed Mode of arrival: Stretcher Limitations: Physical Limitation - History of Present Illness Initial Comments: 60-year-old male with a past medical history of HTN, AR, CHF, GERD, EtOH abuse and cirrhosis, DM and paroxysmal atrial fibrillation admitted with complete heart block status post dual-chamber pacemaker placed during admission here July 12, 2021 presents to the hospital once again complaining of right sided thoracic pain status post fall. Patient was seen last night for same. Patient denies head injury or LOC. At that time patient had a chest x-ray and CT abdomen pelvis significant for nondisplaced right eighth rib fracture. Patient was discharged from the department about 12:18 this morning. States he went home and fell again. This time he fell back into his bed "jolting his body" and exacerbating his right-sided chest pain. No head injury or LOC reported. Patient has chronic unsteady gait with inability to walk without assistance for at least 5 to 6 months. He currently has a wheelchair, a walker, and a hospital bed. He states that home health has been arranged however, he has been in the hospital frequently and therefore they have actually not visited the home. He denies current anticoagulation use, headache, chest pain, shortness of breath, or syncope. Labs from yesterday's visit show mild hypokalemia, mild hypomagnesemia, and elevated LFTs consistent with alcohol abuse and cirrhosis. Patient states he has not had alcohol in 15 years. - Related Data Home Medications Medication Instructions Recorded Confirmed Last Taken Atorvastatin [Lipitor] 40 mg PO QDAY 08/27/13 07/08/21 03/12/21 19:00 Divalproex ER [Depakote ER] 2,500 mg PO QHS 08/27/13 07/08/21 3 Days Ago ~07/05/21 FLUoxetine [PROzac] 20 mg PO QDAY 08/27/13 07/08/21 3 Days Ago ~07/05/21 Sitagliptin Phosphate [Januvia] 100 mg PO QDAY 07/19/19 07/08/21 03/12/21 dilTIAZem HCl [Diltiazem 24Hr ER 120 mg PO QDAY 07/19/19 07/08/21 07/06/21 (Xr)] 120 Losartan [Cozaar] 50 mg PO QDAY 07/08/21 07/08/21 3 Days Ago ~07/05/21 Previous Rx's Medication Instructions Recorded Last Taken Type Ondansetron [Zofran ODT TAB] 8 mg PO Q8HR #20 tab.rapdis 05/19/21 3 Days Ago Rx ~07/05/21 Ondansetron [Zofran ODT TAB] 4 mg PO Q8HR PRN #14 tab.rapdis 05/27/21 Unknown Rx Pantoprazole [Protonix TAB] 40 mg PO BID #60 tablet 05/27/21 3 Days Ago Rx ~07/05/21 chlordiazePOXIDE [Librium] 25 mg PO Q6H PRN #25 capsule 05/27/21 Unknown Rx Apixaban [Eliquis] 2.5 mg PO Q12HR 30 Days #60 tablet 07/13/21 Unknown Rx HYDROcodone/APAP 5-325 [[place] 1 each PO Q6HR PRN #15 tablet 10/06/21 Unknown Rx 5/325] Allergies Allergy/AdvReac Type Severity Reaction Status Date / Time No Known Allergies Allergy Verified 10/05/21 15:08 ED Review of Systems ROS: Stated complaint: FALL/WEAKNESS Other details as noted in HPI Comment: All other systems reviewed and negative ED Past Medical Hx - Past Medical History Hx Hypertension: Yes Hx Heart Attack/AMI: Yes (Heart attack ~2 years ago) Hx Congestive Heart Failure: Yes (Hx mild CHF) Hx Diabetes: Yes Hx Pulmonary Embolism: Yes Hx GERD: Yes Hx Renal Disease: Yes (VELIA) Hx Sickle Cell Disease: No Hx Seizures: Yes Hx Psychiatric Treatment: Yes (bipolar,schiz) Hx Asthma: No Hx COPD: No Additional medical history: herniated disc,neuropathy,concussions x2, shoulder dilocations,LIVER DISEASE/cirrhosis. GI bleed, AFIB - Surgical History Hx Pacemaker: Yes (Dual-chamber pacemaker placed July 12, 2021) Hx Cholecystectomy: Yes - Social History Smoking Status: Unknown if ever smoked - Medications Home Medications: Home Medications Medication Instructions Recorded Confirmed Last Taken Type Atorvastatin [Lipitor] 40 mg PO QDAY 08/27/13 07/08/21 03/12/21 19:00 History Divalproex ER [Depakote ER] 2,500 mg PO QHS 08/27/13 07/08/21 3 Days Ago History ~07/05/21 FLUoxetine [PROzac] 20 mg PO QDAY 08/27/13 07/08/21 3 Days Ago History ~07/05/21 Sitagliptin Phosphate [Januvia] 100 mg PO QDAY 07/19/19 07/08/21 03/12/21 History dilTIAZem HCl [Diltiazem 24Hr ER 120 mg PO QDAY 07/19/19 07/08/21 07/06/21 History (Xr)] 120 Ondansetron [Zofran ODT TAB] 8 mg PO Q8HR #20 tab.rapdis 05/19/21 07/08/21 3 Days Ago Rx ~07/05/21 Ondansetron [Zofran ODT TAB] 4 mg PO Q8HR PRN #14 tab.rapdis 05/27/21 07/08/21 Unknown Rx Pantoprazole [Protonix TAB] 40 mg PO BID #60 tablet 05/27/21 07/08/21 3 Days Ago Rx ~07/05/21 chlordiazePOXIDE [Librium] 25 mg PO Q6H PRN #25 capsule 05/27/21 07/08/21 Unknown Rx Losartan [Cozaar] 50 mg PO QDAY 07/08/21 07/08/21 3 Days Ago History ~07/05/21 Apixaban [Eliquis] 2.5 mg PO Q12HR 30 Days #60 tablet 07/13/21 Unknown Rx HYDROcodone/APAP 5-325 [[place] 1 each PO Q6HR PRN #15 tablet 10/06/21 Unknown Rx 5/325] ED Physical Exam - General Limitations: No Limitations - Other Other exam information: General: No acute distress Head: Atraumatic Eyes: normal appearance ENT: Moist mucous membranes Neck: Normal appearance, no midline tenderness Chest: Clear to auscultation bilaterally CV: Regular rate and rhythm Abdomen: Soft, normal bowel sounds, nontender, nondistended, no rebound or guarding Back: Normal inspection Extremity: Normal inspection, full range of motion Neuro: Alert O x 3, no facial asymmetry, speech clear, sensation grossly intact, equal handgrip. Equal foot dorsiflexion. Very minimum antigravity strength to bilateral lower extremities Psych: Appropriate behavior ED Course Vital Signs 10/06/21 10/06/21 02:54 08:56 Temperature 98.4 F 98.8 F Pulse Rate 96 H 70 Respiratory 18 14 Rate Blood Pressure 130/90 Blood Pressure 122/67 [Left] O2 Sat by Pulse 98 99 Oximetry - Consultations Consultation #1: 10/06/21 13:10 case management note reviewed, see below SW rcvd CM consult per MD Tejeda for request for HH and correction placement. pt already has home health Nurse/PT/OT current with [facility] home. pt can re turn home and arrange SNF placement through pcp and family. ED nurse station is ready to arrange transport home. Consult completed. ED Medical Decision Making - Radiology Data Radiology results: report reviewed - Medical Decision Making 60-year-old male presents to the hospital for persistent right sided chest wall pain. He had a fall yesterday and was diagnosed with a nondisplaced right-sided rib fracture. Patient then fell backwards in the bed exasperating pain and return to the ED. Patient has a history of chronic falls and already has several devices to help with getting around his home including wheelchair and walker. He also has a hospital bed. Case management was consulted to confirm t hat patient also has home health arranged. Patient desires correction placement he will need to arrange for this as an outpatient as per case management note. Patient will be placed on pain medication for his rib fracture and incentive spirometer will be provided to encourage lung aeration Critical Care Time: No Critical care attestation.: If time is entered above; I have spent that time in minutes in the direct care of this critically ill patient, excluding procedure time. ED Disposition Clinical Impression: Frequent falls Right rib fracture Qualifiers: Encounter type: subsequent encounter Rib fracture type: single rib Fracture type: closed Disposition: 01 HOME / SELF CARE / HOMELESS Is pt being admited?: No Does the pt Need Aspirin: No Condition: Stable Instructions: Fall Prevention in the Home, Adult, [id number], Rib Fracture Additional Instructions: Take the medication as prescribed. Use the incentive spirometer as directed. Follow-up with your doctor or doctor/clinic provided. Return if symptoms worsen as indicated by your discharge instructions. Follow up with your doctor for to arrange for correction placement if desired Prescriptions: HYDROcodone/APAP 5-325 [[place] 5/325] 1 each PO Q6HR PRN #15 tablet PRN Reason: Pain Referrals: your, doctor [Other] - 3-5 Days RUBY GARSIA MD [Staff Physician] - 3-5 Days Time of Disposition: 13:20
== END 2021-10-06 15:52 | disposition home or self-care (01) ==
LOC: ED 02:23
DX: S22.31XA Fracture of one rib, right side, initial encounter for closed fracture (principal); E11.9 Type 2 diabetes mellitus without complications; I11.0 Hypertensive heart disease with heart failure; I50.9 Heart failure, unspecified; F31.9 Bipolar disorder, unspecified; F20.9 Schizophrenia, unspecified; Z90.49 Acquired absence of other specified parts of digestive tract; Z86.711 Personal history of pulmonary embolism; Z79.01 Long term (current) use of anticoagulants; Z79.899 Other long term (current) drug therapy; W18.39XA Other fall on same level, initial encounter; Y93.89 Activity, other specified; Y92.89 Other specified places as the place of occurrence of the external cause; Y99.8 Other external cause status
CPT/HCPCS: 99283

== ENCOUNTER 2021-10-20 22:49 | Emergency (ER) | payer MEDICARE ==
--- NOTE | 2021-10-20 23:14 | Emergency Department Report ---
ED General Adult HPI - General Chief complaint: Syncope Stated complaint: syncope Time Seen by Provider: 10/20/21 22:55 Source: patient, EMS ( EMS documentation not available at time of chart dictation ), RN notes reviewed, old records reviewed Mode of arrival: Stretcher Limitations: Physical Limitation - History of Present Illness Initial comments: The patient was evaluated in the emergency department for symptoms described in the history of present illness. He/she was evaluated in the context of the global COVID-19 pandemic, which necessitated consideration that the patient might be at risk for infection with the virus that causes COVID-19. In stitutional protocols and algorithms that pertain to the evaluation of patients at risk for COVID-19 are in a state of rapid change based on information released by regulatory bodies including the CDC and federal and state organizations. These policies and algorithms were followed during the patient's care in the emergency department. Please note that these policies, procedures and recommendations changed on a rapid basis. This is a 60-year-old gentleman whom I am very familiar with. Please see my note detailing the patient's significant past medical history from earlier on this month. Today, the patient presents to the emergency department with a complaint of loss of consciousness while attempting to defecate and urinate. He reports that prior to this event, he is not having any symptoms or issues. He reports that he does not know if he hit his head. He has chronic bilateral juan f ulder pain. He is not having any headache, neck pain, chest pain, abdominal pain or new/different shortness of breath. He denies hematemesis and bright red blood per rectum. He lives at home with a family member, and is poorly mobile at baseline. He reports his emt recently started him on digoxin. This patient had an uncomplicated dual-chamber pacemaker placed in July of this year, for complete heart block. -: Sudden Consistency: now resolved Worsens with: other (Worsens with defecation) - Related Data Home Medications Medication Instructions Recorded Confirmed Last Taken Atorvastatin [Lipitor] 40 mg PO QDAY 08/27/13 07/08/21 03/12/21 19:00 Divalproex ER [Depakote ER] 2,500 mg PO QHS 08/27/13 07/08/21 3 Days Ago ~07/05/21 FLUoxetine [PROzac] 20 mg PO QDAY 08/27/13 07/08/21 3 Days Ago ~07/05/21 Sitagliptin Phosphate [Januvia] 100 mg PO QDAY 07/19/19 07/08/21 03/12/21 dilTIAZem HCl [Diltiazem 24Hr ER 120 mg PO QDAY 07/19/19 07/08/21 07/06/21 (Xr)] 120 Losartan [Cozaar] 50 mg PO QDAY 07/08/21 07/08/21 3 Days Ago ~07/05/21 Previous Rx's Medication Instructions Recorded Last Taken Type Ondansetron [Zofran ODT TAB] 8 mg PO Q8HR #20 tab.rapdis 05/19/21 3 Days Ago Rx ~07/05/21 Ondansetron [Zofran ODT TAB] 4 mg PO Q8HR PRN #14 tab.rapdis 05/27/21 Unknown Rx Pantoprazole [Protonix TAB] 40 mg PO BID #60 tablet 05/27/21 3 Days Ago Rx ~07/05/21 chlordiazePOXIDE [Librium] 25 mg PO Q6H PRN #25 capsule 05/27/21 Unknown Rx Apixaban [Eliquis] 2.5 mg PO Q12HR 30 Days #60 tablet 07/13/21 Unknown Rx HYDROcodone/APAP 5-325 [[place] 1 each PO Q6HR PRN #15 tablet 10/06/21 Unknown Rx 5/325] Magnesium Oxide [Mag-Ox] 400 mg PO QDAY #30 tab 10/21/21 Unknown Rx Multivitamin with Folic Acid [[facility] 400 mcg PO QDAY #30 tablet 10/21/21 Unknown Rx One Daily Essential Tablet] Potassium Chloride [K-Dur] 20 meq PO QDAY #30 tab 10/21/21 Unknown Rx Allergies Allergy/AdvReac Type Severity Reaction Status Date / Time No Known Allergies Allergy Verified 10/05/21 15:08 ED Review of Systems ROS: Stated complaint: syncope Other details as noted in HPI Constitutional: malaise (Chronic), weakness (Chronic). denies: fever Respiratory: denies: cough Cardiovascular: edema (Chronic), syncope. denies: chest pain Gastrointestinal: denies: abdominal pain, hematemesis, melena, hematochezia Genitourinary: denies: dysuria Musculoskeletal: myalgia Neurological: weakness (Chronic) Psychiatric: denies: homicidal thoughts, suicidal thoughts ED Past Medical Hx - Past Medical History Hx Hypertension: Yes Hx Heart Attack/AMI: Yes (Heart attack ~2 years ago) Hx Congestive Heart Failure: Yes (Hx mild CHF) Hx Diabetes: Yes Hx Pulmonary Embolism: Yes Hx GERD: Yes Hx Renal Disease: Yes (VELIA) Hx Sickle Cell Disease: No Hx Seizures: Yes Hx Psychiatric Treatment: Yes (bipolar,schiz) Hx Asthma: No Hx COPD: No Additional medical history: herniated disc,neuropathy,concussions x2, shoulder dilocations,LIVER DISEASE/cirrhosis. GI bleed, AFIB - Surgical History Hx Pacemaker: Yes (Dual-chamber pacemaker placed July 12, 2021) Hx Cholecystectomy: Yes - Social History Smoking Status: Unknown if ever smoked - Medications Home Medications: Home Medications Medication Instructions Recorded Confirmed Last Taken Type Atorvastatin [Lipitor] 40 mg PO QDAY 08/27/13 07/08/21 03/12/21 19:00 History Divalproex ER [Depakote ER] 2,500 mg PO QHS 08/27/13 07/08/21 3 Days Ago History ~07/05/21 FLUoxetine [PROzac] 20 mg PO QDAY 08/27/13 07/08/21 3 Days Ago History ~07/05/21 Sitagliptin Phosphate [Januvia] 100 mg PO QDAY 07/19/19 07/08/21 03/12/21 History dilTIAZem HCl [Diltiazem 24Hr ER 120 mg PO QDAY 07/19/19 07/08/21 07/06/21 History (Xr)] 120 Ondansetron [Zofran ODT TAB] 8 mg PO Q8HR #20 tab.rapdis 05/19/21 07/08/21 3 Days Ago Rx ~07/05/21 Ondansetron [Zofran ODT TAB] 4 mg PO Q8HR PRN #14 tab.rapdis 05/27/21 07/08/21 Unknown Rx Pantoprazole [Protonix TAB] 40 mg PO BID #60 tablet 05/27/21 07/08/21 3 Days Ago Rx ~07/05/21 chlordiazePOXIDE [Librium] 25 mg PO Q6H PRN #25 capsule 05/27/21 07/08/21 Unknown Rx Losartan [Cozaar] 50 mg PO QDAY 07/08/21 07/08/21 3 Days Ago History ~07/05/21 Apixaban [Eliquis] 2.5 mg PO Q12HR 30 Days #60 tablet 07/13/21 Unknown Rx HYDROcodone/APAP 5-325 [[place] 1 each PO Q6HR PRN #15 tablet 10/06/21 Unknown Rx 5/325] Magnesium Oxide [Mag-Ox] 400 mg PO QDAY #30 tab 10/21/21 Unknown Rx Multivitamin with Folic Acid [[facility] 400 mcg PO QDAY #30 tablet 10/21/21 Unknown Rx One Daily Essential Tablet] Potassium Chloride [K-Dur] 20 meq PO QDAY #30 tab 10/21/21 Unknown Rx ED Physical Exam - General Limitations: Physical Limitation General appearance: alert, in no apparent distress, obese - Head Head exam: Present: atraumatic, normocephalic - Eye Eye exam: Present: normal appearance, EOMI. Absent: nystagmus - ENT ENT exam: Present: normal exam, normal orophraynx, mucous membranes moist, normal external ear exam - Neck Neck exam: Present: normal inspection, full ROM. Absent: tenderness, meningismus - Respiratory Respiratory exam: Present: normal lung sounds bilaterally. Absent: respiratory distress, wheezes, rales, rhonchi, stridor, decreased breath sounds - Cardiovascular Cardiovascular Exam: Present: regular rate, normal rhythm, normal heart sounds. Absent: bradycardia, tachycardia, irregular rhythm, systolic murmur, diastolic murmur, rubs, gallop - GI/Abdominal GI/Abdominal exam: Present: soft. Absent: distended, tenderness, guarding, rebound, rigid, pulsatile mass - Rectal Rectal exam: Present: normal inspection (Patient provides consent for rectal examination. During the rectal examination, I am chaperoned by nurse Vane Monsivais), normal rectal tone. Absent: black stool, bloody stool, fecal impaction, hemorrhoids - Extremities Exam Extremities exam: Present: normal inspection, full ROM, pedal edema, other (2+ pulses noted in the bilateral upper and lower extremities. There is no palpable cord. negative Homans sign. Muscular compartments are soft. The pelvis is stable.). Absent: calf tenderness - Back Exam Back exam: Present: normal inspection. Absent: tenderness, CVA tenderness (R), CVA tenderness (L), paraspinal tenderness, vertebral tenderness - Neurological Exam Neurological exam: Present: alert, oriented X3, other (No facial droop. Tongue midline. Extraocular movements intact bilaterally. Facial sensation intact to light touch in V1, V2, V3 distribution bilaterally. 5 and a 5 strength in 4 extremities. Sensation intact to light touch in 4 extremities.) - Psychiatric Psychiatric exam: Present: flat affect. Absent: homicidal ideation, suicidal ideation - Skin Skin exam: Present: warm, dry, intact, normal color. Absent: rash ED Course Vital Signs 10/20/21 10/20/21 10/20/21 23:01 23:12 23:15 Temperature 99.1 F Pulse Rate 74 Respiratory 14 8 L Rate Blood Pressure 125/66 O2 Sat by Pulse 98 96 Oximetry 10/20/21 10/20/21 10/20/21 23:19 23:30 23:35 Temperature Pulse Rate 76 70 Respiratory 8 L 10 L Rate Blood Pressure 125/66 125/66 125/66 O2 Sat by Pulse 99 94 97 Oximetry 10/20/21 10/21/21 10/21/21 23:45 00:01 00:09 Temperature Pulse Rate 70 70 70 Respiratory 18 15 14 Rate Blood Pressure 125/66 125/66 125/66 O2 Sat by Pulse 93 94 94 Oximetry 10/21/21 10/21/21 10/21/21 00:15 00:31 00:45 Temperature Pulse Rate 70 70 70 Respiratory 11 L 14 14 Rate Blood Pressure 125/66 125/66 125/66 O2 Sat by Pulse 95 96 97 Oximetry 10/21/21 10/21/21 10/21/21 01:01 01:15 01:31 Temperature Pulse Rate 70 73 70 Respiratory 15 16 16 Rate Blood Pressure 125/66 125/66 125/66 O2 Sat by Pulse 96 97 96 Oximetry 10/21/21 10/21/21 10/21/21 01:45 02:01 02:15 Temperature Pulse Rate 70 76 95 H Respiratory 17 11 L 15 Rate Blood Pressure 125/66 130/80 130/80 O2 Sat by Pulse 98 97 95 Oximetry 10/21/21 10/21/21 10/21/21 02:31 02:45 03:00 Temperature Pulse Rate 74 95 H 76 Respiratory 15 16 14 Rate Blood Pressure 124/74 124/74 124/74 O2 Sat by Pulse 96 95 97 Oximetry 10/21/21 03:15 Temperature Pulse Rate 72 Respiratory 17 Rate Blood Pressure 124/74 O2 Sat by Pulse 96 Oximetry - Reevaluation(s) Reevaluation #1: 10/21/21 01:11 Differential diagnosis, including but not limited to: Orthostasis, vagal event, structural cardiac disease, closed head injury, intracranial injury, hypomagnesemia, hypokalemia Assessment and plan: 60-year-old gentleman, who is not currently tachycardic, tachypneic or hypoxic, presenting with loss of consciousness while defecating and urinating. Suspect vagal event. Patient has a nonfocal neurologic examination, with a GCS of 15. He has no cervical spine pain or tenderness. He has no abdominal tenderness, and he does not have any blood on rectal examination. His EKG is unchanged from prior. His laboratory studies are essentially nonactionable except for mild hypokalemia, and mild hypomagnesemia. Patient thus far observed in the department for hours without clinical deter ioration, or loss of consciousness We will replete the patient's electrolytes. His EKG shows good V capture. This is a fresh dual-chamber pacemaker. This is very unlikely to be device failure. 10/21/21 01:14 10/21/21 02:21 Nursing team and heel lift gouger team unable to locate [employer] interrogation device. Discussed with [employer] industrial relations representative, they will send someone to perform device evaluation and interrogation in the morning. No loss of consciousness. Patient asking to drink. He will be given water. Repeat troponin pending. 10/21/21 03:37 Troponin negative x2. Patient resting comfortably in stretcher and in no acute distress. Care will be transferred to the oncoming ER provider, to follow-up on [employer] device interrogation. Presuming it is unremarkable, I would consider this patient suitable for discharge with outpatient follow-up. ED Medical Decision Making - Lab Data Result diagrams: 10/20/21 23:43 10/20/21 23:43 Vital Signs 10/20/21 10/20/21 10/20/21 23:01 23:12 23:15 Temperature 99.1 F Pulse Rate 74 Respiratory 14 8 L Rate Blood Pressure 125/66 O2 Sat by Pulse 98 96 Oximetry 10/20/21 10/20/21 10/21/21 23:35 23:45 00:01 Temperature Pulse Rate 70 70 Respiratory 18 15 Rate Blood Pressure 125/66 125/66 125/66 O2 Sat by Pulse 97 93 94 Oximetry Lab Results 10/20/21 10/20/21 10/20/21 Range/Units 23:43 23:43 23:43 WBC 5.3 (4.5-11.0) K/mm3 RBC 3.52 L (3.65-5.03) M/mm3 Hgb 11.6 L (11.8-15.2) gm/dl Hct 33.3 L (35.5-45.6) % MCV 95 H (84-94) fl MCH 33 H (28-32) pg MCHC 35 H (32-34) % RDW 14.5 (13.2-15.2) % Plt Count 143 (140-440) K/mm3 Lymph % (Auto) 25.6 (13.4-35.0) % Moody % (Auto) 14.7 H (0.0-7.3) % Eos % (Auto) 1.1 (0.0-4.3) % Baso % (Auto) 0.9 (0.0-1.8) % Lymph # (Auto) 1.4 (1.2-5.4) K/mm3 Moody # (Auto) 0.8 (0.0-0.8) K/mm3 Eos # (Auto) 0.1 (0.0-0.4) K/mm3 Baso # (Auto) 0.0 (0.0-0.1) K/mm3 Seg Neutrophils % 57.7 (40.0-70.0) % Seg Neutrophils # 3.1 (1.8-7.7) K/mm3 PT 14.7 (12.2-14.9) Sec. INR 1.03 (0.87-1.13) Sodium 138 (137-145) mmol/L Potassium 3.2 L (3.6-5.0) mmol/L Chloride 99.2 (98-107) mmol/L Carbon Dioxide 25 (22-30) mmol/L Anion Gap 17 mmol/L BUN 7 L (9-20) mg/dL Creatinine 0.7 L (0.8-1.3) mg/dL Estimated GFR > 60 ml/min BUN/Creatinine Ratio 10 % Glucose 92 (75-100) mg/dL Calcium 9.1 (8.4-10.2) mg/dL Magnesium 1.20 L (1.7-2.3) mg/dL Total Bilirubin 0.70 (0.1-1.2) mg/dL AST 32 (5-40) units/L ALT 21 (7-56) units/L Alkaline Phosphatase 241 H (35-129) units/L Ammonia (25-60) umol/L Total Creatine Kinase 23 L (55-170) units/L Troponin T < 0.010 (0.00-0.029) ng/mL Total Protein 5.9 L (6.3-8.2) g/dL Albumin 2.9 L (3.9-5) g/dL Albumin/Globulin Ratio 1.0 % Digoxin (0.9-2.0) ng/mL Salicylates (2.8-20.0) mg/dL Acetaminophen (10.0-30.0) ug/mL 10/20/21 10/20/21 10/20/21 Range/Units 23:43 23:43 23:43 WBC (4.5-11.0) K/mm3 RBC (3.65-5.03) M/mm3 Hgb (11.8-15.2) gm/dl Hct (35.5-45.6) % MCV (84-94) fl MCH (28-32) pg MCHC (32-34) % RDW (13.2-15.2) % Plt Count (140-440) K/mm3 Lymph % (Auto) (13.4-35.0) % Moody % (Auto) (0.0-7.3) % Eos % (Auto) (0.0-4.3) % Baso % (Auto) (0.0-1.8) % Lymph # (Auto) (1.2-5.4) K/mm3 Moody # (Auto) (0.0-0.8) K/mm3 Eos # (Auto) (0.0-0.4) K/mm3 Baso # (Auto) (0.0-0.1) K/mm3 Seg Neutrophils % (40.0-70.0) % Seg Neutrophils # (1.8-7.7) K/mm3 PT (12.2-14.9) Sec. INR (0.87-1.13) Sodium (137-145) mmol/L Potassium (3.6-5.0) mmol/L Chloride (98-107) mmol/L Carbon Dioxide (22-30) mmol/L Anion Gap mmol/L BUN (9-20) mg/dL Creatinine (0.8-1.3) mg/dL Estimated GFR ml/min BUN/Creatinine Ratio % Glucose (75-100) mg/dL Calcium (8.4-10.2) mg/dL Magnesium (1.7-2.3) mg/dL Total Bilirubin (0.1-1.2) mg/dL AST (5-40) units/L ALT (7-56) units/L Alkaline Phosphatase (35-129) units/L Ammonia 25.0 (25-60) umol/L Total Creatine Kinase (55-170) units/L Troponin T (0.00-0.029) ng/mL Total Protein (6.3-8.2) g/dL Albumin (3.9-5) g/dL Albumin/Globulin Ratio % Digoxin 1.2 (0.9-2.0) ng/mL Salicylates < 0.3 L (2.8-20.0) mg/dL Acetaminophen 5.0 L (10.0-30.0) ug/mL - EKG Data -: EKG Interpreted by Nc - EKG Data When compared to previous EKG there are: no significant change 10/21/21 01:08 The EKG today is interpreted by myself at 23: 11 there is a ventricular paced rhythm, with a V rate of 78 bpm. There is good ventricular capture, with a left axis deviation. The QTC is 4 9 6 ms. This EKG is not a STEMI. This EKG appears to be unchanged from prior EKG from October 05, 2021 - Radiology Data Radiology results: pending, report reviewed, image reviewed CT HEAD WITHOUT CONTRAST INDICATION / CLINICAL INFORMATION: Syncope, uncertain of close head injury or loss of. TECHNIQUE: CT head was performed without administration of intravenous contrast. All CT scans at this location are performed using CT dose reduction for ALARA by means of automated exposure control. COMPARISON: CT head 07/08/2021 FINDINGS: CEREBRAL HEMISPHERES: Generalized atrophy and bilateral regions of periventricular white matter hypoattenuation compatible with microvascular ischemia are demonstrated. No midline shift. Basal cisterns patent. HEMORRHAGE: None. CEREBELLUM / BRAINSTEM: No significant abnormality. ORBITS: No significant abnormality. SOFT TISSUES: No significant abnormality. SKULL: No significant abnormality. PARANASAL SINUSES / MASTOID AIR CELLS: Normal as visualized. ADDITIONAL FINDINGS: None. IMPRESSION: 1. No acute intracranial abnormality. Signer Name: Mario Lizarraga II, MD Signed: 10/20/2021 11:02 PM Workstation Name: [id number] Critical care attestation.: If time is entered above; I have spent that time in minutes in the direct care of this critically ill patient, excluding procedure time. ED Disposition Clinical Impression: History of syncope, Hypokalemia, Hypomagnesemia, Debility Disposition: 30 STILL A PATIENT Is pt being admited?: No Does the pt Need Aspirin: No Condition: Good Additional Instructions: Do not drive or operate motor vehicles for the next 6 months, or until cleared to do so by her primary care doctor or emt. Rest, avoid heavy lifting, and avoid strenuous physical activity. Please follow-up with an outpatient primary care doctor or emt within the next week. Advance diet as tolerated, and take the potassium, magnesium, and multivitamin supplementation as directed. Please continue current outpatient medications otherwise. Please return to the emergency room right away with new pain, worsened pain, migration of pain, projectile vomiting, change in mental status, confusion, inab ility tolerate liquid feeds, new, worsened or different symptoms not present on the initial emergency room evaluation Referrals: ALYSSA RIVERS MD [Primary Care Provider] - 3-5 Days
[2021-10-21 00:05] LABS: Basophils % (Auto) 0.9 % (0.0-1.8); Eosinophils # (Auto) 0.1 K/mm3 (0.0-0.4); Eosinophils % (Auto) 1.1 % (0.0-4.3); Hematocrit 33.3 % (35.5-45.6); Hemoglobin 11.6 gm/dl (11.8-15.2); Lymphocytes # (Auto) 1.4 K/mm3 (1.2-5.4); Lymphocytes % (Auto) 25.6 % (13.4-35.0); Mean Corpuscular HGB Conc 35 % (32-34); Mean Corpuscular Volume 95 fl (84-94); Monocytes # (Auto) 0.8 K/mm3 (0.0-0.8); Monocytes % (Auto) 14.7 % (0.0-7.3); Platelet Count 143 K/mm3 (140-440); Red Blood Count 3.52 M/mm3 (3.65-5.03); Red Cell Distribution Width 14.5 % (13.2-15.2)
--- NOTE | 2021-10-21 00:06 | Cat Scan Report ---
CT HEAD WITHOUT CONTRAST INDICATION / CLINICAL INFORMATION: Syncope, uncertain of close head injury or loss of. TECHNIQUE: CT head was performed without administration of intravenous contrast. All CT scans at this location are performed using CT dose reduction for ALARA by means of automated exposure control. COMPARISON: CT head 07/08/2021 FINDINGS: CEREBRAL HEMISPHERES: Generalized atrophy and bilateral regions of periventricular white matter hypoa ttenuation compatible with microvascular ischemia are demonstrated. No midline shift. Basal cisterns patent. HEMORRHAGE: None. CEREBELLUM / BRAINSTEM: No significant abnormality. ORBITS: No significant abnormality. SOFT TISSUES: No significant abnormality. SKULL: No significant abnormality. PARANASAL SINUSES / MASTOID AIR CELLS: Normal as visualized. ADDITIONAL FINDINGS: None. IMPRESSION: 1. No acute intracranial abnormality. Signer Name: Mario Lizarraga II, MD Signed: 10/21/2021 12:02 AM Workstation Name: [id number]
[2021-10-21 00:16] LABS: INR 1.03 (0.87-1.13)
[2021-10-21 00:19] LABS: Alanine Aminotransferase 21 units/L (7-56); Albumin 2.9 g/dL (3.9-5); Blood Urea Nitrogen 7 mg/dL (9-20); Calcium 9.1 mg/dL (8.4-10.2); Hemolysis Index 7
[2021-10-21 00:29] LABS: BUN/Creatinine Ratio 10
[2021-10-21] MEDS ORDERED: POTASSIUM CHLORIDE ER 20 MEQ TAB PO ONE (00:43)
[2021-10-21] MEDS ORDERED: MAGNESIUM OXIDE 400 MG TAB PO STA (01:07)
[2021-10-21 10:06] VITALS: BP 139/73
--- NOTE | 2021-10-21 13:50 | Electrocardiograph Report ---
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
== END 2021-10-21 15:53 | disposition still patient (30) ==
LOC: ED 22:49
DX: R55 Syncope and collapse (principal); E87.6 Hypokalemia; E83.42 Hypomagnesemia; R53.81 Other malaise; I13.0 Hypertensive heart and chronic kidney disease with heart failure and stage 1 through stage 4 chronic kidney disease, or unspecified chronic kidney disease; E11.22 Type 2 diabetes mellitus with diabetic chronic kidney disease; N18.9 Chronic kidney disease, unspecified; I50.9 Heart failure, unspecified; N17.9 Acute kidney failure, unspecified; R56.9 Unspecified convulsions; K21.9 Gastro-esophageal reflux disease without esophagitis; F31.9 Bipolar disorder, unspecified; F20.9 Schizophrenia, unspecified; K76.9 Liver disease, unspecified; I48.91 Unspecified atrial fibrillation; G62.9 Polyneuropathy, unspecified; Z98.890 Other specified postprocedural states
CPT/HCPCS: 36415; 70450; 80053; 80162; 80320; 82140; 82270; 82550; 83735; 84484; 85025; 85610; 93005; 99285; G0480

== ENCOUNTER 2021-12-11 02:56 | Emergency (ER) | payer MEDICARE ==
[2021-12-11] MEDS ORDERED: SODIUM CHLORIDE 0.9% 500 ML 500 ML IV ONE (04:04)
--- NOTE | 2021-12-11 04:45 | XRay Report ---
CHEST 1 VIEW INDICATION / CLINICAL INFORMATION: Syncope. COMPARISON: Chest x-ray 10/05/2021 FINDINGS: SUPPORT DEVICES: Stable positioning of cardiac pacemaker. HEART / MEDIASTINUM: Stable interval appearance of the cardiomediastinal silhouette. LUNGS / PLEURA: Right lung clear for degree of inspiration. Worsened atelectasis left lung base sugge sted. Upper left lung clear. BONES: No significant osseous abnormality. ADDITIONAL FINDINGS: No significant additional findings. IMPRESSION: 1. Worsening atelectasis left lung base. Interval decrease in lung volumes bilaterally. Signer Name: Mario Lizarraga II, MD Signed: 12/11/2021 4:41 AM Workstation Name: [id number]
[2021-12-11 05:06] LABS: Basophils # (Auto) 0.2 K/mm3 (0.0-0.1); Eosinophils # (Auto) 0.1 K/mm3 (0.0-0.4); Eosinophils % (Auto) 2.4 % (0.0-4.3); Hematocrit 34.7 % (35.5-45.6); Hemoglobin 11.2 gm/dl (11.8-15.2); Lymphocytes # (Auto) 1.3 K/mm3 (1.2-5.4); Lymphocytes % (Auto) 25.6 % (13.4-35.0); Mean Corpuscular HGB Conc 32 % (32-34); Mean Corpuscular Volume 100 fl (84-94); Monocytes # (Auto) 0.7 K/mm3 (0.0-0.8); Monocytes % (Auto) 13.8 % (0.0-7.3); Platelet Count 110 K/mm3 (140-440); Red Blood Count 3.49 M/mm3 (3.65-5.03); Red Cell Distribution Width 16.7 % (13.2-15.2)
[2021-12-11 05:25] LABS: Creatine Kinase MB 1.2 ng/mL (0.0-4.0)
[2021-12-11 05:26] LABS: Alanine Aminotransferase 30 units/L (7-56); Albumin 2.9 g/dL (3.9-5); Blood Urea Nitrogen 7 mg/dL (9-20); Calcium 8.1 mg/dL (8.4-10.2); Hemolysis Index 6
[2021-12-11 05:46] LABS: BUN/Creatinine Ratio 12
[2021-12-11] MEDS ORDERED: POTASSIUM CHLORIDE ER 20 MEQ TAB PO ONE (05:56)
--- NOTE | 2021-12-11 06:02 | Emergency Department Report ---
ED General Adult HPI - General Chief complaint: Fall Stated complaint: SYNCOPE PUI?: No Time Seen by Provider: 12/11/21 04:00 Source: patient Mode of arrival: Stretcher Limitations: No Limitations - History of Present Illness Initial comments: Stated that he woke up he was lying face down. Now reporting neck pain and body pain he thinks he stumbled over something and found himself ont he floor , feeling weak and dizzy -: Sudden, hour(s) Location: head, face Radiation: non-radiation Quality: aching Consistency: constant Worsens with: none Associated Symptoms: weakness. denies: denies other symptoms, confusion, chest pain Treatments Prior to Arrival: none - Related Data Home Medications Medication Instructions Recorded Confirmed Last Taken Atorvastatin [Lipitor] 40 mg PO QDAY 08/27/13 07/08/21 03/12/21 19:00 Divalproex ER [Depakote ER] 2,500 mg PO QHS 08/27/13 07/08/21 3 Days Ago ~07/05/21 FLUoxetine [PROzac] 20 mg PO QDAY 08/27/13 07/08/21 3 Days Ago ~07/05/21 Sitagliptin Phosphate [Januvia] 100 mg PO QDAY 07/19/19 07/08/21 03/12/21 dilTIAZem HCl [Diltiazem 24Hr ER 120 mg PO QDAY 07/19/19 07/08/21 07/06/21 (Xr)] 120 Losartan [Cozaar] 50 mg PO QDAY 07/08/21 07/08/21 3 Days Ago ~07/05/21 Previous Rx's Medication Instructions Recorded Last Taken Type Ondansetron [Zofran ODT TAB] 8 mg PO Q8HR #20 tab.rapdis 05/19/21 3 Days Ago Rx ~07/05/21 Ondansetron [Zofran ODT TAB] 4 mg PO Q8HR PRN #14 tab.rapdis 05/27/21 Unknown Rx Pantoprazole [Protonix TAB] 40 mg PO BID #60 tablet 05/27/21 3 Days Ago Rx ~07/05/21 chlordiazePOXIDE [Librium] 25 mg PO Q6H PRN #25 capsule 05/27/21 Unknown Rx Apixaban [Eliquis] 2.5 mg PO Q12HR 30 Days #60 tablet 07/13/21 Unknown Rx HYDROcodone/APAP 5-325 [Vincent 1 each PO Q6HR PRN #15 tablet 10/06/21 Unknown Rx 5/325] Magnesium Oxide [Mag-Ox] 400 mg PO QDAY #30 tab 10/21/21 Unknown Rx Multivitamin with Folic Acid [[facility] 400 mcg PO QDAY #30 tablet 10/21/21 Unknown Rx One Daily Essential Tablet] Potassium Chloride [K-Dur] 20 meq PO QDAY #30 tab 10/21/21 Unknown Rx Allergies Allergy/AdvReac Type Severity Reaction Status Date / Time No Known Allergies Allergy Verified 10/21/21 07:56 ED Review of Systems ROS: Stated complaint: SYNCOPE Other details as noted in HPI Constitutional: denies: chills, fever Eyes: denies: eye pain, eye discharge, vision change ENT: denies: ear pain, throat pain Respiratory: denies: cough, shortness of breath, wheezing Cardiovascular: denies: chest pain, palpitations Endocrine: no symptoms reported Gastrointestinal: denies: abdominal pain, nausea, diarrhea Genitourinary: denies: urgency, dysuria Musculoskeletal: denies: back pain, joint swelling, arthralgia Skin: denies: rash, lesions Neurological: denies: headache, weakness, paresthesias Psychiatric: denies: anxiety, depression Hematological/Lymphatic: denies: easy bleeding, easy bruising ED Past Medical Hx - Past Medical History Previous Medical History?: Yes Hx Hypertension: Yes Hx Heart Attack/AMI: Yes (Heart attack ~2 years ago) Hx Congestive Heart Failure: Yes (Hx mild CHF) Hx Diabetes: Yes Hx Pulmonary Embolism: Yes Hx GERD: Yes Hx Renal Disease: Yes (VELIA) Hx Sickle Cell Disease: No Hx Seizures: Yes Hx Psychiatric Treatment: Yes (bipolar,schiz) Hx Asthma: No Hx COPD: No Additional medical history: herniated disc,neuropathy,concussions x2, shoulder dilocations,LIVER DISEASE/cirrhosis. GI bleed, AFIB - Surgical History Past Surgical History?: Yes Hx Pacemaker: Yes (Dual-chamber pacemaker placed July 12, 2021) Hx Cholecystectomy: Yes - Social History Smoking Status: Current Every Day Smoker Substance Use Type: None - Medications Home Medications: Home Medications Medication Instructions Recorded Confirmed Last Taken Type Atorvastatin [Lipitor] 40 mg PO QDAY 08/27/13 07/08/21 03/12/21 19:00 History Divalproex ER [Depakote ER] 2,500 mg PO QHS 08/27/13 07/08/21 3 Days Ago History ~07/05/21 FLUoxetine [PROzac] 20 mg PO QDAY 08/27/13 07/08/21 3 Days Ago History ~07/05/21 Sitagliptin Phosphate [Januvia] 100 mg PO QDAY 07/19/19 07/08/21 03/12/21 History dilTIAZem HCl [Diltiazem 24Hr ER 120 mg PO QDAY 07/19/19 07/08/21 07/06/21 History (Xr)] 120 Ondansetron [Zofran ODT TAB] 8 mg PO Q8HR #20 tab.rapdis 05/19/21 07/08/21 3 Days Ago Rx ~07/05/21 Ondansetron [Zofran ODT TAB] 4 mg PO Q8HR PRN #14 tab.rapdis 05/27/21 07/08/21 Unknown Rx Pantoprazole [Protonix TAB] 40 mg PO BID #60 tablet 05/27/21 07/08/21 3 Days Ago Rx ~07/05/21 chlordiazePOXIDE [Librium] 25 mg PO Q6H PRN #25 capsule 05/27/21 07/08/21 Unknown Rx Losartan [Cozaar] 50 mg PO QDAY 07/08/21 07/08/21 3 Days Ago History ~07/05/21 Apixaban [Eliquis] 2.5 mg PO Q12HR 30 Days #60 tablet 07/13/21 Unknown Rx HYDROcodone/APAP 5-325 [Vincent 1 each PO Q6HR PRN #15 tablet 10/06/21 Unknown Rx 5/325] Magnesium Oxide [Mag-Ox] 400 mg PO QDAY #30 tab 10/21/21 Unknown Rx Multivitamin with Folic Acid [[facility] 400 mcg PO QDAY #30 tablet 10/21/21 Unknown Rx One Daily Essential Tablet] Potassium Chloride [K-Dur] 20 meq PO QDAY #30 tab 10/21/21 Unknown Rx ED Physical Exam - General Limitations: No Limitations General appearance: alert, in no apparent distress - Head Head exam: Present: atraumatic, normocephalic - Eye Eye exam: Present: normal appearance - ENT ENT exam: Present: mucous membranes moist - Neck Neck exam: Present: normal inspection - Respiratory Respiratory exam: Present: normal lung sounds bilaterally. Absent: respiratory distress - Cardiovascular Cardiovascular Exam: Present: regular rate, normal rhythm. Absent: systolic murmur, diastolic murmur, rubs, gallop - GI/Abdominal GI/Abdominal exam: Present: soft, normal bowel sounds - Rectal Rectal exam: Present: deferred - Extremities Exam Extremities exam: Present: normal inspection - Back Exam Back exam: Present: normal inspection - Neurological Exam Neurological exam: Present: alert, oriented X3 - Psychiatric Psychiatric exam: Present: normal affect, normal mood - Skin Skin exam: Present: warm, dry, intact, normal color. Absent: rash ED Course Vital Signs 12/11/21 02:56 Temperature 98 F Pulse Rate 72 Respiratory 18 Rate Blood Pressure 103/75 O2 Sat by Pulse 98 Oximetry ED Medical Decision Making - Lab Data Result diagrams: 12/11/21 04:34 12/11/21 04:34 - EKG Data -: EKG Interpreted by Vt EKG shows normal: sinus rhythm - EKG Data Interpretation: LVH, other (AICD , LBBB) - Radiology Data Radiology results: report reviewed, image reviewed - Medical Decision Making fluids given potassium asking for pain meds denied Critical care attestation.: If time is entered above; I have spent that time in minutes in the direct care of this critically ill patient, excluding procedure time. ED Disposition Clinical Impression: Weakness, Fall, Hypokalemia Disposition: HOME / SELF CARE / HOMELESS Is pt being admited?: Yes Does the pt Need Aspirin: No Condition: Stable
[2021-12-11 06:42] VITALS: BP 118/62
[2021-12-11] MEDS ORDERED: IBUPROFEN 600 MG TAB PO ONE (08:07)
--- NOTE | 2021-12-14 09:45 | Electrocardiograph Report ---
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 : 1960 Requested By: PHILLIP GUNN Order Number: [id number] Reading MD: Juan Long Measurements Intervals [place] Rate: 63 P: 96 CA: 89 QRS: 132 QRSD: 168 T: -41 QT: 467 QTc: 469 Interpretive Statements paced rhtym and Sinus rhythm Atrial premature complex Left bundle branch block ST elevation secondary to IVCD Compared to ECG 10/20/2021 23:11:58 Atrial premature complex(es) now present Left bundle-branch block now present Intraventricular conduction delay now present ST (T wave) deviation now present Ventricular-paced complex(es) or rhythm no longer present Electronically Signed On 12-14-2021 9:45:20 EDT by Juan Long
== END 2021-12-11 09:04 | disposition home or self-care (01) ==
LOC: ED 02:56
DX: E87.6 Hypokalemia (principal); R53.1 Weakness; R55 Syncope and collapse; I11.0 Hypertensive heart disease with heart failure; I50.9 Heart failure, unspecified; E11.9 Type 2 diabetes mellitus without complications; K21.9 Gastro-esophageal reflux disease without esophagitis; F31.9 Bipolar disorder, unspecified; Z90.49 Acquired absence of other specified parts of digestive tract; Z79.899 Other long term (current) drug therapy; Z79.01 Long term (current) use of anticoagulants; W18.39XA Other fall on same level, initial encounter; Y93.89 Activity, other specified; Y92.89 Other specified places as the place of occurrence of the external cause; Y99.8 Other external cause status
CPT/HCPCS: 36415; 71045; 80053; 82010; 82550; 82553; 83880; 84484; 85025; 93005; 96360; 96361; 99284

== ENCOUNTER 2021-12-16 13:56 | Emergency (ER) | payer MEDICARE ==
[2021-12-16 14:36] VITALS: BP 136/70
== END 2021-12-17 01:43 | disposition left against medical advice (07) ==
LOC: ED 13:56
DX: R42 Dizziness and giddiness (principal); Z53.21 Procedure and treatment not carried out due to patient leaving prior to being seen by health care provider